=== PATIENT | female | born 1960 | race Caucasian/White ===

== ENCOUNTER 2023-02-10 14:51 | Emergency (ER) | payer OTHER ==
--- OUTSIDE RECORDS SUMMARY | 2023-02-10 14:59 | XMS REPORT | Continuity of Care Document ---
:1960 Author Organization [facility] t Address [address] [place] [address] [place] [id number] Care Team Providers Name Role Phone Luca Lowe MD Primary Care Physician Eloina Garzon Attending Clinician Unavailable Debbie Aggarwal Attending Clinician Unavailable Elena Zaldivar Attending Clinician Unavailable CEM SHELTON Attending Clinician Unavailable BRADY LAMA Attending Clinician Unavailable SALVADOR KO Attending Clinician Unavailable Kadeem Murdock Attending Clinician Unavailable Provider, [facility] Attending Clinician Unavailable Susana Enamorado Attending Clinician SUSANA LANZA Attending Clinician Unavailable Petey Miller MD Attending Clinician Lab, [facility] Pob I Attending Clinician Unavailable Ariane Shaffer Attending Clinician Sarkis Duncan Attending Clinician Unavailable BRITTANY KAPADIA Attending Clinician Unavailable Brittany Kapadia MD Attending Clinician Pob, [facility] Main Attending Clinician Unavailable Amanda Parr MD Attending Clinician AMANDA PARR Attending Clinician Unavailable Doctor Unassigned, [place] Attending Clinician Unavailable JOSE WEI Attending Clinician Unavailable Vinay Garcia MD Attending Clinician Jose Wei MD Attending Clinician DAKSHA ARAUJO Attending Clinician Unavailable SANDRA FREY Attending Clinician Unavailable Physician, No Primary or Family Admitting Clinician Unavailken Zaldivar Musaddiq Admitting Clinician Unavailable SALVADOR KO Admitting Clinician Unavailable Debbie Aggarwal Admitting Clinician Unavailable Luca Lowe Admitting Clinician Unavailable BRITTANY KAPADIA Admitting Clinician Unavailable JOSE WEI Admitting Clinician Unavailable Jose Wei MD Admitting Clinician DAKSHA ARAUJO Admitting Clinician Unavailable Payers Payer Name Policy Type Policy Number Effective Date Expiration Date S ource Problems Condition Condition Condition Status Onset Resolution Last Treating Co mments Source Name Details Category Date Date Treatment Clinician Date Hypokalemi Hypokalemi Disease Active 2020-0 U nivers a a 2-21 ity of 00:00: [address] Edema Edema Disease Active 2020-0 Univers 2-21 ity of 00:: [address] Acute on Acute on Disease Active 2020-0 Unive rs chronic chronic 2-21 [place] diastolic [place] congest[place] dical heart heart Branch failure failure Diarrhea Diarrhea Disease Active 2020-0 Unive rs 2-21 ity of 00:00: [address] Morbid Morbid Disease Active 2020-0 Univers obesity obesity 2-21 ity of 00:00: [address] Cough Cough Disease Active 2020-0 Univers 2-21 ity of 00:00: [place] [facility] PAF PAF Disease Active Univers (paroxysma (paroxysma 2-21 it y of l atrial l atrial 00:00: [place] fibrillati fibrillati 00 Me dical on) on) Branch Anemia Anemia Disease Active Univers 2-21 ity of 00:00: [place] [facility] Dyspnea Dyspnea Disease Active Univers 2-20 ity of 00:00: [place] [facility] Morbid Morbid Disease Active Univers obesity obesity 2-20 ity of with body with body 00:[place] mass index mass index 00 Me dical of of Branch 40.0-49.9 40.0-49.9 Internal Internal Disease Active 2018-06 Meth[facility] di derangemen derangemen 07-15 st t of right t of right 00:00: [facility] knee knee 00 l Open wound Open wound Disease Active 2018-06 M ethodi of right of right 07-15 st knee knee 00:00: Hospita 00 l Right foot Right foot Disease Active 2018-06 M ethodi injury injury 07-15 st 00:00: Hospita 00 l Internal Internal Disease Active 2018-06 Metho di derangemen derangemen 07-15 st t of right t of right 00:00: [facility] knee knee 00 l Ambulatory Ambulatory Disease Active 2019- M ethodi dysfunctio dysfunctio 07-14 st n n 00:00: Hospita 00 l Atrial Atrial Disease Active Methodi fibrillati fibrillati 09-20 st on on 00:00: Hospita 00 l Acquired Acquired Disease Active Metho di hypothyroi hypothyroi 09-20 st dism dism 00:00: Hospita 00 l Osteoporos Osteoporos Disease Active 2019 M ethodi is is 09-20 st 00:00: Hospita 00 l Dysuria Dysuria Disease Active 2015-06 Univers 2-12 ity of 00:00: [place] [facility] Vitamin D Vitamin D Disease Active 2015-06 Uni vers deficiency deficiency 2-12 it y of 00:00: [place] [facility] 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 adhesive DA Active MO 2020-0 [facility] 01-11 Clear 00:00: [place] [facility] adhesive DA Active MO rash 2020- [facility] 01-11 [place] 00:00: d [facility] hydrocod DA Active SV 2020- [facility] one 7 Clear 00:00: [place] [facility] acetamin DA Active SV [facility] ophen 01-07 Clear 00:00: [place] [address] [facility] hydrocod DA Active SV ITCHING [facility] one 01-07 [place] 00:00: d [facility] acetamin DA Active SV ITCHING [facility] ophen 01-07 [place] 00:00: d [facility] Sulfa Propensi Active Itching 2020- Univers (Sulfona ty to 2-20 ity of mide adverse 00:00: [place] Antibiot reaction 00 Medic l ics) s Branch SULFA Drug Active High ITCHING 2020- Univers (SULFONA Class 2-20 ity of MIDE 00:00: [place] ANTIBIOT 00 Medical ICS) Branch Sulfa DA Active U ITCHING 2019- [facility] (Sulfona 8-07 Clear mide 00:00: [place] Antibiot 00 [facility] CEPHALEX DRUG Active Unknown-Cmnt 2020-0 Un carlos IN INGREDI 2-20 ity of 00:00: [place] [facility] Cephalex Propensi Active Unknown - 2020-0 Uni vers in ty to See comments 2-20 ity of adverse 00:00: [place] reaction 00 Medical s to Branch drug Cephalex Propensi Active Itching 2018-06 Metho di in ty to 07-14 st adverse 00:00: Hospita reaction 00 l s to drug Sulfa DA Active [facility] narcotic Allergy Active [facility] Family History Family Member Diagnosis Comments Start Date Stop Date Source Natural brother Hypertension [facility] Natural brother Arthritis [facility] Natural father Cancer [facility] Natural mother Arthritis [facility] Natural mother Gout [facility] Natural mother Heart disease [facility] Natural mother Hypertension [facility] Natural sister Hypertension [facility] Social History Social Habit Start Date Stop Date Quantity Comments Source Gender identity 2022-05-27 Identifies as Method ist 13:27:12 female gender Hospital (finding) Exposure to Not sure University of SARS-CoV-2 (event) [facility] Branch Sexual orientation [facility] Hospital History SDOH [facility] Alcohol Comment Hospital History SDOH [facility] Alcohol Std Drinks Hospit al History SDOH [facility] Alcohol Binge Hospital History of Social 2022-09-21 2022-09-[address] function 00:00:00 00:00:00 Hospital Tobacco use and 2020-08-08 2020-08-08 Never used Universit y of exposure 00:00:00 00:00:00 [place] [facility] Social History 2019-12-28 2019-12-28 [facility] ermann 04:59:59 04:59:59 History SDLA 2019-08-09 2019-08-09 5 University o f Financial 00:00:00 00:00:00 [place] [facility] History SDLA Food 2019-08-09 2019-08-09 1 Univers ity of Worry 00:00:00 00:00:00 [place] [facility] History SDLA Food 2019-08-09 2019-08-09 1 Univers ity of Scarcity 00:00:00 00:00:00 [place] [facility] History SDOH 2019-08-09 2019-08-09 2 University o f Transport Med 00:00:00 00:00:00 [place] [facility] History SDLA 2019-08-09 2019-08-09 2 University o f Transport Non-Med 00:00:00 00:00:00 [place] M edical [facility] History SDLA 2019-08-08 2019-08-08 21 University o f Education 00:00:00 00:00:00 [place] [facility] History SDOH 2019-05-15 2019-05-15 1 [employer] Alcohol Frequency 00:00:00 00:00:00 Hospita l Alcohol intake 2019-05-14 2019-05-14 Current [employer] 00:00:00 00:00:00 non-drinker of Hospital alcohol (finding) Sex Assigned At [birth year] F [employer] 00:00:00 00:00:00 Hospital Smoking Status Start Date Stop Date Source Never smoker [facility] Medications Ordered Filled Start Stop Current Ordering Indication Dosage Frequency Signature Comments Components Source Medication Medication Date Date Medication? Clinician (SIG) Name Name apixaban Yes 5mg Take 5 mg Univ ers (ELIQUIS) 2-20 by mouth 2 ity of 2.5 mg 23:29: (two) [place] tablet 13 times Medical daily. Branch omeprazole Yes 20mg Take 20 mg U nivers 20 mg 2-20 by mouth ity of capsule 23:29: daily. [address] apixaban Yes 5mg Take 5 mg Univ ers (ELIQUIS) 2-20 by mouth 2 ity of 2.5 mg 23:29: (two) [place] tablet 13 times Medical daily. Branch omeprazole Yes 20mg Take 20 mg U nivers 20 mg 2-20 by mouth ity of capsule 23:29: daily. [address] apixaban Yes 5mg Take 5 mg Univ ers (ELIQUIS) 2-20 by mouth 2 ity of 2.5 mg 23:29: (two) [place] tablet 13 times Medical daily. Branch omeprazole Yes 20mg Take 20 mg U nivers 20 mg 2-20 by mouth ity of capsule 23:29: daily. [address] metoprolol Yes TAKE 1 Unive rs tartrate 1-22 TABLET BY ity of 100 mg 00:00: MOUTH [place] tablet 00 EVERY DAY Medical TWICE A Branch DAY WITH FOOD digoxin 125 Yes 125ug Take 125 U nivers mcg (0.125 1-22 mcg by ity of mg) tablet 00:00: mouth [place] 00 daily. [facility] metoprolol Yes TAKE 1 Unive rs tartrate 1-22 TABLET BY ity of 100 mg 00:00: MOUTH [place] tablet 00 EVERY DAY Medical TWICE A Branch DAY WITH FOOD digoxin 125 Yes 125ug Take 125 U nivers mcg (0.125 1-22 mcg by ity of mg) tablet 00:00: mouth [place] 00 daily. [facility] Branch metoprolol Yes TAKE 1 Unive rs tartrate 1-22 TABLET BY ity of 100 mg 00:00: MOUTH [place] tablet 00 EVERY DAY Medical TWICE A Branch DAY WITH FOOD digoxin 125 Yes 125ug Take 125 U nivers mcg (0.125 1-22 mcg by ity of mg) tablet 00:00: mouth [place] 00 daily. Medical Branch barium 2019- No 680g 680 g, Univers sulfate 11-11 Oral, ity of (LIQUID E-Z 17:30: 16:35 ONCE, 1 [place] SALGADO) 60 % 00 :00 dose, Tue Med ical (w/v) oral 11/12/19 at [facility] suspension 1230, 680 g Routine sod 2019- No 1{packe 1 Packet, Univ ers bicarb-citr 11-11 t} Oral, ity of ic 16:15: 16:20 ONCE, 1 [place] ac-simeth 00 :00 dose, Tue Medic al (E-Z-GAS 11/12/[address] [facility] h II) 1115, 2.21-1.53 Routine gram/4 gram packet 1 Packet apixaban 2020-0 Yes 5mg Take 5 mg Univ ers (ELIQUIS) 2-22 by mouth 2 ity of 2.5 mg 19:10: (two) [place] tablet 37 times Medical daily. Branch omeprazole 2020-0 Yes 20mg Take 20 mg U nivers 20 mg 2-22 by mouth ity of capsule 19:10: daily. [address] apixaban 2020-0 Yes 5mg Take 5 mg Univ ers (ELIQUIS) 2-22 by mouth 2 ity of 2.5 mg 19:10: (two) [place] tablet 37 times Medical daily. Branch omeprazole 2020-0 Yes 20mg Take 20 mg U nivers 20 mg 2-22 by mouth ity of capsule 19:10: daily. [address] apixaban 2020-0 Yes 5mg Take 5 mg Univ ers (ELIQUIS) 2-22 by mouth 2 ity of 2.5 mg 19:10: (two) [place] tablet 37 times Medical daily. Branch omeprazole 2020-0 Yes 20mg Take 20 mg U nivers 20 mg 2-22 by mouth ity of capsule 19:10: daily. [address] apixaban 2020-0 Yes 5mg Take 5 mg Univ ers (ELIQUIS) 2-22 by mouth 2 ity of 2.5 mg 19:10: (two) [place] tablet 37 times Medical daily. Branch omeprazole 2020-0 Yes 20mg Take 20 mg U nivers 20 mg 2-22 by mouth ity of capsule 19:10: daily. [address] apixaban 2020-0 Yes 5mg Take 5 mg Univ ers (ELIQUIS) 2-22 by mouth 2 ity of 2.5 mg 19:10: (two) [place] tablet 37 times Medical daily. Branch omeprazole 2020-0 Yes 20mg Take 20 mg U nivers 20 mg 2-22 by mouth ity of capsule 19:10: daily. [address] apixaban 2020-0 Yes 5mg Take 5 mg Univ ers (ELIQUIS) 2-22 by mouth 2 ity of 2.5 mg 19:10: (two) [place] tablet 37 times Medical daily. Branch omeprazole 2020-0 Yes 20mg Take 20 mg U nivers 20 mg 2-22 by mouth ity of capsule 19:10: daily. [address] losartan 50 2020-0 2020- No 50mg Take 50 mg Univers mg tablet 08-10 by mouth ity o f 17:29: 00:00 daily. [place] 25 :00 [facility] Branch FUROSEMIDE 2020-0 2020- No 40mg Take 40 mg Univers ORAL -10 08- by mouth ity of 17:29: 00:00 every 24 [place] 25 :00 (twenty-fo Medical ur) hours Branch as needed (Bilateral leg swelling). levothyroxi 2020-0 Yes 25ug 25 mcg, Uni vers ne -22 Oral, ity of (SYNTHROID) 12:00: QAM-0600, [place] tablet 25 00 First dose Medi xavier mcg on Sat Branch 08/10/19 at 0600, Until Discontinu ed, Routine levothyroxi 2020-0 Yes [id number] 25ug Take 1 Univers ne 25 mcg 2-22 tablet by ity o f tablet 00:00: mouth [place] 00 every Medical morning. Branch atenoloL 25 2020-0 Yes [id number] 12.5mg Take 0.5 Univers mg tablet 2-22 tablets by ity of 00:00: mouth [place] 00 daily. Medical Branch KCL 20 mEq 2020-0 Yes [id number] 20meq Take 1 Univers tablet 2-22 tablet by ity of 00:00: mouth [place] 00 daily. Medical Branch ipratropium 2020-0 Yes [id number] 2{puff} Inhale 2 Univers 17 2-22 Puffs 4 ity of mcg/actuati 00:00: (four) [place] inhaler 00 times Medical daily. Branch furosemide 2020-0 Yes [id number] 40mg Take 1 Univers 40 mg 2-22 tablet by ity of tablet 00:00: mouth [place] 00 daily. Medical Branch levothyroxi 2020-0 Yes [id number] 25ug Take 1 Univers ne 25 mcg 2-22 tablet by ity o f tablet 00:00: mouth [place] 00 every Medical morning. Branch atenoloL 25 2019-0 Yes [id number] 12.5mg Take 0.5 Univers mg tablet 2-22 tablets by ity of 00:00: mouth [place] 00 daily. Medical Branch KCL 20 mEq 2020-0 Yes [id number] 20meq Take 1 Univers tablet 2-22 tablet by ity of 00:00: mouth [place] 00 daily. Medical Branch ipratropium 2019-0 Yes [id number] 2{puff} Inhale 2 Univers 17 2-22 Puffs 4 ity of mcg/actuati 00:00: (four) [place] inhaler 00 times Medical daily. Branch furosemide 2020-0 Yes [id number] 40mg Take 1 Univers 40 mg 2-22 tablet by ity of tablet 00:00: mouth [place] 00 daily. Medical Branch levothyroxi 2020-0 Yes [id number] 25ug Take 1 Univers ne 25 mcg 2-22 tablet by ity o f tablet 00:00: mouth [place] 00 every Medical morning. Branch atenoloL 25 2019-0 Yes [id number] 12.5mg Take 0.5 Univers mg tablet 2-22 tablets by ity of 00:00: mouth [place] 00 daily. Medical Branch KCL 20 mEq 2020-0 Yes [id number] 20meq Take 1 Univers tablet 2-22 tablet by ity of 00:00: mouth [place] 00 daily. Medical Branch ipratropium 2020-0 Yes [id number] 2{puff} Inhale 2 Univers 17 2-22 Puffs 4 ity of mcg/actuati 00:00: (four) [place] on inhaler 00 times Medical daily. Branch furosemide 2020-0 Yes [id number] 40mg Take 1 Univers 40 mg 2-22 tablet by ity of tablet 00:00: mouth [place] 00 daily. Medical Branch levothyroxi 2020-0 Yes [id number] 25ug Take 1 Univers ne 25 mcg 2-22 tablet by ity o f tablet 00:00: mouth [place] 00 every Medical morning. Branch atenoloL 25 2019-0 Yes [id number] 12.5mg Take 0.5 Univers mg tablet 2-22 tablets by ity of 00:00: mouth [place] 00 daily. Medical Branch KCL 20 mEq 2020-0 Yes [id number] 20meq Take 1 Univers tablet 2-22 tablet by ity of 00:00: mouth [place] 00 daily. Medical Branch ipratropium 2020-0 Yes [id number] 2{puff} Inhale 2 Univers 17 2-22 Puffs 4 ity of mcg/actuati 00:00: (four) [place] on inhaler 00 times Medical daily. Branch furosemide 2019-0 Yes [id number] 40mg Take 1 Univers 40 mg 2-22 tablet by ity of tablet 00:00: mouth [place] 00 daily. Medical Branch levothyroxi 2019-0 Yes [id number] 25ug Take 1 Univers ne 25 mcg 2-22 tablet by ity o f tablet 00:00: mouth [place] 00 every Medical morning. Branch atenoloL 25 2019-0 Yes [id number] 12.5mg Take 0.5 Univers mg tablet 2-22 tablets by ity of 00:00: mouth [place] 00 daily. Medical Branch KCL 20 mEq 2020-0 Yes [id number] 20meq Take 1 Univers tablet 2-22 tablet by ity of 00:00: mouth [place] 00 daily. Medical Branch ipratropium 2020-0 Yes [id number] 2{puff} Inhale 2 Univers 17 2-22 Puffs 4 ity of mcg/actuati 00:00: (four) [place] on inhaler 00 times Medical daily. Branch furosemide 2020-0 Yes [id number] 40mg Take 1 Univers 40 mg 2-22 tablet by ity of tablet 00:00: mouth [place] 00 daily. Medical Branch levothyroxi 2020-0 Yes [id number] 25ug Take 1 Univers ne 25 mcg 2-22 tablet by ity o f tablet 00:00: mouth [place] 00 every Medical morning. Branch atenoloL 25 2020-0 Yes [id number] 12.5mg Take 0.5 Univers mg tablet 2-22 tablets by ity of 00:00: mouth [place] 00 daily. Medical Branch KCL 20 mEq 2020-0 Yes [id number] 20meq Take 1 Univers tablet 2-22 tablet by ity of 00:00: mouth [place] 00 daily. Medical Branch ipratropium 2020-0 Yes [id number] 2{puff} Inhale 2 Univers 17 2-22 Puffs 4 ity of mcg/actuati 00:00: (four) [place] on inhaler 00 times Medical daily. Branch furosemide 2020-0 Yes [id number] 40mg Take 1 Univers 40 mg 2-22 tablet by ity of tablet 00:00: mouth [place] 00 daily. Medical Branch levothyroxi 2019-0 Yes [id number] 25ug Take 1 Univers ne 25 mcg 2-22 tablet by ity o f tablet 00:00: mouth [place] 00 every Medical morning. Branch atenoloL 25 2019-0 Yes [id number] 12.5mg Take 0.5 Univers mg tablet 2-22 tablets by ity of 00:00: mouth [place] 00 daily. Medical Branch KCL 20 mEq 2020-0 Yes [id number] 20meq Take 1 Univers tablet 2-22 tablet by ity of 00:00: mouth [place] 00 daily. Medical Branch ipratropium 2019-0 Yes [id number] 2{puff} Inhale 2 Univers 17 2-22 Puffs 4 ity of mcg/actuati 00:00: (four) [place] on inhaler 00 times Medical daily. Branch furosemide 2020-0 Yes [id number] 40mg Take 1 Univers 40 mg 2-22 tablet by ity of tablet 00:00: mouth [place] 00 daily. Medical Branch levothyroxi 2020-0 Yes [id number] 25ug Take 1 Univers ne 25 mcg 2-22 tablet by ity o f tablet 00:00: mouth [place] 00 every Medical morning. Branch atenoloL 25 2019-0 Yes [id number] 12.5mg Take 0.5 Univers mg tablet 2-22 tablets by ity of 00:00: mouth [place] 00 daily. Medical Branch KCL 20 mEq 2020-0 Yes [id number] 20meq Take 1 Univers tablet 2-22 tablet by ity of 00:00: mouth [place] 00 daily. Medical Branch ipratropium 2020-0 Yes [id number] 2{puff} Inhale 2 Univers 17 2-22 Puffs 4 ity of mcg/actuati 00:00: (four) [place] inhaler 00 times Medical daily. Branch furosemide 2020-0 Yes [id number] 40mg Take 1 Univers 40 mg 2-22 tablet by ity of tablet 00:00: mouth [place] 00 daily. Medical Branch levothyroxi 2020-0 Yes [id number] 25ug Take 1 Univers ne 25 mcg 2-22 tablet by ity o f tablet 00:00: mouth [place] 00 every Medical morning. Branch atenoloL 25 2020-0 Yes [id number] 12.5mg Take 0.5 Univers mg tablet 2-22 tablets by ity of 00:00: mouth [place] 00 daily. Medical Branch KCL 20 mEq 2020-0 Yes [id number] 20meq Take 1 Univers tablet 2-22 tablet by ity of 00:00: mouth [place] 00 daily. Medical Branch ipratropium 2020-0 Yes [id number] 2{puff} Inhale 2 Univers 17 2-22 Puffs 4 ity of mcg/actuati 00:00: (four) [place] on inhaler 00 times Medical daily. Branch furosemide 2020-0 Yes [id number] 40mg Take 1 Univers 40 mg 2-22 tablet by ity of tablet 00:00: mouth [place] 00 daily. Medical Branch atenoloL 2020-0 Yes 25mg 25 mg, Univers (TENORMIN) 2-21 Oral, ity of tablet 25 23:00: DAILY, [place] mg 00 First dose Medical on Mon Branch 08/09/19 at 1700, Until Discontinu ed, Routine omeprazole 2020-0 Yes 20mg 20 mg, Unive rs (PRILOSEC) 2-21 Oral, ity of capsule 20 21:00: DAILY, [place] mg 00 First dose Medical on Mon Branch 08/09/19 at 1500, Until Discontinu ed, Routine furosemide 2020-0 Yes 40mg 40 mg, Unive rs (LASIX) 2-21 Slow IV ity of injection 17:30: Push, [place] 40 mg 00 Q12H, Medical First dose Branch on Mon08/09/19 at 1130, Until Discontinu ed, Routine montelukast 2020-0 Yes 10mg 10 mg, Univ ers (SINGULAIR) 08-09 Oral, ity of tablet 10 15:00: DAILY, [place] mg 00 First dose Medical on Fri Branch 08/09/19 at 0900, Until Discontinu ed, Routine ipratropium 2020-0 Yes 2{puff} 2 Puff, Univers (ATROVENT - Inhalation ity of HFA) 14:00: , QID, [place] inhaler 2 00 First dose Medi xavier Puff on Fri Branch 08/09/19 at 0800, Until Discontinu ed, Routine levothyroxi 2019-0 2020- No 50ug 50 mcg, Un carlos ne 08-09 Oral, ity of (SYNTHROID) 12:00: 17:12 QAM-0600, [place] tablet 50 00 :33 First dose Medi xavier mcg on Mon Branch 08/09/19 at 0600, Until Discontinu ed, Routine KCL 2019-0 2020- No 60meq 60 mEq, Univers (KLOR-CON 08-09 Oral, ity of M20) tablet 08:45: 07:58 [place]CE, 1 [place] 60 mEq 00 :00 dose, [facility] Medical 08/09/19 at Branch 0245, Routine dextrometho 2020-0 Yes 5mL 5 mL, Unive rs rphan-guaif 08-09 Oral, ity of enesin 05:03: Q6HPRN, [place] (ROBITUSSIN 23 Starting Medi xavier DM) 10-100 [place] Branch mg/5 mL 08/08/19 at solution 5 2303, mL Until Discontinu ed, Routine, Cough ipratropium 2020-0 Yes .5mg 0.5 mg, Uni vers (ATROVENT) 08-09 Inhalation ity of 0.02 % 03:15: , QIDPRN, [place] nebulizer 00 Starting Medica l solution [place] 0.5 mg 08/08/19 at 2115, Until Discontinu ed, Routine, Wheezing, Shortness of Breath albuterol 2020-0 2020- No 2.5mg 2.5 mg, Uni vers (PROVENTIL) 08-09 Inhalation i ty of 2.5 mg /3 03:00: 02:23 , ONCE [place] mL (0.083 00 :00 NOW, 1 Medical %) dose, [place] Branch nebulizer 08/08/19 at solution 2100, 2.5 mg Routine apixaban 2020-0 Yes 5mg 5 mg, Univers (ELIQUIS) - Oral, BID, ity of tablet 5 mg 02:00: First dose [place] 00 on [facility] 08/08/19 at [place] 2000, Until Discontinu ed, Routine KCL 2020-0 Yes 60meq 60 mEq, Univers (KLOR-CON 08-09 Oral, BID, ity of M20) tablet 02:00: First dose [place] 60 mEq 00 on [facility] 08/08/19 at [place] 2000, Until Discontinu ed, Routine ipratropium 2020-0 2020- No .5mg 0.5 mg, Un carlos (ATROVENT) 08-09 Inhalation it y of 0.02 % 02:00: 03:02 , QID, [place] nebulizer 00 :52 First dose Medi xavier solution on [facility] 0.5 mg 08/08/19 at 2000, Until Discontinu ed, Routine potassium 2020-0 2020- No 10meq 10 mEq, IV Univers chloride in 08-09 Piggyback, i ty of water 10 01:00: 01:00 ONCE, 1 [place] mEq/100 mL 00 :00 dose, [facility] Medi xavier 10 mEq 08/08/19 at [place] piggyback 1900 acetaminoph 2020-0 Yes 650mg 650 mg, Un carlos en 08-09 Oral, ity of (TYLENOL) 00:55: Q6HPRN, [place] tablet 650 29 Starting Medic al mg [facility] 08/08/19 at 1855, Until Discontinu ed, Routine, Pain (scale 1-3) iohexol 2020-0 2020- No 120mL 120 mL, Unive rs (OMNIPAQUE 08-09 Intravenou it y of 350 00:14: 00:14 s, ONCE, 1 [place] BULK-150 00 :00 dose, Dorothy Medica l mL) 08/08/19 at [place] injection 1830, 120 mL Routine cholecalcif 2018-06 Yes 4000U QD Take 4,000 Methodi luis angel, 2-[address] vitamin D3, 19:16: mouth Hospi ta (VITAMIN 30 daily. l D3) 1,000 unit tablet triamterene 2018-06 Yes 1{tbl} QD Take 1 Me thodi -hydrochlor 2-[address] othiazid 19:16: mouth Hospita (MAXZIDE-25 30 daily. l ) 37.5-25 mg per tablet SUMAtriptan 2018-06 Yes 25mg Q24H Take 25 mg Methodi (IMITREX) 2-[address] 25 MG 19:16: daily as Hospita tablet 30 needed for l migraine. May repeat in 2 hours if unresolved . Do not exceed 200 mg in 24 hours. losartan 2018-06 Yes 50mg QD Take 50 mg Met hodi (COZAAR) 50 2-[address] MG tablet 19:16: daily. Hospit a 30 Half a tab l daily apixaban 2018-06 Yes 2.5mg Q.5D Take 2.5 Meth jazmyne (ELIQUIS) 2-[address] 2.5 mg 19:16: mouth 2 Hospita tablet 30 (two) l times a day. diphenhydrA 2018-06 Yes 25mg Q6H Take 25 mg Methodi MINE 2-[address] (BENADRYL) 19:16: every 6 Hosp eric 25 mg 30 (six) l tablet hours as needed for sleep (WITH PAIN MEDS (NORCO AND TYLENOL WITH CODEINE)). levothyroxi 2018-06 Yes 50ug QD Take 50 Met hodi ne 2-[address] (SYNTHROID, 19:16: mouth Hospi ta LEVOXYL) 50 30 every l mcg tablet morning. DULoxetine 2018-06 Yes 20mg QD Take 20 mg M ethodi (CYMBALTA) 2-[address] 20 MG 19:16: daily. [facility] capsule 30 l montelukast 2018-06 Yes 10mg QD Take 10 mg [facility] (SINGULAIR) 2-[address] 10 mg 19:16: daily. [facility]ospita tablet 30 l potassium 2018-06 Yes 10meq QD Take 10 Meth ajzmyne chloride 2-[address] (K-DUR,KLOR 19:16: mouth Hospi ta -CON) 10 30 daily. l MEQ CR tablet cholecalcif 2018-06 Yes 4000U QD Take 4,000 [facility] luis angel, 2-[address] vitamin D3, 19:16: mouth Hospi ta (VITAMIN 30 daily. l D3) 1,000 unit tablet triamterene 2018-06 Yes 1{tbl} QD Take 1 Me thodi -hydrochlor 2-[address] othiazid 19:16: mouth Hospita (MAXZIDE-25 30 daily. l ) 37.5-25 mg per tablet SUMAtriptan 2018-06 Yes 25mg Q24H Take 25 mg [facility] (IMITREX) 2-[address] 25 MG 19:16: daily as Hospita tablet 30 needed for l migraine. May repeat in 2 hours if unresolved . Do not exceed 200 mg in 24 hours. losartan 2018-06 Yes 50mg QD Take 50 mg [facility] (COZAAR) 50 2-[address] MG tablet 19:16: daily. Hospit a 30 Half a tab l daily apixaban 2018-06 Yes 2.5mg Q.5D Take 2.5 Meth jazmyne (ELIQUIS) 2-[address] 2.5 mg 19:16: mouth 2 Hospita tablet 30 (two) l times a day. diphenhydrA 2018-06 Yes 25mg Q6H Take 25 mg [facility] MINE 2-[address] (BENADRYL) 19:16: every 6 Hosp eric 25 mg 30 (six) l tablet hours as needed for sleep (WITH PAIN MEDS (NORCO AND TYLENOL WITH CODEINE)). levothyroxi 2018-06 Yes 50ug QD Take 50 Met hodi ne 2-[address] (SYNTHROID, 19:16: mouth Hospi ta LEVOXYL) 50 30 every l mcg tablet morning. DULoxetine 2018-06 Yes 20mg QD Take 20 mg M [facility] (CYMBALTA) 2-[address] 20 MG 19:16: daily. [facility]ospita capsule 30 l montelukast 2018-06 Yes 10mg QD Take 10 mg [facility] (SINGULAIR) 2-[address] 10 mg 19:16: daily. [facility]ospita tablet 30 l potassium 2018-06 Yes 10meq QD Take 10 Meth jazmyne chloride 2-[address] (K-DUR,KLOR 19:16: mouth Hospi ta -CON) 10 30 daily. l MEQ CR tablet cholecalcif 2018-06 Yes 4000U QD Take 4,000 [facility] luis angel, 2-[address] vitamin D3, 19:16: mouth Hospi ta (VITAMIN 30 daily. l D3) 1,000 unit tablet triamterene 2018-06 Yes 1{tbl} QD Take 1 Me thodi -hydrochlor 2-[address] othiazid 19:16: mouth [facility]ospita (MAXZIDE-25 30 daily. l ) 37.5-25 mg per tablet SUMAtriptan 2018-06 Yes 25mg Q24H Take 25 mg [facility] (IMITREX) 2-[address] 25 MG 19:16: daily as [facility]ospita tablet 30 needed for l migraine. May repeat in 2 hours if unresolved . Do not exceed 200 mg in 24 hours. losartan 2018-06 Yes 50mg QD Take 50 mg [facility] (COZAAR) 50 2-[address] MG tablet 19:16: daily. Hospit a 30 Half a tab l daily apixaban 2018-06 Yes 2.5mg Q.5D Take 2.5 Meth jazmyne (ELIQUIS) 2-[address] 2.5 mg 19:16: mouth 2 [facility]ospita tablet 30 (two) l times a day. diphenhydrA 2018-06 Yes 25mg Q6H Take 25 mg [facility] MINE 2-[address] (BENADRYL) 19:16: every 6 Hosp eric 25 mg 30 (six) l tablet hours as needed for sleep (WITH PAIN MEDS (NORCO AND TYLENOL WITH CODEINE)). levothyroxi 2018-06 Yes 50ug QD Take 50 Met hodi ne 2-[address] (SYNTHROID, 19:16: mouth Hospi ta LEVOXYL) 50 30 every l mcg tablet morning. DULoxetine 2018-06 Yes 20mg QD Take 20 mg [facility] (CYMBALTA) 2-[address] 20 MG 19:16: daily. [facility]osp[facility] capsule 30 l montelukast 2018-06 Yes 10mg QD Take 10 mg [facility] (SINGULAIR) 2-[address] 10 mg 19:16: daily. [facility]ospita tablet 30 l potassium 2018-06 Yes 10meq QD Take 10 Meth jazmyne chloride 2-[address] (K-DUR,KLOR 19:16: mouth Hospi ta -CON) 10 30 daily. l MEQ CR tablet cholecalcif 2018-06 Yes 4000U QD Take 4,000 [facility] luis angel, 2-[address] vitamin D3, 19:16: mouth Hospi ta (VITAMIN 30 daily. l D3) 1,000 unit tablet triamterene 2018-06 Yes 1{tbl} QD Take 1 Me thodi -hydrochlor 2-[address] othiazid 19:16: mouth [facility]ospita (MAXZIDE-25 30 daily. l ) 37.5-25 mg per tablet SUMAtriptan 2018-06 Yes 25mg Q24H Take 25 mg [facility] (IMITREX) 2-[address] 25 MG 19:16: daily as [facility]ospita tablet 30 needed for l migraine. May repeat in 2 hours if unresolved . Do not exceed 200 mg in 24 hours. losartan 2018-06 Yes 50mg QD Take 50 mg [facility] (COZAAR) 50 2-[address] MG tablet 19:16: daily. Hospit a 30 Half a tab l daily apixaban 2018-06 Yes 2.5mg Q.5D Take 2.5 Meth jazmyne (ELIQUIS) 2-[address] 2.5 mg 19:16: mouth 2 [facility]ospita tablet 30 (two) l times a day. diphenhydrA 2018-06 Yes 25mg Q6H Take 25 mg [facility] MINE 2-[address] (BENADRYL) 19:16: every 6 Hosp eric 25 mg 30 (six) l tablet hours as needed for sleep (WITH PAIN MEDS (NORCO AND TYLENOL WITH CODEINE)). levothyroxi 2018-06 Yes 50ug QD Take 50 Met hodi ne 2-[address] (SYNTHROID, 19:16: mouth Hospi ta LEVOXYL) 50 30 every l mcg tablet morning. DULoxetine 2018-06 Yes 20mg QD Take 20 mg M [facility] (CYMBALTA) 2-[address] 20 MG 19:16: daily. [facility]osp[facility] capsule 30 l montelukast 2018-06 Yes 10mg QD Take 10 mg [facility] (SINGULAIR) 2-[address] 10 mg 19:16: daily. [facility]osp[facility] tablet 30 l potassium 2018-06 Yes 10meq QD Take 10 Meth jazmyne chloride 2-[address] (K-DUR,KLOR 19:16: mouth Hospi ta -CON) 10 30 daily. l MEQ CR tablet levothyroxi 2018-06 Yes 50ug QD Take 50 Met hodi ne 2-[address] (SYNTHROID, 13:16: mouth Hospi ta LEVOXYL) 50 30 every l mcg tablet morning. DULoxetine 2018-06 Yes 20mg QD Take 20 mg [facility] (CYMBALTA) 2-[address] 20 MG 13:16: daily. [facility]osp[facility] capsule 30 l montelukast 2018-06 Yes 10mg QD Take 10 mg [facility] (SINGULAIR) 2-[address] 10 mg 13:16: daily. [facility]osp[facility] tablet 30 l potassium 2018-06 Yes 10meq QD Take 10 Meth jazmyne chloride 2-[address] (K-DUR,KLOR 13:16: mouth Hospi ta -CON) 10 30 daily. l MEQ CR tablet cholecalcif 2018-06 Yes 4000U QD Take 4,000 [facility] luis angel, 2-[address] vitamin D3, 13:16: mouth Hospi ta (VITAMIN 30 daily. l D3) 1,000 unit tablet triamterene 2018-06 Yes 1{tbl} QD Take 1 Me [facility]odi -hydrochlor 2-[address] othiazid 13:16: mouth [facility]ospita (MAXZIDE-25 30 daily. l ) 37.5-25 mg per tablet SUMAtriptan 2018-06 Yes 25mg Q24H Take 25 mg [facility] (IMITREX) 2-[address] 25 MG 13:16: daily as [facility]ospita tablet 30 needed for l migraine. May repeat in 2 hours if unresolved . Do not exceed 200 mg in 24 hours. losartan 2018-06 Yes 50mg QD Take 50 mg [facility] (COZAAR) 50 2-[address] MG tablet 13:16: daily. Hospit a 30 Half a tab l daily apixaban 2018-06 Yes 2.5mg Q.5D Take 2.5 Meth jazmyne (ELIQUIS) 2-[address] 2.5 mg 13:16: mouth 2 [facility]ospita tablet 30 (two) l times a day. diphenhydrA 2018-06 Yes 25mg Q6H Take 25 mg [facility] MINE 2-[address] (BENADRYL) 13:16: every 6 Hosp eric 25 mg 30 (six) l tablet hours as needed for sleep (WITH PAIN MEDS (NORCO AND TYLENOL WITH CODEINE)). levothyroxi 2018-06 Yes 50ug QD Take 50 Met hodi ne 2-[address] (SYNTHROID, 13:16: mouth Hospi ta LEVOXYL) 50 30 every l mcg tablet morning. DULoxetine 2018-06 Yes 20mg QD Take 20 mg [facility] (CYMBALTA) 2-[address] 20 MG 13:16: daily. [facility] capsule 30 l montelukast 2018-06 Yes 10mg QD Take 10 mg [facility] (SINGULAIR) 2-[address] 10 mg 13:16: daily. [facility]osp[facility] tablet 30 l potassium 2018-06 Yes 10meq QD Take 10 Meth jazmyne chloride 2-[address] (K-DUR,KLOR 13:16: mouth Hospi ta -CON) 10 30 daily. l MEQ CR tablet cholecalcif 2018-06 Yes 4000U QD Take 4,000 [facility] luis angel, 2-[address] vitamin D3, 13:16: mouth [facility]pi ta (VITAMIN 30 daily. l D3) 1,000 unit tablet triamterene 2018-06 Yes 1{tbl} QD Take 1 Me [facility]odi -hydrochlor 2-[address] othiazid 13:16: mouth [facility]ospita (MAXZIDE-25 30 daily. l ) 37.5-25 mg per tablet SUMAtriptan 2018-06 Yes 25mg Q24H Take 25 mg [facility] (IMITREX) 2-[address] 25 MG 13:16: daily as [facility]osp[facility] tablet 30 needed for l migraine. May repeat in 2 hours if unresolved . Do not exceed 200 mg in 24 hours. losartan 2018-06 Yes 50mg QD Take 50 mg [facility] (COZAAR) 50 2-[address] MG tablet 13:16: daily. Hospit a 30 Half a tab l daily apixaban 2018-06 Yes 2.5mg Q.5D Take 2.5 Meth jazmyne (ELIQUIS) 2-[address] 2.5 mg 13:16: mouth 2 [facility]ospita tablet 30 (two) l times a day. diphenhydrA 2018-06 Yes 25mg Q6H Take 25 mg [facility] MINE 2-[address] (BENADRYL) 13:16: every 6 Hosp eric 25 mg 30 (six) l tablet hours as needed for sleep (WITH PAIN MEDS (NORCO AND TYLENOL WITH CODEINE)). levothyroxi 2018-06 Yes 50ug QD Take 50 Met hodi ne 2-[address] (SYNTHROID, 13:16: mouth Hospi ta LEVOXYL) 50 30 every l mcg tablet morning. DULoxetine 2018-06 Yes 20mg QD Take 20 mg [facility] (CYMBALTA) 2-[address] 20 MG 13:16: daily. [facility]osp[facility] capsule 30 l montelukast 2018-06 Yes 10mg QD Take 10 mg [facility] (SINGULAIR) 2-[address] 10 mg 13:16: daily. [facility]ospita tablet 30 l potassium 2018-06 Yes 10meq QD Take 10 Meth jazmyne chloride 2-[address] (K-DUR,KLOR 13:16: mouth Hospi ta -CON) 10 30 daily. l MEQ CR tablet cholecalcif 2018-06 Yes 4000U QD Take 4,000 [facility] luis angel, 2-[address] vitamin D3, 13:16: mouth Hospi ta (VITAMIN 30 daily. l D3) 1,000 unit tablet triamterene 2018-06 Yes 1{tbl} QD Take 1 Me [facility]odi -hydrochlor 2-[address] othiazid 13:16: mouth [facility]ospita (MAXZIDE-25 30 daily. l ) 37.5-25 mg per tablet SUMAtriptan 2018-06 Yes 25mg Q24H Take 25 mg [facility] (IMITREX) 2-[address] 25 MG 13:16: daily as [facility]ospita tablet 30 needed for l migraine. May repeat in 2 hours if unresolved . Do not exceed 200 mg in 24 hours. losartan 2018-06 Yes 50mg QD Take 50 mg [facility] (COZAAR) 50 2-[address] MG tablet 13:16: daily. Hospit a 30 Half a tab l daily apixaban 2018-06 Yes 2.5mg Q.5D Take 2.5 Meth jazmyne (ELIQUIS) 2-[address] 2.5 mg 13:16: mouth 2 [facility]ospita tablet 30 (two) l times a day. diphenhydrA 2018-06 Yes 25mg Q6H Take 25 mg [facility] MINE 2-[address] (BENADRYL) 13:16: every 6 Hosp eric 25 mg 30 (six) l tablet hours as needed for sleep (WITH PAIN MEDS (NORCO AND TYLENOL WITH CODEINE)). levothyroxi 2018-06 Yes 50ug QD Take 50 Met hodi ne 2-[address] (SYNTHROID, 13:16: mouth Hospi ta LEVOXYL) 50 30 every l mcg tablet morning. DULoxetine 2018-06 Yes 20mg QD Take 20 mg [facility] (CYMBALTA) 2-[address] 20 MG 13:16: daily. [facility]osp[facility] capsule 30 l montelukast 2018-06 Yes 10mg QD Take 10 mg [facility] (SINGULAIR) 2-[address] 10 mg 13:16: daily. [facility]ospita tablet 30 l potassium 2018-06 Yes 10meq QD Take 10 Meth jazmyne chloride 2-[address] (K-DUR,KLOR 13:16: mouth Hospi ta -CON) 10 30 daily. l MEQ CR tablet cholecalcif 2018-06 Yes 4000U QD Take 4,000 [facility] luis angel, 2-[address] vitamin D3, 13:16: mouth Hospi ta (VITAMIN 30 daily. l D3) 1,000 unit tablet triamterene 2018-06 Yes 1{tbl} QD Take 1 Me [facility]odi -hydrochlor 2-[address] othiazid 13:16: mouth [facility]ospita (MAXZIDE-25 30 daily. l ) 37.5-25 mg per tablet SUMAtriptan 2018-06 Yes 25mg Q24H Take 25 mg [facility] (IMITREX) 2-[address] 25 MG 13:16: daily as [facility]osp[facility] tablet 30 needed for l migraine. May repeat in 2 hours if unresolved . Do not exceed 200 mg in 24 hours. losartan 2018-06 Yes 50mg QD Take 50 mg [facility] (COZAAR) 50 2-[address] MG tablet 13:16: daily. Hospit a 30 Half a tab l daily apixaban 2018-06 Yes 2.5mg Q.5D Take 2.5 Meth jazmyne (ELIQUIS) 2-[address] 2.5 mg 13:16: mouth 2 [facility]ospita tablet 30 (two) l times a day. diphenhydrA 2018-06 Yes 25mg Q6H Take 25 mg [facility] MINE 2-[address] (BENADRYL) 13:16: every 6 Hosp eric 25 mg 30 (six) l tablet hours as needed for sleep (WITH PAIN MEDS (NORCO AND TYLENOL WITH CODEINE)). levothyroxi 2018-06 Yes 50ug QD Take 50 Met hodi ne 2-[address] (SYNTHROID, 13:16: mouth Hospi ta LEVOXYL) 50 30 every l mcg tablet morning. DULoxetine 2018-06 Yes 20mg QD Take 20 mg [facility] (CYMBALTA) 2-[address] 20 MG 13:16: daily. [facility]ospita capsule 30 l montelukast 2018-06 Yes 10mg QD Take 10 mg [facility] (SINGULAIR) 2-[address] 10 mg 13:16: daily. [facility]ospita tablet 30 l potassium 2018-06 Yes 10meq QD Take 10 Meth jazmyne chloride 2-[address] (K-DUR,KLOR 13:16: mouth Hospi ta -CON) 10 30 daily. l MEQ CR tablet cholecalcif 2018-06 Yes 4000U QD Take 4,000 [facility] luis angel, 2-[address] vitamin D3, 13:16: mouth Hospi ta (VITAMIN 30 daily. l D3) 1,000 unit tablet triamterene 2018-06 Yes 1{tbl} QD Take 1 Me thodi -hydrochlor 2-[address] othiazid 13:16: mouth [facility]ospita (MAXZIDE-25 30 daily. l ) 37.5-25 mg per tablet SUMAtriptan 2018-06 Yes 25mg Q24H Take 25 mg [facility] (IMITREX) 2-[address] 25 MG 13:16: daily as Hospita tablet 30 needed for l migraine. May repeat in 2 hours if unresolved . Do not exceed 200 mg in 24 hours. losartan 2018-06 Yes 50mg QD Take 50 mg [facility] (COZAAR) 50 2-[address] MG tablet 13:16: daily. Hospit a 30 Half a tab l daily apixaban 2018-06 Yes 2.5mg Q.5D Take 2.5 Meth jazmyne (ELIQUIS) 2-[address] 2.5 mg 13:16: mouth 2 Hospita tablet 30 (two) l times a day. diphenhydrA 2018-06 Yes 25mg Q6H Take 25 mg [facility] MINE 2-[address] (BENADRYL) 13:16: every 6 Hosp eric 25 mg 30 (six) l tablet hours as needed for sleep (WITH PAIN MEDS (NORCO AND TYLENOL WITH CODEINE)). LEVOTHYROXI Yes [id number] 50ug TAKE 1 [facility] [place] 50 mcg 9-10 TABLET BY ity o f tablet 00:00: MOUTH [place] 00 EVERY Medical MORNING. Branch LEVOTHYROXI 2020- No [id number] 50ug TAKE 1 [facility] NE 50 mcg 9-10 - TABLET BY ity of tablet 00:00: 00:00 MOUTH [place] 00 :00 EVERY Medical MORNING. Branch diclofenac Yes 75mg Take 1 [facility] rs 75 mg EC 1-17 tablet by ity of tablet 00:00: mouth 2 [place] 00 (two) Medical times Branch daily with meals. diclofenac Yes 75mg Take 1 Unive rs 75 mg EC 1-17 tablet by ity of tablet 00:00: mouth 2 [place] 00 (two) Medical times Branch daily with meals. diclofenac 2020- No 75mg Take 1 Univ ers 75 mg EC 07-05 tablet by ity o f tablet 00:00: 00:00 mouth 2 [place] 00 :00 (two) Medical times Branch daily with meals. diclofenac 2019- No 75mg Take 1 Univ ers 75 mg EC -17 08-10 tablet by ity o f tablet 00:00: 00:00 mouth 2 [place] 00 :00 (two) Medical times Branch daily with meals. DULoxetine 2016-06 Yes 20 [facility] 20 mg 1-15 ity of capsule 00:00: [place] 00 Medical Branch DULoxetine 2016-06 2020- No 20 Univer s 20 mg 1-15 - ity of capsule 00:00: 00:00 [place] 00 :00 Medical Branch KCL 10 mEq 2016-06 Yes Univers tablet 06-25 ity of 00:00: [place] 00 Medical Branch KCL 10 mEq 2016-06 2020- No Univer s tablet 06-25- ity of 00:00: 00:00 [place] 00 :00 Medical Branch SUMAtriptan 2015-06 Yes Univer s 25 mg 2-30 ity of tablet 00:00: [place] 00 Medical Branch SUMAtriptan 2015-06 2020- No Unive rs 25 mg 2-30 - ity of tablet 00:00: 00:00 [place] 00 :00 Medical Branch DUEXIS 2015-06 Yes Univers 800-26.6 mg 2-22 ity of per tablet 00:00: [place] 00 Medical Branch DUEXIS 2015-06 2020- No Univers 800-26.6 mg 2-22 - ity of per tablet 00:00: 00:00 [place] 00 :00 Medical Branch zopiclone 2015-06 Yes Univer s 1 mg tablet 14 ity of 00:00: [place] 00 Medical Branch zopiclone 2015-06 2020- No Unive rs 1 mg tablet 07-02 ity of 00:00: 00:00 [place] 00 :00 Medical Branch triamterene 2014-06 Yes Univer s -hydrochlor 07-01 ity of othiazide 00:00: [place] (DYAZIDE) 00 Medical 37.5-25 mg Branch per capsule triterene 2014-06 2020- No Unive rs -hydrochlor 07-01 ity of othiazide 00:00: 00:00 [place] (DYAZIDE) 00 :00 Medical 37.5-25 mg [facility] (SINGULAIR) 0-14 ity of 10 mg 00:00: [place] tablet 00 [facility] 2014-06 Yes Univer s (SINGULAIR) 0-14 ity of 10 mg 00:00: [place] tablet 00 [facility] 2014-06 Yes Univer s (SINGULAIR) 0-14 ity of 10 mg 00:00: [place] tablet 00 [facility] 2014-06 Yes Univer s (SINGULAIR) 0-14 ity of 10 mg 00:00: [place] tablet 00 [facility] 2014-06 Yes Univer s (SINGULAIR) 0-14 ity of 10 mg 00:00: [place] tablet 00 [facility] 2014-06 Yes Univer s (SINGULAIR) 0-14 ity of 10 mg 00:00: [place] tablet 00 [facility] 2014-06 Yes Univer s (SINGULAIR) 0-14 ity of 10 mg 00:00: [place] tablet 00 [facility] 2014-06 Yes Univer s (SINGULAIR) 0-14 ity of 10 mg 00:00: [place] tablet 00 [facility] 2014-06 Yes Univer s (SINGULAIR) 0-14 ity of 10 mg 00:00: [place] tablet 00 Medical Branch montecammie 2015-1 Yes Univer s (SINGULAIR) 0-14 ity of 10 mg 00:00: [place] tablet 00 [facility] Branch Immunizations Ordered Immunization Filled Immunization Date Status Commen ts Source Name Name CARY ANDRADEMichelle 2020-11-28 Completed Methodis t MRNA VACCINATION 00:00:00 [facility] RAYMONDMichelle 2020-11-28 Completed Methodis t MRNA VACCINATION 00:00:00 [facility] RAYMONDMichelle 2020-11-28 Completed Methodis t MRNA VACCINATION 00:00:00 [facility] RAYMONDMichelle 2020-11-28 Completed Methodis t MRNA VACCINATION 00:00:00 [facility] RAYMONDMichelle 2020-10-31 Completed [facility] 2020-10[facility]31 Completed Method[facility] t MRNA VACCINATION 00:00:00 Hospital Vital Signs Vital Name Observation Time Observation Value Comments Source Systolic blood 2020-08-08 138 mm[Hg] University of pressure 23:30:00 [facility] [place] Diastolic blood 2020-08-08 84 mm[Hg] University o f pressure 23:30:00 [facility] [place] Heart rate 2020-08-08 95 /min University of 23:30:00 [facility] [place] Body temperature 2020-08-08 36.89 Leidy University of 23:30:00 [facility] [place] Respiratory rate 2020-08-08 15 /min University of 23:30:00 [facility] [place] Body height 2020-08-08 167.6 cm University of 23:30:00 [facility] [place] Body weight 2020-08-08 94.802 kg University of 23:30:00 [facility] [place] BMI 2020-08-08 33.73 kg/m2 University of 23:30:00 [facility] [place] Oxygen saturation 2020-08-08 98 /min [facility] in Arterial blood 23:30:00 [facility] Pulse oximetry Branch Systolic blood 2020-08-08 138 mm[Hg] University of pressure 23:30:00 [facility] [place] Diastolic blood 2020-08-08 84 mm[Hg] University o f pressure 23:30:00 [facility] [place] Heart rate 2020-08-08 95 /min University of 23:30:00 [facility] [place] Body temperature 2020-08-08 36.89 Leidy University of 23:30:00 [facility] [place] Respiratory rate 2020-08-08 15 /min University of 23:30:00 [facility] [place] Body height 2020-08-08 167.6 cm University of 23:30:00 [facility] [place] Body weight 2020-08-08 94.802 kg University of 23:30:00 [facility] [place] BMI 2020-08-08 33.73 kg/m2 University of 23:30:00 [facility] [place] Oxygen saturation 2020-08-08 98 /min [facility] in Arterial blood 23:30:00 [facility] by Pulse oximetry [place] Respiratory rate 2019-08-10 20 /min University of 17:30:00 [facility] [place] Oxygen saturation 2019-08-10 98 /min [facility] in Arterial blood 17:30:00 [facility] by Pulse oximetry [place] Systolic blood 2019-08-10 108 mm[Hg] University of pressure 17:07:00 [facility] [place] Diastolic blood 2019-08-10 65 mm[Hg] University o f pressure 17:07:00 [facility] [place] Heart rate 2019-08-10 79 /min University of 17:07:00 [facility] [place] Body temperature 2019-08-10 36.44 Leidy University of 17:07:00 [facility] [place] Body height 2019-08-08 162.6 cm University of 22:49:00 [facility] [place] Body weight 2019-08-08 111.585 kg Simultaneous University of 22:49:00 filing. User may [place] Medic al not have seen Branch previous data. BMI 2019-08-08 42.23 kg/m2 University of 22:49:00 [facility] [place] Procedures Procedure Date / Time Performing Clinician Source Performed [id number] 2022-08-19 00:00:00 LORNA.[email or web address] [facility] BONE DENSITY 2022-06-08 15:25:23 Cem Shelton Ho spital BONE DENSITY PERIPHERAL 2022-06-08 15:25:12 Cem Shelton [facility] CT LUMBAR SPINE WO 2022-06-08 15:25:00 Cem Shelton [facility] CONTRAST XR SPINE SCOLIOSIS 2-3 2022-05-30 21:32:22 Cem Shelton [facility] VIEWS XR LUMBAR SPINE 2022-05-30 21:31:57 Cem Shelton spital COMPLETE W BENDING MRI SPINE EXTERNAL 2022-03-09 20:44[id number] 2021-03-09 00:00:00 [facility] [id number] 2021-03-09 00:00:00 [facility] [id number] 2021-03-09 00:00[facility]00 [facility] [id number] 2021-03-09 00:00:00 [facility] [id number] 2021-03-08 00:00:00 [facility] [id number] 2021-03-08 00:00:00 [facility] [id number] 2021-03-08 00:00:00 [facility]ME [facility] [id number] 2021-03-08 00:00:00 [facility] [id number] 2021-03-08 00:00:00 [facility] [id number] 2021-03-08 00:00:00 [facility] [id number] 2021-03-08 00:00:00 [facility] [id number] 2021-03-08 00:00:00 [facility] COVID-19 (MOLECULAR 2020-08-08 23:59:[address] [facility] Branch NUCLEIC ACID AMPLIFICATION) URINALYSIS MICROSCOPIC 2020-08-08 23:49:00 Susana Lanza [facility] POCT URINALYSIS 2020-08-08 23:47:00 Susana Lanza [facility] MRI KNEE WO CONTRAST 2020-05-12 01:34:00 [facility] 2020-02-17 16:00:00 Petey Miller [facility] GRAM STAIN 2020-02-17 16:00:00 Petey Miller [facility] JOINT FLUID CULTURE 2020-02-17 16:00[facility] 2019-11-12 16:45:00 Brittany Kapadia [facility] ESOPHAGUS [facility] ASSIGNMENT OF BENEFITS 2019-09-09 16:06:33 Doctor Unassigned, No [facility] Name [facility] BASIC METABOLIC PANEL 2019-08-10 11:10:00 Jose Wei [facility] (NA, K, CL, CO2, Medical Branch GLUCOSE, BUN, CREATININE, CA) CBC WITH DIFFERENTIAL 2019-08-10 11:10:00 Jose Wei [facility] ECHO ROUTINE W/DOPPLER 2019-08-09 23:42:44 Shannon Daigle [facility] VITAMIN B12, LEVEL 2019-08-09 18:24:00 Jose Wei [facility] FOLATE 2019-08-09 18:24:00 Eriberto [facility] TROPONIN I 2019-08-09 18:24:[address] [facility] IRON PANEL 2019-08-09 18:24:00 Eriberto [facility] BILATERAL VENOUS DUPLEX 2019-08-09 14:39:29 Monalisa Guevara [facility] LOWER EXTREMITY BY Medical [facility] VASCULAR LAB FERRITIN SERUM 2019-08-09 11:13:00 Jose Wei [facility] TROPONIN I 2019-08-09 11:13:[address] [facility] BASIC METABOLIC PANEL 2019-08-09 11:13:00 Shannon Daigle [facility] (NA, K, CL, CO2, [facility] GLUCOSE, BUN, CREATININE, CA) CBC WITH DIFFERENTIAL 2019-08-09 11:13:00 Shannon Daigle [facility] FREE T3 2019-08-09 11:13:00 Jose Wei [facility] URINALYSIS 2019-08-09 08:05:[address] [facility] URINE CULTURE 2019-08-09 08:05:00 Shannon Daigle [facility] TROPONIN I 2019-08-09 05:31:[address] [facility] BASIC METABOLIC PANEL 2019-08-09 05:31:00 Shannon Daigle [facility] (NA, K, CL, CO2, Medical Branch GLUCOSE, BUN, CREATININE, CA) RESPIRATORY PANEL BY 2019-08-09 05:18:00 Shannon Daigleita [facility] PCR [facility] CT CHEST PULMONARY 2019-08-09 00:18:16 Vinay Garcia [facility] ANGIOGRAM [facility] XR CHEST 1 VW 2019-08-08 23:15:47 Vinay Garcia [facility] THYROID STIMULATING 2019-08-08 23:02:00 Pilo Shannon [facility] HORMONE [facility] HEPATIC FUNCTION PANEL 2019-08-08 23:02:00 Vinay Garcia [facility] ([id number]) (ALB,T.PRO,BILI [facility] T,BU/BC,ALT,AST,ALK PHOS) BASIC METABOLIC PANEL 2019-08-08 23:02:00 Vinay Garcia [facility] (NA, K, CL, CO2, Medical Branch GLUCOSE, BUN, CREATININE, CA) LIPID PANEL 2019-08-08 23:02:00 PiloShannonita [facility] ([id number])(TOTAL Medical Branch CHOLESTEROL, TRIGLYCERIDES, HDL) CBC WITH DIFFERENTIAL 2019-08-08 23:02:00 Vinay Garcia [facility] PROTHROMBIN TIME / INR 2019-08-08 23:02:00 Vinay Garcia [facility] ACTIVATED PARTIAL 2019-08-08 23:02:00 Jose [facility] THRMPLAS RAVI [facility] N-TERMINAL PRO-BNP 2019-08-08 23:02:00 Vinay Garcia [facility] PHOSPHORUS 2019-08-08 23:02:00 Jose Wei [facility] MAGNESIUM 2019-08-08 23:02:00 [facility] TROPONIN I 2019-08-08 23:02:00 Vinay Garcia [facility] EKG-12 LEAD 2019-08-08 23:00:14 [facility] EKG-12 LEAD 2019-08-08 22:49:57 [facility] CONSENT/REFUSAL FOR 2019-08-08 22:36:02 Doctor Unassigned, No Un [facility] DIAGNOSIS AND TREATMENT Name Medical [place] Plan of Care Planned Activity Planned Date Details Comments Source Future Scheduled 2023-01-18 Screening for [facility] Test 17:08:55 malignant neoplasm of colon (procedure) [code = 375906793] Future Scheduled 2023-01-18 Screening for [facility] Test 17:08:55 malignant neoplasm of colon (procedure) [code = 033216979] Future Scheduled 2023-01-18 Screening for [facility] Test 17:08:55 malignant neoplasm of colon (procedure) [code = 443543109] Future Scheduled 2023-01-18 Hepatitis C screening [facility] Test 17:08:55 (procedure) [code = 066081707] Future Scheduled 2023-01-18 Screening for [facility] Test 17:08:55 malignant neoplasm of cervix (procedure) [code = 741803479] Future Scheduled 2023-01-18 BREAST CANCER [facility] Test 17:08:55 SCREENING [code = BREAST CANCER SCREENING] Future Scheduled 2023-01-18 Screening for [facility] Test 17:08:55 malignant neoplasm of colon (procedure) [code = 053298283] Future Scheduled 2023-01-18 Screening for [facility] Test 17:08:55 malignant neoplasm of colon (procedure) [code = 489997579] Future Scheduled 2023-01-18 SHINGLES VACCINES (1 [facility] Test 17:08:55 of 2) [code = SHINGLES VACCINES (1 of 2)] Future Scheduled 2023-01-18 COVID-19 VACCINE (3 - Me [facility] Test 17:08:55 Moderna series) [code = COVID-19 VACCINE (3 - Moderna series)] Future Scheduled 2023-01-18 ZZZ INFLUENZA VACCINE [facility] Test 17:08:55 [code = ZZZ INFLUENZA VACCINE] Future Scheduled 2022-09-21 [facility] Test 21:44:36 (procedure) [code = 150060594] Future Scheduled 2022-09-21 [facility] Test 21:44:36 malignant neoplasm of cervix (procedure) [code = 740762793] Future Scheduled 2022-09-21 BREAST CANCER [facility] Test 21:44:36 SCREENING [code = BREAST CANCER SCREENING] Future Scheduled 2022-09-[address] [facility] Test 21:44:36 [code = COLONOSCOPY SCREENING] Future Scheduled 2022-09-21 SHINGLES VACCINES (1 [facility] Test 21:44:36 of 2) [code = SHINGLES VACCINES (1 of 2)] Future Scheduled 2022-09-21 COVID-19 VACCINE (3 - Me [facility] Test 21:44:36 Booster for Moderna series) [code = COVID-19 VACCINE (3 - Booster for Moderna series)] Future Scheduled 2022-09-21 INFLUENZA VACCINE [facility] Test 21:44:36 [code = INFLUENZA VACCINE] Future Scheduled 2022-08-18 Hepatitis C screening [facility] Test 00:22:49 (procedure) [code = 474867044] Future Scheduled 2022-08-18 [facility] Test 00:22:49 malignant neoplasm of cervix (procedure) [code = 399413873] Future Scheduled 2022-08-18 BREAST CANCER [facility] Test 00:22:49 SCREENING [code = BREAST CANCER SCREENING] Future Scheduled 2022-08-18 COLONOSCOPY SCREENING [facility] Test 00:22:49 [code = COLONOSCOPY SCREENING] Future Scheduled 2022-08-18 SHINGLES VACCINES (1 [facility] Test 00:22:49 of 2) [code = SHINGLES VACCINES (1 of 2)] Future Scheduled 2022-08-18 COVID-19 VACCINE (3 - Me [facility] Test 00:22:49 Booster for Moderna series) [code = COVID-19 VACCINE (3 - Booster for Moderna series)] Future Scheduled 2022-08-18 INFLUENZA VACCINE [facility] Test 00:22:49 [code = INFLUENZA VACCINE] Future Scheduled 2022-07-06 Hepatitis C screening [facility] Test 12:12:36 (procedure) [code = 177383770] Future Scheduled 2022-07-06 [facility] Test 12:12:36 malignant neoplasm of cervix (procedure) [code = 314896864] Future Scheduled 2022-07-06 BREAST CANCER [facility] Test 12:12:36 SCREENING [code = BREAST CANCER SCREENING] Future Scheduled 2022-07-06 COLONOSCOPY SCREENING [facility] Test 12:12:36 [code = COLONOSCOPY SCREENING] Future Scheduled 2022-07-06 SHINGLES VACCINES (1 [facility] Test 12:12:36 of 2) [code = SHINGLES VACCINES (1 of 2)] Future Scheduled 2022-07-06 COVID-19 VACCINE (3 - Me [facility] Test 12:12:36 Booster for Moderna series) [code = COVID-19 VACCINE (3 - Booster for Moderna series)] Future Scheduled 2022-07-06 INFLUENZA VACCINE [facility] Test 12:12:36 [code = INFLUENZA VACCINE] Future Scheduled 2021-07-28 COVID-19 VACCINE (1) [facility] Test 15:33:47 [code = COVID-19 VACCINE (1)] Future Scheduled 2021-07-28 Hepatitis C screening [facility] Test 15:33:47 (procedure) [code = 861649285] Future Scheduled 2021-07-28 [facility] Test 15:33:47 malignant neoplasm of cervix (procedure) [code = 555490225] Future Scheduled 2021-07-28 BREAST CANCER [facility] Test 15:33:47 SCREENING [code = BREAST CANCER SCREENING] Future Scheduled 2021-07-28 COLONOSCOPY SCREENING [facility] Test 15:33:47 [code = COLONOSCOPY SCREENING] Future Scheduled 2021-07-28 SHINGLES VACCINES [facility] Test 15:33:47 (#1) [code = SHINGLES VACCINES (#1)] Future Scheduled 2021-07-28 INFLUENZA VACCINE [facility] Test 15:33:47 [code = INFLUENZA VACCINE] Future Scheduled COVID-19 VACCINE (1) [facility] Test [code = COVID-19 VACCINE (1)] Future Scheduled Hepatitis C screening [facility] Test (procedure) [code = 938703207] Future Scheduled [facility] Test malignant neoplasm of cervix (procedure) [code = 213680731] Future Scheduled BREAST CANCER [facility] Test SCREENING [code = BREAST CANCER SCREENING] Future Scheduled [facility] [code = COLONOSCOPY SCREENING] Future Scheduled SHINGLES VACCINES [facility] Test (#1) [code = SHINGLES VACCINES (#1)] Future Scheduled INFLUENZA VACCINE [facility] Test [code = INFLUENZA VACCINE] Future Scheduled COVID-19 [facility]ACCINE (1) [facility] [code = COVID-19 VACCINE (1)] Future Scheduled [facility] Test (procedure) [code = 619121201] Future Scheduled [facility] Test malignant neoplasm of cervix (procedure) [code = 739747006] Future Scheduled BREAST CANCER [facility] Test SCREENING [code = BREAST CANCER SCREENING] Future Scheduled [facility]COPY [facility]CREENING [facility] [code = COLONOSCOPY SCREENING] Future Scheduled SHINGLES VACCINES [facility] Test (#1) [code = SHINGLES VACCINES (#1)] Future Scheduled INFLUENZA VACCINE [facility] Test [code = INFLUENZA VACCINE] Future Scheduled COVID-19 VACCINE (1) [facility] [code = COVID-19 VACCINE (1)] Future Scheduled [facility] Test (procedure) [code = 740961275] Future Scheduled [facility] Test malignant neoplasm of cervix (procedure) [code = 343023587] Future Scheduled BREAST CANCER [facility] Test SCREENING [code = BREAST CANCER SCREENING] Future Scheduled [facility]OSCOPY [facility]CRE[facility]ING [facility] [code = COLONOSCOPY SCREENING] Future Scheduled SHINGLES VACCINES [facility] Test (#1) [code = SHINGLES VACCINES (#1)] Future Scheduled INFLUENZA VACCINE [facility] Test [code = INFLUENZA VACCINE] Future Scheduled COVID-19 VACCINE (1) [facility] [code = COVID-19 VACCINE (1)] Future Scheduled [facility] Test (procedure) [code = 987949594] Future Scheduled [facility] Test malignant neoplasm of cervix (procedure) [code = 850661878] Future Scheduled BREAST CANCER [facility] Test SCREENING [code = BREAST CANCER SCREENING] Future Scheduled [facility]OSCOPY [facility]CREENING [facility] [code = COLONOSCOPY SCREENING] Future Scheduled SHINGLES VACCINES [facility] Test (#1) [code = SHINGLES VACCINES (#1)] Future Scheduled INFLUENZA VACCINE [facility] Test [code = INFLUENZA VACCINE] Encounters Start End Encounter Admission Attending Care Care Encounter Source Date/Time Date/Time Type Type Clinicians Facility Department ID 2021-07-22 Outpatient DELIA LIN [id number] 17:30:56 Colton farrell 2021-07-22 Outpatient MDA DELIA [id number] 17:24:52 Colton farrell 2022-11-28 2022-11-28 Outpatient Duran, HCACL HCACL [id number] [facility] 09:53:00 09:53:00 Duvall 94 [facility] 2022-10-17 2022-10-17 Outpatient MARIO Aggarwal, HCACL [facility] [id number] [facility] 09:59:00 09:59:00 Debbie 25 [facility] 2022-08-17 2022-08-24 Inpatient EM Kayley, HCAPM INTE.02 [id number] [facility] 14:14:00 15:35:00 Musaddiq 49 [facility] 2022-08-18 2022-08-18 Outpatient Kayley, HCACL LABO [id number] [facility] 00:22:00 00:22:00 Musaddiq 33 [facility] 2022-08-17 2022-08-17 Outpatient MARIO Garzon, HCAPM RADI [id number] [facility] 06:49:00 06:49:00 Duvall 80 [facility] 2022-08-16 2022-08-16 Outpatient MARIO Garzon, HCAPM RADI [id number] [facility] 07:36:00 07:36:00 Duvall 33 [facility] 2022-06-08 2022-06-08 Outpatient NIKITA [facility] [id number] [place] 00:00:00 00:00:00 CEM 884 Method i 2022-06-08 2022-06-08 Outpatient NIKITA [facility] [id number] [address] [place] [address] 00:00:00 00:00:00 CEM 803 Method i 2022-06-08 2022-06-08 Outpatient NIKITA [facility] [id number] 692 [place] 00:00:00 00:00:00 CEM 987 Method i 2022-05-30 2022-05-30 [facility], 1.2.840.1 [id number] Methodi 14:48:01 23:59:00 Encounter Cem 69538.1.[address] 3.430.2.7 Hospit a .3.669218 l .8 2022-05-30 2022-05-30 [facility], 1.2.840.1 [id number] Methodi 14:48:01 23:59:00 Encounter Cem 15900.1.[address] 3.430.2.7 Hospit a .3.340801 l .8 2022-05-30 2022-05-30 [facility], 1.2.840.1 [id number] 34180 Methodi 14:45:00 14:47:00 Encounter Cem 85022.1.[address] 3.430.2.7 Hospit a .3.456227 l .8 2022-05-30 2022-05-30 [facility], 1.2.840.1 [id number] Methodi 14:45:00 14:47:00 Encounter Cem 63773.1.[address] 3.430.2.7 Hospit a .3.222889 l .8 2022-05-30 2022-05-30 [facility], 1.2.840.1 [id number] 08489 Methodi 13:16:50 14:44:00 Encounter Cem 68844.1.[address] 3.430.2.7 Hospit a .3.329340 l .8 2022-05-30 2022-05-30 [facility], 1.2.840.1 [id number] Methodi 13:16:50 14:44:00 Encounter Cem 99769.1.[address] 3.430.2.7 Hospit a .3.017403 l .8 2022-05-30 2022-05-30 [facility], 1.2.840.1 [id number] 6353 Methodi 13:30:00 14:04:12 Visit Cem 17791.1.[address] 3.430.2.7 Hospit a .3.359153 l .8 2022-05-30 2022-05-30 Office Nikita, 1.2.840.1 [id number] 6257 Methodi 13:30:00 14:04:12 Visit Cem 55962.1.[address] 3.430.2.7 Hospit a .3.597538 l .8 2022-05-30 2022-05-30 Travel 1.2.840.1 1.2.513.006 7357 [id number] Methodi 00:00:00 00:00:[address] 3.430.2.7 0.2.7.3.698 Ho spita .3.116317 084.8 l .8 2022-05-30 2022-05-30 Travel 1.2.840.1 1.2.844.488 8742 049781 Methodi 00:00:00 00:00:[address] 3.430.2.7 0.2.7.3.698 Ho spita .3.103351 084.8 l .8 2022-05-23 2022-05-23 Travel 1.2.840.1 1.2.370.288 6936 837370 Methodi 00:00:00 00:00:[address] 3.430.2.7 0.2.7.3.698 Ho spita .3.736633 084.8 l .8 2022-05-23 2022-05-23 Travel 1.2.840.1 1.2.536.497 7509 803459 Methodi 00:00:00 00:00:[address] 3.430.2.7 0.2.7.3.698 Ho spita .3.338829 084.8 l .8 2022-03-24 2022-03-24 Outpatient [facility] [id number] 12:12:00 12:12:00 -[id number] [facility] 2022-03-11 2022-03-11 Outpatient LIKOVER, [facility] [id number] Memoria 09:42:00 23:59:00 [facility] 2022-01-11 2022-01-11 Outpatient [facility] [id number] 08:56:00 08:56:00 -[id number] [facility] 2021-06-02 2021-06-[address] [id number] Memoria 05:38:00 13:50:00 [facility] 2021-03-24 2021-03-24 Outpatient EL Korb, HCACL RADI [id number] [facility] 10:14:00 10:14:00 Debbie 58 [facility] 2021-03-09 2021-03-11 Inpatient EL Korb, HCACL MED [id number] [facility] 11:00:00 15:07:00 Debbie 14 [facility] 2021-03-04 2021-03-04 Outpatient LIKOVER, [facility] 1259 Memoria 15:02:00 23:59:00 [facility]ADOR [facility] 2021-02-12 2021-02-12 Outpatient EL Dahdel, HCACL OUTD [id number] [facility] 11:35:00 11:35:00 Duvall 96 [facility] 2021-02-03 2021-02-03 Outpatient EL Dahdel, HCACL OUTD [id number] [facility] 08:49:00 08:49:00 Duvall 28 [facility] 2021-01-11 2021-01-11 Outpatient EL Dahdel, HCACL ENDO [id number] [facility] 05:32:00 05:32:00 Duvall 76 [facility] 2020-12-14 2020-12-14 Outpatient EL Dahdel, HCACL [facility] [id number] [facility] 14:15:00 14:15:00 Duvall 05 [facility] 2020-11-30 2020-11-20 Inpatient EL Dumas HCACL OUTD [id number] [facility] 07:30:00 14:49:02 Kadeem Carpio 80 [facility] 2020-10-21 2020-10-21 Telephone Provider, [facility] 1.2.840.114 [id number] 00:00:00 00:00:00 [facility] 350.1.13.10 Care Surgical 4.2.7.2.686 Specialti [phone] es 370 [place] 2020-10-21 2020-10-21 Telephone Provider, [facility] 1.2.840.114 [id number] Univers 00:00:00 00:00:00 [facility] 350.1.13.10 ity of Care Surgical 4.2.7.2.686 Imcky as Specialti [phone] Me dical 370 [facility] 2020-08-13 2020-08-13 Outpatient [facility] [id number] 12:30:00 12:30:00 -[id number] [facility] 2020-08-08 2020-08-08 Urgent Provider, [facility] 1.2.028.859 [id number] 17:16:17 18:03:55 Care [facility] 350.1.13.10 Care [place] 4.2.7.2.686 Professio [phone] nal [facility] Office Building One 2020-08-08 2020-08-08 Urgent Provider, [facility] 1.2.840.114 [id number] Univers 17:16:17 18:03:55 Care [facility] 350.1.13.10 ity [facility] 4.2.7.2.686 Micky as Professio [phone] Md dic[address] Office Building One 2020-08-08 2020-08-08 Outpatient Petr LANZA [facility] [id number] Univers 17:20:00 17:20:00 SUSANA ity [facility] 2020-08-08 2020-08-08 Inpatient Dumas HCACL HCACL [id number] [facility] 15:32:37 15:32:37 Kadeem Carpio 48 Cl [facility] 2020-05-11 2020-05-11 [facility], 1.2.840.1 [id number] Methodi 18:15:16 23:59:00 Encounter Petey 62545.1.[address] 3.430.2.7 Hospit a .3.214752 l .8 2020-05-11 2020-05-11 Travel 1.2.840.1 1.2.872.090 0173 [id number] Methodi 00:00:00 00:00:[address] 3.430.2.7 0.2.7.3.698 Ho spita .3.234680 084.8 l .8 2020-05-07 2020-05-07 Travel 1.2.840.1 1.2.453.624 4797 [id number] Methodi 00:00:00 00:00:[address] 3.430.2.7 0.2.7.3.698 Ho spita .3.355989 084.8 l .8 2020-05-06 2020-05-06 Transcribe Ana, 1.2.840.1 [id number] Methodi 00:00:00 00:00:00 Edwin Angelo 09277.1.[address] 3.430.2.7 Hospit a .3.879293 l .8 2020-02-27 2020-02-27 Laboratory Lab, Adc Fam Pob I [facility] 1.2. 840.114 [id number] Univers 10:37:00 10:57:00 Only Ariane Saenz [facility] 350.1.13.10 ity [facility] 4.2.7.2.686 Micky as Professio [phone] [place] [address] [address] Office [address] One 2020-02-27 2020-02-27 Outpatient R [facility] [id number] Univers 10:40:00 10:40:00 ity [facility] 2020-02-19 2020-02-19 Outpatient PADMINI Garzon [facility] [id number] [facility] 09:30:00 09:30:00 Eloina 69 [facility] 2020-02-17 2020-02-17 Lab Ana, 1.2.840.1 [id number] Methodi 11:18:06 11:23:[address] 3.430.2.7 Hospit a .3.431544 l .8 2020-02-17 2020-02-17 Travel 1.2.840.1 1.2.596.463 6820 735755 Methodi 00:00:00 00:00:[address] 3.430.2.7 0.2.7.3.698 Ho spita .3.118862 084.8 l .8 2020-01-24 2020-01-24 Outpatient MIGUEL Duncan RADI [id number] [facility] 15:00:00 15:00:00 Sarkis Otis [facility] 2019-12-26 2019-12-28 Outside [facility] MNA [id number] Memoria 21:22:46 04:59:59 Medical r Neurology 00 l Records Antonio Yadav 2019-11-20 2019-11-20 Outpatient ANA [facility] [id number] [place] 00:00:00 00:00:00 PETEY 615 Method i 2019-11-12 2019-11-12 Outpatient R [facility] [id number] Univers 10:39:37 23:59:00 BRITTANY Frey [facility] 2019-11-12 2019-11-12 [facility] 1.2.840.114 [id number] Univers 10:39:00 23:59:00 Encounter Brittany frey 350.1.13.10 ity of [place] 4.2.7.2.686 [facility] [phone] [facility] [address] 2019-09-11 2019-09-11 Build Technician Leandro, Chencho Lab Main [facility] 1.2.8 40.114 [id number] Univers 12:39:14 12:54:14 Visit Amanda Parr 350.1.13.10 ity of [place] 4.2.7.2.686 [facility] s [facility] [phone] Md dical nal [address] Building 2019-09-11 2019-09-11 Outpatient R TENZIN [facility] [id number] Univers 12:45:00 12:45:00 SHARONAMMED ity o f [facility] 2019-09-09 2019-09-09 Build Technician Chencho Reeves Lab Main [facility] 1.2.8 40.114 [id number] Univers 11:09:17 11:24:17 Visit AttarAmanda 350.1.13.10 ity of [place] 4.2.7.2.686 [place] [facility] [phone] Md dical [address] 2019-09-09 2019-09-09 Outpatient R ATTAR, [facility] [id number] Univers 11:15:00 11:15:00 [facility] ity o f [facility] 2019-09-09 2019-09-09 Orders Doctor [facility] 1.2.840.114 [id number] Univers 00:00:00 00:00:00 Only Unassigned, YEISON 350.1.13.10 ity of [facility] 4.2.7.2.686 Micky as [phone] [address] 2019-08-08 2019-08-10 [facility] [id number] Univers 16:38:17 12:41:00 JOSE itmaribel [facility] 2019-08-08 2019-08-10 Emergency Vinay Garcia [facility] 1.2.840. 114 [id number] Univers 16:38:17 12:41:00 Eriberto Jose Collins 350.1.13.10 ity of [place] 4.2.7.2.686 [place] [phone] [facility] [address] 2019-08-07 2019-08-08 Outpatient nullFlavo MNA [id number] Memoria 14:15:00 05:59:59 r Neurology 00 l Houmajaden Yadav 2019-08-08 2019-08-08 Orders Doctor [facility] 1.2.840.114 [id number] Univers 00:00:00 00:00:00 Only Unassigned, YEISON 350.1.13.10 ity of [facility] 4.2.7.2.686 Micky as [phone] [facility] [address] 2019-05-14 2019-05-20 [facility] 932 [id number] [place] 00:00:00 00:00:00 FARTUNFRANDYJESUS [address] Results Test Description Test Time Test Comments Results Result 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 R91.1, TAI EXAMS: CPT CODE: [id number] CT CHEST W/O CONTRAST [id number] EXAM: Chest CT without contrast Dictation location: H10 INDICATION: Carcinoid tumor of the lung, lung nodule COMPARISON: CT chest on 01/13/2021 TECHNIQUE: Helical CT of the chest was performed without IV contrast. 5 mm axial and coronal and sagittal reformatted images were obtained. Unless otherwise specified, incidental findings do not require dedicated imaging follow-up. DISCUSSION: Lungs and airways: There has been interval right thoracotomy and partial right upper lobectomy. There is nonspecific thin linear soft tissue attenuation along the staple line. There are scattered peripheral tree in bud nodular opacities such as in the right upper lobe on axial image 93 and right middle lobe on axial image 163. There is linear opacity at the anterior aspect of the right upper lobe on axial image 156, slightly more prominent compared to 12/06/2020. Air trapping is seen at the anterior aspect of the lingula, with adjacent linear atelectasis or scarring, unchanged from November 2020. No pleural effusion or pneumothorax is seen. Heart and mediastinum: The ascending aorta is mildly enlarged but not aneurysmal, measuring 3.8 cm in diameter. Coronary artery calcifications are seen. Heart size is at the upper limits of normal. There is lipomatous hypertrophy of the interatrial septum. No pericardial effusion or mediastinal mass is seen. There is a small fat-containing hiatal hernia. Lymph nodes: No lymphadenopathy. Bones/soft tissues: No fracture or evidence of bony neoplastic process. There is been prior kyphoplasty or vertebroplasty at L1. Upper abdomen: The gallbladder is surgically absent. There is a questionable micronodular liver contour. IMPRESSION: 1. Interval thoracotomy and partial right upper lobectomy. There is thin linear soft tissue attenuation along the staple line, likely scarring. 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 R91.1, TAI EXAMS: CPT CODE: [id number] CT CHEST W/O CONTRAST 17339 (Continued) right upper lobe and right middle lobe. 2. Linear opacity at the anterior aspect of the right upper lobe is more prominent compared to the previous exam on November 2020. This may reflect a combination of bronchiolitis and scarring. Follow-up CT chest in 3-6 months is suggested. 3. Unchanged air trapping at the anterior aspect of the lingula, with adjacent linear atelectasis or scarring. 4. Coronary artery calcifications. Upper limits normal heart size. 5. Questionable micronodular liver contour. This could be seen with cirrhosis in the appropriate clinical scenario. One or more of the following dose reduction techniques were used: Automated exposure control, adjustment of the mA and/or kV according to patient size, and/or utilization of iterative reconstruction technique. DLP: 428 mGy-cm CTDI: 10.5 mGy at 1422 Reported and signed by: Luac Golden M.D. CC: Debbie Aggarwal MD Technologist:Sumi Hogue, RT(R)(CT) CTDI: DLP: Trnscb Date/Time: 10/17/2022 (1421) [email or web address] Orig Print D/T: S: 10/17/2022 (1114) PAGE 2 Signed Report - XR CHEST 2 V 2022-08-24 12:52:00 [facility] : 1960 Sex: F Name: ERNESTO MAURICIO [facility] : 1960 Age/S: 62 / F [address] Unit #: [id number] Loc: [place] [address] Phys: Elena Zaldivar MD Acct: [id number] Dis Date: Status: ADM IN PHONE #: [phone] Exam Date: 08/24/2022 1032 FAX #: Reason: pnemothorax EXAMS: CPT: [id number] XR CHEST 2 V 57767 Fluoro Time: DAP (Gy m2): Air Kerma (mGy): Location Code: S17 EXAMINATION: - XR CHEST 2 V CLINICAL INDICATION: Female, 62 years year old with pneumothorax COMPARISON: Chest x-ray August 23, 2022 at 1604 hours FINDINGS: 2 view(s) of the chest submitted. Support Devices: None. Heart: Cardiac silhouette is stable in size. Mediastinum: Mediastinal contours are unchanged. Lungs: Pulmonary vessels are normal in size. Bandlike left midlung and lower lung atelectasis. Pleura: No pleural effusion is identified. Near complete resolution of tiny left apical pneumothorax. Bones: Visualized skeleton is stable in appearance. Slight interval reduction in left-sided subcutaneous emphysema. IMPRESSION: Near complete resolution of tiny left apical pneumothorax. Interval improvement of left sided subcutaneous emphysema. at 5492 Reported and signed by: Aidan Ceron M.D. CC: Elena Zaldivar MD PAGE 1 Signed Report Name: ERNESTO MAURICIO [facility] : 1960 Age/S: 62 / F [address] Unit #: [id number] Loc: [place] [address] Phys: Elena Zaldivar MD Acct: [id number] Dis Date: Status: ADM IN PHONE #: [phone] Exam Date: 08/24/2022 1032 FAX #: Reason: pnemothorax EXAMS: CPT: [id number] XR CHEST 2 V 28967 Fluoro Time: DAP (Gy m2): Air Kerma (mGy): (Continued) Technologist: Gabrielle Lama Trnscb Date/Time: 08/24/2022 (108) [email or web address] Orig Print D/T: S: 08/24/2022 (5630) PAGE 2 Signed Report - XR CHEST 1 V 2022-08-23 16:20:00 [facility] : 1960 Sex: F Name: ERNESTO MAURICIO [place] : 1960 Age/S: 62 / F [address] Unit #: [id number] Loc: [place] [address] Phys: Aidan Ceron MD Acct: [id number] Dis Date: Status: ADM IN PHONE #: [phone] Exam Date: 08/23/2022 1604 FAX #: Reason: POST CHEST TUBE REMOVAL EXAMS: CPT: [id number] XR CHEST 1 V 22734 Fluoro Time: DAP (Gy m2): Air Kerma (mGy): Location of dictation: H14 Portable chest one view. HISTORY: POST CHEST TUBE REMOVAL COMMENT: Compared to earlier study the same day. The left pigtail catheter has been removed. There is residual tiny small left pneumothorax. Residual lingular and left lower lobe atelectasis and extensive subcutaneous emphysema along the left lateral chest wall and left neck appear similar. IMPRESSION: 1. Left pigtail catheter removed. 2. Otherwise stable chest with no worsening of tiny left pneumothorax. at 1620 Reported and signed by: Leatha Echevarria M.D. CC: Aidan Ceron MD; Elena Zaldivar MD PAGE 1 Signed Report Name: ERNESTO MAURICIO [place] : 1960 Age/S: 62 / F [address] [facility] Unit #: [id number] Loc: [place] [address] Phys: Aidan Ceron MD Acct: [id number] Dis Date: Status: ADM IN PHONE #: [phone] Exam Date: 08/23/2022 1604 FAX #: Reason: POST CHEST TUBE REMOVAL EXAMS: CPT: [id number] XR CHEST 1 V 41913 Fluoro Time: DAP (Gy m2): Air Kerma (mGy): (Continued) Technologist: Fran Graham, RT(R) Trnscb Date/Time: 08/23/2022 (1620) JoseC Orig Print D/T: S: 08/23/2022 (8017) PAGE 2 Signed Report - XR CHEST 1 V 2022-08-23 15:26:00 [facility] : 1960 Sex: F Name: ERNESTO MAURICIO [facility] : 1960 Age/S: 62 / F [address] Unit #: [id number] Loc: [place] [address] Phys: Aidan Ceron MD Acct: [id number] Dis Date: Status: ADM IN PHONE #: [phone] Exam Date: 08/23/2022 1512 FAX #: Reason: CHEST TUBE IN PLACE, LUNG RE-EXPANDED VERIFICAT EXAMS: CPT: [id number] XR CHEST 1 V 92927 Fluoro Time: DAP (Gy m2): Air Kerma (mGy): Location Code: S17 EXAMINATION: - XR CHEST 1 V CLINICAL INDICATION: Female, 62 years year old with CHEST TUBE IN PLACE, LUNG RE-EXPANDED VERIFICATION COMPARISON: Chest x-ray performed August 23 at 1157 hours. FINDINGS: Single view(s) of the chest submitted. Support Devices: Stable position of left-sided chest tube. Heart: Cardiac silhouette is stable in size. Mediastinum: Mediastinal contours are unchanged. Lungs: Pulmonary vessels are normal in size. No significant residual pneumothorax. Previously noted left AP window lucency has resolved. Stable left lung atelectatic changes. Bones: Visualized skeleton is stable in appearance. Left-sided subcutaneous emphysema is unchanged. IMPRESSION: Stable position of left-sided chest tube. No significant residual pneumothorax. at 1526 Reported and signed by: Aidan Ceron M.D. CC: Aidan Ceron MD; Elena Zaldivar MD PAGE 1 Signed Report Name: ERNESTO MAURICIO [facility] : 1960 Age/S: 62 / F [address] Unit #: [id number] Loc: [place] [address] Phys: Aidan Ceron MD Acct: [id number] Dis Date: Status: ADM IN PHONE #: [phone] Exam Date: 08/23/2022 1512 FAX #: Reason: CHEST TUBE IN PLACE, LUNG RE-EXPANDED VERIFICAT EXAMS: CPT: [id number] XR CHEST 1 V 83250 Fluoro Time: DAP (Gy m2): Air Kerma (mGy): (Continued) Technologist: Fran Graham, RT(R) Trnscb Date/Time: 08/23/2022 (1526) [email or web address] Orig Print D/T: S: 08/23/2022 (1530) PAGE 2 Signed Report - XR CHEST 1 V 2022-08-23 12:14:00 [facility] : 1960 Sex: F Name: ERNESTO MAURICIO [facility] : 1960 Age/S: 62 / F [address] Unit #: [id number] Loc: [place] [address] Phys: Donald Genao MD Acct: [id number] Dis Date: Status: ADM IN PHONE #: [phone] Exam Date: 08/23/20223 FAX #: Reason: SOB EXAMS: CPT: [id number] XR CHEST 1 V 95841 Fluoro Time: DAP (Gy m2): Air Kerma (mGy): Location of dictation: H14 Portable chest one view. HISTORY: SOB COMMENT: Compared to earlier study the same day. Left chest tube remains in place. Persistent lingular and left lower lobe atelectasis and tiny medial left pneumothorax versus pneumomediastinum. No new consolidation or effusion. Extensive air in the soft tissues of the left lateral chest and left neck again noted. IMPRESSION: Stable chest. at 1214 Reported and signed by: Leatha Echevarria M.D. CC: Donald Genao MD; Elena Zaldivar MD PAGE 1 Signed Report Name: LINA MAURICIOLAYO BRADSHAW [facility]ly [facility] : 1960 Age/S: 62 / F [address] Unit #: [id number] Loc: [place] [address] Phys: Donald Genao MD Acct: [id number] Dis Date: Status: ADM IN PHONE #: [phone] Exam Date: 08/23/20221202 FAX #: Reason: SOB EXAMS: CPT: [id number] XR CHEST 1 V 49867 Fluoro Time: DAP (Gy m2): Air Kerma (mGy): (Continued) Technologist: Derrick Vyasb Date/Time: 08/23/2022 (1214) [email or web address] Orig Print D/T: S: 08/23/2022 (4541) PAGE 2 Signed Report - XR CHEST 1 V 2022-08-23 09:02:00 [facility] MAURICIOLAYO BRADSHAW : 1960 Sex: F Name: ERNESTO MAURICIO [place] : 1960 Age/S: 62 / F [address] Unit #: [id number] Loc: [place] [address] Phys: Donald Genao MD Acct: [id number] Dis Date: Status: ADM IN PHONE #: [phone] Exam Date: 08/23/2022 0538 FAX #: Reason: reassess left ptx EXAMS: CPT: [id number] XR CHEST 1 V 24952 Fluoro Time: DAP (Gy m2): Air Kerma (mGy): Location Code: S17 EXAMINATION: - XR CHEST 1 V CLINICAL INDICATION: Female, 62 years year old with reassess left ptx COMPARISON: Chest x-ray August 22, 2022. FINDINGS: Single view(s) of the chest submitted. Support Devices: Stable position of left-sided chest tube. Heart: Cardiac silhouette is stable in size. Mediastinum: Calcifications are present in the thoracic aorta. Lungs: Pulmonary vessels are normal in size. Near complete resolution of a tiny left apical pneumothorax. Subtle lucency in the region of the left aortopulmonary window along the left side of the cardiomediastinal silhouette could represent a component of tiny pneumothorax versus pneumomediastinum. Stable left midlung atelectasis. No significant pleural effusion. Bones: Visualized skeleton is stable in appearance. Redemonstration of left neck and chest wall subcutaneous emphysema. IMPRESSION: Stable position of the left-sided chest tube. A tiny linear lucency in the region of the AP window could represent a tiny amount of pneumothorax versus pneumomediastinum. at 0902 Reported and signed by: Aidan Ceron M.D. CC: Donald Genao MD; Elena Zaldivar MD PAGE 1 Signed Report Name: [facility]STO [facility]IO [facility] [place] : 1960 Age/S: 62 / F [address] Unit #: [id number] Loc: [place] [address] Phys: Donald Genao MD Acct: [id number] Dis Date: Status: ADM IN PHONE #: [phone] Exam Date: 08/23/202238 FAX #: Reason: reassess left ptx EXAMS: CPT: [id number] XR CHEST 1 V 63851 Fluoro Time: DAP (Gy m2): Air Kerma (mGy): (Continued) Technologist: Kenyetta Nicole, RT(R) Trnscb Date/Time: 08/23/2022 (901) [email or web address] Orig Print D/T: S: 08/23/2022 (904) PAGE 2 Signed Report - XR CHEST 1 V 2022-08-22 05:01:00 [facility] : 1960 Sex: F Name: ERNESTO MAURICIO [facility] : 1960 Age/S: 62 / F [address] [address] Unit #: [id number] Loc: [place] [address] Phys: Bernardo Henao MD Acct: [id number] Dis Date: Status: ADM IN PHONE #: [phone] Exam Date: 08/22/20225 FAX #: Reason: SOB EXAMS: CPT: [id number] XR CHEST 1 V 23679 Fluoro Time: DAP (Gy m2): Air Kerma (mGy): AP Portable Chest Location Code M12 HISTORY: SOB FINDINGS: Cardiac silhouette is in the upper limits of normal. Left chest catheter remains in place. There is no visible pneumothorax. Extensive soft tissue emphysema is noted in the left chest wall and neck. There is questionable developing pneumomediastinum. Right lung is clear. Discoid atelectasis is noted in the lingula. IMPRESSION: Left chest catheter remains in place without a visible pneumothorax. Questionable developing pneumomediastinum. at 0501 Reported and signed by: Ruth Sosa M.D. CC: Bernardo Henao MD; Elena Zaldivar MD PAGE 1 Signed Report Name: ERNESTO MAURICIO [place] : 1960 Age/S: 62 / F [address] [address] Unit #: [id number] Loc: [place] [address] Phys: Bernardo Henao MD Acct: [id number] Dis Date: Status: ADM IN PHONE #: [phone] Exam Date: 08/22/2022 0415 FAX #: Reason: SOB EXAMS: CPT: [id number] XR CHEST 1 V 59289 Fluoro Time: DAP (Gy m2): Air Kerma (mGy): (Continued) Technologist: Ana Cristina Ha, RT(R)(CT) Trnscb Date/Time: 08/22/2022 (0501) [email or web address] Orig Print D/T: S: 08/22/2022 (0504) PAGE 2 Signed Report CBC W/AUTO DIFF 2022-08-21 06:06:00 Test Item Value Reference Range Interpretation Comme nts WHITE BLOOD CELL (test code = WBC) 5.9 K/mm3 3.5-11.0 N RED BLOOD CELL (test code = RBC) 5.12 M/mm3 4.70-6.10 N HEMOGLOBIN (test code = HGB) 16.4 G/DL 10.4-14.9 H HEMATOCRIT (test code = HCT) 47.5 % 31.5-44.1 H MEAN CELL VOLUME (test code = MCV) 92.8 Fl 84.5-98.6 N MEAN CELL HGB (test code = MCH) 32.0 pg 27.0-34.2 N MEAN CELL HGB CONCETRATION (test code = MCHC) 34.5 G/DL 31.5-34. 0 H RED CELL DISTRIBUTION WIDTH (test code = RDW) 13.2 SD 11.5-14. 5 N PLATELET COUNT (test code = PLT) 124 K/mm3 150-450 L MEAN PLATELET VOLUME (test code = MPV) 9.70 fL 7.0-10.5 N NEUTROPHIL % (test code = NT%) 73.8 % 40-76 N IMMATURE GRANULOCYTE % (test code = IG%) 0.3 % 0.0-5.0 N LYMPHOCYTE % (test code = LY%) 17.0 % 20.5-51.1 L MONOCYTE % (test code = MO%) 7.1 % 1.7-9.3 N EOSINOPHIL % (test code = EO%) 1.5 % 0.0-6.0 N BASOPHIL % (test code = BA%) 0.3 % 0.0-2.0 N NUCLEATED RBC % (test code = NRBC%) 0.0 /100WBC% 0.0-1.0 N NEUTROPHIL # (test code = NT#) 4.4 K/mm3 1.8-7.6 N IMMATURE GRANULOCYTE # (test code = IG#) 0.02 x10 3/uL 0.00-0.03 N LYMPHOCYTE # (test code = LY#) 1.0 K/mm3 0.6-3.2 N MONOCYTE # (test code = MO#) 0.4 K/mm3 0.3-1.1 N EOSINOPHIL # (test code = EO#) 0.1 K/mm3 0.0-0.4 N BASOPHIL # (test code = BA#) 0.0 K/mm3 0.0-0.1 N NUCLEATED RBC # (test code = NRBC#) 0.0 K/mm3 0.0-0.1 N MANUAL DIFF REQUIRED (test code = MDIFF) NO DIFF/SCN CRITERIA RBC [id number] 06:06:00 Test Item Value Reference Range Interpretation Comments POLYCHROMASIA (test code = TRACE ON SCAN NONE POLC) OVALOCYTES (test code = TRACE ON SCAN NONE OVAL) PLATELET ESTIMATE (test DECREASED THOUSAND ADEQUATE code = PLTEST) PLATELET MORPHOLOGY (test NORMAL code = PLTMORPH) BASIC METABOLIC [id number] 05:09:00 Test Item Value Reference Range Interpretation Comments SODIUM (test code 139 mmol/L 134-147 N = NA) POTASSIUM (test 3.3 mmol/L 3.4-5.0 L code = K) CHLORIDE (test 97 mmol/L 100-108 L code = CL) CARBON DIOXIDE 36 mmol/L 21-32 H (test code = CO2) ANION GAP (test 6.0 GAP calc 4.0-15.0 N code = GAP) GLUCOSE (test code 100 MG/DL 70-110 N = GLU) BLOOD UREA 13 MG/DL 7-18 N NITROGEN (test code = BUN) GLOMERULAR >=60 max >60 The Glomerular FILTRATION RATE estimate estGFR Filtratio n Rate is a (test code = GFR) calculated parameterbased on serum Creatinin e, patient age and sex. GFR valuesless than 60 mL/min/1.73 square meters are roberto cative ofChronic Kidne y Disease. Values less than 15 mL/min/1.73squa re meters indicate Kidney failure. The calculation for GFR is based on the CK D-EPI (2020) calculat ion. This formulais race indifferent and is the recommended formula for GFR by the National Kidney Foundation for Adults.The GFR will not calculate i f the sex is unknown or if thepatient's ag e is <18 years. CREATININE (test 0.8 MG/DL 0.6-1.0 N code = CREAT) CALCIUM (test code 9.1 MG/DL 8.5-10.1 N = CA) - XR CHEST 1 [id number] 01:46:00 [facility] : 1960 Sex: F Name: ERNESTO MAURICIO [place] : 1960 Age/S: 62 / F [address] [address] Unit #: [id number] Loc: [place] [address] Phys: Elena Zaldivar MD Acct: [id number] Dis Date: Status: ADM IN PHONE #: [phone] Exam Date: 08/21/2022 0050 FAX #: Reason: CHEST TUBE/PNEUMOTHORAX EXAMS: CPT: [id number] XR CHEST 1 V 82962 Fluoro Time: DAP (Gy m2): Air Kerma (mGy): AP Portable Chest Location Code M12 HISTORY: CHEST TUBE/PNEUMOTHORAX FINDINGS: There is a left chest tube in place. Previously identified left pneumothorax is no longer visible. Chest wall soft tissue emphysema is again noted.Cardiac silhouette is mildly enlarged. There are atelectatic changes in the lingula. IMPRESSION: Prev ious pneumothorax is no longer visible. Lingular discoid atelectasis. at 0146 Reported and signed by: Ruth Sosa M.D. CC: Elena Zaldivar MD PAGE 1 Signed Report Name: ERNESTO MAURICIO [place] : 1960 Age/S: 62 / F [address] [address] Unit #: [id number] Loc: [place] [address] Phys: Elena Zaldivar MD Acct: [id number] Dis Date: Status: ADM IN PHONE #: [phone] Exam Date: 08/21/2022 0050 FAX #:Reason: CHEST TUBE/PNEUMOTHORAX EXAMS: CPT: [id number] XR CHEST 1 V 83821 Fluoro Time: DAP (Gy m2): Air Kerma (mGy): (Continued) Technologist: Ana Cristina Ha, RT(R)(CT) Trnscb Date/Time: 08/21/2022 (014) [email or web address] Orig Print D/T: S: 08/21/2022 (014) PAGE 2 Signed Report- XR CHEST 1 [id number] 14:24:00 [facility] : 1960 Sex: F Name: ERNESTO MAURICIO [facility] : 1960 Age/S: 62 / F [address] [address] Unit #: [id number] Loc: [place] [address] Phys: Bernardo Henao MD Acct: [id number] Dis Date: Status: ADM IN PHONE #: [phone] Exam Date: 08/20/2022 1415 FAX #: Reason: VERIFY PLACEMENT ON CHEST TUBE EXAMS: CPT: [id number] XR CHEST 1 V 24281 Fluoro Time: DAP (Gy m2): Air Kerma (mGy): CLINICAL HISTORY: VERIFY PLACEMENT ON CHEST TUBE. LOCATION: A1 FINDINGS: Comparison is made with a previous study dated August 20, 2022. A portable AP view of the chest is dated 08/20/2022 at 1417 hours. There is mild cardiomegaly which appears increased from the previous study. There is left chest tube in place. 20% left apical pneumothorax is increased in size from the prior study. Diffuse mild infiltrative changes remainwithin the right lung. No pleural effusions are noted. Moderate subcutaneous emphysema is again noted at the lateral left chest extending to the left neck as well as the right neck.. IMPRESSION: 1. 20%left apical pneumothorax is increased in size from the prior study with left chest tube remaining inplace. Other findings are stable. t 1424 Reported and signed by: Jorge Luis Garner M.D. CC: Bernardo Henao MD; Elena Zaldivar MD PAGE 1 Signed Report Name: ERNESTO MAURICIO [facility] : 1960 Age/S: 62 / F [address] [address] Unit #: [id number] Loc: [place] [address] Phys: Bernardo Henao MD Acct: [id number] Dis Date: Status: ADM IN PHONE #: [phone] Exam Date: 08/20/2022 1415 FAX #: Reason: VERIFY PLACEMENT ON CHEST TUBE EXAMS: CPT: [id number] XR CHEST 1 V 02991 Fluoro Time: DAP (Gy m2): Air Kerma (mGy): (Co ntinued) Technologist: RT Isaiah(Petr) Trninb Date/Time: 08/20/2022 (1423) [email or web address] Orig Print D/T: S: 08/20/2022 (1682) PAGE 2 Signed Report- XR CHEST 1 [id number] 12:27:00 [facility] : 1960 Sex: F Name: ERNESTO MAURICIO [facility] : 1960 Age/S: 62 / F [address] [address] Unit #: [id number] Loc: [place] [address] Phys: Elena Zaldivar MD Acct: [id number] Dis Date: Status: ADM IN PHONE #: [phone] Exam Date: 08/20/2022 1201 FAX #: Reason: chest pain EXAMS: CPT: [id number] XR CHEST 1 V 28219 Fluoro Time: DAP (Gy m2): Air Kerma (mGy): CLINICAL HISTORY: chest pain. LOCATION: A1 FINDINGS: Comparison is made with a previous study dated August 19, 2021. A portable AP view of the chest is dated 08/20/2022 at 1159 hours. The cardiomediastinal fluid is within normal limits. There is left chest tube in place which has been repositioned. Mild linear subsegmental atelectasis is again noted at the left midlung. There appears to be persistent left apical pneumothorax. Moderate subcutaneous emphysema is seen at the lateral left chest extending into the left neck and right neck. IMPRESSION: 1. There appears to be persistent left apical pneumothorax with left chest tube in place. at 1227 Reported and signed by: Jorge Luis Garner M.D. CC: Elena Zaldivar MD PAGE 1 Signed Report Name: ERNESTO MAURICIO [facility] : 1960 Age/S: 62 / F [address] [address] Unit #: [id number] Loc: [place] [address] Phys: Elena Zaldivar MD Acct: [id number] Dis Date: Status: ADM IN PHONE #: [phone] Exam Date: 08/20/2022 1201 FAX #: Reason: chest pain EXAMS: CPT: [id number] XR CHEST 1 V 20714 Fluoro Time: DAP (Gy m2): Air Kerma (mGy): (Continued) Technologist: RT Isaiah(R) Trnlaura Date/Time: 08/20/2022 (1227) [email or web address] Orig Print D/T: S: 08/20/2022 (2390) PAGE 2 Signed Report- CT DRN VISCERA [id number] 17:14:00 [facility] : 1960 Sex: F Name: ERNESTO MAURICIO [facility] : 1960 Age/S: 62 / F [address] [address] Unit #: [id number] Loc: [place] [address] Phys: Elena Zaldivar MD Acct: [id number] Dis Date: Status: ADM IN PHONE #: [phone] Exam Date: 08/19/2022 1700 FAX #: Reason: CHEST TUBE EXAMS: CPT: [id number] CT DRN VISCERA PERC [address] Location code: S 17 CT-guided chest tube placement: Clinical Indication: Existing chest tube was pulled back. Request for chest tube exchanger new chest tube placement. Patient has a small left apical pneumothorax. Technique and Findings: One or more of the following radiation dose reduction techniques was used: automated exposure control, adjustment of mA and/or KV according to patient size, and/or utilization of iterative reconstruction technique. The nature of the procedure, risks, benefits, and expected outcomes were discussed with the patient who then provided informed written and verbal consent. Conscious sedation was administered. Please refer to nursing notes for further details. The patient was placed in a supine position on the CT scanner. Initial scans through the chest demonstrated a small left anterior pneumothorax . The patient was prepped and draped inthe usual sterile manner and the superficial tissues were anesthetized with 1% lidocaine solution. The existing chest tube was cut and an Amplatz wire was advanced but the wire ended up in the bottom of the thoracic cavity. An 035 MPA was used to try to direct the wire superiorly but it would not course successfully. Therefore, it was decided to remove the old chest tube and cover the site with a sterile dressing and place a new chest tube. A micropuncture needle was advanced into the pneumothorax under CT guidance and a more anterior location. Air was aspirated. An 0.035 Amplatz wire was advanced into the pneumothorax and a 8 [place] pigtail catheter was advanced into the collection. The pigtail catheter was sutured in place with 2-0 Prolene suture and connected to a Pleuravac system. Subcutaneous emphysema along the left chest wall was also present. The patient tolerated the procedure well. Thepatient's vital signs remained stable and she was transferred to the recovery area in stable condition. PAGE 1 Signed Report (CONTINUED) Name: ERNESTO MAURICIOland : 1960 Age/S: 62 / F [address] [address] Unit #: [id number] Loc: [place] [address] Phys: Elena Zaldivar MD Acct:[id number] Dis Date: Status: ADM IN PHONE #: [phone] Exam Date: 08/19/2022 1700 FAX #: Reason: CHEST TUBE EXAMS: CPT: [id number] CT DRN VISCERA PERC [address] (Continued) Impression: Technically succe ssful chest tube placement as described. at 2574 Reported and signed by: Aidan Ceron M.D. CC: Elena Zaldivar MD Technologist:Dmitry Larsen, RT(R) CTDI: DLP: Trnscb Date/Time: 08/19/2022 (1714) [email or web address] Orig Print D/T: S: 08/19/2022 (0959) PAGE 2 Signed [id number] 15:24:00 Test Item Value Reference Range Interpretation Comments SURGICAL (test code = SR) R UN DATE: 08/19/22 MIGUEL [facility] PAGE 1 RUN TIME: 1524 Specimen Inquiry RUN USER: INTERFACE P ATIENT: ERNESTO MAURICIO LOC: [facility] U #: [id number] AGE/SX: 62/F ROOM: RE08/17/22REG DR: Eloina Garzon MD : 59 BED: DIS: STATUS: DEP CLI TLOC: SPEC #: [id number] RECD: 08/17/22 STATUS: EMELY RE #: [id number] STEPAN: 08/17/22-[address]: Eloina Garzon MD ENTERED: 08/17/22 SP TYPE: SURGICAL OTHR DR: ORDERED: [id number], ANATOMIC SPEC, SPECIMEN TRACK PROCEDURES: 77436 (08/19/22-145) SPECIMEN TRACK (08/17/22-1232) TISSUES: LUNG, NOS - LEFT LUNG NODULE BX; 20G CORE CLINICAL COMMUNICATIONS Dr. Shannon Tovar discussed the case with Dr. Bernardo Henao (Pulmonology)on 08/19/22 at 1409. FINAL DIAGNOSIS Left lung nodule, biopsy:- Minute tissue consisting of few red blood cells and fibrous tissue; non-diagnostic Comment: Dr. Chris Hay reviewed this case and agrees with the diagnosis. GROSS DESCRIPTION Left lung biopsy. It consists of minute tissue flecks filtered in a tea bag as A1. May notsurvive processing. Technical tissue processing and slide preparation performed at [facility],[place] [address] , [place] [address] Unless gross only, the diagnosis is based upon microscopic examination.Immunohistochemistr y: This test was developed and its performance characteristicsdetermined by this laboratory. It has not been approved nor does it need approval by the USFDA. Appropriate positive and negative controls are reviewed and judged to be acceptable.This laboratory is certified under the Clinical Laboratory Improvement Amendments (CLIA-88)as qualified to perform high complexity clinical laboratory testing. ------- Signed _ Shannon Tovar 08/19/22 1524 END OF REPORT - XR CHEST 1 [id number] 11:37:00 [facility] MAURIC[facility]OLAYO BRADSHAW : 1960 Sex: F Name: LINA MAURICIOLAYO BRADSHAW [facility]ly [facility] : 1960 Age/S: 62 / F [address] [facility] [place] Unit #: [id number] Loc: [place] [address] Phys: Bernardo Henao MD Acct: [id number] Dis Date: Status: ADM IN PHONE #: [phone] Exam Date: 08/19/2022 1100 FAX #: Reason: pneumothorax EXAMS: CPT: [id number] CHEST 1 V 52952 Fluoro Time: DAP (Gy m2): Air Kerma (mGy): Location Code: S17 EXAMINATION: - XR CHEST 1 V CLINICAL INDICATION: Female, 62 years year old with pneumothorax COMPARISON: Chest x-ray August 18, 2022. FINDINGS: Single view(s) of the chest submitted. Support Devices: A left-sided chest tube appears retracted to the level of the left chest wall. Heart: Cardiac silhouette is stable in size. Mediastinum: Mediastinal contours are unchanged. Lungs: Pulmonary vessels are normal in size. Patchy perihilar opacities. Pleura: No pleural effusion is identified. Interval increase in size of a 12 mm left apical pneumothorax. Bones: Visualized skeleton is stable in appearance. Left axillary subcutaneous emphysema. IMPRESSION: Interval increase in size of a 12 mm left apical pneumothorax. A left-sided chest tube appears retracted to the level of the left chest wall. Findings discussed with Dr. Henao by Dr Ceron via telephone at 11:31 AM on August 19, 2022. at 1137 Reported and signed by: Aidan Ceron M.D. CC: Bernardo Henao MD; Elena Zaldivar MD PAGE 1 Signed Report Name: ERNESTO MAURICIO [facility] : 1960 Age/S: 62 / [id number] Unit #: [id number] Loc: [place] [address] Phys: Bernardo Henao MD Acct: [id number] Dis Date: Status: ADM IN PHONE #: [phone] Exam Date: 08/19/2022 1100 FAX #: Reason: pneumothorax EXAMS: CPT: [id number] XR CHEST 1 V 52552 Fluoro Time: DAP (Gy m2): Air Kerma (mGy): (Continued) Technologist: Colleen Da Silva RT(R) Trnscb Date/Time: 08/19/2022 (1138) [email or web address] Orig Print D/T: S: 08/19/2022 (8649) PAGE 2 Signed Report- XR CHEST 1 [id number] 12:28:00 [facility] : 1960 Sex: F Name: ERNESTO MAURICIO [facility] : 1960 Age/S: 62 / F [address] [address] Unit #: [id number] Loc: [place] [address] Phys: Bernardo Henao MD Acct: [id number] Dis Date: Status: ADM IN PHONE #: [phone] Exam Date: 08/18/2022 1215 FAX #: Reason: CHEST TUBE ADJUSTMENT EXAMS: CPT:[id number] XR CHEST 1 V 46408 Fluoro Time: DAP (Gy m2): Air Kerma (mGy): Location Code: S17 EXAMINATION: - XR CHEST 1 V CLINICAL INDICATION: Female, 62 years year old with CHEST TUBE ADJUSTMENT COMPARISON: Chest x-ray August 18, 2022 at 0600 hours. FINDINGS: Single view(s) of the chest submitted. Support Devices: Left-sided chest tube is present with tip projected over the left lateral hemithorax. Hear t: Cardiac silhouette is stable in size. Mediastinum: Mediastinal contours are unchanged. Lungs: Pulmonary vessels are normal in size. Probable left midlung atelectasis. Pleura: No pleural effusion is identified. No pneumothorax is present. Bones: Visualized skeleton is stable in appearance. IMPRESSION: Interval resolution of left-sided pneumothorax. Left-sided chest tube is present. at 1228 Reported and signed by: Aidan Ceron M.D. CC: Bernardo Henao MD; Elena Zaldivar MD PAGE 1 Signed Report Name: ERNESTO MAURICIO [place] :1960 Age/S: 62 / F [address] [address] Unit #: [id number] Loc: [place] [address] Phys: Bernardo Henao MD Acct: [id number] Dis Date: Status: ADM IN PHONE #: [phone] Exam Date: 08/18/2022 1215FAX #: Reason: CHEST TUBE ADJUSTMENT EXAMS: CPT: [id number] XR CHEST 1 V 69630 Fluoro Time: DAP (Gy m2): Air Kerma (mGy): (Continued) Technologist: Fran Graham, RT(R) Trnscb Date/Time: 08/18/2022 (1227) [email or web address] Orig Print D/T: S: 08/18/2022 (7482) PAGE 2 Signed Report- XR CHEST 1 [id number] 07:01:00 [facility] : 1960 Sex: F Name: ERNESTO MAURICIO [facility] : 1960 Age/S: 62 / F [address] [address] [place] Unit #: [id number] Loc: [place] [address] Phys: Bernardo Henao MD Acct: [id number] Dis Date: Status: ADM IN PHONE #: [phone] Exam Date: 08/18/2022 0600 FAX #: Reason: CHEST TUBE EXAMS: CPT: [id number] XRCHEST 1 V 69477 Fluoro Time: DAP (Gy m2): Air Kerma (mGy): EXAM: - XR CHEST 1 V COMPARISON: Prior day. LOCATION: C3 HISTORY: CHEST TUBE FINDINGS: Single view of the chest. Unchanged indwelling lines/tubes. Increase in size of small left pneumothorax. No consolidation. The mediastinal contours are unchanged. Unchanged subcutaneous air in the left thoracic wall. IMPRESSION: Increase in size of small left pneumothorax with chest tube in place. at 0701 Reported and signed by: VAHID CASTRO M.D. CC: Bernardo Henao MD; Elena Zaldivar MD PAGE 1 Signed Report Name: [facility] : 1960 Age/S: 62 / F [address] [address] Unit #: [id number] Loc: [place] [address] Phys: Bernardo Henao MD Acct: [id number] Dis Date: Status: ADM IN PHONE #: [phone] Exam Date: 08/18/2022 0600 FAX #: Reason: CHEST TUBE EXAMS: CPT: [id number] XR CHEST 1 V 86642 Fluoro Time: DAP (Gy m2): Air Kerma (mGy): (Continued) Technologist: Pablo Valerio RT(R)(CT) Trnscb Date/Time: 08/18/2022 (700) [email or web address] Orig Print D/T: S: 08/18/2022 (04) PAGE 2 Signed ReportCBC W/AUTO [id number] 06:05:00 Test Item Value Reference Range Interpretation Comments WHITE BLOOD CELL 6.4 K/mm3 3.5-11.0 N (test code = WBC) RED BLOOD CELL (test 4.48 M/mm3 4.70-6.10 L code = RBC) HEMOGLOBIN (test code 14.5 G/DL 10.4-14.9 N = HGB) HEMATOCRIT (test code 42.4 % 31.5-44.1 N = HCT) MEAN CELL VOLUME 94.6 Fl 84.5-98.6 N (test code = MCV) MEAN CELL HGB (test 32.4 pg 27.0-34.2 N code = MCH) MEAN CELL HGB 34.2 G/DL 31.5-34.0 H CONCETRATION (test code = MCHC) RED CELL DISTRIBUTION 13.8 SD 11.5-14.5 N WIDTH (test code = RDW) PLATELET COUNT (test 128 K/mm3 150-450 L code = PLT) MEAN PLATELET VOLUME 9.70 fL 7.0-10.5 N (test code = MPV) NEUTROPHIL % (test 75.6 % 40-76 N code = NT%) IMMATURE GRANULOCYTE 0.3 % 0.0-5.0 N % (test code = IG%) LYMPHOCYTE % (test 15.0 % 20.5-51.1 L code = LY%) MONOCYTE % (test code 7.1 % 1.7-9.3 N = MO%) EOSINOPHIL % (test 1.4 % 0.0-6.0 N code = EO%) BASOPHIL % (test code 0.6 % 0.0-2.0 N = BA%) NUCLEATED RBC % (test 0.0 /100WBC% 0.0-1.0 N code = NRBC%) NEUTROPHIL # (test 4.8 K/mm3 1.8-7.6 N code = NT#) IMMATURE GRANULOCYTE 0.02 x10 3/uL 0.00-0.03 N # (test code = IG#) LYMPHOCYTE # (test 1.0 K/mm3 0.6-3.2 N code = LY#) MONOCYTE # (test code 0.5 K/mm3 0.3-1.1 N = MO#) EOSINOPHIL # (test 0.1 K/mm3 0.0-0.4 N code = EO#) BASOPHIL # (test code 0.0 K/mm3 0.0-0.1 N = BA#) NUCLEATED RBC # (test 0.0 K/mm3 0.0-0.1 N code = NRBC#) MANUAL DIFF REQUIRED NO DIFF/SCN CRITERIA SLIDE R EVIEW (test code = MDIFF) CONSISTA NT WITH AUTO DIFFERENTI AL. TROP-I HIGH [id number] 05:32:00 Test Item Value Reference Range Interpretation Comments TROP-I HIGH 8.9 ng/L 0-34 N CAUTION: Units of the SENSITIVITY (test current te st methodology code = TROPIHS) (ng/L) diffe rfrom the prior test meth odology (ng/mL) by a fa ctor of 1000. 99t h Percentile Uppe r Reference Limit (URL):Fem ales: 34 ng/LMales: 54 n g/L In order to distin guish acute elevations of h igh sensitivitytrop onin from other clinical conditions, the FourthUnive rsal Definition of M yocardial Infarction stressesclinica l assessment and the demonstration o f a rise and/orfall in s erial troponin result s above the URL. Results fr om different metho dologies should not be c omparedto one another as quantitative re sults and URLs may varyby method. Completed by Nursing: NOBASIC METABOLIC [id number] 05:29:00 Test Item Value Reference Range Interpretation Comments SODIUM (test code 139 mmol/L 134-147 N = NA) POTASSIUM (test 3.4 mmol/L 3.4-5.0 N code = K) CHLORIDE (test 105 mmol/L 100-108 N code = CL) CARBON DIOXIDE 31 mmol/L 21-32 N (test code = CO2) ANION GAP (test 3.0 GAP calc 4.0-15.0 L code = GAP) GLUCOSE (test code 102 MG/DL 70-110 N = GLU) BLOOD UREA 13 MG/DL 7-18 N NITROGEN (test code = BUN) GLOMERULAR >=60 max >60 The Glomerular FILTRATION RATE estimate estGFR Filtratio n Rate is a (test code = GFR) calculated parameterbased on serum Creatinin e, patient age and sex. GFR valuesless than 60 mL/min/1.73 square meters are roberto cative ofChronic Kidne y Disease. Values less than 15 mL/min/1.73squa re meters indicate Kidney failure. The calculation for GFR is based on the CK D-EPI (2020) calculat ion. This formulais race indifferent and is the recommended formula for GFR by the National Kidney Foundation for Adults.The GFR will not calculate i f the sex is unknown or if thepatient's ag e is <18 years. CREATININE (test 1.0 MG/DL 0.6-1.0 N code = CREAT) CALCIUM (test code 8.5 MG/DL 8.5-10.1 N = CA) [id number] 15:25:00 Test Item Value Reference Range Interpretation Comments DIGOXIN (test code = DIG) 1.04 NG/ML 0.80-2.00 N TROP-I HIGH [id number] 15:10:00 Test Item Value Reference Range Interpretation Comments TROP-I HIGH 8.2 ng/L 0-34 N CAUTION: Units of the SENSITIVITY (test current te st methodology code = TROPIHS) (ng/L) diffe rfrom the prior test meth odology (ng/mL) by a fa ctor of 1000. 99t h Percentile Uppe r Reference Limit (URL):Fem ales: 34 ng/LMales: 54 n g/L In order to distin guish acute elevations of h igh sensitivitytrop onin from other clinical conditions, the FourthUnive rsal Definition of M yocardial Infarction stressesclinica l assessment and the demonstration o f a rise and/orfall in s erial troponin result s above the URL. Results fr om different metho dologies should not be c omparedto one another as quantitative re sults and URLs may varyby method. Completed by Nursing: [id number] 14:17:00 Test Item Value Reference Range Interpretation Comments MAGNESIUM (test code = MAG) 2.1 MG/DL 1.8-2.4 N - CT CORE NDL BX [id number] 13:47:00 [facility] : 1960 Sex: F Name: ERNESTO MAURICIO [facility] : 1960 Age/S: 62 / F [address] [address] [place] Unit #: [id number] Loc: [place] [address] Phys: Eloina Garzon MD Acct: [id number] Dis Date: Status: REG CLI PHONE #: [phone] Exam Date: 08/17/2022 1115 FAX #: Reason: LUNG BIOPSY EXAMS: CPT: [id number] CORE NDL BX LUNG 27959 Location code: S17 CT GUIDED BIOPSY OF A LEFT LUNG NODULE CT GUIDED PLACEMENT OF A CHEST TUBE DUE TO PNEUMOTHORAX CLINICAL HISTORY: History of pulmonary sarcoid. Patient referred for biopsy of a 1.6 cm left lung subpleural nodule. MEDICATIONS: Under my supervision, Versed andFentanyl were administered intravenously for moderate sedation. Pulse oximetry, heart rate, and BP were continuously monitored by an independent trained observer present. I spent 90 minutes of face to face sedation time with the patient. TECHNIQUE/FINDINGS: One or more of the following radiation dose reduction techniques was used: automated exposure control, adjustment of mA and/or KV according to patient size, and/or utilization of iterative reconstruction technique. A brief history and physical was obtained and appropriate imaging was reviewed. The patient was provided an explanation of the procedure including risks and benefits. Informed written consent was then obtained. The patient was placedin supine position on the CT table. Limited scans through the left chest were done to identify the left lung nodule. On the outside provided imaging, the nodule measured 1.6 cm. On today's images, the nodule appeared smaller and more linear measuring 1.0 x 0.6 cm. The patient's skin was marked with ink at the appropriate entry site. The entry site was then prepped and draped in the usual sterile fashion. Lidocaine was then injected in the subcutaneous tissues at this site. Position of the lesion was confirmed by CT measurements. A 19 gauge introducer needle was then advanced into the nodule and placement was confirmed by CT. 2 separate core biopsies were then obtained using an 20-gauge needle andsubmitted in formalin for surgical pathology. The specimens were tiny in caliber. Post biopsy CT showed that the mass had disintegrated. A small amount of gelfoam slurry was injected for hemostasis prior to removal of the introducer needle. Limited post procedure CT scan demonstrates a small pneumothorax and left-sided subcutaneous emphysema. The patient began to complain of chest pain. However, the patient's vital signs remained stable. Therefore, it was decided to PAGE 1 Signed Report (CONTINUED) N gwen: ERNESTO MAURICIO [facility] : 1960 Age/S: 62 / F [address] [facility] [place] Unit #: [id number] Loc: [place] [address] Phys: Eloina Garzon MD Acct: [id number] Dis Date: Status: REG CLIPHONE #: [phone] Exam Date: 08/17/2022 1115 FAX #: Reason: LUNG BIOPSY EXAMS: CPT: [id number] CT CORE NDL BX LUNG 61721 (Continued) place a chest tube. A micropuncture needle was advanced into the pneumothorax under CT guidance. Air was aspirated. An 0.035 Amplatz wire was advanced into the pneumothorax and a 8 [place] pigtail catheter was advanced into the collection. The pigtail catheter was sutured in place and connected to a Pleuravac system. Subcutaneous emphysema along the left chest wallwas also present. The patient tolerated the procedure well. The patient's vital signs remained stable and she was transferred to the recovery area in stable condition. IMPRESSION: 1. Successful CT-guided biopsy of a left lung nodule. On the outside provided imaging, the nodule measured 1.6 cm. On today's images, the nodule appeared smaller and more linear measuring 1.0 x 0.6 cm. The specimens obtained during the biopsy were fragmented. Post biopsy CT demonstrated that the nodule appeared to disintegrate and was no longer a clear nodule. This could still represent a necrotic mass, tumor, consolidation, with atelectasis/scarring not excluded. These findings were discussed with Dr. Garzon and Dr. Henao. 2. The patient complained of chest pain due to a small left- sided pneumothorax that developed. Therefore, a chest tube was placed. The pneumothorax was evacuated in its entirety. However, the patient still complained of pain. Her vital signs remained stable. Due to her persistent complaints of chest pain, she was transferred to the emergency department for further evaluation to exclude other etiologies of her chest pain. This was discussed with Dr. Ordonez. at 1347 Reported and signed by: Aidan Ceron M.D. CC: Eloina Garzon MD Technologist:Lulú Montenegro, RT,(R),(CT) CTDI: DLP: Trnscb Date/Time: 08/17/2022 (7894) [email or web address] Orig Print D/T: S: 08/17/2022 (5499) PAGE 2 Signed Report- XR CHEST 1 [id number] 12:53:00 [facility] : 1960 Sex: F Name: ERNESTO MAURICIO [facility] : 1960 Age/S: 62 / F [address] [address] Unit #: [id number] Loc: [place] [address] Phys: Aidan Ceron MD Acct: [id number] Dis Date: Status: REGCLI PHONE #: [phone] Exam Date: 08/17/2022 1251 FAX #: Reason: S/P CHEST TUBE PLACEMENT EXAMS:CPT: [id number] XR CHEST 1 V 04843 Fluoro Time: DAP (Gy m2): Air Kerma (mGy): Location Code: S17 EXAMINATION: - XR CHEST 1 V CLINICAL INDICATION: Female, 62 years year old with S/P CHEST TUBE PLACEMENT COMPARISON: Chest x-ray August 17, 2022 at 1127 hours. FINDINGS: Single view(s) of the chest submitted. Support Devices: Stable position of left-sided chest tube. There is a possible kink in the chest tube along the lateral chest wall external to the patient. Heart: Cardiac silhouette is stable in size. Mediastinum: Mediastinal contours are unchanged. Lungs: Pulmonary vessels are normal in size. Mildleft lung base opacities. Pleura: No pleural effusion is identified. No significant pneumothorax is present. Bones: Visualized skeleton is stable in appearance. Subcutaneous emphysema is present in theleft lateral chest wall. IMPRESSION: Stable position of left-sided chest tube. There is a possible kink in the chest tube along the lateral chest wall external to the patient. No evidence of significant pneumothorax. at 1253 Reported and signed by: Aidan Ceron M.D. CC: Eloina Garzon MD; Aidan Ceron MD PAGE 1 Signed Report Name: [facility]STO [facility] : 1960 Age/S: 62 / F [address] [address] Unit #: [id number] Loc: [place] [address] Phys: Aidan Ceron MD Acct: [id number] Dis Date: Status: REG CLI PHONE #: [phone] Exam Date: 08/17/2022 1251 FAX #: Reason: S/P CHEST TUBE PLACEMENT EXAMS: CPT: [id number] XR CHEST 1 V 19573 Fluoro Time: DAP (Gy m2): Air Kerma (mGy): (Continued) Technologist: Gabrielle Lama Trnscb Date/Time: 08/17/2022 (1253) [email or web address] Orig Print D/T: S: 08/17/2022 (1110) PAGE 2 Signed ReportBASIC METABOLIC [id number] 12:49:00 Test Item Value Reference Range Interpretation Comments SODIUM (test code = 140 mmol/L 134-147 N NA) POTASSIUM (test 2.8 mmol/L 3.4-5.0 LL code = K) CHLORIDE (test code 103 mmol/L 100-108 N = CL) CARBON DIOXIDE 33 mmol/L 21-32 H (test code = CO2) ANION GAP (test 4.0 GAP calc 4.0-15.0 N code = GAP) GLUCOSE (test code 131 MG/DL 70-110 H = GLU) BLOOD UREA NITROGEN 13 MG/DL 7-18 N (test code = BUN) GLOMERULAR 56 estGFR >60 L The Glomerular FILTRATION RATE Filtration R ate is a (test code = GFR) calculated parameterbased on serum Creatinin e, patient age and sex. GFR valuesless than 60 mL/min/1.73 squ are meters are roberto cative ofChronic Kidne y Disease. Values less than 15 mL/min/1.73squa re meters indicate Kidney failure. The calculation for GFR is based on the CK D-EPI (2020) calculat ion. This formulais race indifferent and is the recommended for naren for GFRby the [facility] on for Adults.The GFR will not calculate i f the sex is unknown or if thepatient's ag e is <18 years. CREATININE (test 1.1 MG/DL 0.6-1.0 H code = CREAT) CALCIUM (test code 9.2 MG/DL 8.5-10.1 N = CA) Completed by Nursing: NOHEPATIC FUNCTION [id number] 12:49:00 Test Item Value Reference Range Interpretation Comments TOTAL PROTEIN (test code = PROT) 6.1 G/DL 6.4-8.2 L ALBUMIN (test code = ALB) 3.1 G/DL 3.4-5.0 L BILIRUBIN TOTAL (test code = BILT) 1.50 MG/DL 0.2-1.2 H BILIRUBIN DIRECT (test code = 0.40 MG/DL 0.00-0.30 H BILD) BILIRUBIN INDIRECT (test code = 1.10 MG/DL 0.2-1.2 N BILIND) SGOT/AST (test code = AST) 23 Unit/L 15-37 N SGPT/ALT (test code = ALT) 18 Unit/L 12-78 N ALKALINE PHOSPHATASE TOTAL (test 90 Unit/L 45-117 N code = ALKP) Completed by Nursing: NOCREATINE KINASE (CK)2022-08-17 12:49:00 Test Item Value Reference Range Interpretation Comments CREATINE KINASE (CK) (test code = 23 Unit/L 26-192 L CK) Completed by Nursing: NONT PRO-BRAIN NATRIURETIC [id number] 12:49:00 Test Item Value Reference Range Interpretation Comments NT PRO-BRAIN NATRIURETIC PEPTI 813 PG/ML 0-100 H (test code = PROBNP) Completed by Nursing: NOTROP-I HIGH [id number] 12:49:00 Test Item Value Reference Range Interpretation Comments TROP-I HIGH 8.3 ng/L 0-34 N CAUTION: Units of the SENSITIVITY (test current te st methodology code = TROPIHS) (ng/L) diffe rfrom the prior test meth odology (ng/mL) by a fa ctor of 1000. 99t h Percentile Uppe r Reference Limit (URL):Fem ales: 34 ng/LMales: 54 n g/L In order to distin guish acute elevations of h igh sensitivitytrop onin from other clinical conditions, the FourthUnive rsal Definition of M yocardial Infarction stressesclinica l assessment and the demonstration o f a rise and/orfall in s erial troponin result s above the URL. Results fr om different metho dologies should not be c omparedto one another as quantitative re sults and URLs may varyby method. Completed by Nursing: NOCBC W/O [id number] 12:30:00 Test Item Value Reference Range Interpretation Comments WHITE BLOOD CELL (test code = WBC) 7.1 K/mm3 3.5-11.0 N RED BLOOD CELL (test code = RBC) 5.22 M/mm3 4.70-6.10 N HEMOGLOBIN (test code = HGB) 16.6 G/DL 10.4-14.9 H HEMATOCRIT (test code = HCT) 49.1 % 31.5-44.1 H MEAN CELL VOLUME (test code = MCV) 94.1 Fl 84.5-98.6 N MEAN CELL HGB (test code = MCH) 31.8 pg 27.0-34.2 N MEAN CELL HGB CONCETRATION (test 33.8 G/DL 31.5-34.0 N code = MCHC) RED CELL DISTRIBUTION WIDTH (test 13.7 SD 11.5-14.5 N code = RDW) PLATELET COUNT (test code = PLT) 161 K/mm3 150-450 N MEAN PLATELET VOLUME (test code = 9.80 fL 7.0-10.5 N MPV) - XR CHEST 1 [id number] 12:03:00 [facility] : 1960 Sex: F Name: ERNESTO MAURICIO [facility] : 1960 Age/S: 62 / F [address] [facility] [place] Unit #: [id number] Loc: [place] [address] Phys: Aidan Ceron MD Acct: [id number] Dis Date: Status: REG CLI PHONE #: [phone] Exam Date: 08/17/2022 1127 FAX #: Reason: S/P CHEST TUBE PLACEMENT EXAMS:CPT: [id number] XR CHEST 1 V 65339 Fluoro Time: DAP (Gy m2): Air Kerma (mGy): Location Code: S17 EXAMINATION: - XR CHEST 1 V CLINICAL INDICATION: Female, 62 years year old with S/P CHEST TUBE PLACEMENT COMPARISON: CT chest performed on same date. Chest x- ray March 24, 2021. FINDINGS: Single view(s) ofthe chest submitted. Support Devices: Left-sided chest tube is present in the left hemithorax. Heart: Cardiac silhouette is enlarged. Mediastinum: The thoracic aorta is tortuous and calcified. Lungs: Pulmonary vessels are normal in size. Few streaky bibasilar opacities. Pleura: No pleural effusion is identified. No significant pneumothorax. Small amount of left subcutaneous emphysema. Bones: Visualized skeleton is stable in appearance. Cervical spine postoperative changes. IMPRESSION: No evidence of significant pneumothorax. Left-sided chest tube is present. at 1203 Reported and signed by: Aidan Ceron M.D. CC: Eloina Garzon MD; Aidan Ceron MD PAGE 1 Signed Report Name: [facility] : 1960 Age/S: 62 / F [address] [address] Unit #: [id number] Loc: [place] [address] Phys: Aidan Ceron MD Acct: [id number] Dis Date: Status: REG CLI PHONE #: [phone] Exam Date: 08/17/2022 1127 FAX #: Reason: S/P CHEST TUBE PLACEMENT EXAMS: CPT: [id number] XR CHEST 1 V 99016 Fluoro Time: DAP (Gy m2): Air Kerma (mGy): (Continued) Technologist: Gabrielle Lama Trnscb Date/Time: 08/17/2022 (1203) [email or web address] Orig Print D/T: S: 08/17/2022 (1206) PAGE 2 Signed Report PROTHROMBIN [id number] 08:01:00 Test Item Value Reference Range Interpretation Comments PT PATIENT (test 14.1 SECONDS 9.3-12.9 H code = PTP) INTERNATIONAL NORMAL 1.26 INR Unit 0.8-1.2 H TARGE T INR BY RATIO (test code = INDICATIO N Indication INR) INR1. Prophylax is of venous thrombos is 2.0 - 3.0 (orthoped ic surgery), Proph ylaxis of venous throm bosis (other than hig h-risk surgery), Treat ment of Deep Vein Thrombosis/Pulm onary Embolism, Preve ntion of systemic emb olism - Tissue heart va lves, Acute Myocardia l Infarction (to prevent systemic emboli sm), Valvular heart disease, Acute Myocardial Infa rction (to prevent sys temic embolism), Valv ular heart disease, Atrial Fibrillation, Bileaflet mecha nical valve in aortic position.2. Mec hanical prosthetic valv es (high risk), 2. 5 - 3.5 Presence of Lup us Anticoagulant o r Antiphospholipi d Antibodies, Pre vention of systemic emb olism - Acute Myocardia l Infarction (to prevent recurrent infar ct). CBC W/AUTO [id number] 07:51:00 Test Item Value Reference Range Interpretation Comments WHITE BLOOD CELL (test code = 7.6 K/mm3 3.5-11.0 N WBC) RED BLOOD CELL (test code = 5.10 M/mm3 4.70-6.10 N RBC) HEMOGLOBIN (test code = HGB) 16.5 G/DL 10.4-14.9 H HEMATOCRIT (test code = HCT) 47.9 % 31.5-44.1 H MEAN CELL VOLUME (test code = 93.9 Fl 84.5-98.6 N MCV) MEAN CELL HGB (test code = MCH) 32.4 pg 27.0-34.2 N MEAN CELL HGB CONCETRATION 34.4 G/DL 31.5-34.0 H (test code = MCHC) RED CELL DISTRIBUTION WIDTH 13.6 SD 11.5-14.5 N (test code = RDW) PLATELET COUNT (test code = 159 K/mm3 150-450 N PLT) MEAN PLATELET VOLUME (test code 9.60 fL 7.0-10.5 N = MPV) NEUTROPHIL % (test code = NT%) 70.8 % 40-76 N IMMATURE GRANULOCYTE % (test 0.4 % 0.0-5.0 N code = IG%) LYMPHOCYTE % (test code = LY%) 19.5 % 20.5-51.1 L MONOCYTE % (test code = MO%) 7.3 % 1.7-9.3 N EOSINOPHIL % (test code = EO%) 1.2 % 0.0-6.0 N BASOPHIL % (test code = BA%) 0.8 % 0.0-2.0 N NUCLEATED RBC % (test code = 0.0 /100WBC% 0.0-1.0 N NRBC%) NEUTROPHIL # (test code = NT#) 5.4 K/mm3 1.8-7.6 N IMMATURE GRANULOCYTE # (test 0.03 x10 3/uL 0.00-0.03 N code = IG#) LYMPHOCYTE # (test code = LY#) 1.5 K/mm3 0.6-3.2 N MONOCYTE # (test code = MO#) 0.6 K/mm3 0.3-1.1 N EOSINOPHIL # (test code = EO#) 0.1 K/mm3 0.0-0.4 N BASOPHIL # (test code = BA#) 0.1 K/mm3 0.0-0.1 N NUCLEATED RBC # (test code = 0.0 K/mm3 0.0-0.1 N NRBC#) MANUAL DIFF REQUIRED (test code NO DIFF/SCN CRITERIA = MDIFF) - US ABDOMEN [id number] 09:55:00 [facility] : 1960 Sex: F Name: ERNESTO MAURICIO [facility] : 1960 Age/S: 62 / F [address] Unit #: [id number] Loc: [place] [address] Phys: Eloina Garzon MD Acct: [id number] Dis Date: Status: REG CLI PHONE #: [phone] Exam Date: 08/16/2022905 FAX #: Reason: HEPATOMEGALY EXAMS: CPT: [id number] US ABDOMEN LTD 20448 Location Code: S17 EXAMINATION: - US ABDOMEN LTD CLINICAL INDICATION: Female,62 years old with HEPATOMEGALY TECHNIQUE: Grayscale and color Doppler evaluation of the right upper quadrant of the abdomen was performed. COMPARISON: CT chest December 14, 2020. FINDINGS: Examination is limited due to overlying bowel gas. Liver: The liver exhibits normal echogenicity and size. The livercontour is slightly nodular. No focal hepatic lesion. No intrahepatic biliary ductal dilation. Gallbladder: Gallbladder is surgically absent. The common bile duct measures 3mm. Pancreas: Not visualizeddue to overlying bowel gas. Right Kidney: The right kidney measures 9.8 x 5.1 x 4.2 cm in size. No hydronephrosis. Multiple thin-walled anechoic structures measuring up to 3.3 cm in the right kidney are most compatible with cysts. No renal calculi noted. Vascular: The visualized portions of the inferior vena cava and aorta are within normal limits. IMPRESSION: Limited examination due to shadowing from overlying bowel gas. Slightly nodular liver contour can be seen with cirrhosis. The liver is normalin length. Gallbladder is surgically absent. No dilated ducts. Right renal cysts. No evidence of hydronephrosis. PAGE 1 Signed Report (CONTINUED) Name: ERNESTO MAURICIO Lambert : 1960 Age/S: 62 / F [address] Unit #: [id number] Loc: [place] [address] Phys: Eloina Garzon MD Acct: [id number] Dis Date: Status: REG CLI PHONE #: [phone] Exam Date: 08/16/2022 09 FAX#: Reason: HEPATOMEGALY EXAMS: CPT: [id number] US ABDOMEN LTD 11155 (Continued) at 0955 Reported and signed by: Aidan Ceron M.D. CC: Eloina Garzon MD Technologist: Virginia Smith RDMS Trnscb Date/Time: 08/16/2022 (0955) [email or web address] PAGE 2 Signed Report Name: ERNESTO MAURICIO Lambert : 1960 Age/S: 62 / F [address] Unit #: [id number] Loc: [place] [address] Phys: Eloina Garzon MD Acct: [id number] Dis Date: Status: REG CLI PHONE #: [phone] Exam Date: 08/16/2022905 FAX #: Reason: HEPATOMEGALY EXAMS: CPT: [id number] US ABDOMEN LTD 22043 (Continued) Orig Print D/T: S: 08/16/2022 (0958) Probe: PAGE 3 Signed ReportCTKen [id number] 13:51:00 [facility] : 1960 Sex: F [place] [address] Patient Name: ERNESTO MAURICIO MR #: [id number] : 1960 Age/Sex: 61/F Req#: [id number] [facility] Physician: Ordered by: BRADY LAMA MD Report #: [id number] Location: CT Room/Bed: Procedure: [id number] CT/CTA CHEST Exam Date: 03/24/22 Exam Time: 1300 REPORT STATUS: Signed EXAMINATION: CTA CHEST INDICATION: History of atrial fibrillation. Evaluate pulmonary veins. TECHNIQUE: Multi-detector CT technology was employed (64 MDCT [place]). Minimal slice thickness was performed following the intravenous administration of contrast material with FRAN placed in the leftatrium for evaluation ofthe pulmonary veins. In addition, delayed images (30 secs) were obtained for evaluation of left atrial appendage thrombus. IV CONTRAST: 100 mL of Isovue 370 ORAL CONTRAST: None COMPLICATIONS: None RADIATION DOSE: Total DLP: 976 mGy*cm Estimated effective dose: 976 x 0.014 mSv CTDIvol has been reviewed. It is below the limits set by the Radiation Protocol Committee (RPC). This exam was performed according to departmental dose optimization program, which includes a limited exposure control, adjustmentof the mA and/or KV according to patient size and/or use of iterative reconstruction technique. For optimization of anatomic evaluation, multiplanar reconstruction, maximum intensity projections,and advanced 3-D off-line postprocessing were performed on a dedicated stand-alone workstation underthe direct supervision of the interpreting physician. FINDINGS: VASCULAR WITH ADVANCED 3-D OFF-LINE POSTPROCESSING: The left atrium is moderately enlarged in size (6.3 cm (apicobasal) x 6.2 cm (bwiet-[id number]-[id number]) on 4-chamber view. There are five pulmonary veins entering the left atrium (three on the right and two onthe left).There is no evidence for pulmonary vein stenosis. No thrombus in the left atrial appendage or left atrial body. There is lipomatous hypertrophy of the interatrial septum. Quantitative pulmonary vein osteal mapping is as follows: Pulmonary veinMajor axisMinor axisCross-sectional area Right upper 16.1 mm 14.5 mm 1.82 cm2 Right middle 12.0 mm 7.03 mm 0.648 cm2 Right lower 20.2 mm 12.8 mm 1.78 cm2 Left upper 22.6 mm 17.9 mm 3.20 cm2 Left lower 23.1 mm 18.1 mm 3.12 cm2 Measurements for the WATCHMAN procedure are as follows Windsock morphology of the MADYSON. The maximum cross-sectional diameter of the landing zone is approximately 17.5 x 16.7 mm and the cross-sectional area of 2.53 sq cm. The perimeter is estimated juan m approximately 65.2 mm. The depth is measured to be approximately 27.3 mm. The cardiac chambers demonstrate normal atrioventricular and ventriculoarterial concordance, and systemic pulmonary venous return. There is moderate LV enlargement. Remaining cardiac chambers size: Unremarkable. The coronary arteries have normal origins and courses. Coronary artery disease. Moderate three-vessel coronary artery calcifications. No pericardial thickening or effusion. AORTA: The thoracic aorta is normal in caliber. Descending thoracic aorta has a tortuous course. There is no aneurysmal dilatation or dissection. There is no acute aortic pathology, such as dissection, intramural hematoma, or contained rupture.PULMONARY ARTERY: Mildly enlarged main pulmonary artery. Mid MPA diameter is 3.2 cm. Proximal pulmonary arteries are unobstructed. NON VASCULAR FINDINGS: LUNGS AND AIRWAYS: Postsurgical changes in the posterior segment of the right upper lobe. There is a 6 x 5.7 cm bulla in the left upper lobe. Focal atelectasis identified in the superior lingula. Mild atelectatic changes noted in the posterior basalsegment of the right lower lobe. Airways are patent. PLEURA: The pleural spaces are clear. HEART ANDMEDIASTINUM: No mediastinal, hilar or axillary lymphadenopathy. ESOPHAGUS: The esophagus traverses posterior of the left atrium in close proximity to the ostia of the left pulmonary veins. There is a small hiatal hernia. LIMITED ABDOMEN: Liver has a cirrhotic morphology. There is moderate to severe steatosis. There is mild splenomegaly(craniocaudal length: 12.5 cm). There are multiple portosystemic co llaterals adjacent to the gastricfundus and spleen. BONES: Multilevel degenerative changes identified in the lower thoracic vertebrae. There is mild dextroscoliosis centered at T9. Compression fractures of T7 and T8 vertebral bodies, 20% height reduction. Status post remote L1 vertebral augmentation. I MPRESSION: 1. There are five pulmonary veins entering the left atrium (three on the right and two onthe left). All veins are patent without significant stenosis proximally. The bi-orthogonal luminal dimensions are listed above. 2. Moderately dilated left atrium. No thrombus in the left atrial appendage or left atrial body. Lipomatous hypertrophy of the interatrial septum. 3. Windsock morphology of the MADYSON. Measurements as above. 4. The esophagus traverses posterior of the left atrium in close proximity to the ostia of the leftpulmonary veins. 5. Coronary artery disease. Moderate three-vessel coronary artery calcifications. 6. Mildly enlarged main pulmonary artery, may represent pulmonary hypertension. 7. Liver cirrhosis with portal hypertension. 8. Mild splenomegaly. 9. Compression fractures of T7 and T8 vertebral bodies, 20% height reduction. Signed by: Mike Moseley on 03/25/2022 1:51 PM Dictated By: MIKE MOSELEY MD 1353 Transcribed By: RAYMUNDO on 03/25/22 1351 COPY TO: BRADY LAMA MDShante [id number] 13:41:00 [facility] 1960 Sex: F [address] ient Name : ERNESTO MAURICIO Daniela MR #: [id number] : 1960 Age/Sex: 61/F Physician : BRADY LAMA MD Admit Date : 01/11/22 Location : [facility] Room/Bed : ___ REPORT: Cardiology Report Transesophageal Echocardiography Report (LUIS) Demographics Patient Name PHU OROZCO CDate of Study 01/11/2022 Gender Female Visit Number [id number] Race Unknown Room Number Number Date of 1960 Referring Physician Kelby Belcher 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 Height: 55 inches Weight: 72.57 kg (160 lbs) BSA: 1.59 m 2 BMI: 37.19 kg/m 2 Summary Normal size left atrium. No evidence of left atrial or left atrial appendage thrombus. No mass is visualized within left atrium. Normal left ventricular chamber size. Normal wall thickness. Normal overall left ventricular systolic function. No apparent segmental wall motion abnormalities. Estimated LVEF is 55-60%. CARDIOVERSION PROCEDURE: - Biphasic, synchronized single shock was administered with conversion to sinus rhythm. No complications. Signature Findings Left Normal left ventricular chamber size. Normal wall thickness. Ventricle Normal overall left ventricular systolic function. No apparent segmental wall motion abnormalities. Estimated LVEF is 55-60%. Left Atrium Normal size left atrium. No evidence of left atrial orleft atrial appendage thrombus. No mass is visualized within left atrium. Right Normal right ventricle structure and function. Ventricle Right Atrium Normal right atrium. Atrial Septum Normal interatrial septum by available views. Aortic Valve Normal aortic valve structure and function. Mitral Valve Normal mitral valve structure and function. Tricuspid Normal tricuspid valve structure and function. Valve Pulmonic Normal pulmonic valve structure and function. Valve Pericardium No evidence of pericardial effusion. Signature Date Dictated By: BRADY LAMA MD Transcribed By: [facility] on 01/11/22 1413 COPY TO:- XR CHEST 2 [id number] 00:00:00 [facility] 1960 Sex: F FAX: Debbie Johnson MD [phone] [place]: St: REG Name: ERNESTO MAURICIO [facility] : 1960 Age/S: 60/F [address] [place] [address] Unit #: [id number] Loc: [place] [address] Phys: Debbie Aggarwal MD Acct: [id number] Dis Date: Status: REG CLI PHONE #: [phone] Exam Date: 03/24/2021 1038FAX #: [phone] Reason: R91.1, LUNG NODULE , SOLITARY. EXAMS: CPT CODE: [id number] XR CHEST 2 V 94074 PROCEDURE INFORMATION: Exam: XR Chest Exam date and time: 03/24/2021 10:29 AM Age: 60 years old Clinical indication: Condition or disease; Lung condition and disease; Other: Pulm nodule; Additionalinfo: R91.1, lung nodule , solitary. TECHNIQUE: Imaging protocol: XR of the chest. Views: 2 views. PA and Lateral COMPARISON: CR XR CHEST 1V 03/11/2021 7:26 AM FINDINGS: Lungs: Prior right upper chest postoperative changes. Mild scarring is seen in the left lower lung. No consolidation. Pleural spaces:No pleural effusion. Heart/Mediastinum: Heart is borderline in size. Vasculature: Tortuous thoracic a debra. There is atherosclerotic calcification of the aorta. Bones/joints: ACDF is again seen. IMPRESSION: Mild scarring is seen in the left lower lung. No consolidation. at 1323 Reported and signed by: Debbie Mtaute D.O. CC: Debbie Aggarwal MD Technologist: RT Han(R) Trnscrd Date/Time/By: 03/24/2021 (5783) : By: [email or web address] Orig Print D/T: S: 03/24/2021 (9503) PAGE 1 Signed ReportSURGICAL PATH [id number] 17:16:00 Test Item Value Reference Range Interpretation Comments SURGICAL PATH SPECIMENS (test code = S) RUN DATE: 03/12/21 [facility] PAGE 1 RUN TIME: 8127 Specimen Inquiry RUN USER: INTERFACE PATIENT: ERNESTO MAURICIO AUGUSTINE LOC: Maggy5WS U #: [id number] AGE/SX: 60/F ROOM: [facility] RE03/09/21REG DR: Debbie Aggarwal MD : 58 BED: 1 DIS: 03/11/21 STATUS: DIS IN TLOC: SPEC #: [id number] RECD: 03/10/21 STATUS: EMELY REJose Eduardo #: [id number] STEPAN: 03/09/21- SUBM DR: Debbie Aggarwal MD ENTERED: 03/10/21 SP TYPE: SURG SPEC OTHR DR: No Primary or Family Physician Eloina Garzon MDORDERED: FROZ 1st , GM LEVEL 5/5, IHC INIT 74850, IHC ADD 80943/4, SREE [place] MAN 26270BSYJURRA: 1.LEVEL 7 #1 RIGHT LYMPH NODE 2.LEVEL 7 #[address] 3.LEVEL 11R #1 RIGHT LUNG 4.RIGHT UPPER LOBE 5.RIGHT LUNG LYMPH NODE LEVEL 4R COPIES TO: No Primary or Family Physician Eloina Garzon MD [address] [place] [address] [address] [place] [address] Debbie Aggarwal MD [address] [place] [address] PROCEDURES: FROZ 1st 10652 (03/10/21-1053) GM LEVEL 5 (03/10/21-1053) IHC INIT 28786 (03/11/21-1153) IHC ADD 05532 (03/11/21-1153) SREE [place]IN MAN 16636 (03/11/21-1153) FINAL DIAGNOSIS Lung, right upper lobe, posterior segmentectomy: 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 Lymph node, level 7 #1, biopsy: 1 lymph node negative for metastatic tumor (0/1). Lymph node, level 7 #2, biopsy: 1 lymph node negative for metastatic tumor (0/1). Lymph node, level 11 R, biopsy: 2 lymph node negative for metastatic tumor (0/2). Lymph node, level 4R, biopsy: 1 lymph node negative for metastatic tumor (0/1). CONTINUED ON NEXT PAGE RUN DATE: 03/12/21 [facility] - LAB PAGE 2 RUN TIME: 1717 Specimen Inquiry RUN USER: INTERFACE SPEC #: [id number] PATIENT: ERNESTO MAURICIO #[id number] (Continued) GROSS AND MICROSCOPIC FROZEN DIAGNOSIS (HW): Well-circumscribed nodule with bland cytology, favor carcinoid tumor, defer to permanent. GROSS DESCRIPTION: Received fresh for forzen section labeled "right upper lobe segment" includes a segmentectomy of lung, 27 g, 8.5 x 4.5 x 2.5 cm, with a 9.2 cm staple line. Serial sections reveal a white well-circumscribed nodule (up to 1.1 cm in maximum dimension) within the lung parenchyma, approximately 1 cm to staple line resection margin. A apparel trimmings sales representative section of the nodule is submitted for frozen section FSA. Additional apparel trimmings sales representative sections submitted: (B) remaining nodule; (C) staple line margin; (D) uninvolved lung parenchyma. Received in formalin labeled level seven #1 right lymph node is a 0.6 cm riddle-oliva tissue fragment submitted in (E). Received in formalin labeled level seven #2 is a 1.2 cm riddle-oliva lymph node submitted (F). Received in formalin labeled level 11 R are two riddle-oliva tissue fragments measuring 0.8 and 0.6 cm (G). Received in formalin labeled right lung lymph nodes 4R is a 2.2 cm aggregate of lymph node containing adipose (H). MICROSCOPIC EXAMINATION: A microscopic examination was performed to arrive at the diagnostic conclusion reported. Immunohistochemical stains have been performed with appropriate controls on block B, which show that the tumor cells positive for AE1/3, synaptophysin, chromogranin, TTF-1, and are negative for CDX2, with a Ki-67 proliferation index approximately 3.5%. The tumor cells show less than 2 mitotic figures per 2 mm . The morphology and the immunoprofile are most compatible with a well differentiated neuroendocrine tumor of lung primary, grade 1-2. Immunohistochemical stains are laboratory developed tests, not cleared with FDA. REVIEWED BY: Signed WeiHumblesmooth 03/12/21 1716 END OF REPORT BASIC METABOLIC [id number] 10:23:00 Test Item Value Reference Range Interpretation Comments SODIUM (test code = NA) 134 mEq/L 134-147 N POTASSIUM (test code = 4.3 mEq/L 3.4-5.0 N K) CHLORIDE (test code = 103 mEq/L 100-108 N CL) CARBON DIOXIDE (test 24 mEq/l 21-33 N code = CO2) ANION GAP (test code = 12 0-20 N GAP) GLUCOSE (test code = 129 mg/dL 70-110 H GLU) BLOOD UREA NITROGEN 23 mg/dL 7-18 H (test code = BUN) GLOMERULAR FILTRATION 50.5 80-90 L Units of measure = RATE (test code = GFR) ml/mi n/1.73 m2 CREATININE (test code = 1.1 mg/dL 0.6-1.3 N CREAT) CALCIUM (test code = 8.3 mg/dL 8.0-10.5 N CA) [id number] 10:23:00 Test Item Value Reference Range Interpretation Comments PHOSPHOROUS (test code = PHOS) 2.1 MG/DL 2.5-4.9 L [id number] 10:23:00 Test Item Value Reference Range Interpretation Comments MAGNESIUM (test code = MAG) 1.75 mg/dL 1.80-2.40 L CBC W/AUTO [id number] 09:56:00 Test Item Value Reference Range Interpretation Comments WHITE BLOOD CELL (test code = 16.2 x10 3/uL 4.5-11.0 H WBC) RED BLOOD CELL (test code = 4.36 x10 6/uL 3.54-5.02 N RBC) HEMOGLOBIN (test code = HGB) 14.0 g/dL 11.0-15.0 N HEMATOCRIT (test code = HCT) 42.7 % 33.0-45.0 N MEAN CELL VOLUME (test code = 97.9 fL 81.0-99.0 N MCV) MEAN CELL HGB (test code = 32.1 pg 27.0-33.0 N MCH) MEAN CELL HGB CONCETRATION 32.8 g/dL 33.0-37.0 L (test code = MCHC) RED CELL DISTRIBUTION WIDTH CV 13.8 % 11.5-14.5 N (test code = RDW) PLATELET COUNT (test code = 120 x10 3/uL 150-400 L PLT) NEUTROPHIL % (test code = NT%) 85.6 % 56.0-77.0 H LYMPHOCYTE % (test code = LY%) 6.9 % 14.0-32.0 L NEUTROPHIL # (test code = NT#) 13.84 x10 3/uL 2.0-7.6 H LYMPHOCYTE # (test code = LY#) 1.12 x10 3/uL 1.0-3.8 N MANUAL DIFF REQUIRED (test NO code = MDIFF) RED CELL DISTRIBUTION WIDTH SD 50.4 fL 37.0-54.0 N (test code = RDW-SD) MEAN PLATELET VOLUME (test 10.9 fL 7.0-9.0 H code = MPV) IMMATURE GRANULOCYTE % (test 0.7 % 0.0-2.0 N code = IG%) MONOCYTE % (test code = MO%) 6.5 % 4.8-9.0 N EOSINOPHIL % (test code = EO%) 0.0 % 0.3-3.7 L BASOPHIL % (test code = BA%) 0.3 % 0.0-2.0 N NUCLEATED RBC % (test code = 0.0 % 0-0 N NRBC%) IMMATURE GRANULOCYTE # (test 0.11 x10 3/uL 0.00-0.03 H code = IG#) MONOCYTE # (test code = MO#) 1.05 x10 3/uL 0.1-0.8 H EOSINOPHIL # (test code = EO#) 0.00 x10 3/uL 0.0-0.2 N BASOPHIL # (test code = BA#) 0.05 x10 3/uL 0.0-0.2 N NUCLEATED RBC # (test code = 0.00 x10 3/uL 0.0-0.1 N NRBC#) - XR CHEST 1 [id number] 00:00:00 [facility] 1960 Sex: F FAX: Debbie Johnson MD [phone] [place]: St: ADM Name: ERNESTO MAURICIO [facility] : 1960 Age/S: 60/F [address] [place] [address] Unit #: [id number] Loc: G.[address] [place] [address] Phys: Debbie Aggarwal MD Acct: [id number] Dis Date: Status: ADM IN PHONE #: [phone] Exam Date: 03/11/2021752 FAX #: [phone] Reason: S/P right upper lobe segmentectomy EXAMS: CPT CODE: [id number] XR CHEST 1 V 92899 PROCEDURE INFORMATION: Exam: XR Chest Exam date and time: 03/11/2021 7:26 AM Age: 60 years old Clinical indication: Condition or disease; Other: S/P right upper lobe segmentectomy TECHNIQUE: Imaging protocol: XR of the chest. Views: 1 view. COMPARISON: CR XR CHEST 1V 03/10/2021 4:45 PM FINDINGS: Tubes, catheters and devices: Stable right IJ line. Lungs: No consolidation. Minimal central venouscongestion. Pleural spaces: No pleural effusion. Heart/Mediastinum: Heart is stable in size. Vasculature: There is atherosclerotic calcification of the aorta. Bones/joints: ACDF is partially seen. IMPRESSION: Minimal central venous congestion. at 1020 Reported and signed by: Debbie Matute D.O. CC: Debbie Aggarwal MD Technologist: RT Rosemarie(R) Trnscrd Date/Time/By: 03/11/2021 (1020) : By: [email or web address] Orig Print D/T: S: 03/11/2021 (8381) PAGE 1 Signed ReportCBC W/AUTO [id number] 08:15:00 Test Item Value Reference Range Interpretation Comments WHITE BLOOD CELL (test code = 16.1 x10 3/uL 4.5-11.0 H WBC) RED BLOOD CELL (test code = 4.60 x10 6/uL 3.54-5.02 N RBC) HEMOGLOBIN (test code = HGB) 14.9 g/dL 11.0-15.0 N HEMATOCRIT (test code = HCT) 46.1 % 33.0-45.0 H MEAN CELL VOLUME (test code = 100.2 fL 81.0-99.0 H MCV) MEAN CELL HGB (test code = 32.4 pg 27.0-33.0 N MCH) MEAN CELL HGB CONCETRATION 32.3 g/dL 33.0-37.0 L (test code = MCHC) RED CELL DISTRIBUTION WIDTH CV 13.4 % 11.5-14.5 N (test code = RDW) RED CELL DISTRIBUTION WIDTH SD 49.3 fL 37.0-54.0 N (test code = RDW-SD) PLATELET COUNT (test code = 175 x10 3/uL 150-400 N PLT) MEAN PLATELET VOLUME (test 10.7 fL 7.0-9.0 H code = MPV) NEUTROPHIL % (test code = NT%) 85.2 % 56.0-77.0 H IMMATURE GRANULOCYTE % (test 0.6 % 0.0-2.0 N code = IG%) LYMPHOCYTE % (test code = LY%) 6.8 % 14.0-32.0 L MONOCYTE % (test code = MO%) 7.2 % 4.8-9.0 N EOSINOPHIL % (test code = EO%) 0.0 % 0.3-3.7 L BASOPHIL % (test code = BA%) 0.2 % 0.0-2.0 N NUCLEATED RBC % (test code = 0.0 % 0-0 N NRBC%) NEUTROPHIL # (test code = NT#) 13.70 x10 3/uL 2.0-7.6 H IMMATURE GRANULOCYTE # (test 0.09 x10 3/uL 0.00-0.03 H code = IG#) LYMPHOCYTE # (test code = LY#) 1.10 x10 3/uL 1.0-3.8 N MONOCYTE # (test code = MO#) 1.15 x10 3/uL 0.1-0.8 H EOSINOPHIL # (test code = EO#) 0.00 x10 3/uL 0.0-0.2 N BASOPHIL # (test code = BA#) 0.04 x10 3/uL 0.0-0.2 N NUCLEATED RBC # (test code = 0.00 x10 3/uL 0.0-0.1 N NRBC#) MANUAL DIFF REQUIRED (test NO code = MDIFF) BASIC METABOLIC [id number] 07:46:00 Test Item Value Reference Range Interpretation Comments SODIUM (test code = NA) 137 mEq/L 134-147 N POTASSIUM (test code = 4.2 mEq/L 3.4-5.0 N K) CHLORIDE (test code = 105 mEq/L 100-108 N CL) CARBON DIOXIDE (test 25 mEq/l 21-33 N code = CO2) ANION GAP (test code = 12 0-20 N GAP) GLUCOSE (test code = 131 mg/dL 70-110 H GLU) BLOOD UREA NITROGEN 15 mg/dL 7-18 N (test code = BUN) GLOMERULAR FILTRATION 63.7 80-90 L Units of measure = RATE (test code = GFR) ml/mi n/1.73 m2 CREATININE (test code = 0.9 mg/dL 0.6-1.3 N CREAT) CALCIUM (test code = 8.3 mg/dL 8.0-10.5 N CA) - XR CHEST 1 [id number] 00:00:00 [facility] 1960 Sex: F FAX: Debbie Johnson MD [phone] [place]: St: ADM Name: ERNESTO MAURICIO [facility] : 1960 Age/S: 60/F [address] [place] [address] Unit #: [id number] Loc: [address] [address] Phys: Debbie Aggarwal MD Acct: [id number] Dis Date: Status: ADM IN PHONE #: [phone] Exam Date: 03/10/2021 170 FAX #: [phone] Reason: s/p chest tube removal EXAMS: CPT CODE: [id number] XR CHEST 1 V 48638 PROCEDURE INFORMATION: Exam: XR Chest Exam date and time: 03/10/2021 4:45 PM Age: 60 years old Clinicalindication: Device placement; Chest tube; Additional info: S/P chest tube removal TECHNIQUE: Imagingprotocol: XR of the chest. Views: 1 view. COMPARISON: CR XR CHEST 1V 03/10/2021 12:50 PM FINDINGS: Tubes, catheters and devices: Stable position of right internal jugular central venous catheter. Interval removal of right-sided chest tube. Lungs: No consolidation. Bands of subsegmental atelectasis/scarring noted in the bilateral mid lungs. Pleural spaces: No pleural effusion. No pneumothorax. Heart/Med iastinum: Cardiomediastinal silhouette is stable. Aortic calcifications. Bones/joints: Osseous structures are unchanged. Cervical spinal hardware noted. IMPRESSION: 1. Interval removal of right-sided chest tube. No definite pneumothorax identified. Electronically Signed by Ann-Marie Whitaker on 021 at 1714 Reported and signed by: Kimmy Whitaker M.D. CC: Debbie Aggarwal MD Technologist: RT Cheryl(R) Trnscrd Date/Time/By: 03/10/2021 (1713) : By: [email or web address] Orig Print D/T: S: 03/10/2021 (1713)PAGE 1 Signed Report- XR CHEST 1 [id number] 00:00:00 [facility] 1960 Sex: F FAX: Debbie Johnson MD [phone] [place]: St: ADM Name: ERNESTO MAURICIO [facility] : 1960 Age/S: 60/F [address] [place] [address] Unit #: [id number] Loc: [address] [address] Phys: Debbie Aggarwal MD Acct: [id number] Dis Date: Status: ADM IN PHONE #: [phone] Exam Date: 03/10/2021 1306 FAX #: [phone] Reason: chest tube placed to water seal EXAMS: CPT CODE: [id number] XR CHEST 1 V 22452 PROCEDURE INFORMATION: Exam: XR Chest Exam date and time: 03/10/2021 12:50 PM Age: 60 years old Clinical indication: Other: Chest tube placed to water seal; Recent right upper lobe posterior segmentectomy. TECHNIQUE: Imaging protocol: XR of the chest. Views: 1 view. COMPARISON: CR XR CHEST 1V 03/10/2021 8:49 AM FINDINGS: Tubes, catheters and devices: No visible pneumothorax line is seen in the presence of a right large bore chest tube. The right IJ central venous catheter tip projects at the level of the right atrium. Lungs: Scattered bilateral platelike atelectasis is noted without megan edema or dense lobar consolidation. Pleural spaces: No pleural effusion. Heart/Mediastinum: Enlarged cardiac silhouette accounting for magnification. Bones/joints: Again noted is prior lower anterior cervicalspine fusion. No destructive bone lesions. IMPRESSION: 1. No visible pneumothorax line in the presence of a right-sided chest tube on water seal. 2. Scattered bilateral subsegmental atelectasis withoutedema or dense lobar consolidation. at 1330 Reported and signed by: Wild Castillo M.D. CC: Debbie Aggarwal MD Technologist: Violetta Iniguez RT(R) Trnscrd Date/Time/By: 03/10/2021 (4575) : By: [email or web address] Orig Print D/T: S: 03/10/2021 (0030) PAGE 1 Signed Report- XR CHEST 1 [id number] 00:00:00 [facility] : 1960 Sex: F FAX: Debbie Johnson MD [phone] [place]: St: ADM Name: ERNESTO MAURICIO [facility] : 1960 Age/S: 60/F [address] [place] [address] Unit #: [id number] Loc: [address] [address] Phys: Debbie Aggarwal MD Acct: [id number] Dis Date: Status: ADM IN PHONE #: [phone] Exam Date: 03/10/2021941 FAX #: [phone] Reason: S/P right upper lobe segmentectomy EXAMS: CPT CODE: [id number] XR CHEST1 V 70830 PROCEDURE INFORMATION: Exam: XR Chest Exam date and time: 03/10/2021 8:49 AM Age: 60 yearsold Clinical indication: Shortness of breath; Additional info: S/P right upper lobe segmentectomy TECHNIQUE: Imaging protocol: XR of the chest. Views: 1 view. COMPARISON: CR XR CHEST 1V 03/09/2021 3:19 PM FINDINGS: Tubes, catheters and devices: The right IJ central venous catheter tip projects at the level of the right atrium. Lungs: Scattered bilateral platelike atelectasis is noted with slightly improved pulmonary aeration. Pleural spaces: No visible pneumothorax line is seen in the presence of a large bore right-sided chest tube. No pleural fluid. Heart/Mediastinum: Enlarged cardiac silhouette accounting for magnification. Bones/joints: Prior anterior lower cervical spine fusion. No destructive bone lesions. IMPRESSION: 1. No visible pneumothorax line in the presence of a right-sided chest tube. 2. Persistent scattered subsegmental atelectasis with slightly improved pulmonary aeration. 3. Enlarged cardiac silhouette. at 1341 Reported and signed by: Wild Castillo M.D. CC: Debbie Aggarwal MD Technologist: DOMINIQUE Garg) Trnscrd Date/Time/By: 03/10/2021 (1340) : By: [email or web address] Orig Print D/T: S: 03/10/2021 (612) PAGE 1 Signed Report- XR CHEST 1 [id number] 00:00:00 [facility] : 1960 Sex: F FAX: Debbie Johnson MD [phone] [place]: St: ADM Name: ERNESTO MAURICIO [facility] : 1960 Age/S: 60/F [address] [place] [address] Unit #: [id number] Loc: [place] [address] Phys: Debbie Aggarwal MD Acct: [id number] Dis Date: Status: ADM IN PHONE #: [phone] Exam Date: 03/09/2021 1606 FAX #: [phone] Reason: s/p right upper lobe posterior segementectomy EXAMS: CPT CODE: [id number] XR CHEST 1 V 55400 PROCEDURE INFORMATION: Exam: XR Chest Exam date and time: 03/09/2021 3:19 PM Age: 60 years old Clinical indication: Other: S/P right upper lobe posterior segementectomy TECHNIQUE: Imaging protocol: XR of the chest. Views: 1 view. COMPARISON: CR XR CHEST 2 V 03/05/2021 12:44 PM FINDINGS: Tubes, catheters and devices: Interval placement of a right IJ venous catheter, tip at atrial cavaljunction. A right chest tube is noted, tip in the posterior aspect of the right apical chest. Multiple clips are projected to the right lower chest. By minimal soft tissue air in the right lateral chest wall. Lungs: The thorax shows normal lung volumes. Postsurgical changes in the right upper chest. Right patter mediastinal opacity, probably related to recent surgery. Mild bilateral perihilar and lower lobe opacities, worse on the left may represent atelectasis or developing infiltrates. Pleural spaces: No effusions or pneumothorax. Heart/Mediastinum: Heart appear enlarged, probably due to projection. Calcified plaque in aortic arch seen. The pulmonary vasculature is normal. The trachea is midline. Bones/joints: Plate and clips seen overlying the lower cervical spine, stable.. IMPRESSION: 1. A right IJ venous catheter placement, tip at atrial caval junction. 2. A right chest tube in place, tip in the right apical chest. No radiographically apparent pneumothorax. 3. Bilateral perihilar and lower lobe opacities, worse on the left, may represent atelectasis, pneumonia in differential in appropriate clinical setting. at 1638 Reported and signed by: Sanju Clark M.D. PAGE 1 Signed Report (CONTINUED) FAX: Debbie Johnson MD [phone] [place]: St: ADM -- Name: ERNESTO MAURICIO [facility] : 1960 Age/S: 60/F [address] [place] [address] Blvd Unit#: [id number] Loc: [place] [address] Phys: Debbie Aggarwal MD Acct: [id number] Dis Date: Status: ADM IN PHONE #: [phone] Exam Date: 03/09/2021 1606 FAX #: [phone] Reason: s/p right u pper lobe posterior segementectomy EXAMS: CPT CODE: [id number] XR CHEST 1 V 73414 <Continued> CC: Debbie Aggarwal MD Technologist: Violetta Iniguez RT(R) Trnscrd Date/Time/By: 03/09/2021 (1637) : By: [email or web address] Orig Print D/T: S: 03/09/2021 (3193) PAGE 2 Signed ReportNovel Coronavirus 2018 [id number] 16:20:00 Test Item Value Reference Range Interpretation Comments Novel Coronavirus Negative Negative Positive r esults are 2019 Inhouse (test indicativ e of the presence code = COVNONPUI) ofSARS-CoV -2 RNA, clinical correlation wit h patient historyand othe r diagnostic info rmation is necessary to determinepatien t infection status. Positiv e results do not rule out bacterial infection or co -infection with other viru ses. Negative result s do not preclude SARS-C oV-2 infection andsh ould not be used as the radha e basis for patient managementdecis ions. Negative result s must be combined with otherclinical observations, p atient history, and epidemiological information . Detection of SARS-CoV-2 RNA may be affe cted bysample collec tion methods, storag e conditions, and /or stageof infection. Norma l RNA mutations, vacc inations, antiviraltherap eutics, antibiotics, chemotherapeuti c orimmunosuppres tor drugs have not been e valuated for effectson d etection. Results are for the identification of SARS-CoV-2 RNA usingthe [employer] Sy stem under the FDA Emergen cy UseAuthorizatio n. The testing is perf ormed by personneltraine d in the procedures for the [employer] molecular diagnostic SARS-CoV-2 assa y in vitro. PROTHROMBIN [id number] 11:56:00 Test Item Value Reference Range Interpretation Comments PROTHROMBIN TIME 14.4 SECONDS 9.3-12.9 H PATIENT (test code = PTP) INTERNATIONAL NORMAL 1.3 0.8-1.2 H TARGET INR BY RATIO (test code = INDICATIO N Indication INR) INR1. Prophylax is of venous thrombos is 2.0 - 3.0 (orthoped ic surgery), Proph ylaxis of venous throm bosis (other than hig h-risk surgery), Treat ment of Deep Vein Thrombosis/Pulm onary Embolism, Preve ntion of systemic emb olism - Tissue heart va lves, Acute Myocardia l Infarction (to prevent systemic emboli sm), Valvular heart disease, Atrial Fibrillation, Bileaflet mecha nical valve in aortic position.2. Mec hanical prosthetic valv es (high risk), 2. 5 - 3.5 Presence of Lup us Anticoagulant o r Antiphospholipi d Antibodies, Pre vention of systemic emb olism - Acute Myocardia l Infarction (to prevent recurrent infar ct). THROMBOPLASTIN TIME [id number] 11:56:00 Test Item Value Reference Range Interpretation Comments THROMBOPLASTIN TIME 31.4 Seconds 25.0-39.5 N Therape utic Range: PARTIAL (test code = 50.4 - 88.3 Seconds PTT) Effective 10/02/2018 BASIC METABOLIC [id number] 11:56:00 Test Item Value Reference Range Interpretation Comments SODIUM (test code = NA) 141 mEq/L 134-147 N POTASSIUM (test code = 4.1 mEq/L 3.4-5.0 N K) CHLORIDE (test code = 108 mEq/L 100-108 N CL) CARBON DIOXIDE (test 29 mEq/l 21-33 N code = CO2) ANION GAP (test code = 8 0-20 N GAP) GLUCOSE (test code = 77 mg/dL 70-110 N GLU) BLOOD UREA NITROGEN 12 mg/dL 7-18 N (test code = BUN) GLOMERULAR FILTRATION 56.4 80-90 L Units of measure = RATE (test code = GFR) ml/mi n/1.73 m2 CREATININE (test code = 1.0 mg/dL 0.6-1.3 N CREAT) CALCIUM (test code = 9.4 mg/dL 8.0-10.5 N CA) CBC W/AUTO [id number] 11:43:00 Test Item Value Reference Range Interpretation Comments WHITE BLOOD CELL (test code = 6.6 x10 3/uL 4.5-11.0 N WBC) RED BLOOD CELL (test code = 4.98 x10 6/uL 3.54-5.02 N RBC) HEMOGLOBIN (test code = HGB) 16.2 g/dL 11.0-15.0 H HEMATOCRIT (test code = HCT) 47.8 % 33.0-45.0 H MEAN CELL VOLUME (test code = 96.0 fL 81.0-99.0 N MCV) MEAN CELL HGB (test code = MCH) 32.5 pg 27.0-33.0 N MEAN CELL HGB CONCETRATION 33.9 g/dL 33.0-37.0 N (test code = MCHC) RED CELL DISTRIBUTION WIDTH CV 12.9 % 11.5-14.5 N (test code = RDW) RED CELL DISTRIBUTION WIDTH SD 45.8 fL 37.0-54.0 N (test code = RDW-SD) PLATELET COUNT (test code = 172 x10 3/uL 150-400 N PLT) MEAN PLATELET VOLUME (test code 10.4 fL 7.0-9.0 H = MPV) NEUTROPHIL % (test code = NT%) 66.6 % 56.0-77.0 N IMMATURE GRANULOCYTE % (test 0.5 % 0.0-2.0 N code = IG%) LYMPHOCYTE % (test code = LY%) 20.9 % 14.0-32.0 N MONOCYTE % (test code = MO%) 9.3 % 4.8-9.0 H EOSINOPHIL % (test code = EO%) 1.8 % 0.3-3.7 N BASOPHIL % (test code = BA%) 0.9 % 0.0-2.0 N NUCLEATED RBC % (test code = 0.0 % 0-0 N NRBC%) NEUTROPHIL # (test code = NT#) 4.38 x10 3/uL 2.0-7.6 N IMMATURE GRANULOCYTE # (test 0.03 x10 3/uL 0.00-0.03 N code = IG#) LYMPHOCYTE # (test code = LY#) 1.37 x10 3/uL 1.0-3.8 N MONOCYTE # (test code = MO#) 0.61 x10 3/uL 0.1-0.8 N EOSINOPHIL # (test code = EO#) 0.12 x10 3/uL 0.0-0.2 N BASOPHIL # (test code = BA#) 0.06 x10 3/uL 0.0-0.2 N NUCLEATED RBC # (test code = 0.00 x10 3/uL 0.0-0.1 N NRBC#) MANUAL DIFF REQUIRED (test code NO = MDIFF) - XR CHEST 2 [id number] 00:00:00 [facility] : 1960 Sex: F FAX: Debbie Johnson MD [phone] [place]: St: PRE FAX: Mikaela Bass Name: NASHShanteERNESTOLAYO BRADSHAW [facility] : 1960 Age/S: 60/F [address] [place] [address] Unit #: [id number] Loc: [address] [place] [address] Phys: Mikaela Bass DOCK CLERK Acct: [id number] Dis Date: Status: PRE IN PHONE #: [phone] Exam Date: 03/05/2021 1255 FAX #: [phone] Reason: PREOP EXAMS: CPT CODE: [id number] XR CHEST2 V 03248 PROCEDURE INFORMATION: Exam: XR Chest Exam date and time: 03/05/2021 12:44 PM Age: 60 yearsold Clinical indication: Other: Preop TECHNIQUE: Imaging protocol: XR of the chest. Views: 2 views. PA and Lateral COMPARISON: CT CHEST W/O CONTRAST 12/14/2020 2:39 PM FINDINGS: Lungs: No consolidation.Right upper lobe nodule again seen. Some scarring is seen in the left lower lung. Right chest wall clips. Pleural spaces: No pleural effusion. Heart/Mediastinum: The heart and vascular markings are sta ble. There is atherosclerotic calcification of the aorta. Bones/joints: No gross acute findings. ACDF is again seen. IMPRESSION: No acute cardiopulmonary findings at 1428 Reported and signed by: Debbie Matute D.O. CC: Debbie Cline MD; Mikaela Bass NP Technologist: RT Shannon(R) Trnscrd Date/Time/By: 03/05/2021 (1427) : By: [email or web address] Orig Print D/T: S: 03/05/2021 (1427) PAGE 1 Signed Report- NM LUNG PERF [id number] 00:00:00 [facility] : 1960 Sex: F FAX: Eloina Ellison MD [phone] [place]: St: DEP Name: ERNESTO MAURICIO [facility] [place] : 1960 Age/S: 60/F [address] [place] [address] Unit #: [id number] Loc: [place] [address] Phys: Eloina Garzon MD Acct: [id number] Dis Date: Status: DEP CLI PHONE #: [phone] Exam Date: 02/12/2021 1333 FAX #: [phone] Reason: R06.02, SHORTNESS OF BREATH. Report Has Been Amended EXAMS: CPT CODE: [id number] NM LUNG PERF PARTICULATE 06900 Addendum - 02/19/2021 SIGNED 02/19/2021 ADDENDUM: [id number] NM/NMPULMPEPA Addendum was placed for lung perfusion quantification as follow. Right lung: Upper zone: 15 %. Middle zone: 28 %. Lower zone: 13 %. Total lun %. Left lung: Upper zone: 13 %. Middle zone: 21 %.Lower zone: 10 %. Total lun %. at 0912 Reported and signed by: Wojciech Young M.D. Report PROCEDURE INFORMATION: Exam: NMLung Perfusion Exam date and time: 02/12/2021 1:32 PM Age: 60 years old Clinical indication: Condition or disease; Other: SOB; Additional info: R06.02, shortness of breath. TECHNIQUE: Imaging protocol: Nuclear pulmonary perfusion imaging was performed. Views: Perfusion acquired with multiple projections. Projections include anterior, posterior, PERKINS, LPO, bilateral lateral, RPO projections. Radiopharmaceutical: 5 mCi of Tc-99m MAA, IV. COMPARISON: PET/CT TUMOR SK MIDTH 02/03/2021 11:52 AM FINDINGS:Perfusion: There is no segmental perfusion defects to suggest pulmonary embolism. Notes: Notes: If there is further concern can consider CTA chest PE protocol if able PAGE 1 Signed Report (CONTINUED) FAX: Eloina Ellison MD [phone] [place]: St: DEP Name: ERNESTO MAURICIO [facility] [place] : 1960 Age/S: 60/F [address] [place] [address] Unit #: [id number] Loc: [place] [address] Phys: Eloina Garzon MD Acct: [id number] Dis Date: Status: DEP CLI PHONE #: [phone] Exam Date: 02/12/2021 1333 FAX #: [phone] Reason: R06.02, SHORTNESS OF BREATH. Report Has Been Amended EXAMS: CPT CODE: [id number] NM LUNG PERF PARTICULATE 78333 <Continued> IMPRESSION: Normal lung perfusion exam. COMMENTS: Normal: < 5% probability of pulmonary embolism.Low likelihood ratio: < 20 % probability of pulmonary embolism.Intermediate likelihood ratio: 20-80% probability of pulmonary embolism.High likelihood ratio: > 80% probability of pulmonary embolism. at 1091 Reported and signed by: Wojciech Young M.D. CC: Eloina Garzon MD Technologist: NICOLAS Fuchs (N)(CT) Trnscrd Date/Time/By: 02/12/2021 (1454) : By: [email or web address] OrigPrint D/T: S: 02/12/2021 (2432) PAGE 2 Signed Report- NM LUNG PERF [id number] 00:00:00 [facility]OO[facility] PURDYName: ERNESTO MAURICIO : 1960 Sex: F FAX: Eloina Ellison MD [phone] [place]: St: REG Name: ERNESTO MAURICIO [facility] : 1960 Age/S: 60/F [address] [place] [address] Unit #: [id number] Loc: [place] [address] Phys: Eloina Garzon MD Acct: [id number] Dis Date: Status: REG CLI PHONE #: [phone] Exam Date: 02/12/2021 1333 FAX #: [phone] Reason: R06.02, SHORTNESS OF BREATH. EXAMS: CPT CODE: [id number] NM LUNG PERF PARTICULATE 33297 PROCEDURE INFORMATION: Exam: NM Lung Perfusion Exam date and time: 02/12/2021 1:32 PM Age: 60 years old Clinical indication: Condition or disease; Other: SOB; Additional info: R06.02, shortness of breath. TECHNIQUE: Imaging protocol: Nuclear pulmonary perfusion imaging was performed. Views: Perfusion acquired with multiple projections. Projections include anterior, posterior, PERKINS, LPO, bilateral lateral, RPO projections. Radiopharmaceutical: 5 mCi of Tc-99m MAA, IV. COMPARISON: PET/CT TUMOR SK BS MIDTH 02/03/2021 11:52 AM FINDINGS: Perfusion: There is no segmental perfusion defects to suggest pulmona ry embolism. Notes: Notes: If there is further concern can consider CTA chest PE protocol if able IMPRESSION: Normal lung perfusion exam. COMMENTS: Normal: < 5% probability of pulmonary embolism.Low likelihood ratio: < 20 % probability of pulmonary embolism.Intermediate likelihood ratio: 20-80% probability of pulmonary embolism.High likelihood ratio: > 80% probability of pulmonary embolism. at 1454 Reported and signedby: Wojciech Young M.D. CC: Eloina Garzon MD Technologist: NICOLAS Fuchs (N)(CT) Trnscrd Date/Time/By: 02/12/2021 (1454) : By: [email or web address] Orig Print D/T: S: 02/12/2021 (1458) PAGE 1 Signed Report- PET/CT TUMOR SK [id number] 00:00:00 [facility] : 1960 Sex: F FAX: Eloina Ellison MD [phone] [place]: St: [facility] FAX: Luca Almaguer MD [phone] Name: ERNESTO MAURICIO : 1960 Age/S: 60/F [address] [place] [address] Bl Unit #: [id number] Loc: [place] [address] Phys: Eloina Garzon MD Acct: [id number] Dis Date: Status: DEP CLI PHONE #: [phone] ExamDate: 02/03/2021 1152 FAX #: [phone] Reason: R91.1 SOLITARY PULMONARY NODLE EXAMS: CPT CODE: [id number] PET/CT TUMOR SK MIDTH 09994 PROCEDURE INFORMATION: Exam: PET/CT Skull Base to Mid-thigh Exam date and time: 02/03/2021 11:52 AM Age: 60 years old Clinical indication: Solitary pulmonary nodule; Additional info: R91.1 solitary pulmonary nodle; History of right quadriceps repair May 2020 with persistent symptoms not otherwise specified. LABS AND CLINICAL REPORTS: Glucose: 93 mg/dl Treatment strategy for malignancy (PET staging): Initial Staging (PI) TECHNIQUE: Imaging protocol: Following at least four-hour fasting and following the injection of F-18-FDG, low dose CT images were obtained from the orbital meatal line through the pelvis. Then, PET images were obtained through the same region. Attenuation corrected images were constructed using the CT scan. Fused images of PET and CT were reviewed. The standardized uptake values (SUV) reported below are maximum values within a region of interest, expressed in gm/ml. Radiopharmaceutical: 11.88 mCi F-18 FDG (Fluorodeoxyglucose), IV. Time of imaging post radiopharmaceutical administration: 1 hour Injection site: Left antecubital COMPARISON: 1. PT PET/CT TUMOR SK BS MIDTH 02/19/2020 10:[address] chest 12/14/2020 FINDINGS: Head: Visualized portion of the brain demonstrates no abnormality in the radiotracer distribution of the cortex, deep subcortical structures, and the cerebellum. Neck: Diffuse activity in bilateral thyroid gland without focal hypermetabolic lesion or interval change. Activity in the neck is otherwise physiologic. Chest: Right upper lobe nodule, series 3, image 70, 14 x 9 mm, stable from 12/14/2020, slightly enlarged from 02/19/2020. This nodule is faintly FDG avid on review of axial PET images, SUV 1.6. Activity in the chest is otherwise physiologic. No pathologic clayton uptake. Abdomen and Pelvis: Examination ofthe abdomen and pelvis shows normal uptake within the adrenal glands, liver, spleen, pancreas, renalcortices and collecting system. There are no hypermetabolic lymph nodes. Bones/joints: No metabolically active areas are noted within the osseous structures PAGE 1 Signed Report (CONTINUED) FAX: Eloina Ellison MD [phone] [place]: St: [facility] FAX: Luca Almaguer MD [phone] Name: ERNESTO MAURICIO [facility] : 1960 Age/S: 60/F [address] [place] [address] Unit #: [id number] Loc: [place] [address] Phys: Eloina Garzon MD Acct: [id number] Dis Date: Status: DEP CLI PHONE #: [phone] Exam Date: 1152 FAX #: [phone] Reason: R91.1 SOLITARY PULMONARY NODLE EXAMS: CPT CODE: [id number] PET/CT TUMOR SK MIDTH 27539 <Continued> Soft tissues: There is ill-defined elevated FDG uptake in the extensor compartment of the right thigh. This is associated with postoperative change with low- attenuation collection in the operative bed measuring approximately 2.9 x 1.9 cm axial series 3, image 309, SUV 7.2. Other findings: CT findings: Circumscribed fluid collection in the anterior abdominal wall is not FDG avid, stable and compatible with chronic postoperative seroma. Clustered peribronchial opacities in the anterior segment right upper lobe different location from that on prior examination. Focal air trapping in the lingula similar in appearance. The aorta demonstrates mild atherosclerotic calcification. The heart demonstrates mild diffuse enlargement. There is moderate atherosclerotic calcification of the coronary arteries. Nodular hepatic contours. Portosystemic collateral formation perisplenic region. IMPRESSION: 1. Right upper lobe nodule with slight interval enlargement is mildly FDG avid. Carcinoid, other low-grade neoplasms and inflammatory nodules in the differential. 2.No FDG avid adenopathy or evidence for distal metastatic disease. 3. Elevated uptake associated withpostoperative changes in the anterior compartment of the thigh which may reflect healing response orinflammation. Fluid collection compatible with postoperative seroma. Infection not excluded on the basis of this exam. 4. Atherosclerosis. Coronary arterial calcifications. Cardiomegaly. 5. Morphologicchanges of cirrhosis with evidence for portal venous hypertension. 6. Clustered nodular opacities with tree-in-bud configuration right upper lobe compatible with bronchiolitis. Electronically Signedby Ann-Marie Corrigan on 02/04/2021 at 1503 Reported and signed by: Chandra Corrigan M.D. CC: Eloina Garzon MD; Luca Lowe M.D. Technologist: Selin Braden RT(N)(CT)(PET) Trnthe medical center Date/Time/By: 02/04/2021 (0258) : By: Valeria Orig Print D/T: S: 02/04/2021 (8735) PAGE 2 Signed ReportSURGICAL PATH [id number] 09:56:00 Test Item Value Reference Range Interpretation Comments SURGICAL PATH SPECIMENS (test code = S) RUN DATE: 01/14/21 [place] - LAB PAGE 1 RUN TIME: 955 Specimen Inquiry RUN USER: INTERFACE PATIENT: ERNESTO MAURICIO LOC: [facility] U #: [id number] AGE/SX: 60/F ROOM: RE01/11/21REG DR: Eloina Garzon MD : 59 BED: DIS: STATUS: [facility] TLOC: SPEC #: [id number] RECD: 01/12/21 STATUS: EMELY RE #: [id number] STEPAN: 01/11/21- SUBM DR: Eloina Garzon MD ENTERED: 01/12/21 SP TYPE: SURG SPEC OTHR DR: Luca Lowe MD ORDERED: L4 49855/2, FNA ADEQUACY, FNA INTERP RPT, CYTO SMR INTERP, CYTO CONC INTERCOMMENTS: 1.RIGHT UPPER LOBE LUNG NODULE 2.RIGHT UPPER LOBE LUNG NODULE BRUSHINGS 3.RIGHT UPPER LOBE BAL COPIES TO: Eloina Garzon MD [address] [place] [address] [id number] Luca Lowe MD [address] [place], [place] [address] PROCEDURES: GM L4 96496 (01/12/21) FNA ADEQUACY (01/12/21) FNA INTERP RPT (01/12/21) CYTO SMR INTERP (01/13/21) CYTO CONC INTER (01/12/21) FINAL DIAGNOSIS Lung, right upper lobe nodule, FNA: No malignant cells identified; blood with rare benign bronchial epithelium. Lung, right upper lobe, brushings: No malignant cells identified; blood with rare benign bronchial epithelium. Lung, right upper lobe, BAL (cytospin and cell block): No malignant cells identified; blood with rare benign bronchial epithelium. GROSS AND MICROSCOPIC INTRAOPERATIVE CONSULTATION (): Blood with rare fragments of benign bronchial epithelium. GROSS EXAMINATION: received are 4 FNA smear slides labeled "right upper lobe lung nodule" for intraoperative consultation, and a tube of needle rinse, processed for cytospin and cell block for cytology evaluation. Specimen #2 received to smear slides designated as right upper lobe and CONTINUED ON NEXT PAGE RUN DATE: 01/14/21 [facility] PAGE 2 RUN TIME: 955 Specimen Inquiry RUN USER: INTERFACE SPEC #: [id number] PATIENT: ERNESTO MAURICIO #[id number] (Continued) --- GROSS AND MICROSCOPIC (Continued) lung nodule/mass brushings, processed for Pap staining. Specimen #3 received a tube of body fluid designated as right upper lobe BAL, processed for cytospin and cell block for cytology evaluation. MICROSCOPIC EXAMINATION: A microscopic examination was performed to arrive at the diagnostic conclusion reported. - Signed SIGNATURE ON FILE Esdras Wei 01/14/21 0956 END OF REPORT - XR FLUOROSCOPY 0-60 [id number] 00:00:00 [facility] : 1960 Sex: F FAX: Eloina Ellison MD [phone] [place]: St: DEP FAX: Luca Almaguer MD [phone] Name: ERNESTO MAURICIO : 1960 Age/S: 60/F [address] [place] [address] Unit #: [id number] Loc: [place] [address] Phys: Eloina Garzon MD Acct: [id number] Dis Date: Status: [facility] PHONE #: [phone] Exam Date: 01/11/2021 1300 FAX #: [phone] Reason: PULMONARY NODULE EXAMS: CPT CODE: [id number] XR FLUOROSCOPY 0-60 MIN 56718 PROCEDURE INFORMATION: Exam: FL Fluoroscopy, Up to 1 Hour Physician Time; Radiologist Not Present For Fluoroscopy Exam date and time: 01/11/2021 12:30 PM Age: 60 years old Clinical indication: Symptoms: Pulmonary nodule TECHNIQUE: Imaging protocol: Fluoroscopy , up to 1 hour physician or other qualified health point of care technician time. This radiologist did not supervise this procedure. Exam supervised by facility personnel. Report for radiation dosage reporting and documentation only. COMPARISON: No relevant prior studies available. RADIATION DOSE METRICS: Fluoroscopy time (seconds): 130.6 Number of fluoro spot images: 1 Reference air kerma (BOOGIE): 9.15 mGy FINDINGS: Procedural imaging: Fluoroscopy was provided for the procedure. See procedure report for details. Notes: Fluoroscopy supervised by facility personnel. See also separate procedure report. IMPRESSION: Fluoroscopy dosage documentation. See also separate procedure notes. at 1257 Reported and signed by: Umair Almaraz M.D. CC: Eloina Garzon MD; Luca Lowe M.D. Technologist: RT Han(R) Trnscrd Date/Time/By: 01/12/2021 (1257) : By: [email or web address] Orig Print D/T: S: 01/12/2021 (1257) PAGE 1 Signed ReportNovel Coronavirus 2019 [id number] 07:20:00 Test Item Value Reference Range Interpretation Comments Novel Coronavirus Negative Negative Positive r esults are 2019 Inhouse (test indicativ e of the presence code = COVNONPUI) ofSARS-CoV -2 RNA, clinical correlation wit h patient historyand othe r diagnostic info rmation is necessary to determinepatien t infection status. Positiv e results do not rule out bacterial infection or co -infection with other viru ses. Negative result s do not preclude SARS-C oV-2 infection andsh ould not be used as the radha e basis for patient managementdecis ions. Negative result s must be combined with otherclinical observations, p atient history, and epidemiological information . Detection of SARS-CoV-2 RNA may be affe cted bysample collec tion methods, storag e conditions, and /or stageof infection. Norma l RNA mutations, vacc inations, antiviraltherap eutics, antibiotics, chemotherapeuti c orimmunosuppres tor drugs have not been e valuated for effectson d etection. Results are for the identification of SARS-CoV-2 RNA usingthe Etable M2000 Sy stem under the FDA Emergen cy UseAuthorizatio n. The testing is perf ormed by personneltraine d in the procedures for the Etable M2000 molecular diagnostic SARS-CoV-2 assa y in vitro. BASIC METABOLIC [id number] 13:44:00 Test Item Value Reference Range Interpretation Comments SODIUM (test code = NA) 141 mEq/L 134-147 N POTASSIUM (test code = 3.5 mEq/L 3.4-5.0 N K) CHLORIDE (test code = 106 mEq/L 100-108 N CL) CARBON DIOXIDE (test 32 mEq/l 21-33 N code = CO2) ANION GAP (test code = 7 0-20 N GAP) GLUCOSE (test code = 65 mg/dL 70-110 L GLU) BLOOD UREA NITROGEN 12 mg/dL 7-18 N (test code = BUN) GLOMERULAR FILTRATION 63.7 80-90 L Units of measure = RATE (test code = GFR) ml/mi n/1.73 m2 CREATININE (test code = 0.9 mg/dL 0.6-1.3 N CREAT) CALCIUM (test code = 9.2 mg/dL 8.0-10.5 N CA) CBC W/AUTO [id number] 13:25:00 Test Item Value Reference Range Interpretation Comments WHITE BLOOD CELL (test code = 5.6 x10 3/uL 4.5-11.0 N WBC) RED BLOOD CELL (test code = 4.86 x10 6/uL 3.54-5.02 N RBC) HEMOGLOBIN (test code = HGB) 15.4 g/dL 11.0-15.0 H HEMATOCRIT (test code = HCT) 47.4 % 33.0-45.0 H MEAN CELL VOLUME (test code = 97.5 fL 81.0-99.0 N MCV) MEAN CELL HGB (test code = MCH) 31.7 pg 27.0-33.0 N MEAN CELL HGB CONCETRATION 32.5 g/dL 33.0-37.0 L (test code = MCHC) RED CELL DISTRIBUTION WIDTH CV 13.2 % 11.5-14.5 N (test code = RDW) RED CELL DISTRIBUTION WIDTH SD 47.6 fL 37.0-54.0 N (test code = RDW-SD) PLATELET COUNT (test code = 171 x10 3/uL 150-400 N PLT) MEAN PLATELET VOLUME (test code 10.5 fL 7.0-9.0 H = MPV) NEUTROPHIL % (test code = NT%) 62.2 % 56.0-77.0 N IMMATURE GRANULOCYTE % (test 0.4 % 0.0-2.0 N code = IG%) LYMPHOCYTE % (test code = LY%) 23.8 % 14.0-32.0 N MONOCYTE % (test code = MO%) 9.1 % 4.8-9.0 H EOSINOPHIL % (test code = EO%) 3.8 % 0.3-3.7 H BASOPHIL % (test code = BA%) 0.7 % 0.0-2.0 N NUCLEATED RBC % (test code = 0.0 % 0-0 N NRBC%) NEUTROPHIL # (test code = NT#) 3.48 x10 3/uL 2.0-7.6 N IMMATURE GRANULOCYTE # (test 0.02 x10 3/uL 0.00-0.03 N code = IG#) LYMPHOCYTE # (test code = LY#) 1.33 x10 3/uL 1.0-3.8 N MONOCYTE # (test code = MO#) 0.51 x10 3/uL 0.1-0.8 N EOSINOPHIL # (test code = EO#) 0.21 x10 3/uL 0.0-0.2 H BASOPHIL # (test code = BA#) 0.04 x10 3/uL 0.0-0.2 N NUCLEATED RBC # (test code = 0.00 x10 3/uL 0.0-0.1 N NRBC#) MANUAL DIFF REQUIRED (test code NO = MDIFF) - CT CHEST W/O [id number] 16:53:00 [facility] : 1960 Sex: F Name: ERNESTO MAURICIO [facility] : 1960 Age/S: 60 / F [address] [place] [address] Unit #: [id number] Loc: [place] [address] Phys: Eloina Garzon MD Acct: [id number] Dis Date: Status: REG CLI PHONE #: [phone] Exam Date: 12/14/2020 [facility] FAX #: [phone] Reason: R91.1, PULMONARY NODULE.EXAMS: CPT CODE: [id number] CT CHEST W/O CONTRAST 47551 EXAM: CT CHEST WITHOUT CONTRAST DATE: 12/14/2020 2:21 PM : 1960; Age: 60 years y/o Female INDICATION: R91.1, PULMONARY NODULE. COMPARISON: January 24, 2020 TECHNIQUE: Volumetric CT of the chest is acquired without contrast. Axial, coronal and sagittal images are provided. IV contrast: None. DLP: 194 mGy-cm CT imaging performed at this [facility] utilizes radiation dose optimization techniques which include one or more of the following: -Automated exposure control -Adjustment of the mA and/or kV according to patient size -Use of iterative reconstruction technique FINDINGS: Lymph Nodes: There is no mediastinal or hilar lymphadenopathy. No axillary lymphadenopathy. Heart, and aorta: Heart is borderline in size. Mild coronary arteries calcification. No pericardial effusion. Slightly prominent main pulmonary artery. Atherosclerotic changes are seen involving the aorta. Lungs: No pleural effusion. Interval enlargement of the prior noted right upper lobe noncalcified nodule is seen, now measuring 1.4 cm in comparison to 1 cm in January 2020. Few scattered peribronchovascular tiny nodularity is seen in the right upper lobe. Air trapping changes are seen in the lingula. Upper abdomen: Slightly irregular contour of the liver is seen. Perisplenic collateral veins are partially seen. Small hiatal hernia. Soft tissues: Right chest postoperative changes. Bones: No acute abnormality. Age-related degenerative findings. ACDF is partially seen. IMPRESSION: PAGE 1 Signed Report (CONTINUED) Name: ERNESTO MAURICIO [place] : 1960 Age/S: 60 / F [address] [place] [address] Unit #: [id number] Loc: [place] [address] Phys: Eloina Garzon MD Acc t: [id number] Dis Date: Status: REG CLI PHONE #: [phone] Exam Date: 12/14/2020 1437 FAX #: [phone] Reason: R91.1, PULMONARY NODULE. EXAMS: CPT CODE: [id number] CT CHEST W/O CONTRAST 21931 <Continued> 1. Interval enlargement of the prior noted right upper lobe noncalcified nodule is seen, now measuring 1.4 cm in comparison to 1 cm in January 2020. Malignancy is in differential. 2. Few scattered peribronchovascular tiny nodularity is seen in the right upper lobe. This may represent infectious or inflammatory process. 3. Slightly irregular contour of the liver, which may represent hepatic cirrhosis. 4. Coronary artery disease. SL: [id number] at 1653 Reported and signed by: Debbie Matute D.O. CC: Eloina Renteria; Luca Lowe M.D. Technologist:RT Soraya(R)(CT) CTDI: DLP: Trnscb Date/Time: 12/14/2020 (257) SoledadR.[email or web address] Orig Print D/T: S: 12/14/2020 (1623) PAGE 2 Signed ReportCOVID-19 (MOLECULAR TESTING NUCLEIC ACID AMPLIFICATION)2020-08-09 10:53:00 Test Item Value Reference Range Interpretation Comments SARS-CoV-2 NAAT (test Positive Not Detected A code = 95462-2) EDISON (test code = EDISON) [employer] Aptima SARS-CoV-2 Assay is a nucleic acid amplification test intended for the qualitative detection of RNA from SARS-CoV-2 from nasopharyngeal (DOCK CLERK) specimens. ?It is used under Emergency Use Authorization (EUA) by FDA. A positive result is indicative of the presence of SARS-CoV-2 RNA. ?Clinical correlation with patient history and other diagnostic information is necessary to determine patient infection status. A negative (Not Detected) result does not preclude SARS-CoV-2 infection. ?Clinical correlation with patient history and other diagnostic information should be used in patient management decisions. Invalid: Unable to generate a valid test result on this specimen. ?Please submit a new specimen for repeat testing if clinically indicated. Lab Interpretation Abnormal (test code = 89126-5) [facility] [id number] 01:06:00 Test Item Value Reference Range Interpretation Comments RBC/HPF (test code = <1 See_Comment [Autom ated message] [id number]) The system [employer] generated this result transmitted ref erence range: 0 - 3 HP F. The reference range was not used to int erpret this result as normal/abnormal . WBC/HPF (test code = See_Comment [Autom ated message] [id number]) The system [employer] generated this result transmitted ref erence range: 0 - 5 HP F. The reference range was not used to int erpret this result as normal/abnormal . BACTERIA (test code = Few Negative A 8051107134) SQ EPITH (test code = HPF 1637951132) MUCOUS (test code = Slight Negative LPF A 1660126664) Lab Interpretation (test Abnormal code = 78812-1) [facility] [id number] 01:06:00 Test Item Value Reference Range Interpretation Comments RBC/HPF (test code = <1 See_Comment [Autom ated message] [id number]) The system [employer] generated this result transmitted ref erence range: 0 - 3 HP F. The reference range was not used to int erpret this result as normal/abnormal . WBC/HPF (test code = See_Comment [Autom ated message] [id number]) The system [employer] generated this result transmitted ref erence range: 0 - 5 HP F. The reference range was not used to int erpret this result as normal/abnormal . BACTERIA (test code = Few Negative A 5027114490) SQ EPITH (test code = HPF 3796488592) MUCOUS (test code = Slight Negative LPF A 8688753219) Lab Interpretation (test Abnormal code = 68934-2) [facility] URINALYSIS W SPECIFIC [id number] 23:48:00 Test Item Value Reference Range Interpretation Comments POCT U SP GRAV (test code = 1.010 mg/dl 1.005-1.025 3255) POCT PH U (test code = 3254) 7 mg/dl 5-8 POCT U LEUK EST (test code = trace Negative - Negative 3263) POCT U NIT (test code = 3262) neg Negative - Negative POCT U PROT (test code = trace Negative - Negative 3259) POCT U GLU (test code = 3256) neg Negative - Negative POCT U KETONE (test code = neg Negative - Negative 3258) POCT U UROBILI (test code = 8 mg/dl 0.2-1 A 3260) POCT U BILI (test code = ++ Negative - Negative 3261) POCT U BLD (test code = 3257) neg Negative - Negative POCT U COLOR (test code = yellow 3266) POCT U APPEAR (test code = clear 3267) Lab Interpretation (test code Abnormal = 64262-8) [facility] URINALYSIS W SPECIFIC [id number] 23:48:00 Test Item Value Reference Range Interpretation Comments POCT U SP GRAV (test code = 1.010 mg/dl 1.005-1.025 3255) POCT PH U (test code = 3254) 7 mg/dl 5-8 POCT U LEUK EST (test code = trace Negative - Negative 3263) POCT U NIT (test code = 3262) neg Negative - Negative POCT U PROT (test code = trace Negative - Negative 3259) POCT U GLU (test code = 3256) neg Negative - Negative POCT U KETONE (test code = neg Negative - Negative 3258) POCT U UROBILI (test code = 8 mg/dl 0.2-1 A 3260) POCT U BILI (test code = ++ Negative - Negative 3261) POCT U BLD (test code = 3257) neg Negative - Negative POCT U COLOR (test code = yellow 3266) POCT U APPEAR (test code = clear 3267) Lab Interpretation (test code Abnormal = 25738-8) [facility] Knee Right Wo [id number] 02:06:25 EXAMINATION: MRI KNEE WO CONTRAST RIGHT CLINICAL HISTORY: S76.111A Strain of right quadriceps musclefascia and tendon initial encounter, PALPABLE QUAD TECHNIQUE: Multiplanar multisequence MR imaging of the knee was performed without contrast. COMPARISON: Right knee MRI 05/15/2019. Right knee radiographs 05/14/2019 FINDINGS:Evaluation is severely limited due to susceptibility artifact from a total knee arthroplasty. No discrete periprosthetic fracture or osteolysis. Near complete rupture of the quadriceps tendon with a few thin intact components emanating of the vastus medialis and inserting upon the superior patellar pole. The remaining of the quadriceps tendon is completely ruptured with up to 5cm proximal retraction (5:12) and resultant patella baja. The patellar tendon is thickened, likely due to retraction. Large knee effusion with extensive synovitis. Fluid minimally tracks anterior to the patella which may be related to prior surgical track dehiscence. Mild atrophy throughout the visualized knee musculature. The tibial and peroneal nerves are normal along their visualized course. Subcutaneous edema about the knee may be reactive or due to anasarca. No subcutaneous organized fluid collection. IMPRESSION: 1.Near complete rupture of the quadriceps tendon with a few intact fibers from the vastus medialis but a majority of the tendon retracted at least 5 cm with resultant patella baja.2.Right total knee arthroplasty without periprosthetic fracture or osteolysis.3.Large knee effusion with extensive synovitis.4.Other findings as described above. [facility]-[id number] Interface, Radiology Results Incoming - 05/11/2020 8:09 PM CST EXAMINATION: MRI KNEE WO CONTRAST RIGHTCLINICAL HISTORY: S76.111A Strain of right quadriceps muscle fascia and tendon initial encounter, PALPABLE QUADTECHNIQUE: Multiplanar multisequence MR imaging of the knee was performed without contrast.COMPARISON: Right knee MRI 05/15/2019. Right knee radiographs 05/14/2019FINDINGS:Evaluation is severely limited due to susceptibility artifact from a total knee arthroplasty. No discrete periprosthetic fracture or osteolysis.Near complete rupture of the quadriceps tendon with a few thin intact components emanating of the vastus medialis and inserting upon the superior patellar pole. The remaining of the quadriceps tendon is completely ruptured with up to 5 cm proximal retraction (5:12) and resultant patella baja. The patellar tendon is thickened, likely due to retraction.Large knee effusion with extensive synovitis. Fluid minimally tracks anterior to the patella which may be related to prior surgical track dehiscence.Mild atrophy throughout the visualized knee musculature. The tibial and peroneal nerves are normal along their visualized course.Subcutaneous edema about the knee may be reactive or due to anasarca. No subcutaneous organized fluid collection.IMPRESSION:1.Near complete rupture of the quadriceps tendon with a few intact fibers from the vastus medialis but a majority of the tendon retracted at least 5 cm with resultant patella baja.2.Right total knee arthroplasty without periprosthetic fracture or osteolysis.3.Large knee effusion with extensive synovitis.4.Other findings as described above.[facility]-[id number] HospitalMRI Knee Right Wo [id number] 02:06:25EXAMINATION: MRI KNEE WO CONTRAST RIGHT CLINICAL HISTORY: S76.111A Strain of right quadriceps musclefascia and tendon initial encounter, PALPABLE QUAD TECHNIQUE: Multiplanar multisequence MR imaging of the knee was performed without contrast. COMPARISON: Right knee MRI 05/15/2019. Right knee radiographs 05/14/2019 FINDINGS:Evaluation is severely limited due to susceptibility artifact from a total knee arthroplasty. No discrete periprosthetic fracture or osteolysis. Near complete rupture of the quadriceps tendon with a few thin intact components emanating of the vastus medialis and inserting upon the superior patellar pole. The remaining of the quadriceps tendon is completely ruptured with up to 5cm proximal retraction (5:12) and resultant patella baja. The patellar tendon is thickened, likely due to retraction. Large knee effusion with extensive synovitis. Fluid minimally tracks anterior to the patella which may be related to prior surgical track dehiscence. Mild atrophy throughout the visualized knee musculature. The tibial and peroneal nerves are normal along their visualized course. Subcutaneous edema about the knee may be reactive or due to anasarca. No subcutaneous organized fluid colle ction. IMPRESSION: 1.Near complete rupture of the quadriceps tendon with a few intact fibers from the vastus medialis but a majority of the tendon retracted at least 5 cm with resultant patella baja.2.Right total knee arthroplasty without periprosthetic fracture or osteolysis.3.Large knee effusion with extensive synovitis.4.Other findings as described above. [facility]-[id number] Interface, Radiology Results Incoming - 05/11/2020 8:09 PM CST EXAMINATION: MRI KNEE WO CONTRAST RIGHTCLINICAL HISTORY: S76.111A Strain of right quadriceps muscle fascia and tendon initial encounter, PALPABLE QUADTECHNIQUE: Multiplanar multisequence MR imaging of the k nee was performed without contrast.COMPARISON: Right knee MRI 05/15/2019. Right knee radiographs 05/14/2019FINDINGS:Evaluation is severely limited due to susceptibility artifact from a total knee arthroplasty. No discrete periprosthetic fracture or osteolysis.Near complete rupture of the quadriceps tendon with a few thin intact components emanating of the vastus medialis and inserting upon the superior patellar pole. The remaining of the quadriceps tendon is completely ruptured with up to 5 cm proximal retraction (5:12) and resultant patella baja. The patellar tendon is thickened, likely due to retr action.Large knee effusion with extensive synovitis. Fluid minimally tracks anterior to the patella which may be related to prior surgical track dehiscence.Mild atrophy throughout the visualized knee musculature. The tibial and peroneal nerves are normal along their visualized course.Subcutaneous edema about the knee may be reactive or due to anasarca. No subcutaneous organized fluid collection.IMPRESSION:1.Near complete rupture of the quadriceps tendon with a few intact fibers from the vastus medialis but a majority of the tendon retracted at least 5 cm with resultant patella baja.2.Right total knee arthroplasty without periprosthetic fracture or osteolysis.3.Large knee effusion with extensive synovitis.4.Other findings as described above.[facility]-[id number] [facility] Knee Right Wo [id number] 02:06:25EXAMINATION: MRI KNEE WO CONTRAST RIGHT CLINICAL HISTORY: S76.111A Strain of right quadriceps musclefascia and tendon initial encounter, PALPABLE QUAD TECHNIQUE: Multiplanar multisequence MR imaging of the knee was performed without contrast. COMPARISON: Right knee MRI 05/15/2019. Right knee radiographs 05/14/2019 FINDINGS:Evaluation is severely limited due to susceptibility artifact from a total knee arthroplasty. No discrete periprosthetic fracture or osteolysis. Near complete rupture of the quadriceps tendon with a few thin intact components emanating of the vastus medialis and inserting upon the superior patellar pole. The remaining of the quadriceps tendon is completely ruptured with up to 5cm proximal retraction (5:12) and resultant patella baja. The patellar tendon is thickened, likely due to retraction. Large knee effusion with extensive synovitis. Fluid minimally tracks anterior to the patella which may be related to prior surgical track dehiscence. Mild atrophy throughout the visualized knee musculature. The tibial and peroneal nerves are normal along their visualized course. Subcut aneous edema about the knee may be reactive or due to anasarca. No subcutaneous organized fluid collection. IMPRESSION: 1.Near complete rupture of the quadriceps tendon with a few intact fibers from the vastus medialis but a majority of the tendon retracted at least 5 cm with resultant patella baja.2.R ight total knee arthroplasty without periprosthetic fracture or osteolysis.3.Large knee effusion with extensive synovitis.4.Other findings as described above. [facility]-[id number] Interface, Radiology Results Incoming - 05/11/2020 8:09 PM CST EXAMINATION: MRI KNEE WO CONTRAST RIGHTCLINICAL HISTORY: S76.111A Strain of right quadriceps muscle fascia and tendon initial encounter, PALPABLE QUADTECHNIQUE: Multiplanar multisequence MR imaging of the knee was performed without contrast.COMPARISON: Right knee MRI 05/15/2019. Right knee radiographs 05/14/2019FINDINGS:Evaluation is severely limited due to susceptibility artifact from a total knee arthroplasty. No discrete periprosthetic fracture or osteolysis.Near complete rupture of the quadriceps tendon with a few thin intact components emanating of the vastus medialis and inserting upon the superior patellar pole. The remaining of the quadriceps tendon is completely ruptured with up to 5 cm proximal retraction (5:12) and resultant patella baja. The patellar tendon is thickened, likely due to retraction.Large knee effusion with extensive synovitis. Fluid minimally tracks anterior to the patella which may be related to prior surgical track dehiscence.Mild atrophy throughout the visualized knee musculature. The tibial and peroneal nerves are normal along their visualized course.Subcutaneous edema about the knee may be reactive or due to anasarca. No subcutaneous organized fluid collection.IMPRESSION:1.Near complete rupture of the quadriceps tendon with a few intact fibers from the vastus medialis but a majority of the tendon retracted at least 5 cm with resultant patella baja.2.Right total knee arthroplasty without periprosthetic fracture or osteolysis.3.Large knee effusion with extensive synovitis.4.Other findings as described above.[facility]-[id number] HospitalMRI Knee Right Wo [id number] 02:06:25EXAMINATION: MRI KNEE WO CONTRAST RIGHT CLINICAL HISTORY: S76.111A Strain of right quadriceps musclefascia and tendon initial encounter, PALPABLE QUAD TECHNIQUE: Multiplanar multisequence MR imaging of the knee was performed without contrast. COMPARISON: Right knee MRI 05/15/2019. Right knee radiographs 05/14/2019 FINDINGS:Evaluation is severely limited due to susceptibility artifact from a total knee arthroplasty. No discrete periprosthetic fracture or osteolysis. Near complete rupture of the quadriceps tendon with a few thin intact components emanating of the vastus medialis and inserting upon the superior patellar pole. The remaining of the quadriceps tendon is completely ruptured with up to 5cm proximal retraction (5:12) and resultant patella baja. The patellar tendon is thickened, likely due to retraction. Large knee effusion with extensive synovitis. Fluid minimally tracks anterior to the patella which may be related to prior surgical track dehiscence. Mild atrophy throughout the visualized knee musculature. The tibial and peroneal nerves are normal along their visualized course. Subcutaneous edema about the knee may be reactive or due to anasarca. No subcutaneous organized fluid colle ction. IMPRESSION: 1.Near complete rupture of the quadriceps tendon with a few intact fibers from the vastus medialis but a majority of the tendon retracted at least 5 cm with resultant patella baja.2.Right total knee arthroplasty without periprosthetic fracture or osteolysis.3.Large knee effusion with extensive synovitis.4.Other findings as described above. [facility]-[id number] Interface, Radiology Results Incoming - 05/11/2020 8:09 PM CST EXAMINATION: MRI KNEE WO CONTRAST RIGHTCLINICAL HISTORY: S76.111A Strain of right quadriceps muscle fascia and tendon initial encounter, PALPABLE QUADTECHNIQUE: Multiplanar multisequence MR imaging of the k nee was performed without contrast.COMPARISON: Right knee MRI 05/15/2019. Right knee radiographs 05/14/2019FINDINGS:Evaluation is severely limited due to susceptibility artifact from a total knee arthroplasty. No discrete periprosthetic fracture or osteolysis.Near complete rupture of the quadriceps tendon with a few thin intact components emanating of the vastus medialis and inserting upon the superior patellar pole. The remaining of the quadriceps tendon is completely ruptured with up to 5 cm proximal retraction (5:12) and resultant patella baja. The patellar tendon is thickened, likely due to retr action.Large knee effusion with extensive synovitis. Fluid minimally tracks anterior to the patella which may be related to prior surgical track dehiscence.Mild atrophy throughout the visualized knee musculature. The tibial and peroneal nerves are normal along their visualized course.Subcutaneous edema about the knee may be reactive or due to anasarca. No subcutaneous organized fluid collection.IMPRESSION:1.Near complete rupture of the quadriceps tendon with a few intact fibers from the vastus medialis but a majority of the tendon retracted at least 5 cm with resultant patella baja.2.Right total knee arthroplasty without periprosthetic fracture or osteolysis.3.Large knee effusion with extensive synovitis.4.Other findings as described above.[facility]-[id number] [facility] [id number] 12:23:32 Test Item Value Reference Range Interpretation Comments Anaerobic culture No anaerobic organisms isolate (test code = isolated. 552) [facility] [id number] 12:23:32 Test Item Value Reference Range Interpretation Comments Anaerobic culture No anaerobic organisms isolate (test code = isolated. 552) [facility] [id number] 08:21:41 Test Item Value Reference Range Interpretation Comments Gram stain isolate No WBC's or organisms (test code = 1469) seen. [facility] fluid [id number] 08:21:41 Test Item Value Reference Range Interpretation Comments Joint fluid culture No growth after 4 isolate (test code = days. 1634) [facility] [id number] 08:21:41 Test Item Value Reference Range Interpretation Comments Gram stain isolate No WBC's or organisms (test code = 1469) seen. [facility] fluid [id number] 08:21:41 Test Item Value Reference Range Interpretation Comments Joint fluid culture No growth after 4 isolate (test code = days. 1634) [facility] PET[facility]OR SK [id number] 16:32:00 FAX: Eloina Ellison MD [phone] [place]: St: REG FAX: Luca Almaguer MD [phone] ------- Name: ERNESTO MAURICIO HCAlear [facility]dy : 1960 Age/S: 59/F [address] [place] [address] Unit #: [id number] Loc: [place] [address] Phys: Eloina Garzon MD Acct: [id number] Dis Date: Status: REG CLI PHONE #: [phone] Exam Date: 02/19/2020 1204 FAX #: [phone] Reason: SOLITARY PULMONARY NODULE R91.1 EXAMS: CPT CODE: [id number] PET/CT TUMOR SK [facility] [address] PROCEDURE: PET CT 02/19/2020 AT 1031 HOURS. INDICATION: Solitary pulmonary nodule. COMPARISON: CT chest 01/24/2020. CT DLP: 746.8 mGy-cm TECHNIQUE: Following the IV administration of 12.43 mCi FDG, tomographic imaging was performed of the neck, chest, abdomen and pelvis. Blood glucose: 105 mg/dl. Images were reviewed at the workstation. CT imaging was performed at 3 mm increments for comparison and attenuation correction purposes. These images do not constitute a diagnostic quality CT examination and were not used to diagnose disease independently of the PET christophe ges. FINDINGS: HEAD: Visualized activity is physiologic. No abnormal scalp activity. NECK: Predominantly physiologic radiotracer distribution with diffuse symmetric hypermetabolic activity throughout the thyroid gland to be correlated with the patient's thyroid function. No hypermetabolic cervical lymph nodes. CHEST: The noncalcified 11 mm right upper lobe pulmonary nodule seen by outside CT shows noincreased metabolic activity (SUV max: 1.4) and is stable since the recent study. Cardiomegaly with coronary and aortic atherosclerosis. ABDOMEN/PELVIS: Abdominal and pelvic activity is physiologic. Noincreased gastric embolic activity is noted to correspond to the described gastric thickening by outside CT. A non-metabolic midline abdominal wall seroma is noted incidentally. MUSCULOSKELETAL: No hypermetabolic skeletal activity identified. Chronic L1 kyphoplasty without hypermetabolic activity. Chronic L2 compression fracture also shows no increased marrow activity. IMPRESSION: 1. Non-hypermetabolic right upper lobe pulmonary nodule, stable. 2. No hypermetabolic disease in the head/chest/abdomenor pelvis. No gastric activity to correspond to the described gastric wall PAGE 1 Signed Report (CONTINUED) FAX: Eloina Ellison MD [phone] [place]: St: REG FAX: Luca Almaguer MD [phone] - Name: ERNESTO MAURICIO [facility] : 1960 Age/S: 59/F [address] [place] [address] Unit #: [id number] Loc: [place] [address] Phys: Eloina Garzon MD Acct: [id number] Dis Date: Status: REG CLI PHONE #: [phone] Exam Date: 02/19/2020 1204 FAX #: [phone] Reason: SOLITARY PULMONARY NODULE R91.1 EXAMS: CPT CODE: [id number] PET/CT TUMOR SK BS MIDTH 26519 <Continued> thickening by recent CT. 3. Diffuse hypermetabolic thyroid activity to be correlated with the patient's thyroid function. 4. Otherwise physiologic radiotracer distribution as described. SL: [id number] at 1632 Reported and signed by: Wild Castillo M.D. CC: Eloina Garzon MD; Luca Lowe M.D. Technologist: RT Alyx(R)([facility]) Trnscrd Date/Time/By: 02/19/2020 (1631) : By: [email or web address] Orig Print D/T: S: 02/19/2020 (163) PAGE 2 Signed Repo rt- CT CHEST W/[id number] 16:41:00 Name: ERNESTO MAURICIO [facility] : 1960 Age/S: 59 / F [id number] Unit #: [id number] Loc: [place] [address] Phys: Sarkis Duncan III, MD Acct: [id number] Dis Date: Status: REG CLI PHONE #: [phone] Exam Date: 01/24/2020 1612 FAX #: Reason: TRACHEAL STENOSIS EXAMS: CPT: [id number] CT CHEST W/CONTRAST 09193 EXAM: CHEST CT WITH INTRAVENOUS CONTRAST CLINICAL INFORMATION: Tracheal stenosis. TECHNIQUE: A volumetric CT acquisition of the chest was obtained from the thoracic inlet to the upper abdomen, following the administration of intravenous contrast. One or more of thefollowing dose reduction techniques were used: Automated exposure control, adjustment of the mA and/or kV according to patient size, and/or utilization of iterative reconstruction technique. Comparison: None Location: R 16 FINDINGS: Lines and Tubes: None Mediastinum and Vasculature: There are no intrathoracic lymph nodes meeting CT criteria for enlargement. There is mild left atrial enlargement measuring 4.9 cm in anteroposterior dimension. There is no pericardial effusion there are scattered arterial atherosclerotic calcifications within the coronary arteries, most prominent within the left anterior descending coronary artery. Airways/Pleura/Lungs: The trachea is patent without significant narrowing. There is a right peritracheal air cyst. There is no pleural effusion or pneumothorax. There kelin 10 mm noncalcified nodule within the right upper lobe. There is no focal consolidation. Scarring wi thin the lingula is appreciated. There is mild air trapping within the right middle lobe and lingula. Bones/soft tissues: There is no acute osseous abnormality. There is dextroscoliosis of the thoracicspine. The patient is status post kyphoplasty at L1 for a chronic compression deformity. Partially vi sualized cervical fusion hardware is noted. There are coarse calcifications within the visualized thyroid. There are surgical clips within the right breast. Abdomen: The gallbladder surgically absent. The stomach appears thick-walled, although underdistended. There appears to be a nodular contour of the liver. There are mild splenic and gastroesophageal PAGE 1 Signed Report (CONTINUED) Name: ERNESTO MAURICIO Lambert : 1960 Age/S: 59 / F [address] Unit #: [id number] Loc: [place] [address] Phys: Sarkis Duncan III, MD Acct: [id number] Dis Date: Status: REG CLI PHONE #: [phone] Exam Date: 01/24/2020 1612 FAX #: Reason: TRACHEAL STENOSIS EXAMS: CPT: [id number] CT CHEST W/CONTRAST 49293 (Continued) varices. IMPRESSION: 10 mm noncalcified right upper lobe nodule. Thismay be further assessed with a CT-guided biopsy, PET/CT or 3 month follow-up CT chest examination. No evidence for significant tracheal stenosis. Apparent gastric wall thickening suggestive of gastritis, consider endoscopic evaluation for further assessment. Mild left atrial enlargement. Triple-vessel coronary artery disease. Question of a nodular contour liver, this would suggest cirrhosis that maybe related to mild splenic and gastroesophageal varices. L1 compression deformity status post kyphoplasty. at 1641 Reported and signed by: Petr Rogers M.D. CC: Luca Lowe MD; Sarkis Duncan III, MD Technologist:Bernabe Crisostomo, RT(R)(CT)(MRI) CTDI: DLP: Trnscb Date/Time: 01/24/2020 (116) [email or web address] Orig Print D/T: S: 01/24/2020 (0521) PAGE 2 Signed ReportBLOOD UREA [id number] 15:25:00 Test Item Value Reference Range Interpretation Comments BLOOD UREA NITROGEN (test code = BUN) 8 MG/DL 7-18 N [id number] 15:25:00 Test Item Value Reference Range Interpretation Comments CREATININE (test code = CREAT) 0.9 MG/DL 0.6-1.0 N FL BARIUM SWALLOW [id number] 17:24:26HISTORY: Chronic cough. Possible Zenker's diverticulum, GERD. TECHNIQUE: Barium swallow/esophagram were obtained using overheadradiography technique as well as digital fluoroscopic technique done by mewith the patient in multiple positions. FINDINGS: Swallowing function appear normal. Esophagus appears of normalsize and shape with no focal mucosal lesions. No stricture or diverticulaseen. Findings are suspicious for a short sliding hiatal hernia withoutsignificant reflux. However,. Sluggish peristalsis as well as some reversedperistaltic activity noted in the middle/lower esophagus allowing reflux ofbarium from middle esophagus into the cervical esophagus and prolongedretention of the barium in the esophageal lumen . CONCLUSIONS:1. Mild extrinsic impression noted on the left lateral wall of theesophagus at ACDF cervical spine surgery site.2. Esophageal dysmotility with sluggish peristalsis as well as reversedperistaltic activity noted with the reflux of barium from middle third ofthe esophagus into the lower cervical esophagus. No aspiration.3. Possible short sliding hiatal hernia without significantgastroesophageal reflux. [facility], Radiant Results Inft User - 11/12/2019 12:25 PM CDTHISTORY: Chronic cough. Possible Zenker's diverticulum, GERD.TECHNIQUE: Barium swallow/esophagram were obtained using overheadradiography technique as well as digital fluoroscopic technique done by mewith the patient in multiple positions.FINDINGS: Swallowing function appear normal. Esophagus appears of normalsizeand shape with no focal mucosal lesions. No stricture or diverticulaseen. Findings are suspicious for a short sliding hiatal hernia withoutsignificant reflux. However,. Sluggish peristalsis as well as some reversedperistaltic activity noted in the middle/lower esophagus allowing reflux ofbarium from middle esophagus into the cervical esophagus and prolongedretention of the barium in the esophageal lumen .CONCLUSIONS:1. Mild extrinsic impression noted on the left lateral wall of theesophagus at ACDF cervical spine surgery site.2. Esophageal dysmotility with sluggish peristalsis as well as reversedperistaltic activity noted with the reflux of barium from middle third ofthe esophagus into the lower cervical esophagus. No aspiration.3. Possible short sliding hiatal hernia without significantgastroesophageal reflux.[facility]OLIC PANEL (NA, K, CL, CO2, GLUCOSE, BUN, CREATININE, CA)2019-08-10 13:11:00 Test Item Value Reference Range Interpretation Comments NA (test code = 138 mmol/L 135-145 7735898546) K (test code = 3.8 mmol/L 3.5-5 0577686777) CL (test code = 106 mmol/L 98-108 8059315780) CO2 TOTAL (test code = 27 mmol/L 23-31 0713576404) AGAP (test code = 2-16 0582995499) BUN (test code = 7 mg/dL 7-23 0279763501) GLUCOSE (test code = 102 mg/dL 70-110 7265093939) CREATININE (test code 0.78 mg/dL 0.5-1.04 = 4229688239) CALCIUM (test code = 8.9 mg/dL 8.6-10.6 3131653814) eGFR Calculation mL/min/1.73m2 (Non-) (test code = 5864842177) eGFR Calculation mL/min/1.73m2 () (test code = 8312868111) EDISON (test code = EDISON) Association of Glomerular Filtration Rate (GFR) and Staging of Kidney Disease* + -+ + ---+| GFR (mL/min/1.73 m2) ?| With Kidney Damage ?| ?Without Kidney Damage+ -------+ ------+ ---------+| ?>90 ?| ?Stage one ?| ? Normal ?+ --+ -+ ----+| ?60-89 ?| ?Stage two ?| ? Decreased GFR ? + -+ + ---+| ?30-59 ?| ?Stage three ?| ? Stage three ? + -+ + ---+| ?15-29 ?| ?Stage four ? | ? Stage four ?+ --+ -+ ----+| ?<15 (or dialysis) ? ?| ?Stage five ? | ? Stage five ?+ --+ -+ ----+ *Each stage assumes the associated GFR level has been in effect for at least three months. ?Stages 1 to 5, with or without kidney disease, indicate chronic kidney disease. Notes: Determination of stages one and two (with eGFR >59mL/min/1.73 m2) requires estimation of kidney damage for at least three months as defined by structural or functional abnormalities of the kidney, manifested by either:Pathological abnormalities or Markers of kidney damage (including abnormalities in the composition of the blood or urine or abnormalities in imaging tests). [facility] WITH [id number] 13:04:00 Test Item Value Reference Range Interpretation Comments WBC (test code = See_Comment [Automated 6690-2) message] The sy stem which generated this result transmitted reference range : 4.30 - 11.10 10*3/?L. The reference range was not used to interpret this result as normal/abnormal . RBC (test code = See_Comment L [Automated 789-8) message] The sy stem which generated this result transmitted reference range : 3.93 - 5.25 10*6/?L. The reference range was not used to interpret this result as normal/abnormal . HGB (test code = 8.2 g/dL 11.6-15 L 718-7) HCT (test code = 28.0 % 35.7-45.2 L 4544-3) MCV (test code = 80.9 fL 80.6-95.5 787-2) MCH (test code = 23.7 pg 25.9-32.8 L 785-6) MCHC (test code = 29.3 g/dL 31.6-35.1 L 786-4) RDW-SD (test code = 51.8 fL 39-49.9 H 17190-5) RDW-CV (test code = 18.2 % 12-15.5 H 788-0) PLT (test code = See_Comment [Automated 777-3) message] The sy stem which generated this result transmitted reference range : 166 - 358 10*3/ ?L. The reference r rea was not used to interpret this result as normal/abnormal . MPV (test code = 11.6 fL 9.5-12.9 19461-3) NRBC/100 WBC (test See_Comment [Automat ed code = 4116346517) message] The system which generated this result transmitted reference range : 0.0 - 10.0 /100 WBCs. The refer ence range was not u sed to interpret th is result as normal/abnormal . NRBC x10^3 (test code <0.01 See_Comment [Auto mated = 6117769167) message] The s ystem which generated this result transmitted reference range : 10*3/?L. The reference range was not used to interpret this result as normal/abnormal . GRAN MAT (NEUT) % 59.8 % (test code = 770-8) IMM GRAN % (test code 0.50 % = 3622369891) LYMPH % (test code = 22.5 % 736-9) MONO % (test code = 11.6 % 5905-5) EOS % (test code = 4.7 % 713-8) BASO % (test code = 0.9 % 706-2) GRAN MAT x10^3(ANC) 3.30 10*3/uL 1.88-7.09 (test code = 3945898970) IMM GRAN x10^3 (test 0.03 10*3/uL 0-0.06 code = 7350492073) LYMPH x10^3 (test code 1.24 10*3/uL 1.32-3.29 L = 731-0) MONO x10^3 (test code 0.64 10*3/uL 0.33-0.92 = 742-7) EOS x10^3 (test code = 0.26 10*3/uL 0.03-0.39 711-2) BASO x10^3 (test code 0.05 10*3/uL 0.01-0.07 = 704-7) Lab Interpretation Abnormal (test code = 20513-1) [facility] [id number] 12:59:00 Test Item Value Reference Range Interpretation Comments URINE CULTURE (test No aerobic growth (< code = 630-4) 1000 CFU/mL) [facility] CenterFOL[facility]2020-02-22 03:17:00 Test Item Value Reference Range Interpretation Comments FOLATE SER (test code = 0004200066) 5.9 ng/mL 3-20 Lab Interpretation (test code = Normal 34495-1) [facility] CenterVITAMIN B12, [id number] 02:54:00 Test Item Value Reference Range Interpretation Comments VIT B12 (test code = 474 pg/mL 240-930 3345165271) EDISON (test code = EDISON) Biotin has been reported to cause a positive bias, interpret results relative to patient's use of biotin. Lab Interpretation (test Normal code = 61786-1) [facility] CenterRESPIRATORY PANEL BY [id number] 20:23:00 Test Item Value Reference Range Interpretation Comments Adenovirus (test code = Negative Negative 62327-5) Coronavirus HKU1 (test Negative Negative code = 36322-1) Coronavirus NL63 (test Negative Negative code = 84952-1) Coronavirus 229E (test Negative Negative code = 64346-4) Coronavirus OC43 (test Negative Negative code = 67925-7) Human Metapneumovirus Negative Negative (test code = 23060-9) Human Negative Negative Rhinovirus/Enterovirus (test code = 45579-5) Influenza A (test code = Negative Negative 61918-8) Influenza B (test code = Negative Negative 46522-0) Parainfluenza Virus 1 Negative Negative (test code = 45881-5) Parainfluenza Virus 2 Negative Negative (test code = 31477-0) Parainfluenza Virus 3 Negative Negative (test code = 20817-4) Parainfluenza Virus 4 Negative Negative (test code = 76759-0) Respiratory Syncytial Negative Negative Virus (test code = 76097-2) Bordetella parapertussis Negative Negative (test code = 95580-9) Bordetella pertussis Negative Negative (test code = 16234-9) Chlamydia pneumoniae Negative Negative (test code = 47099-0) Mycoplasma pneumoniae Negative Negative (test code = 58824-4) EDISON (test code = EDISON) Negative:A negative result does not rule-out infection. ?This assay does not test for all potential infectious agents. ? Positive:A positive test result does not necessarily indicate the presence of viable organism. ? Lab Interpretation (test Normal code = 36471-4) [facility] CenterTroponin [id number] 19:31:00 Test Item Value Reference Range Interpretation Comments TROPONIN I (test 0.007 ng/mL See_Comment [Automated code = 8656363638) message] The system which generated this result transmitted reference range : <=0.034. The reference range was not used to interpret this result as normal/abnormal . EDISON (test code = Equal or Less than EDISON) 0.034 ng/ml---Normal ?Note: Cardiac troponin begins to rise 3-4 hours after the onset of ischemia. Repeat in 4-6 hours if the sample was drawn within 3-4 hours of the onset of the symptom and found normal. Between 0.035 and 0.120 ng/mL--- Borderline. Questionable myocardial injury or necrosis ? ?Note: Serial measurement may be necessary to confirm or exclude the diagnosis of myocardial injury or necrosis; Clinical correlation (symptoms, EKGs, imaging studies, and others) required; Repeat in 4-6 hours if clinically indicated. ? Equal or Higher than 0.121 ng/mL---Abnormal. Myocardial Injury or Necrosis Likely ? Biotin has been reported to cause a negative bias, interpret results relative to patient's use of biotin. ? Lab Interpretation Normal (test code = 89133-9) [facility] CenterIRON [id number] 19:28:00 Test Item Value Reference Range Interpretation Comments IRON (test code = 2209316151) 76 ug/dL 50-160 TIBC (test code = 6039968984) 360 ug/dL 250-410 % FE SAT (test code = 7644872337) 21 % 20-50 Lab Interpretation (test code = Normal 99623-6) [facility] CenterFERRITIN [id number] 19:24:00 Test Item Value Reference Range Interpretation Comments FERRITIN (test code = 94.9 ng/mL 11-264 2177716197) EDISON (test code = EDISON) Biotin has been reported to cause a negative bias, interpret results relative to patient's use of biotin. Lab Interpretation (test Normal code = 24124-7) [facility] CenterFR [id number] 19:13:00 Test Item Value Reference Range Interpretation Comments FREE T3 (test code = 5468355549) 5.62 pg/mL 2.77-5.27 H Lab Interpretation (test code = Abnormal 58831-7) [facility] CenterURINALYSIS2020-02-21 12:22:00 Test Item Value Reference Range Interpretation Comments APPEARANCE (test code = Clear Clear 8659890367) COLOR (test code = Yellow Yellow 2635698465) PH (test code = 4.8-8.0 2513551366) SP GRAVITY (test code = >1.060 1.003-1.030 H 2700896220) GLU U QUAL (test code = Normal Normal 6543026459) BLOOD (test code = Negative Negative 6844561051) KETONES (test code = Negative Negative 0213406183) PROTEIN (test code = Negative Negative 2887-8) UROBILIN (test code = 2.0 mg/dL Normal A 1626138989) BILIRUBIN (test code = Negative Negative 5271185388) NITRITE (test code = Negative Negative 7863196500) LEUK PENNY (test code = Negative Negative 2553511325) RBC/HPF (test code = See_Comment [Autom ated message] 9366466076) The system [employer] generated this result transmit june reference range : 0 - 3 HPF. The refe rence range was not u sed to interpret th is result as normal/abnormal . WBC/HPF (test code = See_Comment [Autom ated message] 5611037217) The system [employer] generated this result transmit june reference range : 0 - 5 HPF. The refe rence range was not u sed to interpret th is result as normal/abnormal . BACTERIA (test code = Negative Negative 3567268345) MUCOUS (test code = Slight Negative LPF A 0839723879) SQ EPITH (test code = HPF 9035098807) YEAST BUD (test code = <1 See_Comment [Aut omated message] 9028240936) The system [employer] generated this result transmit june reference range : <=1 HPF. The refere nce range was not u sed to interpret th is result as normal/abnormal . Lab Interpretation (test Abnormal code = 27555-3) [facility] CenterTroponin [id number] 12:16:00 Test Item Value Reference Range Interpretation Comments TROPONIN I (test 0.010 ng/mL See_Comment [Automated code = 5128721992) message] The system which generated this result transmitted reference range : <=0.034. The reference range was not used to interpret this result as normal/abnormal . EDISON (test code = Equal or Less than EDISON) 0.034 ng/ml---Normal ?Note: Cardiac troponin begins to rise 3-4 hours after the onset of ischemia. Repeat in 4-6 hours if the sample was drawn within 3-4 hours of the onset of the symptom and found normal. Between 0.035 and 0.120 ng/mL--- Borderline. Questionable myocardial injury or necrosis ? ?Note: Serial measurement may be necessary to confirm or exclude the diagnosis of myocardial injury or necrosis; Clinical correlation (symptoms, EKGs, imaging studies, and others) required; Repeat in 4-6 hours if clinically indicated. ? Equal or Higher than 0.121 ng/mL---Abnormal. Myocardial Injury or Necrosis Likely ? Biotin has been reported to cause a negative bias, interpret results relative to patient's use of biotin. ? Lab Interpretation Normal (test code = 17378-2) [facility] (NA, K, CL, CO2, GLUCOSE, BUN, CREATININE, CA)2019-08-09 12:09:00 Test Item Value Reference Range Interpretation Comments NA (test code = 136 mmol/L 135-145 4984468045) K (test code = 3.3 mmol/L 3.5-5 L 4189304210) CL (test code = 103 mmol/L 98-108 0316384874) CO2 TOTAL (test code = 28 mmol/L 23-31 9409447996) AGAP (test code = 2-16 3101450872) BUN (test code = 6 mg/dL 7-23 L 4690320015) GLUCOSE (test code = 103 mg/dL 70-110 1786715085) CREATININE (test code = 0.72 mg/dL 0.5-1.04 5890257183) CALCIUM (test code = 8.8 mg/dL 8.6-10.6 0539893219) eGFR Calculation mL/min/1.73m2 (Non-) (test code = 0601687153) eGFR Calculation mL/min/1.73m2 () (test code = 0561804658) EDISON (test code = EDISON) Association of Glomerular Filtration Rate (GFR) and Staging of Kidney Disease* + --+ --+ ------+| GFR (mL/min/1.73 m2) ?| With Kidney Damage ?| ?Without Kidney Damage+ --------+ --------+ +| ?>90 ?| ?Stage one ?| ? Normal ?+ ---+ ---+ -------+| ?60-89 ?| ?Stage two ?| ? Decreased GFR ? + --+ --+ ------+| ?30-59 ?| ?Stage three ?| ? Stage three ? + --+ --+ ------+| ?15-29 ?| ?Stage four ? | ? Stage four ?+ ---+ ---+ -------+| ?<15 (or dialysis) ? ?| ?Stage five ? | ? Stage five ?+ ---+ ---+ -------+ *Each stage assumes the associated GFR level has been in effect for at least three months. ?Stages 1 to 5, with or without kidney disease, indicate chronic kidney disease. Notes: Determination of stages one and two (with eGFR >59mL/min/1.73 m2) requires estimation of kidney damage for at least three months as defined by structural or functional abnormalities of the kidney, manifested by either:Pathological abnormalities or Markers of kidney damage (including abnormalities in the composition of the blood or urine or abnormalities in imaging tests). Lab Interpretation Abnormal (test code = 90047-8) [facility] WITH [id number] 11:38:00 Test Item Value Reference Range Interpretation Comments WBC (test code = See_Comment [Automated 9890-2) message] The sy stem which generated this result transmitted reference range : 4.30 - 11.10 10*3/?L. The reference range was not used to interpret this result as normal/abnormal . RBC (test code = See_Comment L [Automated 789-8) message] The sy stem which generated this result transmitted reference range : 3.93 - 5.25 10*6/?L. The reference range was not used to interpret this result as normal/abnormal . HGB (test code = 7.9 g/dL 11.6-15 L 718-7) HCT (test code = 25.6 % 35.7-45.2 L 4544-3) MCV (test code = 77.3 fL 80.6-95.5 L 787-2) MCH (test code = 23.9 pg 25.9-32.8 L 785-6) MCHC (test code = 30.9 g/dL 31.6-35.1 L 786-4) RDW-SD (test code = 49.6 fL 39-49.9 36185-4) RDW-CV (test code = 17.7 % 12-15.5 H 788-0) PLT (test code = See_Comment [Automated 777-3) message] The sy stem which generated this result transmitted reference range : 166 - 358 10*3/ ?L. The reference r rea was not used to interpret this result as normal/abnormal . MPV (test code = 11.0 fL 9.5-12.9 33985-1) NRBC/100 WBC (test See_Comment [Automat ed code = 8128047468) message] The system which generated this result transmitted reference range : 0.0 - 10.0 /100 WBCs. The refer ence range was not u sed to interpret th is result as normal/abnormal . NRBC x10^3 (test code <0.01 See_Comment [Auto mated = 8513390993) message] The s ystem which generated this result transmitted reference range : 10*3/?L. The reference range was not used to interpret this result as normal/abnormal . GRAN MAT (NEUT) % 64.5 % (test code = 770-8) IMM GRAN % (test code 0.50 % = 1665083245) LYMPH % (test code = 22.1 % 736-9) MONO % (test code = 10.1 % 5905-5) EOS % (test code = 2.1 % 713-8) BASO % (test code = 0.7 % 706-2) GRAN MAT x10^3(ANC) 3.62 10*3/uL 1.88-7.09 (test code = 1876994970) IMM GRAN x10^3 (test 0.03 10*3/uL 0-0.06 code = 8447375797) LYMPH x10^3 (test code 1.24 10*3/uL 1.32-3.29 L = 731-0) MONO x10^3 (test code 0.57 10*3/uL 0.33-0.92 = 742-7) EOS x10^3 (test code = 0.12 10*3/uL 0.03-0.39 711-2) BASO x10^3 (test code 0.04 10*3/uL 0.01-0.07 = 704-7) Lab Interpretation Abnormal (test code = 32298-2) [facility] METABOLIC PANEL (NA, K, CL, CO2, GLUCOSE, BUN, CREATININE, CA)2019-08-09 07:35:00 Test Item Value Reference Range Interpretation Comments NA (test code = 136 mmol/L 135-145 0860877271) K (test code = 2.7 mmol/L 3.5-5 LL 4237438576) CL (test code = 101 mmol/L 98-108 0661488242) CO2 TOTAL (test code = 27 mmol/L 23-31 3899795403) AGAP (test code = 2-16 0506211255) BUN (test code = 7 mg/dL 7-23 3570652748) GLUCOSE (test code = 118 mg/dL 70-110 H 0729890060) CREATININE (test code = 0.77 mg/dL 0.5-1.04 1492763252) CALCIUM (test code = 8.8 mg/dL 8.6-10.6 8290679394) eGFR Calculation mL/min/1.73m2 (Non-) (test code = 3022448342) eGFR Calculation mL/min/1.73m2 () (test code = 2359672262) EDISON (test code = EDISON) Association of Glomerular Filtration Rate (GFR) and Staging of Kidney Disease* + --+ --+ ------+| GFR (mL/min/1.73 m2) ?| With Kidney Damage ?| ?Without Kidney Damage+ --------+ --------+ +| ?>90 ?| ?Stage one ?| ? Normal ?+ ---+ ---+ -------+| ?60-89 ?| ?Stage two ?| ? Decreased GFR ? + --+ --+ ------+| ?30-59 ?| ?Stage three ?| ? Stage three ? + --+ --+ ------+| ?15-29 ?| ?Stage four ? | ? Stage four ?+ ---+ ---+ -------+| ?<15 (or dialysis) ? ?| ?Stage five ? | ? Stage five ?+ ---+ ---+ -------+ *Each stage assumes the associated GFR level has been in effect for at least three months. ?Stages 1 to 5, with or without kidney disease, indicate chronic kidney disease. Notes: Determination of stages one and two (with eGFR >59mL/min/1.73 m2) requires estimation of kidney damage for at least three months as defined by structural or functional abnormalities of the kidney, manifested by either:Pathological abnormalities or Markers of kidney damage (including abnormalities in the composition of the blood or urine or abnormalities in imaging tests). Lab Interpretation Abnormal (test code = 50391-1) [facility] CenterIonalily [id number] 07:30:00 Test Item Value Reference Range Interpretation Comments TROPONIN I (test <0.012 See_Comment [Automated code = 0688467623) message] The system which generated this result transmitted reference range : <=0.034 ng/mL. The reference range was not used to interpr et this result as normal/abnormal . EDISON (test code = Equal or Less than EDISON) 0.034 ng/ml---Normal ?Note: Cardiac troponin begins to rise 3-4 hours after the onset of ischemia. Repeat in 4-6 hours if the sample was drawn within 3-4 hours of the onset of the symptom and found normal. Between 0.035 and 0.120 ng/mL--- Borderline. Questionable myocardial injury or necrosis ? ?Note: Serial measurement may be necessary to confirm or exclude the diagnosis of myocardial injury or necrosis; Clinical correlation (symptoms, EKGs, imaging studies, and others) required; Repeat in 4-6 hours if clinically indicated. ? Equal or Higher than 0.121 ng/mL---Abnormal. Myocardial Injury or Necrosis Likely ? Biotin has been reported to cause a negative bias, interpret results relative to patient's use of biotin. ? Lab Interpretation Normal (test code = 93035-4) [facility]2020-[facility] 02:13:00 Test Item Value Reference Range Interpretation Comments MAGNESIUM (test code = 1473512511) 1.9 mg/dL 1.7-2.4 Lab Interpretation (test code = Normal 27448-1) [facility] Center[facility]OS[facility]2020-02-21 02:13:00 Test Item Value Reference Range Interpretation Comments PHOSPHORUS (test code = 2273916747) 3.3 mg/dL 2.5-5 Lab Interpretation (test code = Normal 38817-6) [facility] CenterThyroid Stimulating Hormone (TSH)2019-08-09 02:06:00 Test Item Value Reference Range Interpretation Comments TSH (test code = <0.02 See_Comment L Biotin has been 3603056015) reported to cau se a negative bias, interpret resul ts relative to pat ient's use of biotin. [Automated mess age] The system [employer] generated this result transmitted ref erence range: 0.45 - 4 .70 mIU/L. The refe rence range was not u sed to interpret this result as normal/abnor mal. Lab Interpretation (test Abnormal code = 39835-8) [facility] Center[facility] (Total Cholesterol, Triglycerides, HDL)2019-08-09 01:13:00 Test Item Value Reference Range Interpretation Comments CHOL (test code = 142 mg/dL 120-200 3821140551) HDL (test code = 37 mg/dL >50 L 0523036217) HDLC RATIO (test code = See_Comment [Au tomated message] 0093404528) The system [employer] generated this result transmit june reference range : <=4.5. The refe rence range was not u sed to interpret th is result as normal/abnormal . TRIG (test code = 117 mg/dL 30-170 5280061512) LDL CHOL (test code = 82 mg/dL See_Comment [Auto mated message] 36357-7) The system [employer] generated this result transmit june reference range : <=160. The refe rence range was not u sed to interpret th is result as normal/abnormal . VLDL (test code = 23 mg/dL 5-60 1691308796) Lab Interpretation (test Abnormal code = 54234-7) [facility] CenterCT [facility] PULMONARY [id number] 01:09:40Addendum by June Gillette MD on 08/08/2019 7:18 PMAddendum: A second injection was performed. There isgood enhancement of the pulmonary arteries and thoracic aorta.There are no pulmonary emboli. There is no thoracic aortic aneurysm ordissection. Impression: No acute PTE to the segmental level. Contrast bolus timing limitsevaluation. Solid 1.3 cm nodule within the right upper lobe. Few additionalsubcentimeter solid nodules scattered throughout theright upper lobe.Recommend short term follow-up in 3 months to document stability.Alternatively, biopsy can be performed to exclude possibility ofmetastases. Correlate clinically for any history of malignancy (breastcancer?). Micronodular surface contour of the liver and left upper quadrantportosystemic collaterals concerning for underlying cirrhosis. Large lipomatous lesion within the hepatic flexure may represent anintramural lipoma. CTA chest with contrast- PE protocol Technique: Angiographic CT of the chest was performed with contrastadministration, and with creation of sagittal and coronal MIPreconstructions INTRAVENOUS CONTRAST ADMINISTRATION (mL Omnipaque 350): 119 DOSE REPORT (Total DLP mGy*cm): 139 FINDINGS: Pulmonary arteries: Contrast bolus timing is suboptimal for evaluation ofpulmonary arterial vasculature. No filling defect within the main pulmonarytrunk, right/left pulmonary artery or their lobar segmental branches. Noevidence of acute PTE. Lungs: ?Subsegmental lingular atelectasis. Solid 1.3 cm nodule within theright upper lobe (5:47). Additional solid 4 and 2-3 mm nodule in theperipheral right upper lobe (5:36 and 55).Airways: Patent central airways. 6 mm right paratracheal/paraesophageal airdensity may represent a small tracheal diverticulum (on 5:20 - although,connection to the trachea is not clearly documented).Pleura: ?No pleural effusion or pneumothorax.Mediastinum: Within normal limitsCardiovascular: Mild atherosclerotic calcifications in left main, LAD andcircumflexcoronary artery distribution.Lower neck and chest wall: Subcentimeter calcified foci within the rightand left thyroid lobes. Multiple surgical clips are seen within the leftbreast and axillary regionUpper abdomen: Cirrhotic liver morphology with micronodular surface contourand suggestion of left upperquadrant/perisplenic portosystemiccollaterals. Hepatic flexure 4.9 x 2.6 cm intramural lipoma (5:129). Statuspost cholecystectomy.Bones: L1 vertebroplasty. Multilevel degenerative changes scatteredthroughout the visualized axial skeleton. Lower cervical spine ACDFchanges. [facility], Radiant Results Inft User - 08/08/2019 7:25 PM CSTCTA chest with contrast- PE protocolTechnique: Angiographic CT of the chest was performed with contrastadministration, and with creation of sagittal and coronal MIPreconstructionsINTRAVENOUS CONTRAST ADMINISTRATION (mL Omnipaque 350): 119DOSE REPORT (Total DLP mGy*cm): 139FINDINGS:Pulmonary arteries: Contrast bolus timing is suboptimal for evaluation ofpulmonary arterial vasculature. No filling defect within the main pulmonarytrunk, right/left pulmonary artery or their lobar segmental branches. Noevidence of acute PTE.Lungs: Subsegmental lingular atelectasis. Solid 1.3 cm nodule within theright upper lobe (5:47). Additional solid 4 and 2-3 mm nodule in theperipheral rightupper lobe (5:36 and 55).Airways: Patent central airways. 6 mm right paratracheal/paraesophageal aird ensity may represent a small tracheal diverticulum (on 5:20 - although,connection to the trachea is not clearly documented).Pleura: No pleural effusion or pneumothorax.Mediastinum: Within normal limitsCardiovascular: Mild atherosclerotic calcifications in left main, LAD andcircumflex coronary artery distribution.Lower neck and chest wall: Subcentimeter calcified foci within the rightand left thyroid lobes. Multiple surgical clips are seen within the leftbreast and axillary regionUpper abdomen: Cirrhotic liver morphology with micronodular surface contourand suggestion of left upper quadrant/perisplenic portosystemiccollaterals. Hepatic flexure 4.9 x 2.6 cm intramural lipoma (5:129). Statuspost cholecystectomy.Bones: L1 vertebroplasty. Multilevel degenerative changes scatteredthroughout the visualized axial skeleton. Lower cervical spine ACDFchanges.IMPRESSIONImpression: No acute PTE to the segmental level. Contrast bolus timing limitsevaluation.Solid 1.3 cm nodule within the right upper lobe. Few additionalsubcentimeter solid nodules scattered throughout the right upper lobe.Recommend short term follow-up in 3 months to document stability.Alternatively, biopsy can be performed to exclude possibility ofmetastases. Correlate clinically for any history of malignancy (breastcancer?). Micronodularsurface contour of the liver and left upper quadrantportosystemic collaterals concerning for underlying cirrhosis.Large lipomatous lesion within the hepatic flexure may represent anintramural lipoma. [facility] [id number] 23:34:00 Test Item Value Reference Range Interpretation Comments TROPONIN I (test 0.006 ng/mL See_Comment [Automated code = 0539598855) message] The system which generated this result transmitted reference range : <=0.034. The reference range was not used to interpret this result as normal/abnormal . EDISON (test code = Equal or Less than EDISON) 0.034 ng/ml---Normal ?Note: Cardiac troponin begins to rise 3-4 hours after the onset of ischemia. Repeat in 4-6 hours if the sample was drawn within 3-4 hours of the onset of the symptom and found normal. Between 0.035 and 0.120 ng/mL--- Borderline. Questionable myocardial injury or necrosis ? ?Note: Serial measurement may be necessary to confirm or exclude the diagnosis of myocardial injury or necrosis; Clinical correlation (symptoms, EKGs, imaging studies, and others) required; Repeat in 4-6 hours if clinically indicated. ? Equal or Higher than 0.121 ng/mL---Abnormal. Myocardial Injury or Necrosis Likely ? Biotin has been reported to cause a negative bias, interpret results relative to patient's use of biotin. ? Lab Interpretation Normal (test code = 86320-9) [facility] CenterN-TERMINAL [id number] 23:31:00 Test Item Value Reference Range Interpretation Comments NT-proBNP (test code 274 pg/mL See_Comment H [Autom ated = 3298481980) message] The system which generated this result transmitted reference range : <=125. The reference range was not used to interpret this result as normal/abnormal . EDISON (test code = EDISON) Biotin has been reported to cause a negative bias, interpret results relative to patient's use of biotin. Lab Interpretation Abnormal (test code = 38712-1) [facility] 1 [id number] 23:30:22 mild pulmonary vascular congestion Preliminary Report Dictated by Resident: Jeison Medeiros MD., have reviewed this study and agree with the abovereport.XR CHEST 1 VW HISTORY: 59 years-old; Female; dyspnea COMPARISON: Chest radiograph 10/28/2018 FINDINGS: Prominent bilateral vascular markings is seen, suggestive of mildpulmonary congestion. Blunting of the left costophrenic angle which mightbe due to small pleural effusion or thickening. There is no pneumothorax. The cardiomediastinal silhouette is normal. No acute osseous abnormality is identified. Dextroscoliosis of the thoracicspine is noted. Partially visualized changes of ACDF is seen. Multiplesurgical clips project over the right lower chest. [facility], Radiant Results Inft User - 08/08/2019 5:31 PM CSTXR CHEST 1 VWHISTORY: 59 years-old; Female; dyspnea COMPARISON: Chest radiograph 10/28/2018FINDINGS: Prominent bilateral vascularmarkings is seen, suggestive of mildpulmonary congestion. Blunting of the left costophrenic angle which mightbe due to small pleural effusion or thickening. There is no pneumothorax.The cardiomediastinal silhouette is normal.No acute osseous abnormality is identified. Dextroscoliosis of the thoracicspine is noted. Partially visualized changes of ACDF is seen. Multiplesurgical clips project over the right lower chest. IMPRESSIONmild pulmonary vascular congestionPreliminary Report Dictated by Resident: Fercho Ponce, Lisbet Jenkins MD., have reviewed this study and agree with the abovereport.[facility] CenteraPTT2020-[facility] 23:29:00 Test Item Value Reference Range Interpretation Comments APTT Patient (test See_Comment [Automat ed code = 3173-2) message] The system which generated this result transmitted reference range : 23 - 38 Seconds . The reference range was not used to interpr et this result as normal/abnormal . EDISON (test code = EDISON) The [facility] [place] patient population mean normal value for aPTT is 30 seconds. Lab Interpretation Normal (test code = 92695-7) [facility] Center[facility] (NA, K, CL, CO2, GLUCOSE, BUN, CREATININE, CA)2019-08-08 23:28:00 Test Item Value Reference Range Interpretation Comments NA (test code = 136 mmol/L 135-145 3641799991) K (test code = 2.4 mmol/L 3.5-5 LL 1210388965) CL (test code = 99 mmol/L 98-108 2871453288) CO2 TOTAL (test code = 29 mmol/L 23-31 4566783200) AGAP (test code = 2-16 5386718652) BUN (test code = 6 mg/dL 7-23 L 4293766817) GLUCOSE (test code = 112 mg/dL 70-110 H 2756729937) CREATININE (test code = 0.77 mg/dL 0.5-1.04 5767625514) CALCIUM (test code = 9.1 mg/dL 8.6-10.6 0353180995) eGFR Calculation mL/min/1.73m2 (Non-) (test code = 1960430028) eGFR Calculation mL/min/1.73m2 () (test code = 0770091224) EDISON (test code = EDISON) Association of Glomerular Filtration Rate (GFR) and Staging of Kidney Disease* + --+ --+ ------+| GFR (mL/min/1.73 m2) ?| With Kidney Damage ?| ?Without Kidney Damage+ --------+ --------+ +| ?>90 ?| ?Stage one ?| ? Normal ?+ ---+ ---+ -------+| ?60-89 ?| ?Stage two ?| ? Decreased GFR ? + --+ --+ ------+| ?30-59 ?| ?Stage three ?| ? Stage three ? + --+ --+ ------+| ?15-29 ?| ?Stage four ? | ? Stage four ?+ ---+ ---+ -------+| ?<15 (or dialysis) ? ?| ?Stage five ? | ? Stage five ?+ ---+ ---+ -------+ *Each stage assumes the associated GFR level has been in effect for at least three months. ?Stages 1 to 5, with or without kidney disease, indicate chronic kidney disease. Notes: Determination of stages one and two (with eGFR >59mL/min/1.73 m2) requires estimation of kidney damage for at least three months as defined by structural or functional abnormalities of the kidney, manifested by either:Pathological abnormalities or Markers of kidney damage (including abnormalities in the composition of the blood or urine or abnormalities in imaging tests). Lab Interpretation Abnormal (test code = 95485-4) [facility] CenterProthrombin Time (PT) / [id number] 23:27:00 Test Item Value Reference Range Interpretation Comments PROTIME PATIENT (test See_Comment H [Auto mated message] code = 5964-2) The system [employer] generated this result transmitted ref erence range: 12.0 - 1 4.7 Seconds. The reference range was not used to int erpret this result as normal/abnormal . INR (test code = 6301-6) Nor mal INR <1.1; Warfarin Therap eutic range 2.0 to 3. 0 or 2.5 to 3.5, dep ending upon the indica tions. Lab Interpretation (test Abnormal code = 24668-6) [facility] CenterHepatic Function Panel (ALB, T.PRO, BILI T, BU/BC, ALT, AST, ALK PHOS)2019-08-08 23:26:00 Test Item Value Reference Range Interpretation Comments TOTAL BILI (test code = 3528804304) 0.9 mg/dL 0.1-1.1 BILI UNCON (test code = 9599335953) 0.8 mg/dL 0.1-1.1 BILI CONJ (test code = 0522599233) 0.0 mg/dL 0-0.3 T PROTEIN (test code = 4401153084) 6.1 g/dL 6.3-8.2 L ALBUMIN (test code = 9911766031) 3.5 g/dL 3.5-5 ALK PHOS (test code = 1650731039) 145 U/L 34-122 H ALTv (test code = 1742-6) 22 U/L 5-35 AST(SGOT) (test code = 9601501346) 53 U/L 13-40 H Lab Interpretation (test code = Abnormal 59076-0) [facility] WITH [id number] 23:15:00 Test Item Value Reference Range Interpretation Comments WBC (test code = See_Comment [Automated 6590-2) message] The sy stem which generated this result transmitted reference range : 4.30 - 11.10 10*3/?L. The reference range was not used to interpret this result as normal/abnormal . RBC (test code = See_Comment [Automated 789-8) message] The sy stem which generated this result transmitted reference range : 3.93 - 5.25 10*6/?L. The reference range was not used to interpret this result as normal/abnormal . HGB (test code = 9.3 g/dL 11.6-15 L 718-7) HCT (test code = 32.0 % 35.7-45.2 L 4544-3) MCV (test code = 78.8 fL 80.6-95.5 L 787-2) MCH (test code = 22.9 pg 25.9-32.8 L 785-6) MCHC (test code = 29.1 g/dL 31.6-35.1 L 786-4) RDW-SD (test code = 49.7 fL 39-49.9 29847-3) RDW-CV (test code = 17.6 % 12-15.5 H 788-0) PLT (test code = See_Comment [Automated 777-3) message] The sy stem which generated this result transmitted reference range : 166 - 358 10*3/ ?L. The reference r rea was not used to interpret this result as normal/abnormal . MPV (test code = 11.2 fL 9.5-12.9 63102-0) NRBC/100 WBC (test See_Comment [Automat ed code = 7863039709) message] The system which generated this result transmitted reference range : 0.0 - 10.0 /100 WBCs. The refer ence range was not u sed to interpret th is result as normal/abnormal . NRBC x10^3 (test code <0.01 See_Comment [Auto mated = 7083870849) message] The s ystem which generated this result transmitted reference range : 10*3/?L. The reference range was not used to interpret this result as normal/abnormal . GRAN MAT (NEUT) % 67.3 % (test code = 770-8) IMM GRAN % (test code 0.50 % = 4820256509) LYMPH % (test code = 20.5 % 736-9) MONO % (test code = 9.0 % 5905-5) EOS % (test code = 1.9 % 713-8) BASO % (test code = 0.8 % 706-2) GRAN MAT x10^3(ANC) 4.93 10*3/uL 1.88-7.09 (test code = 4832861398) IMM GRAN x10^3 (test 0.04 10*3/uL 0-0.06 code = 2689267979) LYMPH x10^3 (test code 1.50 10*3/uL 1.32-3.29 = 731-0) MONO x10^3 (test code 0.66 10*3/uL 0.33-0.92 = 742-7) EOS x10^3 (test code = 0.14 10*3/uL 0.03-0.39 711-2) BASO x10^3 (test code 0.06 10*3/uL 0.01-0.07 = 704-7) Lab Interpretation Abnormal (test code = 38834-2) [facility] 2 [id number] 17:24:00 [place] [address] PatientName: AUGUSTINE MAURICIO MR #: [id number] : 1960 Age/Sex: 58/F Req #: [id number] Adm Physician: Ordered by: SANDRA FREY DO Report #: [id number] Location: OR Room/Bed: Procedure: [id number] DX/CHEST 2 VIEWS Exam Date: 06/29/18 Exam Time: 1647 REPORT STATUS: Signed EXAMINATION: PA and lateral views of the chest. COMPARISON: None CLINICAL HISTORY: Preop DISCUSSION: Lines/tubes: None. Lungs: The lungs are well inflated and clear. There is no evidence of pneumonia or pulmonary edema. Pleura: There is no pleural effusion or pneumothorax. Heart and mediastinum: Cardiomediastinal silhouette is unremarkable. Pulmonary vasculature is normal. Tortuous thoracic aorta. Bones and soft tissues: No acute bony abnormalities. Cervical fusion hardware is partially visualized. Metallic clips project over the lower right hemithorax, located in the right breast. Vertebroplasty changes in the lower thoracic/upper lumbar vertebral body IMPRESSION: No acute cardiopulmonary abnormalities. Signed by: Dr. Gary Delgadillo M.D. on 06/29/2018 5:26 PM Dictated By: GARY DELGADILLO MD 25 Transcribed By: MAURICIO on 06/29/181725 COPY TO: SANDRA FREY DO Notes Date/Time Note Provider Source 2022-09-08 12:18:00-00:00 [id number] [address] PATIENT NAME: ERNESTO MAURICIO ADMIT DATE: 08/17/22 ACCOUNT NO: [id number] ROOM NO: [facility] AGE: 62 REPORT TYPE: 360 - QUERY RESPONSE DOCUMENT SEX: F ADMITTING PHYSICIAN: Elena Zaldivar MD ATTENDING PHYSICIAN: Elena Zaldivar MD Provider Query QUERY TEXT: Relationship Procedure Condition 360MD Query related questions should be directed to: Bharti zaman [facility] Coding Query Hotline Please clarify the etiology of the diagnosis lef t sided subcutaneous emphysema and its relationship, if any, to the procedure left chest tube placement. The classification system provides these guideli kenneth for intraoperative and/or post procedure conditions /diagnoses: -- Not all post procedure conditions are classif ied as complications. - There must be an unexpected or abnormal occurr ence. - There must be a documented cause and effect re lationship between the condition and the care. - There must be an indication that it is a compl ication -- The term ''complication'' as used in ICD-10-C M does not imply that improper or inadequate care is respo nsible for the problem -- There is no time limit for development of com plication -- The term postoperative requires clarity to de termine if it is a complication or condition resulting fro m medical/surgical care that is a residual condit ion of the procedure. -- When laceration/tear/enterotomy occurs during a procedure, the physician must provide clarity a s to whether the tear was an incidental occurrence i nherent to the procedure or clinically significant (compli cation). -- When hemorrhage occurs with procedure, clarif y if it is expected or unexpected as well as abnormal amou nt of blood loss and the organ or tissue structure involved (i.e., subcutaneous, fascia, specific organ, specific artery/vein, etc.). The patient's Clinical Indicators include: Moderate subcutaneous emphysema is seen at the l ateral left chest extending into the left neck and right nec k. xr chest 08/20/2022 Residual lingular and left lower lobe atelectasi s and extensive subcutaneous emphysema along the left lateral chest wall and left neck appear similar. - xr c hest 08/23/2022 Interval improvement of left sided subcutaneous emphysema. - pn pulm 08/24/2022 Options provided: -- Routine, inherent or integral -- Unexpected or abnormal -- Unrelated, Please specify the cause if known. -- Other - I will add my own diagnosis -- Dismiss - Not applicable / Not valid -- Dismiss - Clinically unable to determine / Un known -- Assign to another provider QUERY RESPONSE: This was a routine, inherent or integral diagnos is. Query created by: Ciara Nelson on 09/01/2022 2 :32 PM Electronically Signed by Bernardo Henao MD on at 1218 PATIENT NAME: ERNESTO MAURICIO 2022-08-24 14:18:00-00:00 [facility] ([facility]) Pulmonology Progress Note REPORT#:[id number] REPORT STATUS: Signed DATE:08/24/22 TIME:1418 PATIENT: ERNESTO MAURICIO UNIT #: [id number] ROOM/BED: [place] [id number] : 58 AGE: 62 SEX: F ATTEND: Raul Zaldivar MD ADM AUTHOR: Bernardo Henao MD * ALL edits or amendments must be made on the Eligible/computer document * Subjective Chief complaint: /No Events overnight s/p Removal chest tube yesterday Mild chest pain No SOB HPI: pneumothorax 62 years old female f A-fib, arthritis, osteoporosis, history of car cinoid tumor , and scoliosis, recently identified with a small left-sided lung nodule . lung biopsy today and after the procedure develo ped a small pneumothorax, underwent pigtail chest tube, patient is being a dmitted for further care. Review of Systems ROS Constitutional: Denies: fever. Allergy/Immun: Denies: anaphylaxis, itching. Eyes: Denies: visual loss/blurred, diplopia. Respiratory: Reports: non productive cough, pleurisy. Denies: parox nocturnal dyspnea. GI: Denies: hematemesis, hematochezia. Musculoskeletal: Denies: thoracic pain. Heme: Denies: bleeding. Neuro: Denies: numbness, seizure. Psych: Reports: anxiety. Denies: change in mental statu s. Objective General VS/I O: Last Documented: Result Date Time Pulse Ox 92 08/24 1304 Pulse 97 08/24 1304 Resp 23 08/24 1304 B/P 109/56 08/24 1202 B/P Mean 80 08/24 1202 Temp 36.1 08/24 1200 O2 Delivery Nasal cannula 08/24 08 O2 Flow Rate 2 08/24 08 FiO2 21 08/24 0739 PATIENT WEIGHT: Weight (lb): Weight (oz): Weight (kg): 104.091 Medications: Active Meds + DC'd Last 24 Hrs Potassium Chloride (K-DUR 20 mEq) 20 MEQ ONCE ON E PO (DC) Cefdinir (OMNICEF) 300 MG BID PO Polyethylene Glycol (MIRALAX) 17 GM DAILY PRN IA N PO Enoxaparin Sodium (lovENOX) 100 MG Q12HR SUBQ Hydromorphone HCl (DILAUDID) 1 MG Q4HR PRN PO Digoxin (DIGOXIN) 0.125 MG DAILY PO Furosemide (LASIX) 40 MG DAILY PO Ipratropium [place] (ATROVENT) 0.5 MG RTQID NEB Metoprolol Tartrate (LOPRESSOR) 100 MG BID PO Acetaminophen (TYLENOL EXTRA STRENGTH) 500 MG Q6 H PRN PRN PO Benzonatate (TESSALON PERLE) 100 MG Q8H PRN PRN PO Diphenhydramine HCl (BENADRYL) 12.5 MG Q6H PRN P RN IV Physical Exam Head/eyes: atraumatic, normocephalic ENT: ENT: normal nose, normal sinus Neck: full range of motion, non-tender Cardiovascular: normal heart sounds, normal S1/S 2 Respiratory/chest: aerating well, symmetric expa nsion Abdomen: soft, non-tender Extremities: moves all, normal capillary refill Neuro/TRANSCRIPTION SPECIALIST: alert, oriented X 3 Lymphatics: no lymphadenopathy Results Radiology data: Recent Impressions: RADIOLOGY - XR CHEST 1 V 08/23 1510 Report Impression - Status: SIGNED Entered: 08/23/2022 1530 IMPRESSION: Stable position of left-sided chest tube. No sig nificant residual pneumothorax. Impression By: [email or web address] Ramón Ceron M.D. RADIOLOGY - XR CHEST 1 V 08/23 1604 Report Impression - Status: SIGNED Entered: 08/23/2022 1623 IMPRESSION: 1. Left pigtail catheter removed. 2. Otherwise stable chest with no worsening of t iny left pneumothorax. Impression By: DavidDaniela Echevarria M.D. RADIOLOGY - XR CHEST 2 V 08/24 1032 Report Impression - Status: SIGNED Entered: 08/24/2022 1255 IMPRESSION: Near complete resolution of tiny left apical pne umothorax. Interval improvement of left sided subcutaneous emphysema. Impression By: [email or web address] Ramón Ceron M.D. Diagnosis, Assessment Plan Free Text A P: Impressions: 1. Pneumothorax 2. Carcinoid tumor Recommendation: Chest tube removed Repeat chest x-ray reviewed no significant evide nce of pneyumothorax noted Keep SPO2>95% Oxygen as needed omnicef BID for a week assess oxygen needs instructed to minimize exertion , lifting Apt with Dr. Garzon monday OK for D/C from pulmonary stand point restart eliquis BID upon Discharge 5 mg BID Consultants: pulmonary Electronically Signed by Bernardo Henao MD on 02/08 at 1421 RPT #: [id number] END OF REPORT 2022-08-23 14:00:00-00:00 [facility] ([facility]) Hospitalist Progress Note REPORT#:[id number] REPORT STATUS: Signed DATE:08/23/22 TIME:1400 PATIENT: ERNESTO MAURICIO UNIT #: [id number] ROOM/BED: [place] [id number] : 58 AGE: 62 SEX: F ATTEND: Melonie Zaldivar MD ADM AUTHOR: Elena Zaldivar MD * ALL edits or amendments must be made on the Eligible/computer document * Subjective Chief complaint: Stable with no new complaints Objective Physical Exam General appearance: awake Head/Eyes: atraumatic ENT: normal nose Neck: full range of motion Cardiovascular: normal heart sounds Respiratory: absent breath sounds (L sided cx tu be), aerating well Abdomen: soft Genitourinary: urine Rectal: deferred Extremities: moves all Musculoskeletal: normal inspection Neuro/TRANSCRIPTION SPECIALIST: alert Skin: dry, intact Lymphatics: no lymphadenopathy Results Radiology data: Recent Impressions: RADIOLOGY - XR CHEST 1 V 08/23 0534 Report Impression - Status: SIGNED Entered: 08/23/2022 0905 IMPRESSION: Stable position of the left-sided chest tube. A tiny linear lucency in the region of the AP window could represent a ti ny amount of pneumothorax versus pneumomediastinum. Impression By: [email or web address] - Aidan Ceron M.D. RADIOLOGY - XR CHEST 1 V 08/23 1203 Report Impression - Status: SIGNED Entered: 08/23/2022 1217 IMPRESSION: Stable chest. Impression By: DavidDaniela Echevarria M.D. Diagnosis, Assessment Plan Hospital course to date: Left-sided persistent apical pneumothora x status post left lung biopsy-L chest tube, pulmonary consult appreciated, sta ble, repeat chest x-ray shows resolved pneumothorax-defer to pulmonary medicine A-fib-takes 100 mg twice daily of metoprolol, 24 0 mg of Cardizem XL, 20 mg of Xarelto, digoxin 0.125 mg daily, and Lasix 40 mg daily-we will resume, held Xarelto Small left-sided lung mass-status post biopsy as above History of carcinoid-aware Chronic back pain-pain control Advance care plan-patient is a full code discuss ed with the patient DVT prophylaxis-SCS, held xarelto lovenox therapeutic dose per pulm medicine Chest tube clamped and likely will be removed to day, likely discharge in the morning. Consultants: pulmonary Electronically Signed by Elena Zaldivar MD on 0 08/23/22 at 1401 RPT #: [id number] END OF REPORT 2022-08-23 11:51:00-00:00 [facility] ([facility]) Pulmonology Progress Note REPORT#:[id number] REPORT STATUS: Signed DATE:08/23/22 TIME:1151 PATIENT: ERNESTO MAURICIO UNIT #: [id number] ROOM/BED: [place] [id number] : 58 AGE: 62 SEX: F ATTEND: Raul Zaldivar MD ADM AUTHOR: Donald Genao MD * ALL edits or amendments must be made on the el [employer]/computer document * See Addendum Subjective Chief complaint: Events overnight Patient's chest tube was reduced -20 suc tion yesterday today hest tube was off suction and patient was to waterseal only She asymptomatic at this point HPI: pneumothorax 62 years old female f A-fib, arthritis, osteoporosis, history of car cinoid tumor , and scoliosis, recently identified with a small left-sided lung nodule . lung biopsy today and after the procedure develo ped a small pneumothorax, underwent pigtail chest tube, patient is being a dmitted for further care. Review of Systems ROS Constitutional: Denies: fever. Allergy/Immun: Denies: anaphylaxis, itching. Eyes: Denies: visual loss/blurred, diplopia. Respiratory: Reports: non productive cough, pleurisy. Denies: parox nocturnal dyspnea. GI: Denies: hematemesis, hematochezia. Musculoskeletal: Denies: thoracic pain. Heme: Denies: bleeding. Neuro: Denies: numbness, seizure. Psych: Reports: anxiety. Denies: change in mental statu s. Objective General VS/I O: Last Documented: Result Date Time Pulse Ox 97 08/23 1134 B/P 106/62 08/23 1134 B/P Mean 73 08/23 1134 Pulse 74 08/23 1134 Resp 19 08/23 1134 Temp 36.7 08/23 0732 FiO2 30 08/23 0729 O2 Delivery Nasal cannula 08/23 728 O2 Flow Rate 3.0 08/23 0629 24 hour I O ending at 0700: 08/23 0700 08/22 1900 Intake Total 270 Output Total 750 305 Balance -480 -305 Intake, Oral 270 Output, Chest 0 5 Tube Drainage Output, Urine 750 300 PATIENT WEIGHT: Weight (lb): Weight (oz): Weight (kg): 104.091 Medications: Active Meds + DC'd Last 24 Hrs Cefdinir (OMNICEF) 300 MG BID PO Polyethylene Glycol (MIRALAX) 17 GM DAILY PRN IA N PO Enoxaparin Sodium (lovENOX) 100 MG Q12HR SUBQ Hydromorphone HCl (DILAUDID) 1 MG Q4HR PRN PO Digoxin (DIGOXIN) 0.125 MG DAILY PO Furosemide (LASIX) 40 MG DAILY PO Ipratropium [place] (ATROVENT) 0.5 MG RTQID NEB Metoprolol Tartrate (LOPRESSOR) 100 MG BID PO Acetaminophen (TYLENOL EXTRA STRENGTH) 500 MG Q6 H PRN PRN PO Benzonatate (TESSALON PERLE) 100 MG Q8H PRN PRN PO Diphenhydramine HCl (BENADRYL) 12.5 MG Q6H PRN P RN IV Physical Exam General appearance: obese, a lert, awake, oriented, no acute distress, pleasant, conversational, mental status normal, no respira tory distress Head/eyes: atraumatic, normocephalic ENT: ENT: normal nose, normal sinus Neck: full range of motion, non-tender Cardiovascular: normal heart sounds, normal S1/S 2 Respiratory/chest: aerating well, symmetric expa nsion Abdomen: soft, non-tender Extremities: moves all, normal capillary refill Neuro/TRANSCRIPTION SPECIALIST: alert, oriented X 3 Lymphatics: no lymphadenopathy Results Radiology data: Recent Impressions: RADIOLOGY - XR CHEST 1 V 08/23 533 Report Impression - Status: SIGNED Entered: 08/23/2022 09 IMPRESSION: Stable position of the left-sided chest tube. A tiny linear lucency in the region of the AP window could represent a ti ny amount of pneumothorax versus pneumomediastinum. Impression By: [email or web address] - Aidan Ceron M.D. Diagnosis, Assessment Plan Free Text A P: Impressions: 1. Pneumothorax 2. Carcinoid tumor Recommendation: Chest x-ray shows small pleural air on the left with pigtail in place to show subacute emphysema There is still no air leak present Chest tube is to waterseal Repeat chest x-ray now Keep SPO2>95% Oxygen as needed Check a.m. chest x-ray omnicef BID for a week Cont oxygen by ID lovenox BID nondiagnostic biopsy Full code Consultants: pulmonary Electronically Signed by Donald Genao MD o n 08/23/22 at 1156 Addendum 1: 08/23/22 1229 by Donald Genao MD Repeat CXR with resolution of PTX, clamp chest tube now, plan on removal later today, will d/w IR. Electronically Signed by Donald Genao MD o n 08/23/22 at 1230 RPT #: [id number] END OF REPORT 2022-08-22 12:12:00-00:00 [facility] ([facility]) Hospitalist Progress Note REPORT#:[id number] REPORT STATUS: Signed DATE:08/22/22 TIME:1212 PATIENT: ERNESTO MAURICIO UNIT #: [id number] ROOM/BED: [place] [id number] : 58 AGE: 62 SEX: F ATTEND: Raul Zaldivar MD ADM AUTHOR: Elena Zaldivar MD * ALL edits or amendments must be made on the [employer] document * Subjective Chief complaint: Stable with no new complaints Objective General VS/I O: Vital Signs: Date Time Temp Pulse Resp B/P B/P Pulse O2 O2 F low FiO2 Mean Ox Delivery Rate 08/22 1153 98.8 19 03/ 1101 91 22 89/70 76 95 03/06 1000 82 17 88/58 68 96 03/06 0900 90 17 119/61 71 93 03/06 0736 79 21 109/63 80 97 03/06 0732 95 Nasal 2 28 cannula 03/06 0600 81 15 97 03/06 0400 89 15 98 03/06 0356 98 03/06 0300 105/58 76 03/06 0200 81 17 98/73 81 90 03/06 0000 78 03/06 0000 21 107/65 81 96 03/05 2330 99.0 03/05 2200 85 16 123/57 82 96 03/05 2014 95 Nasal 2.0 28 cannula 03/05 2000 88 18 115/60 81 95 03/05 2000 Room air 03/05 1935 98.8 03/05 1900 83 19 93 03/05 1854 123/101 110 03/05 1700 115 24 86 03/05 1600 98.1 03/05 1510 79 25 119/73 91 92 03/05 1400 82 23 91 03/05 1300 105 27 93 03/05 1222 75 20 106/57 78 95 24 hour I O ending at 0700: 03/06 0700 03/05 1900 Intake Total 100 800 Output Total 500 Balance 100 300 Intake, Oral 100 800 Number 1 Bowel Movements Output, Chest 0 Tube Drainage Output, Urine 500 PATIENT WEIGHT: Weight (lb): Weight (oz): Weight (kg): 104.091 Physical Exam General appearance: awake Head/Eyes: atraumatic ENT: normal nose Neck: full range of motion Cardiovascular: normal heart sounds Respiratory: absent breath sounds (L sided cx tu be), aerating well Abdomen: soft Genitourinary: urine Rectal: deferred Extremities: moves all Musculoskeletal: normal inspection Neuro/TRANSCRIPTION SPECIALIST: alert Skin: dry, intact Lymphatics: no lymphadenopathy Results Radiology data: Recent Impressions: RADIOLOGY - XR CHEST 1 V 08/22 0410 Report Impression - Status: SIGNED Entered: 08/22/2022 0504 IMPRESSION: Left chest catheter remains in place without a v isible pneumothorax. Questionable developing pneumomediastinum. Impression By: Gabriel - Shari Roche Diagnosis, Assessment Plan Hospital course to date: Left-sided persistent apical pneumothora x status post left lung biopsy-L chest tube, pulmonary consult appreciated, sta ble, repeat chest x-ray shows resolved pneumothorax-defer to pulmonary medicine A-fib-takes 100 mg twice daily of metoprolol, 24 0 mg of Cardizem XL, 20 mg of Xarelto, digoxin 0.125 mg daily, and Lasix 40 mg daily-we will resume, held Xarelto Small left-sided lung mass-status post biopsy as above History of carcinoid-aware Chronic back pain-pain control Advance care plan-patient is a full code discuss ed with the patient DVT prophylaxis-SCS, held xarelto lovenox therapeutic dose per pulm medicine Consultants: pulmonary Electronically Signed by Elena Zaldivar MD on 0 08/22/22 at 1213 RPT #: [id number] END OF REPORT 2022-08-22 12:11:00-00:00 [facility] ([facility]) Hospitalist Progress Note REPORT#:[id number] REPORT STATUS: Signed DATE:08/22/22 TIME:1211 PATIENT: ERNESTO MAURICIO UNIT #: [id number] ROOM/BED: [facility] : 59 AGE: 62 SEX: F ATTEND: Raul Zaldivar MD ADM AUTHOR: Elena Zaldivar MD * ALL edits or amendments must be made on the el [employer] document * Subjective Chief complaint: Left-sided chest pain, cx tube in place, no naus ea, no vomiting, no fever Objective Physical Exam General appearance: awake Head/Eyes: atraumatic ENT: normal nose Neck: full range of motion Cardiovascular: normal heart sounds Respiratory: absent breath sounds (L sided cx tu be), aerating well Abdomen: soft Genitourinary: urine Rectal: deferred Extremities: moves all Musculoskeletal: normal inspection Neuro/TRANSCRIPTION SPECIALIST: alert Skin: dry, intact Lymphatics: no lymphadenopathy Diagnosis, Assessment Plan Hospital course to date: Left-sided persistent apical pneumothora x status post left lung biopsy-L chest tube, pulmonary consult appreciated, stable, rep eat chest x-ray -defer to pulmonary medicine A-fib-takes 100 mg twice daily of metoprolol, 24 0 mg of Cardizem XL, 20 mg of Xarelto, digoxin 0.125 mg daily, and Lasix 40 mg daily-we will resume, held Xarelto Small left-sided lung mass-status post biopsy as above History of carcinoid-aware Chronic back pain-pain control Advance care plan-patient is a full code discuss ed with the patient DVT prophylaxis-SCS, held xarelto lovenox therapeutic dose Consultants: pulmonary Electronically Signed by Elena Zaldivar MD on 0 08/22/22 at 1211 RPT #: [id number] END OF REPORT 2022-08-22 11:33:00-00:00 [facility] ([facility]) Pulmonology Progress Note REPORT#:[id number] REPORT STATUS: Signed DATE:08/22/22 TIME:1133 PATIENT: ERNESTO MAURICIO UNIT #: [id number] ROOM/BED: [place] [address] : 58 AGE: 62 SEX: F ATTEND: Raul Zaldivar MD ADM AUTHOR: Donald Genao MD * ALL edits or amendments must be made on the [employer] document * Subjective Chief complaint: still chest pain sob intermitent bubbling of chest tube HPI: pneumothorax 62 years old female f A-fib, arthritis, osteoporosis, history of car cinoid tumor , and scoliosis, recently identified with a small left-sided lung nodule . lung biopsy today and after the procedure develo ped a small pneumothorax, underwent pigtail chest tube, patient is being a dmitted for further care. Review of Systems ROS Constitutional: Denies: fever. Allergy/Immun: Denies: anaphylaxis, itching. Eyes: Denies: visual loss/blurred, diplopia. Respiratory: Reports: non productive cough, pleurisy. Denies: parox nocturnal dyspnea. GI: Denies: hematemesis, hematochezia. Musculoskeletal: Denies: thoracic pain. Heme: Denies: bleeding. Neuro: Denies: numbness, seizure. Psych: Reports: anxiety. Denies: change in mental statu s. Objective General VS/I O: Last Documented: Result Date Time Pulse Ox 95 08/22 1101 B/P 89/70 08/22 1101 B/P Mean 76 08/22 1101 Pulse 91 08/22 1101 Resp 22 08/22 1101 FiO2 28 08/22 0732 O2 Delivery Nasal cannula 08/22 0732 O2 Flow Rate 2 08/22 0732 Temp 37.2 08/21 2330 24 hour I O ending at 0700: /06 0700 03/ 1900 Intake Total 100 800 Output Total 500 Balance 100 300 Intake, Oral 100 800 Number 1 Bowel Movements Output, Chest 0 Tube Drainage Output, Urine 500 PATIENT WEIGHT: Weight (lb): Weight (oz): Weight (kg): 104.091 Medications: Active Meds + DC'd Last 24 Hrs Cefdinir (OMNICEF) 300 MG BID PO Polyethylene Glycol (MIRALAX) 17 GM DAILY PRN IA N PO Enoxaparin Sodium (lovENOX) 100 MG Q12HR SUBQ Ceftriaxone Sodium (ROCEPHIN) 1,000 MG Q24H IV ( DC) Sterile Water (WATER FOR INJECTION) 10 ML Hydromorphone HCl (DILAUDID) 1 MG Q4HR PRN PO Digoxin (DIGOXIN) 0.125 MG DAILY PO Furosemide (LASIX) 40 MG DAILY PO Ipratropium [place] (ATROVENT) 0.5 MG RTQID NEB Metoprolol Tartrate (LOPRESSOR) 100 MG BID PO Acetaminophen (TYLENOL EXTRA STRENGTH) 500 MG Q6 H PRN PRN PO Benzonatate (TESSALON PERLE) 100 MG Q8H PRN PRN PO Diphenhydramine HCl (BENADRYL) 12.5 MG Q6H PRN P RN IV Physical Exam General appearance: alert, awake, oriented, no a cute distress, pleasant, conversational, mental status normal, no respira tory distress Head/eyes: atraumatic, normocephalic ENT: ENT: normal nose, normal sinus Neck: full range of motion, non-tender Cardiovascular: normal heart sounds, normal S1/S 2 Respiratory/chest: aerating well, symmetric expa nsion Abdomen: soft, non-tender Extremities: moves all, normal capillary refill Neuro/TRANSCRIPTION SPECIALIST: alert, oriented X 3 Lymphatics: no lymphadenopathy Results Radiology data: Recent Impressions: RADIOLOGY - XR CHEST 1 V 08/22 409 Report Impression - Status: SIGNED Entered: 08/22/2022503 IMPRESSION: Left chest catheter remains in place without a v isible pneumothorax. Questionable developing pneumomediastinum. Impression By: DavidMAJoseluis - Shari Roche Diagnosis, Assessment Plan Free Text A P: Impressions: 1. Pneumothorax 2. Carcinoid tumor Recommendation: Chest x-ray shows no pneumothorax on the left wi th pigtail in place to show subacute emphysema There is still an air leak present Chest tube is to suction -30, reduced to -20 Keep SPO2>95% Oxygen as needed Check a.m. chest x-ray If no more air leak we will plan on clamping zana st tube tomorrow omnicef BID for a week Cont oxygen by [place] lovenox BID nondiagnostic biopsy Full code Consultants: pulmonary Electronically Signed by Donald Genao MD n 08/22/22 at 1134 RPT #: [id number] END OF REPORT 2022-08-21 17:12:00-00:00 [facility] ([facility]) Pulmonology Progress Note REPORT#:[id number] REPORT STATUS: Signed DATE:08/21/22 TIME:1711 PATIENT: ERNESTO MAURICIO UNIT #: [id number] ROOM/BED: [place] [address] : 58 AGE: 62 SEX: F ATTEND: Raul Zaldivar MD ADM AUTHOR: Bernardo Henao MD * ALL edits or amendments must be made on the [employer]/computer document * Subjective Chief complaint: still chest pain sob intermitent bubbling of chest tube HPI: pneumothorax 62 years old female f A-fib, arthritis, osteoporosis, history of car cinoid tumor , and scoliosis, recently identified with a small left-sided lung nodule . lung biopsy today and after the procedure develo ped a small pneumothorax, underwent pigtail chest tube, patient is being a dmitted for further care. Review of Systems ROS Allergy/Immun: Denies: anaphylaxis, itching. Respiratory: Reports: non productive cough, pleurisy. Denies: parox nocturnal dyspnea. GI: Denies: hematemesis, hematochezia. Neuro: Denies: numbness, seizure. Psych: Reports: anxiety. Denies: change in mental statu s. Objective General VS/I O: Last Documented: Result Date Time Temp 36.7 08/21 1600 Pulse Ox 91 08/21 1400 Pulse 82 08/21 1400 Resp 23 08/21 1400 B/P 106/57 08/21 1222 B/P Mean 78 08/21 1222 FiO2 28 08/21 0733 O2 Delivery Nasal cannula 08/21 0733 O2 Flow Rate 2 08/21 0733 24 hour I O ending at 0700: 08/21 0700 / 1900 Intake Total 420 970.00 Output Total 205 900 Balance 215 70.00 Intake, IV 20.00 Intake, Oral 420 950 Number 1 1 Bowel Movements Number 1 Incontinent Voids Output, Chest 5 0 Tube Drainage Output, Urine 200 900 PATIENT WEIGHT: Weight (lb): Weight (oz): Weight (kg): 104.091 Medications: Active Meds + DC'd Last 24 Hrs Cefdinir (OMNICEF) 300 MG BID PO Polyethylene Glycol (MIRALAX) 17 GM DAILY PRN IA N PO Enoxaparin Sodium (lovENOX) 100 MG Q12HR SUBQ Ceftriaxone Sodium (ROCEPHIN) 1,000 MG Q24H IV (DC) Sterile Water (WATER FOR INJECTION) 10 ML Hydromorphone HCl (DILAUDID) 1 MG Q4HR PRN PO Digoxin (DIGOXIN) 0.125 MG DAILY PO Furosemide (LASIX) 40 MG DAILY PO Ipratropium [place] (ATROVENT) 0.5 MG RTQID NEB Metoprolol Tartrate (LOPRESSOR) 100 MG BID PO Acetaminophen (TYLENOL EXTRA STRENGTH) 500 MG Q6 H PRN PRN PO Benzonatate (TESSALON PERLE) 100 MG Q8H PRN PRN PO Diphenhydramine HCl (BENADRYL) 12.5 MG Q6H PRN P RN IV Physical Exam Head/eyes: atraumatic, normocephalic ENT: ENT: normal nose, normal sinus Neck: full range of motion, non-tender Cardiovascular: normal heart sounds, normal S1/S 2 Respiratory/chest: aerating well, symmetric expa nsion Abdomen: soft, non-tender Extremities: moves all, normal capillary refill Neuro/TRANSCRIPTION SPECIALIST: alert, oriented X 3 Lymphatics: no lymphadenopathy Results Findings/Data: Laboratory Tests 08/21/22414: [Embedded Image Not Available] Laboratory Tests 08/21 414 Chemistry Sodium (134 - 147 mmol/L) 139 Potassium (3.4 - 5.0 mmol/L) 3.3 L Chloride (100 - 108 mmol/L) 97 L Carbon Dioxide (21 - 32 mmol/L) 36 H Anion Gap (4.0 - 15.0 GAP calc) 6.0 BUN (7 - 18 MG/DL) 13 Creatinine (0.6 - 1.0 MG/DL) 0.8 Glomerular Filtr Rate (>60 estGFR) >=60 max est imate Glucose (70 - 110 MG/DL) 100 Calcium (8.5 - 10.1 MG/DL) 9.1 Laboratory Tests 08/21 414 Hematology WBC (3.5 - 11.0 K/mm3) 5.9 RBC (4.70 - 6.10 M/mm3) 5.12 Hgb (10.4 - 14.9 G/DL) 16.4 H Hct (31.5 - 44.1 %) 47.5 H MCV (84.5 - 98.6 Fl) 92.8 MCH (27.0 - 34.2 pg) 32.0 MCHC (31.5 - 34.0 G/DL) 34.5 H RDW (11.5 - 14.5 SD) 13.2 Plt Count (150 - 450 K/mm3) 124 L MPV (7.0 - 10.5 fL) 9.70 Neut % (Auto) (40 - 76 %) 73.8 Lymph % (Auto) (20.5 - 51.1 %) 17.0 L [place] % (Auto) (1.7 - 9.3 %) 7.1 Eos % (Auto) (0.0 - 6.0 %) 1.5 Baso % (Auto) (0.0 - 2.0 %) 0.3 Neut # (Auto) (1.8 - 7.6 K/mm3) 4.4 Lymph # (Auto) (0.6 - 3.2 K/mm3) 1.0 [place] # (Auto) (0.3 - 1.1 K/mm3) 0.4 Eos # (Auto) (0.0 - 0.4 K/mm3) 0.1 Baso # (Auto) (0.0 - 0.1 K/mm3) 0.0 Abs Immat Gran (auto) (0.00 - 0.03 x10 3/uL) 0. 02 Add Manual Diff (CRITERIA DIFF/SCN) NO Immature Gran % (0.0 - 5.0 %) 0.3 Nucleated RBC % (0.0 - 1.0 /100WBC%) 0.0 Platelet Estimate (ADEQUATE THOUSAND) DECREASE D Plt Morphology Comment NORMAL Polychromasia (NONE ON SCAN) TRACE Ovalocytes (NONE ON SCAN) TRACE Radiology data: Recent Impressions: RADIOLOGY - XR CHEST 1 V 08/21 44 Report Impression - Status: SIGNED Entered: 08/21/2022148 IMPRESSION: Previous pneumothorax is no longer visible. Lingular discoid atelectasis. Impression By: Gabriel - Shari Roche Diagnosis, Assessment Plan Free Text A P: 1. Pneumothorax 2. Carcinoid tumor CXR today looks stable Air leak noted , for now will keep chest tube on suction until am Repeat CXR if stable will clamp tube for D/C jimmy nning of tube omnicef BID for a week Cont oxygen by NC lovenox BID nondiagnostic biopsy Consultants: pulmonary Electronically Signed by Bernardo Henao MD on 11/08 at 1714 RPT #: [id number] END OF REPORT 2022-08-21 09:41:00-00:00 [facility] ([facility]) Discharge Summary REPORT#:[id number] REPORT STATUS: Signed DATE:08/21/22 TIME:940 PATIENT: ERNESTO MAURICIO UNIT #: [id number] ROOM/BED: [place] [id number] : 58 AGE: 62 SEX: F ATTEND: Raul Zaldivar MD ADM AUTHOR: Elena Zaldivar MD * ALL edits or amendments must be made on the Eligible[employer] Identity document * See Addendum General Information Discharge date: 08/21/22 Discharge diagnosis: Left-sided persistent apical pneumothora x status post left lung biopsy-L chest tube, pulmonary consult appreciated, stable, rep eat chest x-ray shows normal pneumothorax. If chest tube DC'd today patient c ould be discharged home afterwards, discussed with bharti smith patient, also discussed with pulmonary medicine- A-fib-takes 100 mg twice daily of metoprolol, 24 0 mg of Cardizem XL, 20 mg of Xarelto, digoxin 0.125 mg daily, and Lasix 40 mg daily-wresume all home meds including xarelto at DC Small left-sided lung mass-status post biopsy as above History of carcinoid-aware Chronic back pain-pain control Advance care plan-patient is a full code discuss ed with the patient DVT prophylaxis-SCS, held xarelto Rcvd lovenox therapeutic dose whie in the hospit al. Okay to discharge home once chest tube is out to day Hospital course: Left-sided persistent apical pneumothora x status post left lung biopsy-L chest tube, pulmonary consult appreciated, stable, rep eat chest x-ray shows normal pneumothorax. If chest tube DC'd today patient c ould be discharged home afterwards, discussed with bharti smith patient, also discussed with pulmonary medicine- A-fib-takes 100 mg twice daily of metoprolol, 24 0 mg of Cardizem XL, 20 mg of Xarelto, digoxin 0.125 mg daily, and Lasix 40 mg daily-wresume all home meds including xarelto at DC Small left-sided lung mass-status post biopsy as above History of carcinoid-aware Chronic back pain-pain control Advance care plan-patient is a full code discuss ed with the patient DVT prophylaxis-SCS, held xarelto Rcvd lovenox therapeutic dose whie in the hospit al. Okay to discharge home once chest tube is out to day Consultants: pulmonary Pt. condition on discharge: improved, stable Med Rec Med Rec Discharge meds: Continue taking these medications: METOPROLOL TARTRATE (LOPRESSOR) 100 MG TAB 100 MILLIGRAM ORAL TWICE DAILY. DIGOXIN (LANOXIN) 125 MCG TAB 0.125 MILLIGRAM ORAL DAILY. [DILTIAZEM ER] 60 MILLIGRAM ORAL BEDTIME. Instructions: DILTIAZEM ER 60MG TAKES ONE TABLET BY MOUTH AGUS RY NIGHT MONTEL[place]AST (SINGULAIR) 10 MG TAB FUROSEMIDE (LASIX) 40 MG TAB 40 MILLIGRAM ORAL DAILY. [OMEPRAZOLE ] 20 MILLIGRAM ORAL BEDTIME. Instructions: OMEPRAZOLE 20MG CAPSULE TAKES BY MOUTH ONCE AT NIGHT. Comments: PT STATED SHE SOMETIMES WILL TAKE TWO A DAY, BU T STATED "RARELY" POTASSIUM CHLORIDE ER (MICRO-K) 10 MEQ CAP.SA 20 MILLIEQUIVALENT ORAL DAILY. oxyCODONE (oxyCODONE) 5 MG TAB 5 MILLIGRAM ORAL EVERY 4 HOURS NEEDED. as ne eded for PAIN Qty = 50 Instructions: Can take 1-2 tablets as often as every 4 hours as needed for pain TIOTROPIUM BROMIDE (SPIRIVA RESPIMAT 2.5 MCG/ACT ) 2.5 MCG/ACTUATION INHALER 2 PUFF INHALATION TWICE DAILY. BENZONATATE (TESSALON) 100 MG CAP 100 MILLIGRAM ORAL EVERY 8 HR NEEDED. as nee ded for COUGH RIVAROXABAN (XARELTO) 20 MG TAB Start taking the following new medications: cefUROXime axetiL (CEFTIN) 500 MG TAB 500 MILLIGRAM ORAL EVERY 12 HOURS. Qty = 10 No Refills Objective VS/I O Last Documented: Result Date Time Pulse Ox 97 08/21 0600 B/P 108/66 08/21 0600 B/P Mean 82 08/21 0600 Pulse 78 08/21 0600 Resp 22 08/21 0600 Temp 98.2 08/21 0000 FiO2 28 08/20 2016 O2 Delivery Nasal cannula 08/20 2016 O2 Flow Rate 2 08/20 2016 24 hour I O ending at 0700: 03/05 0700 03/04 1900 Intake Total 420 970.00 Output Total 205 900 Balance 215 70.00 Intake, IV 20.00 Intake, Oral 420 950 Number 1 1 Bowel Movements Number 1 Incontinent Voids Output, Chest 5 0 Tube Drainage Output, Urine 200 900 PATIENT WEIGHT: Weight (lb): Weight (oz): Weight (kg): 104.091 General appearance: awake ENT: normal nose Cardiovascular: regular rate rhythm Respiratory: clear to auscultation Extremities: moves all Neuro/TRANSCRIPTION SPECIALIST: alert Skin: dry Discharge Instructions PCP PCP: PCP: No Primary or Family Physician )( Discharge to: Home/Self Care Discharge Instructions Additional Discharge Routines: PCP Follow-Up, Co nsultant Follow-Up )( Diet: Regular )( Activity: As Tolerated Prescriptions: on chart Discharge management: greater than 30 mins Follow-up Appointments PCP follow up: PCP: No Primary or Family Physician PCP follow up timeframe: In 1-2 weeks Consulting provider 1: Provider 1: Eloina Garzon MD Specialty: Pulmonary Disease Electronically Signed by Elena Zaldivar MD on 0 08/21/22 at 0944 Addendum 1: 08/24/22 0837 by Elena Zaldivar MD The patient had to stay due to the pneumothorax and chest tube continue to stay in, the pneumothorax resolved, chest tube was ta osiris out yesterday. We will ambulate the patient today check for pearl e oxygen requirement pending discharge Electronically Signed by Elena Zaldivar MD on 0 08/24/22 at 0838 RPT #: [id number] END OF REPORT 2022-08-20 14:09:00-00:00 [facility] ([facility]) Pulmonology Progress Note REPORT#:[id number] REPORT STATUS: Signed DATE:08/20/22 TIME:1409 PATIENT: ERNESTO MAURICIO UNIT #: [id number] ROOM/BED: [place] [id number] : 58 AGE: 62 SEX: F ATTEND: Raul Zaldivar MD ADM AUTHOR: Bernardo Henao MD * ALL edits or amendments must be made on the el ectronic/computer document * Subjective Chief complaint: still chest pain sob cont bubbling of chest tube HPI: pneumothorax 62 years old female f A-fib, arthritis, osteoporosis, history of car cinoid tumor , and scoliosis, recently identified with a small left-sided lung nodule . lung biopsy today and after the procedure develo ped a small pneumothorax, underwent pigtail chest tube, patient is being a dmitted for further care. Objective General VS/I O: Last Documented: Result Date Time Pulse Ox 96 08/20 1215 FiO2 28 08/20 1215 O2 Delivery Nasal cannula 08/20 1215 O2 Flow Rate 2 08/20 1215 Temp 37.3 08/20 1200 B/P 113/70 08/20 1200 B/P Mean 81 08/20 1200 Pulse 77 08/20 1200 Resp 24 08/20 1200 24 hour I O ending at 0700: 08/20 0700 08/19 1900 Intake Total 200 Output Total 30 Balance -30 200 Intake, Oral 200 Output, Chest 30 Tube Drainage PATIENT WEIGHT: Weight (lb): Weight (oz): Weight (kg): 104.091 Medications: Active Meds + DC'd Last 24 Hrs Enoxaparin Sodium (lovENOX) 100 MG Q12HR SUBQ Ceftriaxone Sodium (ROCEPHIN) 1,000 MG Q24H IV Sterile Water (WATER FOR INJECTION) 10 ML Hydromorphone HCl (DILAUDID) 1 MG Q4HR PRN PO Digoxin (DIGOXIN) 0.125 MG DAILY PO Furosemide (LASIX) 40 MG DAILY PO Ipratropium [place] (ATROVENT) 0.5 MG RTQID NEB Metoprolol Tartrate (LOPRESSOR) 100 MG BID PO Acetaminophen (TYLENOL EXTRA STRENGTH) 500 MG Q6 H PRN PRN PO Benzonatate (TESSALON PERLE) 100 MG Q8H PRN PRN PO Diphenhydramine HCl (BENADRYL) 12.5 MG Q6H PRN PRN IV Physical Exam Head/eyes: atraumatic, normocephalic ENT: ENT: normal nose, normal sinus Neck: full range of motion, non-tender Cardiovascular: normal heart sounds, normal S1/S 2 Respiratory/chest: aerating well, symmetric expa nsion Abdomen: soft, non-tender Extremities: moves all, normal capillary refill Neuro/TRANSCRIPTION SPECIALIST: alert, oriented X 3 Lymphatics: no lymphadenopathy Results Radiology data: Recent Impressions: CAT SCAN - CT DRN VISCERA PERC 08/19 1620 Report Impression - Status: SIGNED Entered: 08/19/2022 1717 Impression: Technically successful chest tube placement as d escribed. Impression By: [email or web address] Ramón Ceron M.D. RADIOLOGY - XR CHEST 1 V 08/20 1158 Report Impression - Status: SIGNED Entered: 08/20/2022 1230 IMPRESSION: 1. There appears to be persistent left apical pn eumothorax with left chest tube in place. Impression By: [email or web address] Ramón Garner M.D. Diagnosis, Assessment Plan Free Text A P: 1. Pneumothorax 2. Carcinoid tumor chest tube appeared to be out Cannot clamp or DC tube assess CXR afterwards will assess for need for rensertion of additiona l chest tube Rociphen daily Cont oxygen by NC lovenox BID Electronically Signed by Bernardo Henao MD on 10/09 at 1413 RPT #: [id number] END OF REPORT 2022-08-20 13:40:00-00:00 [facility] ([facility]) Hospitalist Progress Note REPORT#:[id number] REPORT STATUS: Signed DATE:08/20/22 TIME:1340 PATIENT: ERNESTO MAURICIO UNIT #: [id number] ROOM/BED: [place] [id number] : 58 AGE: 62 SEX: F ATTEND: Raul Zaldivar MD ADM AUTHOR: Elena Zaldivar MD * ALL edits or amendments must be made on the el [employer]/computer document * Subjective Chief complaint: Left-sided chest pain, cx tube in place, no naus ea, no vomiting, no fever Objective General VS/I O: Vital Signs: Date Time Temp Pulse Resp B/P B/P Pulse O2 O2 F low FiO2 Mean Ox Delivery Rate 08/20 1215 96 Nasal 2 28 cannula 08/20 1200 99.1 08/20 1200 77 24 113/70 81 98 08/20 1100 65 23 130/76 95 98 03/04 1000 67 21 113/61 82 98 03/04 0901 76 30 94/62 74 97 03/04 0827 74 23 122/68 89 99 03/04 0734 98.2 03/04 0713 96 Nasal 2 28 cannula 03/04 0700 98.3 03/04 0700 Nasal 2 cannula 03/04 0700 74 22 131/96 109 98 03/04 0401 78 14 132/77 96 95 03/04 0400 97.5 03/04 0301 77 14 130/62 86 98 03/04 0201 72 24 118/77 82 96 03/04 0101 76 13 129/62 89 96 03/04 0001 78 13 140/74 101 98 03/03 2215 Nasal 3 cannula 03/03 2100 71 13 130/75 98 99 03/03 2001 85 30 119/62 86 97 03/03 1999 97.5 03/03 1932 96 Nasal 3 32 cannula /03 1901 77 18 121/56 80 93 03/03 1708 82 16 112/70 85 96 03/03 1708 98.7 77 21 112/70 84 96 Nasal 2 cannula 03/03 1700 87 37 03/03 1600 83 24 98 03/03 1500 77 16 96 03/03 1400 70 18 99 24 hour I O ending at 0700: 08/20 0700 / 1900 Intake Total 200 Output Total 30 Balance -30 200 Intake, Oral 200 Output, Chest 30 Tube Drainage PATIENT WEIGHT: Weight (lb): Weight (oz): Weight (kg): 104.091 Physical Exam General appearance: awake Head/Eyes: atraumatic ENT: normal nose Neck: full range of motion Cardiovascular: normal heart sounds Respiratory: absent breath sounds (L sided cx tu be), aerating well Abdomen: soft Genitourinary: urine Rectal: deferred Extremities: moves all Musculoskeletal: normal inspection Neuro/TRANSCRIPTION SPECIALIST: alert Skin: dry, intact Lymphatics: no lymphadenopathy Results Radiology data: Recent Impressions: CAT SCAN - CT DRN VISCERA PERC 08/19 1620 Report Impression - Status: SIGNED Entered: 08/19/2022 1717 Impression: Technically successful chest tube placement as d escribed. Impression By: [email or web address] - Aidan Ceron M.D. RADIOLOGY - XR CHEST 1 V 08/20 1158 Report Impression - Status: SIGNED Entered: 08/20/2022 1230 IMPRESSION: 1. There appears to be persistent left apical pn eumothorax with left chest tube in place. Impression By: [place] - Jorge Luis Garner M.D. Diagnosis, Assessment Plan Hospital course to date: Left-sided persistent apical pneumothora x status post left lung biopsy-L chest tube, pulmonary consult appreciated, stable, rep eat chest x-ray -defer to pulmonary medicine A-fib-takes 100 mg twice daily of metoprolol, 24 0 mg of Cardizem XL, 20 mg of Xarelto, digoxin 0.125 mg daily, and Lasix 40 mg daily-we will resume, held Xarelto Small left-sided lung mass-status post biopsy as above History of carcinoid-aware Chronic back pain-pain control Advance care plan-patient is a full code discuss ed with the patient DVT prophylaxis-SCS, held xarelto lovenox therapeutic dose Electronically Signed by Elena Zaldivar MD on 0 08/20/22 at 1343 RPT #: [id number] END OF REPORT 2022-08-19 13:31:00-00:00 [facility] ([facility]) Hospitalist Progress Note REPORT#:[id number] REPORT STATUS: Signed DATE:08/19/22 TIME:1331 PATIENT: ERNESTO MAURICIO UNIT #: [id number] ROOM/BED: [place] [phone] : 58 AGE: 62 SEX: F ATTEND: Raul Zaldivar MD ADM AUTHOR: Elena Zaldivar MD * ALL edits or amendments must be made on the Eligible/computer document * Subjective Chief complaint: Left-sided chest pain, 6 out of 10 intensity, wo rse with inspiration and deep breath, no nausea, no vomiting, no fever Objective General VS/I O: Vital Signs: Date Time Temp Pulse Resp B/P B/P Pulse O2 O2 F low FiO2 Mean Ox Delivery Rate 08/19 1049 98.8 08/19 0734 98.2 08/19 0730 97.0 81 19 116/57 76 96 Nasal 2 cannula 08/19 0710 96 Nasal 3 32 cannula 08/19 0700 81 11 119/96 104 96 03/03 0600 72 13 123/57 80 99 03/03 0500 73 16 113/59 83 96 03/03 0356 97.9 03/03 0300 71 22 105/56 77 97 03/03 0200 74 20 96/56 70 95 03/03 0000 77 16 110/53 77 96 03/02 2323 98.8 / 2210 83 6 121/66 89 96 03/02 2100 88 16 130/68 91 96 / 2000 Nasal 2 cannula / 2000 84 14 112/58 77 99 03/02 1935 97 Nasal 2 28 cannula / 1916 103 27 115/74 91 97 03/ 1900 87 27 03/02 1700 74 18 125/59 81 98 03/02 1600 73 27 111/64 82 99 03/02 1500 Nasal 4 cannula 03/ 1500 75 23 105/56 75 97 03/02 1400 67 20 99/68 78 98 24 hour I O ending at 0700: 08/19 0700 / 1900 Intake Total 400 1500 Output Total 1500 Balance -1100 1500 Intake, Oral 400 1500 Number Voids 3 8 Output, Chest 0 Tube Drainage Output, Urine 1500 PATIENT WEIGHT: Weight (lb): Weight (oz): Weight (kg): 104.091 Physical Exam General appearance: awake Head/Eyes: atraumatic ENT: normal nose Neck: full range of motion Cardiovascular: normal heart sounds Respiratory: absent breath sounds (L sided cx tu be), aerating well Abdomen: soft Genitourinary: urine Rectal: deferred Extremities: moves all Musculoskeletal: normal inspection Neuro/TRANSCRIPTION SPECIALIST: alert Skin: dry, intact Lymphatics: no lymphadenopathy Results Radiology data: Recent Impressions: RADIOLOGY - XR CHEST 1 V 08/19 1058 Report Impression - Status: SIGNED Entered: 08/19/2022 1140 IMPRESSION: Interval increase in size of a 12 mm left apical pneumothorax. A left-sided chest tube appears retracted to the l evel of the left chest wall. Findings discussed with Dr. Henao by Dr Carla durán via telephone at 11:31 AM on August 19, 2022. Impression By: [email or web address] - Aidan Ceron M.D. Diagnosis, Assessment Plan Hospital course to date: Left-sided pneumothorax status post left lung bi opsy-pigtail chest tube, pulmonary consult appreciated, stable, r epeat chest x-ray shows enlargement of pneumothorax-defer to pulmonary medicine A-fib-takes 100 mg twice daily of metoprolol, 24 0 mg of Cardizem XL, 20 mg of Xarelto, digoxin 0.125 mg daily, and Lasix 40 mg daily-we will resume, held Xarelto Small left-sided lung mass-status post biopsy as above History of carcinoid-aware Chronic back pain-pain control Advance care plan-patient is a full code discuss ed with the patient DVT prophylaxis-SCS, held xarelto Electronically Signed by Elena Zaldivar MD on 0 08/19/22 at 1333 RPT #: [id number] END OF REPORT 2022-08-19 10:46:00-00:00 [facility] ([facility]) Pulmonology Progress Note REPORT#:[id number] REPORT STATUS: Signed DATE:08/19/22 TIME:1046 PATIENT: ERNESTO MAURICIO UNIT #: [id number] ROOM/BED: [place] [phone] : 58 AGE: 62 SEX: F ATTEND: Raul Zaldivar MD ADM AUTHOR: Bernardo Henao MD * ALL edits or amendments must be made on the Elig[employer]/computer document * Subjective Chief complaint: still chest pain Intermittent cough productive HPI: pneumothorax 62 years old female f A-fib, arthritis, osteoporosis, history of car cinoid tumor , and scoliosis, recently identified with a small left-sided lung nodule . lung biopsy today and after the procedure develo ped a small pneumothorax, underwent pigtail chest tube, patient is being a dmitted for further care. Review of Systems ROS All systems rev neg: except as marked Objective General VS/I O: Last Documented: Result Date Time Temp 36.8 08/19 0734 Pulse Ox 96 08/19 0710 FiO2 32 08/19 0710 O2 Delivery Nasal cannula 08/19 0710 O2 Flow Rate 3 08/19 0710 B/P 119/96 08/19 0700 B/P Mean 104 08/19 0700 Pulse 81 08/19 0700 Resp 11 08/19 0700 24 hour I O ending at 0700: 08/19 0700 08/18 1900 Intake Total 400 1500 Output Total 1500 Balance -1100 1500 Intake, Oral 400 1500 Number Voids 3 8 Output, Chest 0 Tube Drainage Output, Urine 1500 PATIENT WEIGHT: Weight (lb): Weight (oz): Weight (kg): 104.091 Medications: Active Meds + DC'd Last 24 Hrs Hydromorphone HCl (DILAUDID) 1 MG Q4HR PRN PO Digoxin (DIGOXIN) 0.125 MG DAILY PO Furosemide (LASIX) 40 MG DAILY PO Rivaroxaban (XARELTO) 20 MG DAILY PO (DC) Ipratropium [place] (ATROVENT) 0.5 MG RTQID NEB Metoprolol Tartrate (LOPRESSOR) 100 MG BID PO Acetaminophen (TYLENOL EXTRA STRENGTH) 500 MG Q6 H PRN PRN PO Benzonatate (TESSALON PERLE) 100 MG Q8H PRN PRN PO Diphenhydramine HCl (BENADRYL) 12.5 MG Q6H PRN P RN IV Morphine Sulfate (morphine Sulfate) 2 MG Q4H PRN PRN IV (DC) Physical Exam Head/eyes: atraumatic, normocephalic ENT: ENT: normal nose, normal sinus Neck: full range of motion, non-tender Cardiovascular: normal heart sounds, normal S1/S 2 Respiratory/chest: aerating well, symmetric expa nsion Abdomen: soft, non-tender Extremities: moves all, normal capillary refill Neuro/TRANSCRIPTION SPECIALIST: alert, oriented X 3 Lymphatics: no lymphadenopathy Results Radiology data: Recent Impressions: RADIOLOGY - XR CHEST 1 V 08/18 1215 Report Impression - Status: SIGNED Entered: 08/18/2022 1232 IMPRESSION: Interval resolution of left-sided pneumothorax. Left-sided chest tube is present. Impression By: [email or web address] - Aidan Ceron M.D. Diagnosis, Assessment Plan Free Text A P: 1. Pneumothorax 2. Carcinoid tumor Patient to be kept with Chest tube , adjusted tu be Air leak noted still Cannot clamp or DC tube Cont negative 30 suction Follow up CXR today Start Rociphen daily Cont oxygen by NC lovenox BID Electronically Signed by Bernardo Henao MD on 09/08 at 1055 [facility] #: [id number] END OF REPORT 2022-08-18 16:38:00-00:00 [facility] Progress Note REPORT#:[id number] REPORT STATUS: Signed DATE:08/18/22 TIME:163 PATIENT: ERNESTO MAURICIO UNIT #: [id number] ROOM/BED: [place] [phone] : 58 AGE: 62 SEX: F ATTEND: Raul Zaldivar MD ADM AUTHOR: Elena Zaldivar MD * ALL edits or amendments must be made on the [employer] document * Subjective Chief complaint: stable no new complaints Objective General VS/I O: Vital Signs: Date Time Temp Pulse Resp B/P B/P Pulse O2 O2 F low FiO2 Mean Ox Delivery Rate 03/ 1500 Nasal 4 cannula 03/ 1500 75 23 105/56 75 97 03/02 1400 67 20 99/68 78 98 03/02 1300 66 16 110/60 79 95 03/02 1200 71 18 113/59 79 97 03/02 1100 97.6 03/02 1100 Nasal 4 cannula 03/02 1100 61 27 114/68 82 98 03/02 1000 60 12 110/69 85 98 03/02 0909 68 21 105/71 84 97 03/02 0805 70 19 98/57 72 95 03/02 0801 70 27 94/6 82 95 03/02 0702 97 Nasal 2 cannula 03/02 0700 97.9 03/02 0700 Nasal 2 cannula 03/02 0700 60 15 95/53 69 98 03/02 0600 56 9 98/58 70 96 03/02 0500 60 15 121/51 74 97 03/02 0400 64 10 118/61 82 97 03/02 0300 60 12 110/58 81 98 03/02 0200 67 22 107/62 80 96 03/02 0100 65 12 110/60 79 99 03/02 0000 97.4 Nasal 2 cannula 03/02 0000 75 28 134/60 86 95 03/01 2300 66 19 116/55 79 98 03/01 2200 63 18 104/68 82 96 03/01 2100 63 20 106/60 78 100 03/01 2031 64 22 117/67 88 96 03/01 2000 97.5 Nasal 2 cannula 03/01 1944 98 Nasal 2 28 cannula 08/17 1929 Nasal 2 cannula 08/17 1899 64 18 105/57 75 98 08/17 1700 69 26 109/62 82 93 24 hour I O ending at 0700: 08/18 0700 08/17 190 Intake Total 40 Output Total 120 Balance -80 Intake, Oral 40 Output, Urine 120 Patient 229 lb Weight Weight Stated/Reported Measurement Method PATIENT WEIGHT: Weight (lb): Weight (oz): Weight (kg): 104.091 Physical Exam General appearance: awake Head/Eyes: atraumatic ENT: normal nose Neck: full range of motion Cardiovascular: normal heart sounds Respiratory: absent breath sounds (L sided cx tu be), aerating well Abdomen: soft Genitourinary: urine Rectal: deferred Extremities: moves all Musculoskeletal: normal inspection Neuro/TRANSCRIPTION SPECIALIST: alert Skin: dry, intact Lymphatics: no lymphadenopathy Results Findings/Data: Laboratory Tests 08/18 0450 Chemistry Sodium (134 - 147 mmol/L) 139 Potassium (3.4 - 5.0 mmol/L) 3.4 Chloride (100 - 108 mmol/L) 105 Carbon Dioxide (21 - 32 mmol/L) 31 Anion Gap (4.0 - 15.0 GAP calc) 3.0 L BUN (7 - 18 MG/DL) 13 Creatinine (0.6 - 1.0 MG/DL) 1.0 Glomerular Filtr Rate (>60 estGFR) >=60 max est imate Glucose (70 - 110 MG/DL) 102 Calcium (8.5 - 10.1 MG/DL) 8.5 Troponin I High Sens (0 - 34 ng/L) 8.9 Laboratory Tests 08/18 449 Hematology WBC (3.5 - 11.0 K/mm3) 6.4 RBC (4.70 - 6.10 M/mm3) 4.48 L Hgb (10.4 - 14.9 G/DL) 14.5 Hct (31.5 - 44.1 %) 42.4 MCV (84.5 - 98.6 Fl) 94.6 MCH (27.0 - 34.2 pg) 32.4 MCHC (31.5 - 34.0 G/DL) 34.2 H RDW (11.5 - 14.5 SD) 13.8 Plt Count (150 - 450 K/mm3) 128 L MPV (7.0 - 10.5 fL) 9.70 Neut % (Auto) (40 - 76 %) 75.6 Lymph % (Auto) (20.5 - 51.1 %) 15.0 L [place] % (Auto) (1.7 - 9.3 %) 7.1 Eos % (Auto) (0.0 - 6.0 %) 1.4 Baso % (Auto) (0.0 - 2.0 %) 0.6 Neut # (Auto) (1.8 - 7.6 K/mm3) 4.8 Lymph # (Auto) (0.6 - 3.2 K/mm3) 1.0 [place] # (Auto) (0.3 - 1.1 K/mm3) 0.5 Eos # (Auto) (0.0 - 0.4 K/mm3) 0.1 Baso # (Auto) (0.0 - 0.1 K/mm3) 0.0 Abs Immat Gran (auto) (0.00 - 0.03 x10 3/uL) 0. 02 Add Manual Diff (CRITERIA DIFF/SCN) NO Immature Gran % (0.0 - 5.0 %) 0.3 Nucleated RBC % (0.0 - 1.0 /100WBC%) 0.0 Radiology data: Recent Impressions: RADIOLOGY - XR CHEST 1 V 08/18 0555 Report Impression - Status: SIGNED Entered: 08/18/2022 0704 IMPRESSION: Increase in size of small left pneumothorax with chest tube in place. Impression By: [email or web address] - VAHID CASTRO M.D. RADIOLOGY - XR CHEST 1 V 08/18 1215 Report Impression - Status: SIGNED Entered: 08/18/2022 1232 IMPRESSION: Interval resolution of left-sided pneumothorax. Left-sided chest tube is present. Impression By: [email or web address] - Aidan Ceron M.D. Diagnosis, Assessment Plan Hospital course to date: Left-sided pneumothorax status post left lung bi opsy-pigtail chest tube, pulmonary consult appreciated, stable A-fib-takes 100 mg twice daily of metoprolol, 24 0 mg of Cardizem XL, 20 mg of Xarelto, digoxin 0.125 mg daily, and Lasix 40 mg daily-we will resume, held Xarelto Small left-sided lung mass-status post biopsy as above History of carcinoid-aware Chronic back pain-pain control Advance care plan-patient is a full code discuss ed with the patient DVT prophylaxis-SCS, held jason Electronically Signed by Elena Zaldivar MD on 0 08/18/22 at 1640 RPT #: [id number] END OF REPORT 2022-08-18 12:05:00-00:00 [facility]) Pulmonology Progress Note REPORT#:[id number] REPORT STATUS: Signed DATE:08/18/22 TIME:1205 PATIENT: ERNESTO MAURICIO UNIT #: [id number] ROOM/BED: [place] [id number] : 58 AGE: 62 SEX: F ATTEND: Raul Zaldivar MD ADM AUTHOR: Bernardo Henao MD * ALL edits or amendments must be made on the Eligible/computer document * Subjective Chief complaint: still chest pain No distress Intermittent cough HPI: pneumothorax 62 years old female f A-fib, arthritis, osteoporosis, history of car cinoid tumor , and scoliosis, recently identified with a small left-sided lung nodule . lung biopsy today and after the procedure develo ped a small pneumothorax, underwent pigtail chest tube, patient is being a dmitted for further care. Review of Systems ROS All systems rev neg: except as marked Objective General VS/I O: Last Documented: Result Date Time Temp 36.4 08/18 1100 O2 Delivery Nasal cannula 08/18 1100 O2 Flow Rate 4 08/18 1100 Pulse Ox 98 / 1100 B/P 114/68 08/18 1100 B/P Mean 82 / 1100 Pulse 61 / 1100 Resp 27 08/18 1100 FiO2 28 08/17 1944 24 hour I O ending at 0700: 08/18 0700 08/17 1900 Intake Total 40 Output Total 120 Balance -80 Intake, Oral 40 Output, Urine 120 Patient 104.091 kg Weight Weight Stated/Reported Measurement Method PATIENT WEIGHT: Weight (lb): Weight (oz): Weight (kg): 104.091 Medications: Active Meds + DC'd Last 24 Hrs Digoxin (DIGOXIN) 0.125 MG DAILY PO Furosemide (LASIX) 40 MG DAILY PO Rivaroxaban (XARELTO) 20 MG DAILY PO Ipratropium [place] (ATROVENT) 0.5 MG RTQID NEB Metoprolol Tartrate (LOPRESSOR) 100 MG BID PO Ipratropium [place] (ATROVENT) 0.5 MG RTQID NEB (DC) Acetaminophen (TYLENOL EXTRA STRENGTH) 500 MG Q6 H PRN PRN PO Benzonatate (TESSALON PERLE) 100 MG Q8H PRN PRN PO Diphenhydramine HCl (BENADRYL) 12.5 MG Q6H PRN P RN IV Morphine Sulfate (morphine Sulfate) 2 MG Q4H PRN PRN IV Potassium Chloride (K-DUR 20 mEq) [address] A PO (DC) Diphenhydramine HCl (BENADRYL) 25 MG X1ED STA IV (DC) Morphine Sulfate (morphine SULFATE) [address] A IV (DC) Physical Exam Head/eyes: atraumatic, normocephalic ENT: ENT: normal nose, normal sinus Neck: full range of motion, non-tender Cardiovascular: normal heart sounds, normal S1/S 2 Respiratory/chest: aerating well, symmetric expa nsion Abdomen: soft, non-tender Extremities: moves all, normal capillary refill Neuro/TRANSCRIPTION SPECIALIST: alert, oriented X 3 Lymphatics: no lymphadenopathy Results Findings/Data: Laboratory Tests 08/18/22 0450: [Embedded Image Not Available] 08/17/22 1215: [Embedded Image Not Available] Laboratory Tests 08/18 08/18 08/17 08/17 0450 0450 1435 1215 Chemistry Sodium (134 - 147 mmol/L) 139 Potassium (3.4 - 5.0 mmol/L) 3.4 Chloride (100 - 108 mmol/L) 105 Carbon Dioxide (21 - 32 mmol/L) 31 Anion Gap (4.0 - 15.0 GAP calc) 3.0 L BUN (7 - 18 MG/DL) 13 Creatinine (0.6 - 1.0 MG/DL) 1.0 Glomerular Filtr Rate (>60 estGFR) >=60 max est imate Glucose (70 - 110 MG/DL) 102 Calcium (8.5 - 10.1 MG/DL) 8.5 Magnesium (1.8 - 2.4 MG/DL) 2.1 Troponin I High Sens (0 - 34 ng/L) 8.9 8.2 08/17 1215 Chemistry Sodium (134 - 147 mmol/L) 140 Potassium (3.4 - 5.0 mmol/L) 2.8 *L Chloride (100 - 108 mmol/L) 103 Carbon Dioxide (21 - 32 mmol/L) 33 H Anion Gap (4.0 - 15.0 GAP calc) 4.0 BUN (7 - 18 MG/DL) 13 Creatinine (0.6 - 1.0 MG/DL) 1.1 H Glomerular Filtr Rate (>60 estGFR) 56 L Glucose (70 - 110 MG/DL) 131 H Calcium (8.5 - 10.1 MG/DL) 9.2 Total Bilirubin (0.2 - 1.2 MG/DL) 1.50 H Direct Bilirubin (0.00 - 0.30 MG/DL) 0.40 H Indirect Bilirubin (0.2 - 1.2 MG/DL) 1.10 AST (15 - 37 Unit/L) 23 ALT (12 - 78 Unit/L) 18 Total Alk Phosphatase (45 - 117 Unit/L) 90 Total Creatine Kinase (26 - 192 Unit/L) 23 L Troponin I High Sens (0 - 34 ng/L) 8.3 NT-Pro-B Natriuret Pep (0 - 100 PG/ML) 813 H Total Protein (6.4 - 8.2 G/DL) 6.1 L Albumin (3.4 - 5.0 G/DL) 3.1 L Laboratory Tests 08/18 08/17 0450 1215 Hematology WBC (3.5 - 11.0 K/mm3) 6.4 7.1 RBC (4.70 - 6.10 M/mm3) 4.48 L 5.22 Hgb (10.4 - 14.9 G/DL) 14.5 16.6 H Hct (31.5 - 44.1 %) 42.4 49.1 H MCV (84.5 - 98.6 Fl) 94.6 94.1 MCH (27.0 - 34.2 pg) 32.4 31.8 MCHC (31.5 - 34.0 G/DL) 34.2 H 33.8 RDW (11.5 - 14.5 SD) 13.8 13.7 Plt Count (150 - 450 K/mm3) 128 L 161 MPV (7.0 - 10.5 fL) 9.70 9.80 Neut % (Auto) (40 - 76 %) 75.6 Lymph % (Auto) (20.5 - 51.1 %) 15.0 L [place] % (Auto) (1.7 - 9.3 %) 7.1 Eos % (Auto) (0.0 - 6.0 %) 1.4 Baso % (Auto) (0.0 - 2.0 %) 0.6 Neut # (Auto) (1.8 - 7.6 K/mm3) 4.8 Lymph # (Auto) (0.6 - 3.2 K/mm3) 1.0 [place] # (Auto) (0.3 - 1.1 K/mm3) 0.5 Eos # (Auto) (0.0 - 0.4 K/mm3) 0.1 Baso # (Auto) (0.0 - 0.1 K/mm3) 0.0 Abs Immat Gran (auto) (0.00 - 0.03 x10 3/uL) 0. 02 Add Manual Diff (CRITERIA DIFF/SCN) NO Immature Gran % (0.0 - 5.0 %) 0.3 Nucleated RBC % (0.0 - 1.0 /100WBC%) 0.0 Laboratory Tests 08/17 1435 Toxicology Digoxin (0.80 - 2.00 NG/ML) 1.04 Radiology data: Recent Impressions: RADIOLOGY - XR CHEST 1 V 08/18 0555 Report Impression - Status: SIGNED Entered: 08/18/2022 0704 IMPRESSION: Increase in size of small left pneumothorax with chest tube in place. Impression By: Jyame - VAHID CASTRO M.D. Diagnosis, Assessment Plan Free Text A P: 1. Pneumothorax 2. Carcinoid tumor Patient to be kept with Chest tube , adjusted tu be Air leak noted 'changed to negative 30 suction Follow up CXR if worse will put another chest tu be Cont oxygen by ID Vicky Gerard Planning for DC in 24-48 hours Electronically Signed by Bernardo Henao MD on 08/11 at 1208 RPT #: [id number] END OF REPORT 2022-08-17 16:14:00-00:00 [facility] ([facility]) Pulmonary Consultation Note REPORT#:[id number] REPORT STATUS: Signed DATE:08/17/22 TIME:1614 PATIENT: ERNESTO MAURICIO UNIT #: [id number] ROOM/BED: [facility] : 58 AGE: 62 SEX: F ATTEND: Raul Zaldivar MD ADM AUTHOR: Bernardo Henao MD * ALL edits or amendments must be made on the Eligible/computer document * History of Present Illness HPI HPI: pneumothorax 62 years old female f A-fib, arthritis, osteoporosis, history of car cinoid tumor , and scoliosis, recently identified with a small left-sided lung nodule . lung biopsy today and after the procedure develo ped a small pneumothorax, underwent pigtail chest tube, patient is being a dmitted for further care. History - Adult longitudinal Additional medical history: Rectal carcinoid, breast cancer, A. fib, Additional surgical history: Bronc Additional family history: Not contributory to the current problem Smoking status for patients 13 years old or olde r: Never Smoker Allergies: Coded Allergies: acetaminophen (From VICODIN) (Severe, ITCHING ) PATIENT STATES ALLERGIC TO "ALL PAIN MED" DUE T O SEVERE ITCHING, USUALLY HAS TO TAKE ATARAX WITH ANY PA IN MEDS TO HELP PREVENT ANY ITCHING. hydrocodone (From VICODIN) (Severe, ITCHING 12/18 08/09) PATIENT STATES ALLERGIC TO "ALL PAIN MED" DUE T O SEVERE ITCHING, USUALLY HAS TO TAKE ATARAX WITH ANY PA IN MEDS TO HELP PREVENT ANY ITCHING. adhesive (Intermediate, rash 01/11/21) Sulfa (Sulfonamide Antibiotics) (ITCHING 0) Review of Systems All systems rev neg: except as marked Objective Physical Exam Vitals: Last Documented: Result Date Time O2 Delivery Nasal cannula 08/17 1319 O2 Flow Rate 2 08/17 1319 Pulse Ox 98 08/17 1317 B/P 116/81 08/17 1224 B/P Mean 92 08/17 1224 Temp 36.9 08/17 1224 Pulse 57 08/17 1224 Resp 20 08/17 1224 Head/eyes: atraumatic, normocephalic ENT: ENT: normal nose, normal sinus Neck: full range of motion, non-tender Cardiovascular: normal heart sounds, normal S1/S 2 Respiratory/chest: aerating well, symmetric expa nsion Abdomen: soft, non-tender Extremities: moves all, normal capillary refill Neuro/TRANSCRIPTION SPECIALIST: alert, oriented X 3 Lymphatics: no lymphadenopathy Results Findings/Data: Laboratory Tests 08/17/22 1215: [Embedded Image Not Available] Laboratory Tests 08/17 08/17 08/17 1435 1215 1215 Chemistry Sodium (134 - 147 mmol/L) 140 Potassium (3.4 - 5.0 mmol/L) 2.8 *L Chloride (100 - 108 mmol/L) 103 Carbon Dioxide (21 - 32 mmol/L) 33 H Anion Gap (4.0 - 15.0 GAP calc) 4.0 BUN (7 - 18 MG/DL) 13 Creatinine (0.6 - 1.0 MG/DL) 1.1 H Glomerular Filtr Rate (>60 estGFR) 56 L Glucose (70 - 110 MG/DL) 131 H Calcium (8.5 - 10.1 MG/DL) 9.2 Magnesium (1.8 - 2.4 MG/DL) 2.1 Total Bilirubin (0.2 - 1.2 MG/DL) 1.50 H Direct Bilirubin (0.00 - 0.30 MG/DL) 0.40 H Indirect Bilirubin (0.2 - 1.2 MG/DL) 1.10 AST (15 - 37 Unit/L) 23 ALT (12 - 78 Unit/L) 18 Total Alk Phosphatase (45 - 117 Unit/L) 90 Total Creatine Kinase (26 - 192 Unit/L) 23 L Troponin I High Sens (0 - 34 ng/L) 8.2 8.3 NT-Pro-B Natriuret Pep (0 - 100 PG/ML) 813 H Total Protein (6.4 - 8.2 G/DL) 6.1 L Albumin (3.4 - 5.0 G/DL) 3.1 L Laboratory Tests 08/17 1215 Hematology WBC (3.5 - 11.0 K/mm3) 7.1 RBC (4.70 - 6.10 M/mm3) 5.22 Hgb (10.4 - 14.9 G/DL) 16.6 H Hct (31.5 - 44.1 %) 49.1 H MCV (84.5 - 98.6 Fl) 94.1 MCH (27.0 - 34.2 pg) 31.8 MCHC (31.5 - 34.0 G/DL) 33.8 RDW (11.5 - 14.5 SD) 13.7 Plt Count (150 - 450 K/mm3) 161 MPV (7.0 - 10.5 fL) 9.80 Laboratory Tests 08/17 1435 Toxicology Digoxin (0.80 - 2.00 NG/ML) 1.04 Diagnosis, Assessment Plan Free Text DxA P Notes Free Text DxA P Notes: 1. Pneumothorax 2. Carcinoid tumor Patient to be kept with Chest tube , negative 20 suction Follow up CXR Planning for DC in 24-48 hours Electronically Signed by Bernardo Henao MD on 07/11 at 1647 RPT #: [id number] END OF REPORT 2022-08-17 14:51:00-00:00 [facility] ([facility]) History Physical - Adult REPORT#:[id number] REPORT STATUS: Signed DATE:08/17/22 TIME:1451 PATIENT: ERNESTO MAURICIO UNIT #: [id number] ROOM/BED: [place] [id number] : 58 AGE: 62 SEX: F ATTEND: Raul Zaldivar MD ADM AUTHOR: Elena Zaldivar MD * ALL edits or amendments must be made on the [employer]/computer document * History of Present Illness HPI Chief complaint: Left-sided pneumothorax HPI: 62 years old femal e with a history of A-fib, arthritis, osteoporosis, history of carcinoid, history of chronic back pa in and scoliosis, recently identified with a small left-sided lung mass. Pa tient was supposed to get a lung biopsy today and after the procedure develo ped a small pneumothorax, s/p pigtail chest tube, patient is being admitted fo r further care. Patient has been on Xarelto for her A-fib. For the past 3 da ys she has not taken her Xarelto due to the procedure. History Additional medical history: Rectal carcinoid, breast cancer, A. fib, Additional surgical history: [facility] Additional family history: Not contributory to the current problem Smoking status for patients 13 years old or olde r: Never Smoker Medication/Allergy-Vaccine Hx Allergies: Coded Allergies: acetaminophen (From VICODIN) (Severe, ITCHING ) PATIENT STATES ALLERGIC TO "ALL PAIN MED" DUE T O SEVERE ITCHING, USUALLY HAS TO TAKE ATARAX WITH ANY PA IN MEDS TO HELP PREVENT ANY ITCHING. hydrocodone (From VICODIN) (Severe, ITCHING 12/18 08/09) PATIENT STATES ALLERGIC TO "ALL PAIN MED" DUE T O SEVERE ITCHING, USUALLY HAS TO TAKE ATARAX WITH ANY PA IN MEDS TO HELP PREVENT ANY ITCHING. adhesive (Intermediate, rash 01/11/21) Sulfa (Sulfonamide Antibiotics) (ITCHING 0) Review of Systems All systems rev neg: except as marked (chest elina n) Physical Exam VS/I O Vital Signs: Date Time Temp Pulse Resp B/P B/P Pulse O2 O2 Flow FiO2 Mean Ox Delivery Rate 08/17 1319 Nasal 2 cannula 08/17 1317 98 Nasal 2 cannula 08/17 1224 98.5 57 20 116/81 92 97 Nasal 2 cannula PATIENT WEIGHT: Weight (lb): Weight (oz): Weight (kg): 104.091 General appearance: awake ENT: normal nose Neck: no JVD Cardiovascular: normal heart sounds Respiratory: clear to auscultation Abdomen/GI: soft Genitourinary: deferred Extremities: moves all Musculoskeletal: full range of motion Neuro/TRANSCRIPTION SPECIALIST: alert Skin: dry, intact Lymphatic: no lymphadenopathy Results Findings/Data: Laboratory Tests: 08/17 08/17 1215 1215 Chemistry Sodium (134 - 147 mmol/L) 140 Potassium (3.4 - 5.0 mmol/L) 2.8 *L Chloride (100 - 108 mmol/L) 103 Carbon Dioxide (21 - 32 mmol/L) 33 H Anion Gap (4.0 - 15.0 GAP calc) 4.0 BUN (7 - 18 MG/DL) 13 Creatinine (0.6 - 1.0 MG/DL) 1.1 H Glomerular Filtr Rate (>60 estGFR) 56 L Glucose (70 - 110 MG/DL) 131 H Calcium (8.5 - 10.1 MG/DL) 9.2 Magnesium (1.8 - 2.4 MG/DL) 2.1 Total Bilirubin (0.2 - 1.2 MG/DL) 1.50 H Direct Bilirubin (0.00 - 0.30 MG/DL) 0.40 H Indirect Bilirubin (0.2 - 1.2 MG/DL) 1.10 AST (15 - 37 Unit/L) 23 ALT (12 - 78 Unit/L) 18 Total Alk Phosphatase (45 - 117 Unit/L) 90 Total Creatine Kinase (26 - 192 Unit/L) 23 L Troponin I High Sens (0 - 34 ng/L) 8.3 NT-Pro-B Natriuret Pep (0 - 100 PG/ML) 813 H Total Protein (6.4 - 8.2 G/DL) 6.1 L Albumin (3.4 - 5.0 G/DL) 3.1 L Hematology WBC (3.5 - 11.0 K/mm3) 7.1 RBC (4.70 - 6.10 M/mm3) 5.22 Hgb (10.4 - 14.9 G/DL) 16.6 H Hct (31.5 - 44.1 %) 49.1 H MCV (84.5 - 98.6 Fl) 94.1 MCH (27.0 - 34.2 pg) 31.8 MCHC (31.5 - 34.0 G/DL) 33.8 RDW (11.5 - 14.5 SD) 13.7 Plt Count (150 - 450 K/mm3) 161 MPV (7.0 - 10.5 fL) 9.80 Diagnosis, Assessment Plan Code Status/Resusc. Discussion Resuscitation discussion: Discussed with: patient Code status: full code Free Text DxA P Notes Free Text DxA P Notes: Left-sided pneumothorax status post left lung bi opsy-pigtail chest tube, pulmonary consult, stable A-fib-takes 100 mg twice daily of metoprolol, 24 0 mg of Cardizem XL, 20 mg of Xarelto, digoxin 0.125 mg daily, and Las ix 40 mg daily-we will resume, we will resume Xarelto from the morning Small left-sided lung mass-status post biopsy as above History of carcinoid-aware Chronic back pain-pain control Advance care plan-patient is a full code discuss ed with the patient DVT prophylaxis-through Xarelto Electronically Signed by Elena Zaldivar MD on 0 08/17/22 at 1456 RPT #: [id number] END OF REPORT 2022-08-17 12:30:00-00:00 [facility] ([facility]) EMERGENCY PROVIDER REPORT REPORT#:[id number] REPORT STATUS: Signed DATE:08/17/22 TIME:1230 PATIENT: ERNESTO MAURICIO UNIT #: [id number] ROOM/BED: : 59 AGE: 62 SEX: F PCP PHYS: No Primar y or Family Physician SERVICE AUTHOR: Tien Ordonez MD * ALL edits or amendments must be made on the Eligible/[employer] document * HPI-Chest Pain 40 and Over General Initial Greet Date/Time 08/17/22 1143 Presentation Chief Complaint Chest pain Hx Obtained From Patient, Spouse, Interventional ist physician Sudden in Onset? No Free Text HPI Notes Free Text HPI Notes 62-year-old female, past medical history of breast cancer in remission, rectal carcinoid, atrial fibrillation, digoxin, COPD, Xarelto use. Patient was at her baseline when she was getting a CT-guide d biopsy of a lung mass. She developed chest pain, and back pain, and was found to have a pneumothorax status post pigtail placement by radiology. No substance use , no known DVT/PE. Had some coags done earlier today which were unremarkable External records reviewed by me: prior inpatient pulmonology and hospitalist notes. Information about patient's comor bidities and daily medications learned (as at least in part detailed above), which fact ored into medical decision making for today's visit. Risk-Chest Pain 40 and Over Risk Stratification )( Coronary Artery Disease Risk factors reviewed )( Thoracic Aortic Dissection Risk factors revie wed )( Pulmonary Embolism Risk factors reviewed )( AMI-Aspirin Aspirin Last 24 Hrs 324 mg )( HEART for MACE )( HEART for MACE Response Value History Low index of suspicion 0 ECG Interpretation Nonspec repol disturb 1 Age Age 45 - 65 1 Risk Factors for CAD 1-2 CAD risk factors 1 Troponin < or = to NL troponin 0 Total 3 Past Medical History - Adult Stated Complaint FROM RADIOLOGY, CHEST TUBE PLAC ED, CP SOB Allergies Coded Allergies: acetaminophen (From VICODIN) (Severe, ITCHING ) PATIENT STATES ALLERGIC TO "ALL PAIN MED" DUE T O SEVERE ITCHING, USUALLY HAS TO TAKE ATARAX WITH ANY PA IN MEDS TO HELP PREVENT ANY ITCHING. hydrocodone (From VICODIN) (Severe, ITCHING 12/18 08/09) PATIENT STATES ALLERGIC TO "ALL PAIN MED" DUE T O SEVERE ITCHING, USUALLY HAS TO TAKE ATARAX WITH ANY PA IN MEDS TO HELP PREVENT ANY ITCHING. adhesive (Intermediate, rash 01/11/21) Sulfa (Sulfonamide Antibiotics) (ITCHING 0) Home Medications Active Scripts oxyCODONE 5 MG PO Q4H PRN PRN PAIN oxyCODONE 5 MG PO Q4H PRN PRN PAIN #50 TAB Prov: 03/11/21 Discontinued Scripts methocarbamoL (ROBAXIN) 750 MG PO Q8H PRN PRN MU SCLE SPASMS methocarbamoL (ROBAXIN) 750 MG PO Q8H PRN PRN M USCLE SPASMS #50 TAB Ref 1 Prov: 03/11/21 DC: 08/17/22 1248 Therapy completed ACETAMINOPHEN (TYLENOL) 650 MG PO Q6HR ACETAMINOPHEN (TYLENOL) 650 MG PO Q6HR #90 TAB Ref 3 Prov: 03/11/21 DC: 08/17/22 1248 Therapy completed GABAPENTIN (NEURONTIN) 100 MG PO TID GABAPENTIN (NEURONTIN) 100 MG PO TID #90 CAP Re f 3 Prov: 03/11/21 DC: 08/17/22 1248 Therapy completed DOCUSATE SODIUM (COLACE) 100 MG PO BID DOCUSATE SODIUM (COLACE) 100 MG PO BID #60 CAP Prov: 03/11/21 DC: 08/17/22 1248 Therapy completed Reported Medications METOPROLOL TARTRATE (LOPRESSOR) 100 MG PO BID DIGOXIN (LANOXIN) 0.125 MG PO DAILY [DILTIAZEM ER] MONTELUKAST (SINGULAIR) FUROSEMIDE (LASIX) 40 MG PO DAILY [OMEPRAZOLE ] POTASSIUM CHLORIDE ER (MICRO-K) 20 MEQ PO DAILY TIOTROPIUM BROMIDE (SPIRIVA RESPIMAT 2.5 MCG/ACT ) 2 PUFF INH BID BENZONATATE (TESSALON) 100 MG PO Q8H PRN PRN COU GH Discontinued Reported Medications LEVOTHYROXINE (SYNTHROID) 50 MCG PO DAILY BUDESONIDE/FORMOTEROL (SYMBICORT 160/4.5 MCG/ACT 10.2GM) 2 PUFF INH RTBID LEVALBUTEROL (XOPENEX HFA 45 MCG/ACT 15 GM) 2 PU FF INH RTQ4H PRN PRN SOB/ WHEEZING APIXABAN (ELIQUIS) 5 MG PO BID Review of Nursing Notes Rev avail, and agree Additional Medical History Rectal carcinoid, breast cancer, A. fib, Additional Surgical History Bronc Additional Family History Not contributory to the current problem Physical Exam Vital Signs Vital Signs First Documented: Result Date Time Pulse Ox 97 08/17 1224 B/P 116/81 08/17 1224 B/P Mean 92 / 1224 O2 Delivery Nasal cannula 08/17 1224 O2 Flow Rate 2 08/17 1224 Temp 36.9 08/17 1224 Pulse 57 03/ 1224 Resp 20 08/17 1224 Last Documented: Result Date Time O2 Delivery Nasal cannula 08/17 1319 O2 Flow Rate 2 08/17 1319 Pulse Ox 98 / 1317 B/P 116/81 08/17 1224 B/P Mean 92 / 1224 Temp 36.9 08/17 1224 Pulse 57 / 1224 Resp 20 08/17 1224 Review of Vital Signs Reviewed Free Text PE Notes Free Text PE Notes Chest pain reproducible with palpation: yes, min imally Cardiac: Normal S1, S2, unremarkable pigtail in the left chest wall 2+ pulses in all 4 extremities No evidence of acute DVT General: awake and alert, not toxic appearing, n o acute distress Pulmonary: no respiratory distress, CTAB, no str idor Abdomen: soft, NTND, no peritoneal findings Neuro: no gross acute focal abnormalities Extremities: no acute deformities, appropriate R OM Skin: no acute appearing rashes, well perfused Interpretation Diagnostics Lab Results Interpretation Considerations Reviewed prior records Results Laboratory Tests 08/17/22 121: [Embedded Image Not Available] Laboratory Tests: 08/17 1214 Chemistry Sodium (134 - 147 mmol/L) 140 Potassium (3.4 - 5.0 mmol/L) 2.8 *L Chloride (100 - 108 mmol/L) 103 Carbon Dioxide (21 - 32 mmol/L) 33 H Anion Gap (4.0 - 15.0 GAP calc) 4.0 BUN (7 - 18 MG/DL) 13 Creatinine (0.6 - 1.0 MG/DL) 1.1 H Glomerular Filtr Rate (>60 estGFR) 56 L Glucose (70 - 110 MG/DL) 131 H Calcium (8.5 - 10.1 MG/DL) 9.2 Total Bilirubin (0.2 - 1.2 MG/DL) 1.50 H Direct Bilirubin (0.00 - 0.30 MG/DL) 0.40 H Indirect Bilirubin (0.2 - 1.2 MG/DL) 1.10 AST (15 - 37 Unit/L) 23 ALT (12 - 78 Unit/L) 18 Total Alk Phosphatase (45 - 117 Unit/L) 90 Total Creatine Kinase (26 - 192 Unit/L) 23 L Troponin I High Sens (0 - 34 ng/L) 8.3 NT-Pro-B Natriuret Pep (0 - 100 PG/ML) 813 H Total Protein (6.4 - 8.2 G/DL) 6.1 L Albumin (3.4 - 5.0 G/DL) 3.1 L Hematology WBC (3.5 - 11.0 K/mm3) 7.1 RBC (4.70 - 6.10 M/mm3) 5.22 Hgb (10.4 - 14.9 G/DL) 16.6 H Hct (31.5 - 44.1 %) 49.1 H MCV (84.5 - 98.6 Fl) 94.1 MCH (27.0 - 34.2 pg) 31.8 MCHC (31.5 - 34.0 G/DL) 33.8 RDW (11.5 - 14.5 SD) 13.7 Plt Count (150 - 450 K/mm3) 161 MPV (7.0 - 10.5 fL) 9.80 ECG #1 Interpretation Text/Dict Note EKG independently reviewed and interpreted by me and performed on August 17, 2022, at 11:41 AM. Atrial fibrillation at a rate of 65, no STEMI, adequate tracing, nonspecific ST/T wave abnormality. Re-Evaluation MDM ED Course Medication(s) Ordered Medication(s) Ordered: Antihistamine Drugs Sig/Linden Start time Last Medication Dose Route Stop Time Status Admin Diphenhydramine HCl 25 MG X1ED STA 08/17 1252 D C 08/17 IV 08/17 1253 1300 Central Nervous System Agents Sig/Linden Start time Last Medication Dose Route Stop Time Status Admin Morphine Sulfate 4 MG X1ED STA 08/17 1252 DC 03 / IV 08/17 1253 1301 Aspirin 324 MG X1ED STA 08/17 1152 DC / PO 08/17 1153 1300 Electrolytic, Caloric, And Nichole Sig/Linden Start time Last Medication Dose Route Stop Time Status Admin Potassium Chloride 40 MEQ X1ED STA 08/17 1403 DC PO 08/17 1404 Free Text MDM Notes Free Text MDM Notes Differential diagnosis includes but is not limit ed to the following diagnoses - Acute coronary syndrome, coronary dissection - Aortic dissection, pulmonary embolus - Esophageal rupture, pneumothorax, cardiac tamp onade - Costochondritis, GERD, anxiety, PNA, pericardi tis - Shingles, soft tissue infection, chest wall tr auma Patient here with clinical picture most consiste nt with chest pain secondary pneumothorax IV morphine given Imaging results independentl y reviewed and interpreted by me: Chest x-ray which was ordered by radiology. Reinflated lung, pigta il appears shallow but in thorax I discussed the case with the hospitalist. They agree with plan and admission to the IMCU on telemetry. I also discussed the c ase with the interventional list who notified me her past medical history an d the events leading up to presentation to the ER Patient Discharge Departure Vital Signs/Condition Vital Signs First Documented: Result Date Time Pulse Ox 97 / 1224 B/P 116/81 03/ 1224 B/P Mean 92 03/ 1224 O2 Delivery Nasal cannula 08/17 1224 O2 Flow Rate 2 / 1224 Temp 36.9 03/ 1224 Pulse 57 03/ 1224 Resp 20 / 1224 Last Documented: Result Date Time O2 Delivery Nasal cannula 08/17 1319 O2 Flow Rate 2 08/17 1319 Pulse Ox 98 03/ 1317 B/P 116/81 03 1224 B/P Mean 92 03/ 1224 Temp 36.9 03/ 1224 Pulse 57 03/ 1224 Resp 20 / 1224 All vital signs available at the time of this en try have been reviewed. Clinical Impression Clinical Impression Primary Impression: Chest pain Secondary Impressions: Pneumothorax after biopsy Disposition Decision Admit Admit Physician Name Elena Zaldivar MD Admit Physician Hospitalist Request Time 1412 Request Date 08/17/22 )( Admission Accepts Yes )( Accepted Time 141 )( Accepted Date 08/17/22 Call Information will see patient, agrees with eval, agrees with plan Discharge/Care Plan Counseled Regarding Diagnosi s, Lab results, Imaging studies, Need for admission Electronically Signed by Tien Ordonez MD on 07/11 at 1413 RPT #: [id number] END OF REPORT 2021-03-11 12:12:00-00:00 [facility] ([facility]) Pulmonology Progress Note REPORT#:[id number] REPORT STATUS: Signed DATE:03/11/21 TIME: 1212 PATIENT: ERNESTO MAURICIO UNIT #: [id number] ROOM/BED: [place] [address] : 58 AGE: 60 SEX: F ATTEND: Julien Aggarwal MD ADM AUTHOR: Eloina Garzon MD * ALL edits or amendments must be made on the el [employer]/computer document * Review of Systems Free Text ROS Notes Free Text ROS Notes: Constitutional: Denies: fatigue, fever, lethargy . Respiratory: Denies: non productive cough, pleur itic pain, SOB. Cardiovascular: Denies: edema, orthopnea, parox nocturnal dyspnea. Musculoskeletal: Denies: extremity swelling, sekou nt swelling, neck pain. GI: No nausea no vomiting no diarrhea no constip ation Objective General VS/I O: Last Documented: Result Date Time Pulse Ox 94 03/11 1126 B/P 99/64 03/11 1126 B/P Mean 75.8 03/11 1126 Temp 37.3 03/11 1126 Pulse 100 03/11 1126 Resp 18 03/11 1126 O2 Delivery Room air 03/11 0314 O2 Flow Rate 3 03/10 0825 24 hour I O ending at 0700: 03/11 0700 03/10 1900 Intake Total Output Total 220 Balance -220 Number Voids 2 Output, Chest 70 Tube Drainage Output, Urine 150 Patient 95.254 kg Weight PATIENT WEIGHT: Weight (lb): 210 Weight (oz): 12.19 Weight (kg): 95.254 Free Text Obj Notes Free Text Obj Notes: General appearance: Head/Eyes: atraumatic, normocephalic, PERRLA Neck: full range of motion, non-tender, normal t hyroid Cardiovascular: normal heart sounds, normal S1/S 2, regular rate rhythm Respiratory/chest: aerating well, clear to auscu ltation, symmetric expansion Abdomen: soft, non-tender, normal bowel sounds Genitourinary: no bladder distention, no flank p ain Extremities: No edema, moves all, normal capilla ry refill, no calf tenderness Musculoskeletal: full range of motion, normal in spection, painless range of motion, straight leg raise neg Skin: dry, intact, normal color Diagnosis, Assessment Plan Free Text A P: 1. Right upper lobe nodule #2 rectal carcinoid #3 COPD stage II #4 A. fib #5 history of breast cancer Chest tube was removed Chest x-ray reviewed excellent expansion of the right lung Pulmonary toilet including incentive spirometry and flutter Plan discharge home today Electronically Signed by Eloina Garzon MD on 02/18 09/06 at 1213 RPT #:[id number] END OF REPORT 2021-03-11 10:31:00-00:00 [facility] Discharge Summary REPORT#:[id number] REPORT STATUS: Signed DATE:03/11/21 TIME: 1031 PATIENT: ERNESTO MAURICIO UNIT #: [id number] ROOM/BED: [place] [address] : 58 AGE: 60 SEX: F ATTEND: Julien Aggarwal MD ADM AUTHOR: Debbie Aggarwal MD * ALL edits or amendments must be made on the [employer]/computer document * PCP PCP PCP: PCP: No Primary or Family Physician General Information Problem List/A P: 1. Pulmonary nodule, right 2. Atrial fibrillation 3. HX: breast cancer 4. Hypertension 5. GERD (gastroesophageal reflux disease) 6. Arthritis 7. Hypothyroidism 8. Hx of malignant carcinoid tumor of rectum 9. Current use of long term care phlebotomist anticoagulation 10. S/P partial lobectomy of lung Date of admission: Observation Start Date: Date of admission: 03/09/21 Discharge date: 03/11/21 Admission diagnosis: Right upper lobe posterior segmentectomy for RUL pulmonary nodule Discharge diagnosis: Right upper lobe posterior segementectomy for RU L pulmomnary nodule Hospital course: 03/10 Pt did well overnight. 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 Chest tube serosang with 200cc output and no air leak . Placed to waterseal this AM. Tolerating CLD. Durbin removed this AM, awaiting sp ontaneous void. Pt requests to get out of bed today. 03/11 Chest tube placed to water seal yesterday mornin g and then removed yesterday afternoon. Pt reports pain much better controlle d now that chest tube is out. She is tolerating diet and voiding. She was able to ambulate in the [place] yesterday and sat in the bed side chair. She is stable on RA. She is pulling 1000 on IS and working with her flutter valve. She is ready for discharge today. Consultants: pulmonary Pt. condition on discharge: stable Allergies: Allergies: acetaminophen (From VICODIN) (Coded, Severe, ITC CLAUDIO, 01/07/21) hydrocodone (From VICODIN) (Coded, Severe, ITCHI NG, 01/07/21) adhesive (Coded, Intermediate, rash, 01/11/21) Sulfa (Sulfonamide Antibiotics) (Coded, ITCHING, 01/24/20) Med Rec PCP PCP: PCP: No Primary or Family Physician Med Rec Discharge meds: Continue taking these medications: LEVOTHYROXINE (SYNTHROID) 25 MCG TAB 50 MICROGRAM ORAL DAILY. METOPROLOL TARTRATE (LOPRESSOR) 100 MG TAB 100 MILLIGRAM ORAL TWICE DAILY. APIXABAN (ELIQUIS) 5 MG TAB 5 MILLIGRAM ORAL TWICE DAILY. DIGOXIN (LANOXIN) 125 MCG TAB 0.125 MILLIGRAM ORAL DAILY. [DILTIAZEM ER] Instructions: DILTIAZEM ER 60MG TAKES ONE TABLET BY MOUTH AGUS RY NIGHT MONTELUKAST (SINGULAIR) 10 MG TAB FUROSEMIDE (LASIX) 40 MG TAB 40 MILLIGRAM ORAL DAILY. [OMEPRAZOLE ] Instructions: OMEPRAZOLE 20MG CAPSULE TAKES BY MOUTH ONCE AT NIGHT. POTASSIUM CHLORIDE ER (MICRO-K) 10 MEQ CAP.SA 20 MILLIEQUIVALENT ORAL TWICE DAILY. BUDESONIDE/FORMOTEROL (SYMBICORT 160/4.5 MCG/ACT 10.2GM) 160 MCG-4.5 MCG/ ACTUATION INHALER 2 PUFF INHALATION RT - TWICE DAILY. LEVALBUTEROL (XOPENEX HFA 45 MCG/ACT 15 GM) 45 M CG/ACTUATION INHALER 2 PUFF INHALATION RT - EVERY 4 HOURS NEEDED. as needed for SOB/WHEEZING Start taking the following new medications: methocarbamoL (ROBAXIN) 500 MG TAB 750 MILLIGRAM ORAL EVERY 8 HR NEEDED. as nee ded for MUSCLE SPASMS Qty = 50 Refills = 1 ACETAMINOPHEN (TYLENOL) 325 MG TAB 650 MILLIGRAM ORAL EVERY 6 HOURS. Qty = 90 Refills = 3 Instructions: Can purchase over the counter if desired. John nue to take every 6 hours GABAPENTIN (NEURONTIN) 100 MG CAP 100 MILLIGRAM ORAL THREE TIMES A DAY. Qty = 90 Refills = 3 OXYCODONE HCL (OXYCODONE) 5 MG TAB 5 MILLIGRAM ORAL EVERY 4 HOURS NEEDED. as ne eded for PAIN Qty = 50 No Refills Instructions: Can take 1-2 tablets as often as every 4 hours as needed for pain DOCUSATE SODIUM (COLACE) 100 MG CAP 100 MILLIGRAM ORAL TWICE DAILY. Qty = 60 No Refills Instructions: Stool softener for constipation Objective VS/I O Last Documented: Result Date Time Pulse Ox 91 03/11 636 B/P 106/73 03/11 06 B/P Mean 83.7 03/11 06 Temp 99.1 03/11 06 Pulse 120 03/11 0636 Resp 18 03/11 06 O2 Delivery Room air 03/11 0314 O2 Flow Rate 3 03/10 0825 24 hour I O ending at 0700: 03/11 0700 03/10 1900 Intake Total Output Total 220 Balance -220 Number Voids 2 Output, Chest 70 Tube Drainage Output, Urine 150 Patient 95.254 kg Weight PATIENT WEIGHT: Weight (lb): 210 Weight (oz): 12.19 Weight (kg): 95.254 General appearance: alert, awake, oriented, no a cute distress Head/Eyes: atraumatic, normocephalic, normal con junctiva/sclera, PERRLA ENT: normal ear left, normal ear right, normal n ose, moist mucosal membranes Neck: no JVD, supple Cardiovascular: Hemodynamically stable, chronic atrial fibrillation Respiratory: no distress, no rmal effort, on RA, pulling 1000 on IS, no wheezes, strong cough GI: soft, non-tender, no distention Extremities: moves all Neuro/TRANSCRIPTION SPECIALIST: alert, oriented X 3 Skin: dry, warm Wound/incision: Location: Right chest Site Condition: incision intact, wound clean dr y, no drainage, no ecchymosis, no erythema Psychiatry: normal affect, normal judgment/insig ht, normal mood Results Findings/Data: Laboratory Tests: 03/11 0930 Chemistry Sodium (134 - 147 mEq/L) 134 Potassium (3.4 - 5.0 mEq/L) 4.3 Chloride (100 - 108 mEq/L) 103 Carbon Dioxide (21 - 33 mEq/l) 24 Anion Gap (0 - 20) 12 BUN (7 - 18 mg/dL) 23 H Creatinine (0.6 - 1.3 mg/dL) 1.1 Glomerular Filtr Rate (80 - 90) 50.5 L Glucose (70 - 110 mg/dL) 129 H Calcium (8.0 - 10.5 mg/dL) 8.3 Phosphorus (2.5 - 4.9 MG/DL) 2.1 L Magnesium (1.80 - 2.40 mg/dL) 1.75 L Hematology WBC (4.5 - 11.0 x10 3/uL) 16.2 H RBC (3.54 - 5.02 x10 6/uL) 4.36 Hgb (11.0 - 15.0 g/dL) 14.0 Hct (33.0 - 45.0 %) 42.7 MCV (81.0 - 99.0 fL) 97.9 MCH (27.0 - 33.0 pg) 32.1 MCHC (33.0 - 37.0 g/dL) 32.8 L RDW (11.5 - 14.5 %) 13.8 Plt Count (150 - 400 x10 3/uL) 120 L MPV (7.0 - 9.0 fL) 10.9 H Neut % (Auto) (56.0 - 77.0 %) 85.6 H Lymph % (Auto) (14.0 - 32.0 %) 6.9 L [place] % (Auto) (4.8 - 9.0 %) 6.5 Eos % (Auto) (0.3 - 3.7 %) 0.0 L Baso % (Auto) (0.0 - 2.0 %) 0.3 Neut # (Auto) (2.0 - 7.6 x10 3/uL) 13.84 H Lymph # (Auto) (1.0 - 3.8 x10 3/uL) 1.12 [place] # (Auto) (0.1 - 0.8 x10 3/uL) 1.05 H Eos # (Auto) (0.0 - 0.2 x10 3/uL) 0.00 Baso # (Auto) (0.0 - 0.2 x10 3/uL) 0.05 Abs Immat Gran (auto) (0.00 - 0.03 x10 3/uL) 0. 11 H Add Manual Diff NO Immature Gran % (0.0 - 2.0 %) 0.7 Nucleated RBC % (0 - 0 %) 0.0 Nucleated RBCs # (Man) (0.0 - 0.1 x10 3/uL) 0. 00 Radiology data: Recent Impressions: RADIOLOGY - XR CHEST 1 V 03/10 1306 Report Impression - Status: SIGNED Entered: 03/10/2021 1330 IMPRESSION: 1. No visible pneumothorax line in the presence of a right-sided chest tube on water seal. 2. Scattered bilateral subsegmental atelectasis without edema or dense lobar consolidation. Impression By: [email or web address] - Wild hudson M.D. RADIOLOGY - XR CHEST 1 V 03/10 1703 Report Impression - Status: SIGNED Entered: 03/10/2021 1714 IMPRESSION: 1. Interval removal of right-sided chest tube. N o definite pneumothorax identified. Impression By: [email or web address] - Kimmy Whitaker M.D. RADIOLOGY - XR CHEST 1 V 03/11 0753 Report Impression - Status: SIGNED Entered: 03/11/2021 1021 IMPRESSION: Minimal central venous congestion. Impression By: [email or web address] - Debbie Matute D.O. Results: labs reviewed, vital signs stable, x-ra y personally reviewed Treatments Procedures Treatments Procedures: Flexible bronchoscopy, robotic right upper lobe posterior segmentectomy, mediastinal lymph node dissection, multilevel in tercostal nerve block with Exparel on 03/09/2021. Lab: Chemistry last 24 hrs: 03/11 0930 Chemistry Sodium (134 - 147 mEq/L) 134 Potassium (3.4 - 5.0 mEq/L) 4.3 Chloride (100 - 108 mEq/L) 103 BUN (7 - 18 mg/dL) 23 H Creatinine (0.6 - 1.3 mg/dL) 1.1 Glucose (70 - 110 mg/dL) 129 H Hematology last 24 hrs: 03/11 0930 Hematology WBC (4.5 - 11.0 x10 3/uL) 16.2 H Hgb (11.0 - 15.0 g/dL) 14.0 Hct (33.0 - 45.0 %) 42.7 Plt Count (150 - 400 x10 3/uL) 120 L Neut % (Auto) (56.0 - 77.0 %) 85.6 H Imaging: Recent Impressions: RADIOLOGY - XR CHEST 1 V 03/09 1606 Report Impression - Status: SIGNED Entered: 03/09/2021 1639 IMPRESSION: 1. A right IJ venous catheter placement, tip at atrial caval junction. 2. A right chest tube in place, tip in the right apical chest. No radiographically apparent pneumothorax. 3. Bilateral perihilar and lower lobe opacities, worse on the left, may represent atelectasis, pneumonia in differen tial in appropriate clinical setting. Impression By: [email or web address] Ramón Clark M.D. RADIOLOGY - XR CHEST 1 V 03/10 0942 Report Impression - Status: SIGNED Entered: 03/10/2021 1341 IMPRESSION: 1. No visible pneumothorax line in the presence of a right-sided chest tube. 2. Persistent scattered subsegmental atelectasis with slightly improved pulmonary aeration. 3. Enlarged cardiac silhouette. Impression By: Esperanza hudson M.D. RADIOLOGY - XR CHEST 1 V 03/10 1306 Report Impression - Status: SIGNED Entered: 03/10/2021 1330 IMPRESSION: 1. No visible pneumothorax line in the presence of a right-sided chest tube on water seal. 2. Scattered bilateral subsegmental atelectasis without edema or dense lobar consolidation. Impression By: Esperanza hudson M.D. RADIOLOGY - XR CHEST 1 V 03/10 1703 Report Impression - Status: SIGNED Entered: 03/10/2021 1714 IMPRESSION: 1. Interval removal of right-sided chest tube. N o definite pneumothorax identified. Impression By: [email or web address] - Kimmy Whitaker M.D. RADIOLOGY - XR CHEST 1 V 03/11 1781 Report Impression - Status: SIGNED Entered: 03/11/2021 1021 IMPRESSION: Minimal central venous congestion. Impression By: [email or web address] - Debbie Matute D.O. Discharge Instructions PCP PCP: PCP: No Primary or Family Physician )( Discharge to: Home/Self Care Discharge Instructions Additional Discharge Routines: Attending Follow- Up, Financial Reporting Accountant Follow-Up )( Diet: Regular )( Activity: As Tolerated, Do not Submerge Incis ion, No Lifting >10lbs, No Swimming, Shower Only, Walk 3 times a day, No dr iving while taking pain medications Continue to take tylenol every 6 colton rs. Take gabapentin 3 times a day. Use the robaxin and oxycodone as needed. Yo u can restart your Eliquis tomorrow (Monday) Prescriptions: e-prescribe Follow-up Appointments Attending Physician: Attending Physician: Debbie Aggarwal MD Attending physician follow up timeframe: In 2-3 weeks Appt. date: 03/24/21 Special instructions: Continue to do your breathing exercises frequent ly EVERY DAY Consulting provider 1: Provider 1: Eloina Garzon MD Electronically Signed by Debbie Aggarwal MD on at 1040 RPT #:[id number] END OF REPORT 2021-03-11 09:35:00-00:00 [facility] REPORT#:[id number] REPORT STATUS: Signed DATE:03/11/21 TIME: 934 PATIENT: ERNESTO MAURICIO UNIT #: [id number] ROOM/BED: [facility] : 59 AGE: 60 SEX: F ATTEND: Julien Aggarwal MD ADM AUTHOR: Debbie Aggarwal MD * ALL edits or amendments must be made on the el [employer]/computer document * General Post-op: day 2 Status post: 1. Flexible bronchoscopy 2. Robotic right upper lobe posterior segmentec sally 3. Mediastinal lymph node dissection 4. Multilevel intercostal nerve block with Expa rel Subjective Chief Complaint: s/p RUL posterior segmentectomy HPI: 03/10 Pt did well overnight. 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 Chest tube serosang with 200cc output and no air leak . Placed to waterseal this AM. Tolerating CLD. Durbin removed this AM, awaiting sp ontaneous void. Pt requests to get out of bed today. 03/11 Chest tube placed to water seal yesterday mornin g and then removed yesterday afternoon. Pt reports pain much better controlle d now that chest tube is out. She is tolerating diet and voiding. She was able to ambulate in the [place] yesterday and sat in the bed side chair. She is stable on RA. She is pulling 1000 on IS and working with her flutter valve. Objective General VS/I O: Last Documented: Result Date Time Pulse Ox 91 03/11 0636 B/P 106/73 03/11 0636 B/P Mean 83.7 03/11 0636 Temp 99.1 03/11 0636 Pulse 120 03/11 0636 Resp 18 03/11 0636 O2 Delivery Room air 03/11 0314 O2 Flow Rate 3 03/10 0825 24 hour I O ending at 0700: 03/11 0700 03/10 1900 Intake Total Output Total 220 Balance -220 Number Voids 2 Output, Chest 70 Tube Drainage Output, Urine 150 Patient 95.254 kg Weight PATIENT WEIGHT: Weight (lb): 210 Weight (oz): 12.19 Weight (kg): 95.254 Physical Exam General appearance: alert, awake, oriented, no a cute distress, pleasant Wound/incision: Location: Right chest Site condition: wound/incision clean dry, wound /incision intact, Chest tube out, dressing over site intact HEENT: mucosal membranes moist, sclera clear Neck: supple, no JVD Cardiovascular: hemodynamically stable, chronic Atrial fibrillation, rate controlled, on telemetry Respiratory: no distress, Normal effort, no whee zes, good cough Abdomen: non-tender, soft, no distention Genitourinary: no durbin Extremities: dry, moves all Neuro/TRANSCRIPTION SPECIALIST: alert, oriented x 3 Skin: dry, normal color, normal temperature Psychiatry: normal affect, normal mood Current Medications Medications: Active Meds + DC'd Last 24 Hrs Digoxin (LANOXIN) 0.125 MG BEDTIME PO Ketorolac Tromethamine (TORADOL) 15 MG ONCE ONE IV (DC) Chlorpheniramine Maleate (CHLOR-TRIMETON) 4 MG Q ID PO Digoxin (LANOXIN) 0.125 MG DAILY PO (DC) Furosemide (LASIX) 40 MG DAILY PO Methocarbamol (ROBAXIN) 750 MG Q8H PRN PRN PO Morphine Sulfate (morphine SULFATE) 4 MG Q4H PRN PRN IV Oxycodone HCl (ROXICODONE) 5 MG Q4H PRN PRN PO Oxycodone HCl (ROXICODONE) 10 MG Q4H PRN PRN PO Levothyroxine Sodium (Synthroid) 50 MCG 0600 PO Budesonide (PULMICORT RESPULES) 0.5 MG RTQ12H IN H Albuterol Sulfate (PROVENTIL) 2.5 MG RTQ6H NEB Docusate Sodium (COLACE) 100 MG BID PO Enoxaparin Sodium (lovENOX) 30 MG Q12HR SUBQ Gabapentin (NEURONTIN) 100 MG TID PO Metoprolol Tartrate (LOPRESSOR) 50 MG BID PO Potassium Chloride (POTASSIUM CHLORIDE 20MEQ TAB .ER) 20 MEQ BID PO Acetaminophen (TYLENOL) 650 MG Q6HR PO Diltiazem HCl (CARDIZEM) 30 MG QPM PO Montelukast Sodium (SINGULAIR) 10 MG QPM PO Pantoprazole (PROTONIX) 40 MG AC DIN PO Hydralazine HCl (APRESOLINE) 10 MG Q6H PRN PRN I V Metoprolol Tartrate (LOPRESSOR) 5 MG Q6H PRN PRN IV Naloxone HCl (NARCAN) 0.04 MG ASDIR PRN IV Results Radiology data: Recent Impressions: RADIOLOGY - XR CHEST 1 V 03/10 0942 Report Impression - Status: SIGNED Entered: 03/10/2021 1341 IMPRESSION: 1. No visible pneumothorax line in the presence of a right-sided chest tube. 2. Persistent scattered subsegmental atelectasis with slightly improved pulmonary aeration. 3. Enlarged cardiac silhouette. Impression By: [email or web address] - Wild hudson M.D. RADIOLOGY - XR CHEST 1 V 03/10 1306 Report Impression - Status: SIGNED Entered: 03/10/2021 1330 IMPRESSION: 1. No visible pneumothorax line in the presence of a right-sided chest tube on water seal. 2. Scattered bilateral subsegmental atelectasis without edema or dense lobar consolidation. Impression By: [email or web address] - Wild hudson M.D. RADIOLOGY - XR CHEST 1 V 03/10 1703 Report Impression - Status: SIGNED Entered: 03/10/2021 1714 IMPRESSION: 1. Interval removal of right-sided chest tube. N o definite pneumothorax identified. Impression By: [email or web address] Ramón Whitaker M.D. 03/11 CXR: Formal read pending. Appears stable without pneumothorax or effusion, right lung well-expanded Results: labs reviewed, vital signs stable, x-ra y personally reviewed Diagnosis, Assessment Plan Hospital course to date: 60yo F s/p robotic right upper lobe posterior se gmentectomy 03/09/2021 for RUL pulmonary nodule Problem List/Pt HX: 1. Pulmonary nodule, right 2. Atrial fibrillation 3. HX: breast cancer 4. Hypertension 5. GERD (gastroesophageal reflux disease) 6. Arthritis 7. Hypothyroidism 8. Hx of malignant carcinoid tumor of rectum 9. Current use of detention anticoagulation 10. S/P partial lobectomy of lung Assessment/Plan: Neuro: - Pain control with tylenol 650mg Q6H sc heduled, gabapentin 100mg TID, Robaxin 750mg Q8H PRN, oxycodone 5-10 mg Q4H PRN , morphine IV Q4H PRN for breakthrough pain CV: - Hx of atrial fibrillation - continue telemetry - Continue to hold Eliquis today, can resume homero orrow - Continue home digoxin, metoprolol, diltiazem Pulm: - Continue home Symbicort and singulair - Xopenex nebs/IPV - Aggressive pulm toilet wit h incentive spirometry 10 times/hour, deep breathing and coughing, flutter valve, and out of bed to c hair/ambulating TID - Chest tube placed to water seal - will repeat CXR in 4 hours - Appreciate Pulmonology assistance FEN/GI: - Regular diet - No IVF - Continue home KCl Renal: - Voiding - Continue home lasix Heme/ID: - Afebrile, no abx, will monitor WBC - No evidence of bleeding, will monitor - OK to resume home eliquis tomorrow Endocrine: - Continue home synthroid Dispo: - Stable for discharge today pending lab results . Please do not hesitate to contact me with questi ons or concerns. Debbie Aggarwal MD Thoracic Surgeon Electronically Signed by Debbie Aggarwal MD on at 1003 RPT #:[id number] END OF REPORT 2021-03-10 11:40:00-00:00 [facility] ([facility]) Pulmonary Consultation Note REPORT#:[id number] REPORT STATUS: Signed DATE:03/10/21 TIME: 1140 PATIENT: ERNESTO MAURICIO UNIT #: [id number] ROOM/BED: [place] [address] : 58 AGE: 60 SEX: F ATTEND: Julien Aggarwal MD ADM AUTHOR: Eloina Garzon MD * ALL edits or amendments must be made on the el [employer]/computer document * History of Present Illness Free Text HPI Notes Free Text HPI Notes: Patient is 60-year-old female known to my servic e from outpatient settings, History of breast cancer status post mastectomy and radiation therapy Non-smoker, significant secondhand smoking CT chest as well as PET scan showed right upper lobe nodule without activities, She does have stage II COPD FEV1 is 66% DLCO is 48% History of A. fib on Eliquis History of rectal carcinoid without any metastat ic disease in the past Nodule in the right upper lobe group 2 1.4 cm wi th SUV of 1.6 very likely to present carcinoid tumor Refer to Dr. Aggarwal who performed yesterda y flexible bronchoscopy, robotic right upper lobe posterior segmentectomy and mediastin al lymph node dissection Chest x-ray this morning showed very nice expans ion of the lung Chest tube is conducting without any air leak with coughing and deep breathing Patient is on room air and feels very well. History - Adult longitudinal Additional medical history: Rectal carcinoid, breast cancer, A. fib, Additional surgical history: [facility] Additional family history: Not contributory to the current problem Smoking status: Smoking status for patients 13 years old or old er: Never Smoker Medications: Home Medications: Medication Dose/Rte/Freq Days Qty Entered Last Max Daily Dose Reviewed LEVOTHYROXINE 50 MCG PO DAILY 01/07/21 1 (SYNTHROID) 1321 0642 Strength: 25 MCG TAB BUDESONIDE/FORMOTEROL 2 PUFF INH RTBID 03/05/21 03/09/21 (SYMBICORT 160/4.5 1143 0642 MCG/ACT 10.2GM) Strength: 160 MCG-4.5 MCG/ACTUATION INHALER LEVALBUTEROL 2 PUFF INH 03/05/21 03/09/21 (XOPENEX HFA 45 MCG/ACT RTQ4H PRN PRN 1143 0642 15 GM) SOB/WHEEZING Strength: 45 MCG/ACTUATION INHALER METOPROLOL TARTRATE 100 MG PO BID 01/07/2102/18 (LOPRESSOR) 1321 0642 Strength: 100 MG TAB APIXABAN (ELIQUIS) 5 MG PO BID 01/07/21 1 Strength: 5 MG TAB 1322 0642 DIGOXIN (LANOXIN) 0.125 MG PO DAILY 01/07/21 Strength: 125 MCG TAB 1322 0642 [DILTIAZEM ER] 01/07/21 03/09/21 Strength: 1324 0642 MONTELUKAST (SINGULAIR) 01/07/21 03/09/21 Strength: 10 MG TAB 1325 0642 FUROSEMIDE (LASIX) 40 MG PO DAILY 01/07/2102/18 Strength: 40 MG TAB 1325 0642 [OMEPRAZOLE ] 01/07/21 03/09/21 Strength: 1326 0642 POTASSIUM CHLORIDE ER 20 MEQ PO BID 01/07/21 (MICRO-K) 1329 0642 Strength: 10 MEQ CAP.SA Current Hospital Medications: Anti-Infective Agents Sig/Linden Start time Last Medication Dose Route Stop Time Status Admin Cefazolin Sodium 0 .STK-MED ONE 03/09 1340 DC (KEFZOL OR ANCEF) .ROUTE Cefazolin Sodium 2 GM PREOP ONCALL 03/05 1300 D C (KEFZOL OR ANCEF) IV 03/12 1259 Antihistamine Drugs Sig/Linden Start time Last Medication Dose Route Stop Time Status Admin Promethazine HCl 25 MG PACU ONCE PRN 03/09 1615 DC (PHENERGAN) IM 03/10 0015 Autonomic Drugs Sig/Linden Start time Last Medication Dose Route Stop Time Status Admin Methocarbamol 750 MG Q8H PRN PRN 03/10 0900 AC (ROBAXIN) PO 04/09 0859 Albuterol Sulfate 2.5 MG RTQ6H 03/09 2100 AC (PROVENTIL) NEB 04/08 2059 0740 Albuterol Sulfate 2.5 MG RTQ4H 03/09 1600 DC (PROVENTIL) NEB 04/08 1559 Methocarbamol 750 MG Q8H PRN PRN 03/09 1545 DC (ROBAXIN) IV 03/12 1544 Blood Formation,Coagulation Sig/Linden Start time Last Medication Dose Route Stop Time Status Admin Enoxaparin Sodium 30 MG Q12HR 03/09 2100 AC (lovENOX) SUBQ 04/08 2059 0925 Heparin Sodium 5,000 UNIT PREOP ASDIR 03/09 073 0 DC (HEPARIN 5000 UNITS/ SUBQ 04/08 0729 ML) Cardiovascular Drugs Sig/Linden Start time Last Medication Dose Route Stop Time Status Admin Digoxin 0.125 MG DAILY 03/10 0900 AC (LANOXIN) PO 04/09 0859 Metoprolol Tartrate 50 MG BID 03/09 2100 AC (LOPRESSOR) PO 04/08 2059 0925 Diltiazem HCl 30 MG QPM 03/09 1700 AC (CARDIZEM) PO 04/08 2059 Hydralazine HCl 2 MG PACU Q10MIN PRN PRN 03/09 1615 DC (APRESOLINE) IV 03/10 0015 Labetalol HCl 5 MG PACU Q10MIN PRN PRN 03/09 16 15 DC (LABETALOL HCL) IV 03/10 0015 Hydralazine HCl 10 MG Q6H PRN PRN 03/09 1545 AC (APRESOLINE) IV 04/08 1544 Metoprolol Tartrate 5 MG Q6H PRN PRN 03/09 1545 AC (LOPRESSOR) IV 04/08 1544 Hydralazine HCl 2 MG PACU Q10MIN PRN PRN 03/09 0745 DC (APRESOLINE) IV 03/09 1540 Labetalol HCl 5 MG PACU Q10MIN PRN PRN 03/09 07 45 DC (LABETALOL HCL) IV 03/09 1540 Lidocaine HCl 2 ML PREOP ONCALL 03/05 1230 DC (LIDOCAINE HCL/PF) LOCAL 04/04 2359 Lidocaine HCl 2 ML PREOP ONCALL 03/05 1230 DC (LIDOCAINE HCL/PF) LOCAL 04/04 2359 Central Nervous System Agents Sig/Linden Start time Last Medication Dose Route Stop Time Status Admin Morphine Sulfate 4 MG Q4H PRN PRN 03/10 0900 AC (morphine SULFATE) IV 03/15 0859 Oxycodone HCl 5 MG Q4H PRN PRN 03/10 0900 AC (ROXICODONE) PO 03/15 0859 Oxycodone HCl 10 MG Q4H PRN PRN 03/10 0900 AC (ROXICODONE) PO 03/15 0859 Gabapentin 100 MG TID 03/09 2100 AC 03/10 (NEURONTIN) PO 04/08 2059 0923 Acetaminophen 650 MG Q6HR 03/09 1800 AC 03/10 (TYLENOL) PO 04/08 1529 0619 Fentanyl Citrate 100 MCG PACU Q10MIN PRN PRN 0 03/09 1615 DC (SUBLIMAZE) IV 03/10 0015 Fentanyl Citrate 50 MCG PACU Q10MIN PRN PRN 1615 DC (SUBLIMAZE) IV 03/10 0015 Hydromorphone HCl 1 MG PACU Q10MIN PRN PRN 02/18 1 1615 DC 03/09 (DILAUDID) IV 03/10 0015 1701 Hydromorphone HCl 0.5 MG PACU Q5MIN PRN PRN 1615 DC (DILAUDID) IV 03/10 0015 Meperidine HCl 12.5 MG PACU ONCE PRN 03/09 1615 DC (DEMEROL 50MG/ML) IV 03/10 0015 Morphine Sulfate 2 MG PACU Q10MIN PRN PRN 03/09 1615 DC 03/09 (morphine SULFATE) IV 03/10 0015 1636 Tramadol HCl 50 MG PACU ONCE 03/09 1615 DC (ULTRAM) PO 03/10 0015 Morphine Sulfate See Dose ASDIR 03/09 1545 DC 0 03/09 (morphine 30MG/NS Insts (1) IV 03/14 1544 1637 30ML SYR) Naloxone HCl 0.04 MG ASDIR PRN 03/09 1545 AC (NARCAN) IV 04/08 1544 Fentanyl Citrate 100 MCG PACU Q10MIN PRN PRN 0745 DC 03/09 (SUBLIMAZE) IV 03/09 1540 1513 Fentanyl Citrate 50 MCG PACU Q10MIN PRN PRN 0745 DC (SUBLIMAZE) IV 03/09 1540 Hydrocodone Bitart/ 1 TAB PACU ONCE 03/09 0745 DC Acetaminophen PO 03/09 1540 (NORCO 5/325) Hydromorphone HCl 1 MG PACU Q10MIN PRN PRN 02/18 1 0745 DC (DILAUDID) IV 03/09 1540 Hydromorphone HCl 0.5 MG PACU Q5MIN PRN PRN 0745 DC (DILAUDID) IV 03/09 1540 Meperidine HCl 12.5 MG PACU ONCE PRN 03/09 0745 DC (DEMEROL 50MG/ML) IV 03/09 1540 Morphine Sulfate 2 MG PACU Q10MIN PRN PRN 03/09 0745 DC 03/09 (morphine SULFATE) IV 03/09 1540 1548 Tramadol HCl 50 MG PACU ONCE 03/09 0745 DC (ULTRAM) PO 03/09 1540 Acetaminophen 1,000 MG PREOP ONCALL 03/05 1230 DC 03/09 (TYLENOL EXTRA PO 04/04 235 0631 STRENGTH) Gabapentin 200 MG PREOP ONCALL 03/05 1230 DC (NEURONTIN) PO 04/04 2359 0632 Diagnostic Agents Sig/Linden Start time Last Medication Dose Route Stop Time Status Admin Indocyanine Green 0 .STK-MED ONE 03/09 1220 DC (IC GREEN 25MG VIAL) IV Electrolytic, Caloric, And Nichole Sig/Linden Start time Last Medication Dose Route Stop Time Status Admin Furosemide 40 MG DAILY 03/10 0900 AC 03/10 (LASIX) PO 04/09 0859 0926 Potassium Chloride 20 MEQ BID 03/09 2100 AC (POTASSIUM CHLORIDE PO 04/08 2059 0923 20MEQ TAB.ER) Lactated Ringer's 1,000 ML .Q24H 03/09 1615 DC (LACTATED RINGERS) IV 03/10 0015 Lactated Ringer's 1,000 ML .[id number] 03/09 1530 DC (LACTATED RINGERS) IV 04/08 1529 Sodium Chloride 20 ML ASDIR 03/05 1300 DC (SODIUM CHLORIDE) IV 04/04 1259 Lactated Ringer's 1,000 ML PREOP ONCALL 03/05 1 230 DC (LACTATED RINGERS) IV 04/04 2359 Sodium Chloride 500 ML PREOP ONCALL 03/05 1230 DC (SODIUM CHLORIDE IV 04/04 2359 0.9%) Sodium Chloride 500 ML PREOP ONCALL 03/05 1230 DC (SODIUM CHLORIDE IV 04/04 2359 0.9%) Sodium Chloride 1,000 ML PREOP ONCALL 03/05 123 0 DC (SODIUM CHLORIDE IV 04/04 2359 0.9%) Sodium Chloride 5 ML ASDIR PRN 03/05 1230 DC (SODIUM CHLORIDE) IV 04/04 1229 Sodium Chloride 10 ML ASDIR PRN 03/05 1230 DC (SODIUM CHLORIDE) IV 04/04 1229 Sodium Chloride 250 ML ASDIR PRN 03/05 1230 DC (SODIUM CHLORIDE IV 04/04 1229 0.9%) Eye, Ear, Nose And Throat (Een Sig/Linden Start time Last Medication Dose Route Stop Time Status Admin Budesonide 0.5 MG RTQ12H 03/09 2200 AC 03/10 (PULMICORT RESPULES) INH 04/08 2159 0740 Dexamethasone Sodium 0 .STK-MED ONE 03/09 1349 DC Phosphate .ROUTE (DECADRON) Gastrointestinal Drugs Sig/Linden Start time Last Medication Dose Route Stop Time Status Admin Docusate Sodium 100 MG BID 03/09 2100 AC 03/10 (COLACE) PO 04/08 2059 0923 Pantoprazole 40 MG AC DIN 03/09 1630 AC (PROTONIX) PO 04/08 1629 Ondansetron HCl 4 MG PACU ONCE PRN 03/09 1615 D C (ZOFRAN) IV 03/10 0015 Ondansetron HCl 0 .STK-MED ONE 03/09 1349 DC (ZOFRAN) .ROUTE Ondansetron HCl 4 MG PACU ONCE PRN 03/09 0745 D C (ZOFRAN) IV 03/09 1540 Hormones And Synthetic Substit Sig/Linden Start time Last Medication Dose Route Stop Time Status Admin Levothyroxine Sodium 50 MCG 0600 03/10 0600 AC 03/10 (Synthroid) PO 04/09 0559 0619 Insulin Human Lispro 0 PACU ONCE PRN 03/09 1615 DC (HUMALOG) SUBQ 03/10 0015 Insulin Human Lispro 0 PACU ONCE PRN 03/09 0745 DC (HUMALOG) SUBQ 03/09 1540 Local Anesthetics (Parenteral) Sig/Linden Start time Last Medication Dose Route Stop Time Status Admin Ropivacaine 150 MG ASDIR PRN 03/09 1615 DC (NAROPIN 0.5% 150 MG/ LOCAL 04/08 1614 30mL) Ropivacaine 150 MG ASDIR PRN 03/09 0745 DC (NAROPIN 0.5% 150 MG/ LOCAL 04/08 0744 30mL) Respiratory Tract Agents Sig/Linden Start time Last Medication Dose Route Stop Time Status Admin Montelukast Sodium 10 MG QPM 03/09 1700 AC 02/18 1 (SINGULAIR) PO 04/08 Dose Instructions: (1)Morphine Sulfate (morphine 30MG/NS 30ML SYR): PER PROTOCOL Allergies: Coded Allergies: acetaminophen (From VICODIN) (Severe, ITCHING ) PATIENT STATES ALLERGIC TO "ALL PAIN MED" DUE T O SEVERE ITCHING, USUALLY HAS TO TAKE ATARAX WITH ANY PA IN MEDS TO HELP PREVENT ANY ITCHING. hydrocodone (From VICODIN) (Severe, ITCHING 12/18 08/09) PATIENT STATES ALLERGIC TO "ALL PAIN MED" DUE T O SEVERE ITCHING, USUALLY HAS TO TAKE ATARAX WITH ANY PA IN MEDS TO HELP PREVENT ANY ITCHING. adhesive (Intermediate, rash 01/11/21) Sulfa (Sulfonamide Antibiotics) (ITCHING 0) Review of Systems All systems rev neg: except as marked Objective Physical Exam Vitals: Last Documented: Result Date Time Pulse Ox 98 03/10 0805 B/P 106/69 03/10 0805 B/P Mean 81.4 03/10 0805 O2 Delivery Room air 03/10 0805 Temp 36.3 03/10 0805 Pulse 79 03/10 0805 Resp 18 03/10 08 O2 Flow Rate 2 03/09 2030 Results Findings/Data: Laboratory Tests 03/10/21624: [Embedded Image Not Available] Laboratory Tests 03/10 625 Chemistry Sodium (134 - 147 mEq/L) 137 Potassium (3.4 - 5.0 mEq/L) 4.2 Chloride (100 - 108 mEq/L) 105 Carbon Dioxide (21 - 33 mEq/l) 25 Anion Gap (0 - 20) 12 BUN (7 - 18 mg/dL) 15 Creatinine (0.6 - 1.3 mg/dL) 0.9 Glomerular Filtr Rate (80 - 90) 63.7 L Glucose (70 - 110 mg/dL) 131 H Calcium (8.0 - 10.5 mg/dL) 8.3 Laboratory Tests 03/10 625 Hematology WBC (4.5 - 11.0 x10 3/uL) 16.1 H RBC (3.54 - 5.02 x10 6/uL) 4.60 Hgb (11.0 - 15.0 g/dL) 14.9 Hct (33.0 - 45.0 %) 46.1 H MCV (81.0 - 99.0 fL) 100.2 H MCH (27.0 - 33.0 pg) 32.4 MCHC (33.0 - 37.0 g/dL) 32.3 L RDW (11.5 - 14.5 %) 13.4 Plt Count (150 - 400 x10 3/uL) 175 MPV (7.0 - 9.0 fL) 10.7 H Neut % (Auto) (56.0 - 77.0 %) 85.2 H Lymph % (Auto) (14.0 - 32.0 %) 6.8 L [place] % (Auto) (4.8 - 9.0 %) 7.2 Eos % (Auto) (0.3 - 3.7 %) 0.0 L Baso % (Auto) (0.0 - 2.0 %) 0.2 Neut # (Auto) (2.0 - 7.6 x10 3/uL) 13.70 H Lymph # (Auto) (1.0 - 3.8 x10 3/uL) 1.10 [place] # (Auto) (0.1 - 0.8 x10 3/uL) 1.15 H Eos # (Auto) (0.0 - 0.2 x10 3/uL) 0.00 Baso # (Auto) (0.0 - 0.2 x10 3/uL) 0.04 Abs Immat Gran (auto) (0.00 - 0.03 x10 3/uL) 0. 09 H Add Manual Diff NO Immature Gran % (0.0 - 2.0 %) 0.6 Nucleated RBC % (0 - 0 %) 0.0 Nucleated RBCs # (Man) (0.0 - 0.1 x10 3/uL) 0.0 0 Results: x-ray personally reviewed Free Text Obj Notes Free Text Obj Notes: General appearance: alert, awake, oriented Head/Eyes: atraumatic, normocephalic, PERRLA Neck: full range of motion, non-tender, normal t hyroid Cardiovascular: normal heart sounds, normal S1/S 2, regular rate rhythm Respiratory/chest: aerating well, clear to auscu ltation, symmetric expansion Abdomen: soft, non-tender, normal bowel sounds Genitourinary: no bladder distention, no flank p ain Extremities: No edema, moves all, normal capilla ry refill, no calf tenderness Musculoskeletal: full range of motion, normal in spection, painless range of motion, straight leg raise neg Skin: dry, intact, normal color Diagnosis, Assessment Plan Free Text DxA P Notes Free Text DxA P Notes: 1. Right upper lobe nodule #2 rectal carcinoid #3 COPD stage II #4 A. fib #5 history of breast cancer Status post right upper lobe robotic segmentecto my Chest tube is conducting without any air leak mi nimal output Chest x-ray showed very nice expansion of the tai ng without any evidence of pneumothorax Pulmonary toilet including incentive spi rometry and flutter and bronchodilator Plan to resume Eliquis when cleared by Dr. Aggarwal Chest tube management by Dr. Aggarwal DVT prophylaxis Thank you for the consult Electronically Signed by Eloina Garzon MD on 02/18 08/09 at 1144 RPT #:[id number] END OF REPORT 2021-03-10 09:00:00-00:00 [facility]L [facility] ([facility] Thoracic Surgery Progress Note REPORT#:[id number] REPORT STATUS: Signed DATE:03/10/21 TIME: 899 PATIENT: ERNESTO MAURICIO UNIT #: [id number] ROOM/BED: [facility] [place] : 59 AGE: 60 SEX: F ATTEND: Julien Aggarwal MD ADM AUTHOR: Debbie Aggarwal MD * ALL edits or amendments must be made on the el ectronic/computer document * General Post-op: day 1 Status post: 1. Flexible bronchoscopy 2. Robotic right upper lobe posterior segmentect maru 3. Mediastinal lymph node dissection 4. Multilevel intercostal nerve block with Expar el Subjective Chief Complaint: s/p RUL posterior segmentectomy HPI: 03/10 Pt did well overnight. 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 Chest tube serosang with 200cc output and no air leak . Placed to waterseal this AM. Tolerating CLD. Durbin removed this AM, awaiting sp ontaneous void. Pt requests to get out of bed today. Objective General VS/I O: Last Documented: Result Date Time Pulse Ox 98 03/10 0805 B/P 106/69 03/10 0805 B/P Mean 81.4 03/10 0805 O2 Delivery Room air 03/10 0805 Temp 97.3 03/10 0805 Pulse 79 03/10 0805 Resp 18 03/10 0805 O2 Flow Rate 2 03/09 2030 24 hour I O ending at 0700: 03/10 0700 03/09 1900 Intake Total 100.00 Output Total 470 100 Balance -470 0 Intake, IV 100.00 Output, Chest 70 100 Tube Drainage Output, Urine 400 PATIENT WEIGHT: Weight (lb): 210 Weight (oz): 12.19 Weight (kg): 95.600 Physical Exam General appearance: alert, awake, oriented, no a cute distress, pleasant Wound/incision: Location: Right chest Site condition: wound/incision clean dry, wound /incision intact, Chest tube in place to -20mmHg suction, no air leak, draina ge serosang HEENT: mucosal membranes moist, sclera clear Neck: supple, no JVD Cardiovascular: hemodynamically stable, chronic Atrial fibrillation, rate controlled, on telemetry Respiratory: no distress, Normal effort, no whee zes, good cough Abdomen: non-tender, soft, no distention Genitourinary: no durbin Extremities: dry, moves all Neuro/TRANSCRIPTION SPECIALIST: alert, oriented x 3 Skin: dry, normal color, normal temperature Psychiatry: normal affect, normal mood Current Medications Medications: Active Meds + DC'd Last 24 Hrs Digoxin (LANOXIN) 0.125 MG DAILY PO Furosemide (LASIX) 40 MG DAILY PO Methocarbamol (ROBAXIN) 750 MG Q8H PRN PRN PO Morphine Sulfate (morphine SULFATE) 4 MG Q4H IA N PRN IV Oxycodone HCl (ROXICODONE) 5 MG Q4H PRN PRN PO Oxycodone HCl (ROXICODONE) 10 MG Q4H PRN PRN PO Levothyroxine Sodium (Synthroid) 50 MCG 0600 PO Budesonide (PULMICORT RESPULES) 0.5 MG RTQ12H IN H Albuterol Sulfate (PROVENTIL) 2.5 MG RTQ6H NEB Docusate Sodium (COLACE) 100 MG BID PO Enoxaparin Sodium (lovENOX) 30 MG Q12HR SUBQ Gabapentin (NEURONTIN) 100 MG TID PO Metoprolol Tartrate (LOPRESSOR) 50 MG BID PO Potassium Chloride (POTASSIUM CHLORIDE 20MEQ TAB .ER) 20 MEQ BID PO Acetaminophen (TYLENOL) 650 MG Q6HR PO Diltiazem HCl (CARDIZEM) 30 MG QPM PO Montelukast Sodium (SINGULAIR) 10 MG QPM PO Pantoprazole (PROTONIX) 40 MG AC DIN PO Fentanyl Citrate (SUBLIMAZE) 100 MCG PACU Q10MIN PRN PRN IV (DC) Fentanyl Citrate (SUBLIMAZE) 50 MCG PACU Q10MIN PRN PRN IV (DC) Hydralazine HCl (APRESOLINE) 2 MG PACU Q10MIN IA N PRN IV (DC) Hydromorphone HCl (DILAUDID) 1 MG PACU Q10MIN IA N PRN IV (DC) Hydromorphone HCl (DILAUDID) 0.5 MG PACU Q5MIN P RN PRN IV (DC) Insulin Human Lispro (HUMALOG) 0 PACU ONCE PRN S UBQ (DC) Labetalol HCl (LABETALOL HCL) 5 MG PACU Q10MIN P RN PRN IV (DC) Lactated Ringer's (LACTATED RINGERS) 1,000 ML .Q 24H IV (DC) Meperidine HCl (DEMEROL 50MG/ML) 12.5 MG PACU ON CE PRN IV (DC) Morphine Sulfate (morphine SULFATE) 2 MG PACU Q1 0MIN PRN PRN IV (DC) Ondansetron HCl (ZOFRAN) 4 MG PACU ONCE PRN IV ( DC) Promethazine HCl (PHENERGAN) 25 MG PACU ONCE PRN IM (DC) Ropivacaine (NAROPIN 0.5% 150 MG/30mL) 150 MG DIR PRN LOCAL (DC) Tramadol HCl (ULTRAM) 50 MG PACU ONCE PO (DC) Albuterol Sulfate (PROVENTIL) 2.5 MG RTQ4H NEB (DC) Hydralazine HCl (APRESOLINE) 10 MG Q6H PRN PRN I V Methocarbamol (ROBAXIN) 750 MG Q8H PRN PRN IV (D C) Metoprolol Tartrate (LOPRESSOR) 5 MG Q6H PRN PRN IV Morphine Sulfate (morphine 30MG/NS 30ML SYR) PER PROTOCOL ASDIR IV (DC) Naloxone HCl (NARCAN) 0.04 MG ASDIR PRN IV Lactated Ringer's (LACTATED RINGERS) 1,000 ML .Q 13H20M IV (DC) Dexamethasone Sodium Phosphate (DECADRON) 0 .STK -MED ONE .ROUTE (DC) Ondansetron HCl (ZOFRAN) 0 .STK-MED ONE .ROUTE ( DC) Cefazolin Sodium (KEFZOL OR ANCEF) 0 .STK-MED ON E .ROUTE (DC) Indocyanine Green (IC GREEN 25MG VIAL) 0 .STK-ME D ONE IV (DC) Phenylephrine HCl (AR-SYNEPHRINE 10MG/ML AMP) 0 .STK-MED ONE .ROUTE (DC ) Sodium Chloride (SODIUM CHLORIDE 0.9%) 50 ML .ST K-MED ONE IV (DC) Fentanyl Citrate (SUBLIMAZE) 100 MCG PACU Q10MIN PRN PRN IV (DC) Fentanyl Citrate (SUBLIMAZE) 50 MCG PACU Q10MIN PRN PRN IV (DC) Hydralazine HCl (APRESOLINE) 2 MG PACU Q10MIN IA N PRN IV (DC) Hydrocodone Bitart/Acetaminophen (NORCO 5/325) 1 TAB PACU ONCE PO (DC) Hydromorphone HCl (DILAUDID) 1 MG PACU Q10MIN IA N PRN IV (DC) Hydromorphone HCl (DILAUDID) 0.5 MG PACU Q5MIN P RN PRN IV (DC) Insulin Human Lispro (HUMALOG) 0 PACU ONCE PRN S UBQ (DC) Labetalol HCl (LABETALOL HCL) 5 MG PACU Q10MIN P RN PRN IV (DC) Meperidine HCl (DEMEROL 50MG/ML) 12.5 MG PACU O NCE PRN IV (DC) Morphine Sulfate (morphine SULFATE) 2 MG PACU Q1 0MIN PRN PRN IV (DC) Ondansetron HCl (ZOFRAN) 4 MG PACU ONCE PRN IV ( DC) Ropivacaine (NAROPIN 0.5% 150 MG/30mL) 150 MG DIR PRN LOCAL (DC) Tramadol HCl (ULTRAM) 50 MG PACU ONCE PO (DC) Heparin Sodium (HEPARIN 5000 UNITS/ML) 5,000 UNI T PREOP ASDIR SUBQ (DC) Cefazolin Sodium (KEFZOL OR ANCEF) 2 GM PREOP BLOW TORCH OPERATOR IV (DC) Sodium Chloride (SODIUM CHLORIDE) 20 ML ASDIR IV (DC) Acetaminophen (TYLENOL EXTRA STRENGTH) 1,000 MG PREOP ONCALL PO (DC) Gabapentin (NEURONTIN) 200 MG PREOP ONCALL PO (D C) Lactated Ringer's (LACTATED RINGERS) 1,000 ML IA EOP ONCALL IV (DC) Lidocaine HCl (LIDOCAINE HCL/PF) 2 ML PREOP ONCA LL LOCAL (DC) Lidocaine HCl (LIDOCAINE HCL/PF) 2 ML PREOP ONCA LL LOCAL (DC) Sodium Chloride (SODIUM CHLORIDE 0.9%) 500 ML P REOP ONCALL IV (DC) Sodium Chloride (SODIUM CHLORIDE 0.9%) 500 ML IA EOP ONCALL IV (DC) Sodium Chloride (SODIUM CHLORIDE 0.9%) 1,000 ML PREOP ONCALL IV (DC) Sodium Chloride (SODIUM CHLORIDE) 5 ML ASDIR PRN IV (DC) Sodium Chloride (SODIUM CHLORIDE) 10 ML ASDIR IA N IV (DC) Sodium Chloride (SODIUM CHLORIDE 0.9%) 250 ML DIR PRN IV (DC) Results Findings/Data: Laboratory Tests 03/10 0625 Chemistry Sodium (134 - 147 mEq/L) 137 Potassium (3.4 - 5.0 mEq/L) 4.2 Chloride (100 - 108 mEq/L) 105 Carbon Dioxide (21 - 33 mEq/l) 25 Anion Gap (0 - 20) 12 BUN (7 - 18 mg/dL) 15 Creatinine (0.6 - 1.3 mg/dL) 0.9 Glomerular Filtr Rate (80 - 90) 63.7 L Glucose (70 - 110 mg/dL) 131 H Calcium (8.0 - 10.5 mg/dL) 8.3 Laboratory Tests 03/10 0625 Hematology WBC (4.5 - 11.0 x10 3/uL) 16.1 H RBC (3.54 - 5.02 x10 6/uL) 4.60 Hgb (11.0 - 15.0 g/dL) 14.9 Hct (33.0 - 45.0 %) 46.1 H MCV (81.0 - 99.0 fL) 100.2 H MCH (27.0 - 33.0 pg) 32.4 MCHC (33.0 - 37.0 g/dL) 32.3 L RDW (11.5 - 14.5 %) 13.4 Plt Count (150 - 400 x10 3/uL) 175 MPV (7.0 - 9.0 fL) 10.7 H Neut % (Auto) (56.0 - 77.0 %) 85.2 H Lymph % (Auto) (14.0 - 32.0 %) 6.8 L [place] % (Auto) (4.8 - 9.0 %) 7.2 Eos % (Auto) (0.3 - 3.7 %) 0.0 L Baso % (Auto) (0.0 - 2.0 %) 0.2 Neut # (Auto) (2.0 - 7.6 x10 3/uL) 13.70 H Lymph # (Auto) (1.0 - 3.8 x10 3/uL) 1.10 [place] # (Auto) (0.1 - 0.8 x10 3/uL) 1.15 H Eos # (Auto) (0.0 - 0.2 x10 3/uL) 0.00 Baso # (Auto) (0.0 - 0.2 x10 3/uL) 0.04 Abs Immat Gran (auto) (0.00 - 0.03 x10 3/uL) 0 .09 H Add Manual Diff NO Immature Gran % (0.0 - 2.0 %) 0.6 Nucleated RBC % (0 - 0 %) 0.0 Nucleated RBCs # (Man) (0.0 - 0.1 x10 3/uL) 0.0 0 Radiology data: Recent Impressions: RADIOLOGY - XR CHEST 1 V 03/09 1606 Report Impression - Status: SIGNED Entered: 03/09/2021 6413 IMPRESSION: 1. A right IJ venous catheter placement, tip at atrial caval junction. 2. A right chest tube in place, tip in the right apical chest. No radiographically apparent pneumothorax. 3. Bilateral perihilar and lower lobe opacities, worse on the left, may represent atelectasis, pneumonia in differen tial in appropriate clinical setting. Impression By: [email or web address] - Sanju Clark M.D. CXR 03/10: Formal read pending, no PTX seen, chest tube in good position Results: labs reviewed, vital signs stable, x-ra y personally reviewed Diagnosis, Assessment Plan Hospital course to date: 60yo F s/p robotic right upper lobe posterior se gmentectomy 03/09/2021 for RUL pulmonary nodule Problem List/Pt HX: 1. Pulmonary nodule, right 2. Atrial fibrillation 3. HX: breast cancer 4. Hypertension 5. GERD (gastroesophageal reflux disease) 6. Arthritis 7. Hypothyroidism 8. Hx of malignant carcinoid tumor of rectum 9. Current use of long term care phlebotomist anticoagulation 10. 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 Garzon FEN/GI: - Advance diet to regular - D/C IVF - Continue home KCl Renal: -Durbin removed this AM, awaiting spontaneous voi d - Continue home lasix Heme/ID: - Afebrile, no abx, will monitor WBC - No evidence of bleeding, will monitor Endocrine: - Continue home synthroid Dispo: - Progressing as expected post op. Continue care on the floor. Please do not hesitate to contact me with questi ons or concerns. Debbie Aggarwal MD Thoracic Surgeon Electronically Signed by Debbie Aggarwal MD on at 0918 RPT #:[id number] END OF REPORT 2021-03-09 16:16:00-00:00 [facility]L [facility] ([facility]) DT Operative Note REPORT#:[id number] REPORT STATUS: Signed DATE:03/09/21 TIME: 1615 PATIENT: ERNESTO MAURICIO UNIT #: [id number] ROOM/BED: [place] [address] : 58 AGE: 60 SEX: F ATTEND: Julien Aggarwal MD ADM AUTHOR: Debbie Aggarwal MD * ALL edits or amendments must be made on the Eligible/computer document * Operative Report Operative Note Note: Date of procedure: 03/08/2021 Preoperative diagnosis:Right upper lobe pulmonar y nodule Postoperative diagnosis: Right upper lobe pulmon tabitha nodule Procedure performed: 1. Flexible bronchoscopy 2. Robotic right upper lobe posterior segmentect maru 3. Mediastinal lymph node dissection 4. Multilevel intercostal nerve block with Expar el Surgeon: Debbie Aggarwal MD Sprinkling System Installer: HANNAH Cosme *Due to the complexity of this case, a surgical territory manager was necessary to perform tasks including beds katerin operation of the robotic instruments, suctioning , retraction, passage of krystin gical instruments and tools into the operative field , and removal of specimens from the surgical fie ld. Anesthesiologist: Dr. Josemanuel Hernandez MD Anesthesia: General double l umen endotracheal tube, multilevel intercostal nerve block with Exparel Indication for procedure: Pt is a 60yo F w/ hx of right breast cancer s/p R lumpectomy and XRT to the R chest in 2004, atrial fibril lation on Eliquis, HTN, GERD, arthritis, hypothyroid , and rectal carcinoid. She has been followed by Dr. Garzon for a right upper lobe nodule seen on CT in Jan 2020. At that time , the nodule measured 1.0 cm. PET in 02/2020 showed 1.1 cm nodule with SUV 1.4. Follow up CT in 11/2020 showed the nodule was now 1.4 cm. Bronchoscopy with FNA biopsy of the nodule was performed by Dr. Garzon on and was negative for malignancy. PET 2020 showed the 1.4 cm nodule with SUV 1 .6, concerning for carcinoid. She is a never smoker, but has modera te COPD with borderline PFT's: FEV 1 59% and DLCO 47 %. A lung perfusion scan showed the upper and mi ddle zone contribution to her overall pulmonary function was 15% and 28%, resp ectively. She has RODRIGUES and becomes slightly SOB with talking. She does not use supplemental O2. She is ambulatory but is limited by severe pain in her right knee related to arthritis and multiple surgeries. She was referred to me for consideration for resection of the pulmonary nodule give n that it was growing and midly PET avid, concerning for a neoplastic process lik e carcinoid. Because her overall pulmonary function was limited, I was concerned that performing a r ight upper lobectomy would decrease her overall pulmona ry reserve too much. After prolonged discussion with the patient, her , and Dr. Garzon, I elec june to proceed with a right upper lobe posterior segmentectomy and mediastin al lymph node dissection for diagnosis and treatment of the right upper lobe nodule. Description of procedure: Patient was seen in the preoperative holding are a. All of her questions were answered, informed consent was signed, and her r ight chest was marked. She is brought to the operating galina m and general anesthesia was induced with placement of a single-lumen endotracheal tube. I then perf ormed flexible bronchoscopy. The bronchoscope was inserted and I exam ined her bilateral lobar and segmental bronchial orifices. The patient had norm al endobronchial anatomy. There was no blood, pus, endoluminal lesions, or other abnorm al findings. The bronchoscope was withdrawn. Her single-lumen endotracheal tub e was then exchanged for a double-lumen endotracheal tube. Placemen t was confirmed with the bronchoscope. A radial arterial line was placed by anesthesia and a Durbin catheter was inserted. Pneumatic compress ion devices placed on her lower extremities and she received a dose of subcutaneous heparin prior to incision. Patient was then repositioned with her right side up. The table w as jackknifed. All bony prominences were well-padded. Her right chest wa s prepped and draped in the usual sterile fashion. She received a do se of intravenous antibiotics prior to incision. A timeout was conducted with all membe rs of the surgical team present. Following right lung isolati on, I began by making an 8 mm oblique skin incision in the right mid chest in the eighth intercostal space. The pleural space was entered with blunt tonsil dissection. An 8 mm tr ocar was inserted. After confirming safe pleural entr y with the thoracoscope, insufflation to 8 mmHg was utilized. Next, I placed my additional ports. An 8 mm port was placed 4 cm anterior to the spinous process in the eighth in tercostal space. A 12 mm port was placed midway between th e 2 8 mm ports in the eighth intercostal space, and a second 12 mm port was placed anteriorly in the seventh intercostal space. A 12 mm dental assistant air seal port was placed at the confluence of the diaphragm triangle between the anterior port and the 8 mm camera port. The robot was docked in the standard fashion. All instruments were inserted under direct visualization. I then moved to the robotic conso le. I began by examining the entire intrapleural cav ity. There were no adhesions and the right upper lobe nodule was not visible on the pleural surface. I then began taking down the inferior pulmonary ligamen t all the way to the inferior pulmonary vein using bipolar cautery. There were no level 9 lymph nodes identified. I then proceeded to take down the pl eura posterior to the hilum between the inferior pulmonary vein and azygos v ein using bipolar cautery. I then worked up from the pericardium and took mita n the subcarinal lymph node packet off the esophagus, an d then off the bronchus intermedius, right mainstem bronchus, left mainstem bronchus. The level 7 ly mph node packet was sent to pathology as a permanent spe cimen. I did find the bifurcation between the upper lobe bronchus and bronchus i ntermedius. I was unable to identify any station 11 lymph node posteriorly. I th en worked up over the apex of the hilum taking down the pleura around the azygos vein. At this point I exposed the fissure betw een the upper lobe and lower lobe. The patient had a partially comp lete oblique fissure. I incised the pleura near the trifurcation of the fissures and identified the ongoing pulmonary artery. I began to open the posterior parenchymal bridge o f the fissure by dissecting between the superior segmental pulmonary artery and the posterior recurrent pulmonary artery. I identified the 11 R sump lym ph node, which I removed and sent for permanent specimen. At this point I was able to connect my fissure dissection with my posterior hilar dissection, and I completed the fissure with several fires using blue loads of the Sureform 4 5 mm robotic stapler. I then dissected around the posteri or ascending pulmonary artery and divided it using a white load of the 45 mm Sureform robotic stapler . There was a pulmonary vein crossing the fissure with a branch enter ing the posterior segment of the right upper lobe. I dissected arou nd the posterior segment pulmonary vein and divided using a white load of the robotic stapler. Next, I turned my attention to the right upper lobe bronchus and identified the pos terior segment bronchus. I carefully dissected around [facility] posterior segment bronchus and divided it using a blue load of the 45 mm Sureform robotic stapler. At this point, I attempted to define the anatomi c limits of the posterior segment. I had anesthesia inject 10 mg (4 cc) of indocyanine green dye intravenously. Using the firefly technology on [facility] robot I was able to visualize the differentiatio n between the right upper lobe posterior segment and the other segments. The anterior and superior se gments fluoresced green, and the posterior segment remained dark. Usi ng the bipolar electrocautery I marked the limits of the posterior segment for parenchymal division. And then returned to the normal camera view. Using both gr een and black loads of the Sureform 45 robotic stapler, I divided the right upper lobe pulmonary parenchyma. The posterior segment was completely removed. The sp ecimen was placed in an Endo Catch bag and removed from t he chest. I examined the specimen on the back table and the nodule was completely contained within t he specimen. We will send specimen for frozen pathology. I then turned my attention to the apex of the ch est. I incised the pleura cephalad to the azygos vein and posterio r to the SVC. I removed the station 4R lymph node packet with bipolar cautery. The pack et was sent to pathology as a permanent specimen. The 4R and level 7 lymph nod e beds were packed with Surgicel. The entire chest was examined for hemo stasis. The most posterior 8 mm port was noted to have bleeding, and this was cauterized with the bipolar cautery. The entire chest was irrigated and suct ioned. Hemostasis appeared adequate. Vistaseal was then sprayed over the po sterior hilum, the structures in the fissure, as well as the parenchymal stapl e line and the 4R and level 7 lymph node beds. At this point the pathologist c alled back and reported that the nodule appeared to be consistent with a poss ible carcinoid. The specimen will be sent for permanent pathology. The instru ments were then removed from the chest and the robot was undocked. I moved [facility] to the patient bedside. A 28 [place] straight chest tube was advanced thr ough the dental assistant port and directed posterior toward the apex. A multilevel intercostal nerve block was performed with Exparel. All the port sites were examined and were made hemostatic. The lung was inflated under direct v isualization and all segments came up nicely. The chest tube was secured in pl [place] with 0 silk suture. All port sites were closed in multiple layers with a bsorbable suture and covered with Dermabond. The chest tube was connected to a drainage reservoir, and a sterile dressing was applied. All instrument, sp onge, and needle counts were correct x2. The patient was repositioned supine and awoken from general anesthesia. The endotracheal tube was removed an d she was transferred to the PACU in stable condition. I was present for the entire case. Due to the complexity of this case, a surgical territory manager wa s necessary to perform tasks including bedside operation of the robotic instruments, suctioning, retraction, passage of surgical instrume nts and tools into the operative field, and removal of specimens from the surgical field. Findings: Right upper lobe posterior segment nod ule, possible carcinoid on frozen pathology Specimens: 1. Right upper lobe posterior segment 2. Mediastinal lymph node levels 4R, 7, 11R EBL: 100 cc IV Fluids: 2400 cc Urine output: 225 cc Tubes: 28F chest tube Complications: None Disposition: PACU and then to floor with telemet ry Electronically Signed by Debbie Aggarwal MD on at 1117 RPT #:[id number] END OF REPORT 2021-03-09 15:16:00-00:00 [facility] REPORT#:[id number] REPORT STATUS: Signed DATE:03/09/21 TIME: 1515 PATIENT: ERNESTO MAURICIO UNIT #: [id number] ROOM/BED: [place] [id number] : 59 AGE: 60 SEX: F ATTEND: Julien Aggarwal MD ADM AUTHOR: Debbie Aggarwal MD * ALL edits or amendments must be made on the el ectronic/computer document * Op/Inv Proc Note - Brief Pre-procedure diagnosis: Right upper lobe nodule Post-procedure diagnosis: same as pre procedure dx Procedures performed: 1. Flexible bronchoscopy 2. Right upper lobe posterior segmentectomy 3. Mediastinal lymph node dissection 4. Multilevel intercostal nerve block with Expar el Primary Surgeon: Debbie Aggarwal MD Sprinkling System Installer(s): HANNAH Cosme Anesthesiologist: Dr. Josemanuel Hernandez MD Anesthesia: general anesthes ia, Multilevel intercostal nerve block with Exparel Findings: Right upper lobe posterior segment nodule, possi ble carcinoid on frozen pathology Complications: none Estimated blood loss in ml's: 100cc Specimens removed/altered: 1 . Right upper lobe posterior segement 2. Mediastinal lymph node levels 4R, 7, 11R Drain(s): Durbin Catheter Placed Tube(s): 28F straight right chest tube Fluids: 2400 cc Urine output: 225cc Disposition: MEDSURG Electronically Signed by Debbie Aggarwal MD on at 1616 RPT #:[id number] END OF REPORT 2021-03-05 11:27:00-00:00 [id number] [address] PATIENT NAME: ERNESTO MAURICIO ADMIT DATE: ACCOUNT NO: [id number] ROOM NO: AGE: 60 REPORT TYPE: eELECTROCARDIOGRAM REPORT SEX: F ADMITTING PHYSICIAN:Debbie Aggarwal MD ATTENDING PHYSICIAN:Debbie Aggarwal MD Order: [id number] Test Reason : PREOP Test Date/Time Stamp: MonMar 05 2021 11:27:22 Blood Pressure : / mmHG Vent. Rate : 071 BPM Atrial Rate : 111 BPM P-R Int : 000 ms QRS Dur : 088 ms QT Int : 388 ms P-R-T Axes : 000 031 036 degree s QTc Int : 421 ms Atrial fibrillation Septal infarct , age undetermined ST and T wave abnormality, consider anterior isc hemia Abnormal ECG When compared with ECG of 07-JAN-2021 11:39, Significant changes have occurred Confirmed by BRANDI MOON MD ([id number]) on 03/06/20 12:48:03 PM Referred By: Debbie Aggarwal Confirmed by:BRANDI BOWERS MD at 1248 PATIENT NAME: ERNESTO MAURICIO 2021-01-11 13:26:00-00:00 [facility] ([facility]) DT Operative Note REPORT#:[id number] REPORT STATUS: Signed DATE:01/11/21 TIME: 1326 PATIENT: ERNESTO MAURICIO UNIT #: [id number] ROOM/BED: : 59 AGE: 60 SEX: F ATTEND: Halima Garzon MD ADM AUTHOR: Eloina Garzon MD * ALL edits or amendments must be made on the el ectronic/computer document * Operative Report Operative Note Note: Indication: Lung nodule Postop diagnosis: Same Sedation: General anesthesia with propofol drip and LMA. Informed consent was obtaine d with the patient risk and benefit of the procedure was discussed in details including risk of bleed ing, infection, pneumothorax, and anesthesia risk. Ultrasound-guided bronchoscopy is needed to perf orm this procedure as the patient has a peripheral nodule cannot be reache d via regular bronchoscopy. Close hemodynamic monitoring, pulse ox EKG blood pressure Description: After achieving adequate sedation I passed that scope through the LMA towards the vocal cord, vocal cords look normal there was no paradoxical movement and no lesions. No paralysis. After that I passed the scop e towards the main demi, inspection of the airway revealed no endobronchial lesion no bleeding no external compression. I passed the scope towards the right upper lobe posterior segment inferior subsegment I passed the radial probe start navigating throu gh it, I could visualize the lung nodule I confirmed my location with the flu oroscopy After that I used a prereview flex needle and ob tain 3 passes from that area After that I used the brush and obtain 1 pass fr om that area After that I wedged the scop e to that segment injected total of 120 cc of normal saline collected around 10 cc of fluid will be s ent for cytology There was minimal amount of bleeding that stoppe d spontaneously Overall the patient tolerated the proced ure without any immediate complication Complication: None Blood loss: 20 cc Electronically Signed by Eloina Garzon MD on 12/18 12/07 at 1328 RPT #:[id number] END OF REPORT 2021-01-07 11:39:00-00:00 [id number] [place] [address] PATIENT NAME: ERNESTO MAURICIO ADMIT DATE: ACCOUNT NO: [id number] ROOM NO: AGE: 60 REPORT TYPE: eELECTROCARDIOGRAM REPORT SEX: F ADMITTING PHYSICIAN: ATTENDING PHYSICIAN:Eloina Garzon MD Order: [id number] Test Reason : PREOP Test Date/Time Stamp: MonJan 07 2021 11:39:19 Blood Pressure : / mmHG Vent. Rate : 062 BPM Atrial Rate : 076 BPM P-R Int : 000 ms QRS Dur : 084 ms QT Int : 412 ms P-R-T Axes : 000 048 079 degree s QTc Int : 418 ms Atrial fibrillation Nonspecific T wave abnormality Abnormal ECG PRE_OP Confirmed by SUMMER RIVERA MD ([id number]) on 01/08/20 12:14:31 PM Referred By: Eloina Garzon Confirmed by:SUMMER AJ MD at 1214 PATIENT NAME: ERNESTO MAURICIO [id number]
[2023-02-10] MEDS ORDERED: ONDANSETRON 4 MG/2 ML VIAL ONE ×2 (15:24→18:10)
[2023-02-10 15:50] LABS: Absolute Lymphocytes (CBC) 1.5 K/uL (0.7-4.9); MCV 100.6 fL (80-100); MPV 8.6 fL (7.6-11.3); Platelets 165 thou/uL (152-406); RBC Red Blood Cell Count 4.57 M/uL (3.86-4.86)
[2023-02-10 15:51] LABS: Protime INR 2.26
[2023-02-10 16:07] LABS: Albumin 2.5 g/dL (3.4-5.0); Bilirubin Total 2.1 mg/dL (0.2-1.0); Magnesium 2.2 mg/dL (1.6-2.4); Potassium 2.8 mEq/L (3.5-5.1); Protein, Total 5.4 g/dL (6.4-8.2); Troponin High Sensitivity 34.8 pg/mL (<58.9)
[2023-02-10] MEDS ORDERED: NA CHLORIDE 0.9% 500 ML ONE (16:43)
--- NOTE | 2023-02-10 16:53 | RAD REPORT ---
EXAM DESCRIPTION: CT - Chest Abdomen Pelvis W Cont - 02/10/2023 4:28 pm CLINICAL HISTORY: Chest and abdominal pain COMPARISON: 2016 CT abdomen TECHNIQUE: Computed axial tomography of the chest, abdomen and pelvis was obtained. 100 cc Isovue-30 0 was administered intravenously. Oral contrast was not requested. This limits evaluation of bowel. All CT scans are performed using dose optimization technique as appropriate and may include automated exposure control or mA/KV adjustment according to patient size. FINDINGS: 9 centimeter lucency anterior left upper lobe probably air trapping. A few areas of scarri ng are present within the lungs. Right mastectomy 3.5 centimeter fluid collection left breast. No mediastinal, axillary or hilar lymphadenopathy. No pleural effusion. Moderate pericardial effusion Liver, spleen, pancreas, and adrenals unremarkable. Bilateral renal cysts. Left upper quadrant varices. 3 centimeter lipoma within ascending colon. 5.5 centimeter fluid collection Hounsfield unit 30 anterior abdominal wall to the right of midline at the level of the iliac crest. It is unchanged from 2016 and is benign Small to moderate right inguinal hernia Hysterectomy. No adnexal mass No evidence of diverticulitis IMPRESSION: Moderate pericardial effusion 3.5 centimeter fluid collection left breast may be the sequela of the recent pacemaker insertion. It probably represents a hematoma
--- NOTE | 2023-02-10 16:55 | RAD REPORT ---
EXAM DESCRIPTION: [place] Single View02/10/2023 3:43 pm CLINICAL HISTORY: Chest pain COMPARISON: 2016 FINDINGS: Enlargement of the cardiac silhouette. CT chest same date demonstrates a moderate pericard ial effusion Lungs appear clear of acute infiltrate. Pacemaker leads in place
[2023-02-10] MEDS ORDERED: DOPAMINE/D5W 400 MG/250 ML BAG IV ONE (17:41)
--- NOTE | 2023-02-10 17:41 | ER ---
Nurse's Notes [facility] Name: Ernestina Mauricio Age: 62 yrs Sex: Female : 1960 Arrival Date: 02/10/2023 Time: 14:51 Bed 4 Private MD: Diagnosis: Hypotension, unspecified;Pericardial effusion (noninflammatory) Presentation: 02/10 14:53 Chief complaint: EMS states: chest pain and nausea today. Had pacemaker placed at [address] approximately 7 days ago and is taking antibiotics. EMS reports initial BP 115/90 and were unable to obtain another BP reading en route. 14:53 Onset of symptoms was January 2023. aa5 14:53 Acuity: ELSI 2 aa 14:53 Method Of Arrival: EMS: [place] [id number] 14:53 Coronavirus screen: At this time, the client does not indicate any symptoms associated [facility] with coronavirus-19. Ebola Screen: Patient denies travel to an Ebola-affected area in the 21 days before illness onset. Initial Sepsis Screen: Does the patient meet any 2 criteria? No. Patient's initial sepsis screen is negative. Does the patient have a suspected source of infection? No. Patient's initial sepsis screen is negative. Risk Assessment: Do you want to hurt yourself or someone else? Patient reports no desire to harm self or others. 14:53 Care prior to arrival: IV initiated. 18 GA, in the left antecubital area, Glucose aa5 check: 168. Historical: - Allergies: 15:00 "All pain medicines make me itch"; aa5 15:00 Sulfa (Sulfonamide Antibiotics); aa5 - Home Meds: 15:02 xarelto [Active]; Lasix Oral [Active]; Singulair Oral [Active]; Spiriva with HandiHaler aa5 18 mcg inhalation Capsule, With Inhalation Device [Active]; Flovent Inhl [Active]; Xopenex Nebulizer [Active]; - PMHx: 15:00 Asthma; Cancer, Breast; Hypertension; COPD; aa5 15:02 Atrial fibrillation; low potassium; aa5 - PSHx: 15:00 Right mastectomy; Pacemaker; aa5 - Family history:: not pertinent. - Hospitalizations: : Patient was recently seen at. Screenin:[facility] ED Fall Risk Assessment (Adult) History of falling in the last 3 months, rs5 including since admission No falls in past 3 months (0 pts) Confusion or Disorientation No (0 pts) Intoxicated or Sedated No (0 pts) Impaired Gait Yes (1 pt) Mobility Assist Device Used No (0 pt) Altered Elimination No (0 pt) Score/Fall Risk Level 0 - 2 = Low Risk Oriented to surroundings, Maintained a safe environment, Educated pt \\T\\ family on fall prevention, incl call for assistance when getting out of bed. Abuse screen: Denies threats or abuse. Nutritional screening: No deficits noted. Tuberculosis screening: No symptoms or risk factors identified. Assessment: 15:01 General: Appears uncomfortable, Behavior is cooperative, restless. rs5 15:01 Pain: Denies pain. Pain: Denies pain. Neuro: Level of Consciousness is awake, alert, rs5 obeys commands, Oriented to person, place, time, situation. Cardiovascular: Chest pain is described as mild, quality is heaviness, is located in chest wall began 1 day ago episodes are intermittent. Cardiovascular: Clean 2 inch closed incision noted to left upper chest. Pt reports pacemaker surgically inserted at [facility] 7 days ago. No redness or signs of infection noted, Dark purple bruising noted to pacemaker incision site. . Cardiovascular: Heart tones S1 S2 present Capillary refill < 3 seconds 2 plus edema noted to lower extremities bilaterally. Pulses are absent in right posterior tibial artery, right dorsalis pedis artery, left posterior tibial artery and left dorsalis pedis artery are palpable in right radial artery and left radial artery are 1+ in right radial artery and left radial artery Rhythm is paced. Respiratory: Airway is patent Respiratory effort is even, unlabored, Respiratory pattern is regular, Breath sounds are diminished bilaterally. GI: Abdomen is round non-distended, Bowel sounds present X 4 quads. Abd is soft and non tender X 4 quads. Reports nausea, vomiting. : No signs and/or symptoms were reported regarding the genitourinary system. EENT: No signs and/or symptoms were reported regarding the EENT system. Derm: Skin is pink, warm \\T\\ dry. Musculoskeletal: Range of motion: intact in all extremities. 15:30 Reassessment: MD aware of pt c/o nausea and dizziness. . General: Appears rs5 uncomfortable, Reports "feeling cold and hot at the same time". Neuro: Level of Consciousness is awake, alert, obeys commands, Oriented to person, place, time, situation. Respiratory: Airway is patent Respiratory effort is even, unlabored, Respiratory pattern is regular, symmetrical. Derm: Skin is pink, warm \\T\\ dry. 15:34 Reassessment: Pt's and daughter at bedside. . rs5 16:00 Reassessment: Patient is alert, oriented x 3, equal unlabored respirations, skin rs5 warm/dry/pink. 16:00 General: Appears uncomfortable, Behavior is restless. GI: Reports nausea. GI: Reports rs5 nausea. 16:00 Reassessment: Pt c/o feeling cold and hot intermittently, blankets given for comfort. . rs5 16:30 Reassessment: Patient is alert, oriented x 3, equal unlabored respirations, skin rs5 warm/dry/pink. General: Appears uncomfortable, Behavior is cooperative, restless. 16:45 Reassessment: Contacted [employer] at [phone] to request pacemaker aa5 interrogation per MD TAVAREZ. [employer] staff states client service representative will contact our facility within an hour to provide ETA for interrogation. . 16:45 Reassessment: Purewick placed per pt's request. . rs5 17:00 Reassessment: Central line placement consent signed by patients . rs5 17:00 General: Appears uncomfortable, Behavior is cooperative, restless. rs5 17:00 GI: Reports nausea. rs5 17:00 Reassessment: Assisted with bedpan to attempt BM, pt unable to have BM, no stool noted. rs5 . 17:35 Reassessment: Patient is alert, oriented x 3, equal unlabored respirations, skin rs5 warm/dry/pink. 17:35 General: Appears uncomfortable, Behavior is cooperative, restless. GI: Reports nausea. rs5 18:00 General: Appears uncomfortable, Behavior is cooperative, restless. rs5 18:00 GI: Reports nausea. rs5 18:15 Reassessment: Dr. Melendez at bedside updating pt and family on plan of care and plan to rs5 transfer to another hospital. 18:30 General: Appears uncomfortable, Behavior is cooperative, restless. rs5 18:30 GI: Reports nausea. rs5 18:30 Reassessment: Patient is alert, oriented x 3, equal unlabored respirations, skin rs5 warm/dry/pink. Vital Signs: 14:53 BP 97 / 59; Pulse 65; Resp 18 S; Temp 97.7(O); Pulse Ox 98% on R/A; aa5 15:00 BP 97 / 59; Pulse 102; Resp 22; Pulse Ox 95% on R/A; rs5 15:15 BP 79 / 47; Pulse 60; Resp 20; Pulse Ox 96% on 2 lpm NC; rs5 15:30 BP 86 / 61; Pulse 58; Resp 19; Pulse Ox 95% on 2 lpm NC; rs5 15:43 BP 77 / 61; Pulse 60; Resp 20; Pulse Ox 94% on 2 lpm NC; rs5 16:00 BP 86 / 56; Pulse 60; Resp 17; Pulse Ox 96% on R/A; rs5 16:12 BP 77 / 66; Pulse 60; Resp 18; Pulse Ox 96% on R/A; rs5 16:30 BP 89 / 53; Pulse 60; Resp 18; Pulse Ox 98% on R/A; rs5 16:40 BP 90 / 65; Pulse 60; Resp 18; Pulse Ox 98% on R/A; rs5 16:50 BP 83 / 55; Pulse 60; Resp 17; Pulse Ox 95% on R/A; rs5 17:00 BP 73 / 36; Pulse 60; Resp 16; Pulse Ox 96% on R/A; rs5 17:20 BP 88 / 62; Pulse 60; Resp 17; Pulse Ox 95% on R/A; rs5 17:35 Weight 105.69 kg (M); aa5 17:35 BP 83 / 45; Pulse 60; Resp 18; Pulse Ox 98% on 2 lpm NC; rs5 17:40 BP 81 / 56; Pulse 62; Resp 17; Pulse Ox 97% on 2 lpm NC; rs5 17:45 BP 72 / 56; Pulse 61; Resp 17; Pulse Ox 97% on 2 lpm NC; rs5 17:50 BP 85 / 72; Pulse 63; Resp 17; Pulse Ox 97% on 2 lpm NC; rs5 17:55 BP 76 / 51; Pulse 60; Resp 17; Pulse Ox 99% ; rs5 17:59 BP 85 / 72; rn 18:00 BP 83 / 57; Pulse 67; Pulse Ox 96% on 2 lpm NC; rs5 18:05 BP 76 / 52; Pulse 68; Resp 17; Temp 98.1(O); Pulse Ox 99% on 2 lpm NC; rs5 18:10 BP 83 / 57; Pulse 60; Resp 18; Pulse Ox 96% on 2 lpm NC; rs5 18:15 BP 83 / 56; Pulse 60; Resp 18; Pulse Ox 99% on 2 lpm NC; rs5 18:20 BP 105 / 63; Pulse 60; Resp 17; Pulse Ox 95% on R/A; rs5 18:25 BP 84 / 38; Pulse 60; Resp 17; Pulse Ox 95% on R/A; rs5 18:30 BP 82 / 59; Pulse 60; Resp 18; Pulse Ox 96% on R/A; rs5 18:40 BP 78 / 51; Pulse 63; Resp 17; Pulse Ox 95% on R/A; rs5 18:50 BP 77 / 55; Pulse 63; Resp 17; Pulse Ox 94% on R/A; rs5 19:08 BP 92 / 45; Pulse 61; Resp 17; Pulse Ox 96% on R/A; rs5 19:15 BP 95 / 43; Pulse 60; Resp 19; Pulse Ox 97% on 2 lpm NC; rv 19:30 BP 104 / 55; Pulse 60; Resp 16; Pulse Ox 96% 2 lpm ; rv 19:45 BP 91 / 45; Pulse 60; Resp 17; Pulse Ox 100% on 2 lpm NC; rv 19:55 BP 112 / 98; Pulse 60; Resp 16; Pulse Ox 95% 2 lpm ; rv 20:00 BP 99 / 71; Pulse 61; Resp 16; Pulse Ox 98% ; rv 20:05 BP 97 / 58; Pulse 60; Resp 16; Temp 98; Pulse Ox 98% on 2 lpm NC; rv 20:32 BP 92 / 45; Pulse 61; Resp 16; Pulse Ox 96% on 2 lpm NC; rv 15:15 MD notified rs5 15:30 MD notified rs5 18:40 MD aware of blood pressures and aware of doopamine being maxed out rs5 Aryan Coma Score: 19:00 Eye Response: spontaneous(4). Motor Response: obeys commands(6). Verbal Response: rv oriented(5). Total: 15. 20:00 Eye Response: spontaneous(4). Motor Response: obeys commands(6). Verbal Response: rv oriented(5). Total: 15. ED Course: 14:53 Patient arrived in ED. rn 14:53 Arm band placed on. aa5 14:54 Osmel Melendez MD is Attending Physician. rn 14:59 Danish Blas, ALFRED is Primary Nurse. rs5 15:00 Triage completed. aa5 15:01 Patient has correct armband on for positive identification. Bed in low position. Call rs5 light in reach. Side rails up X2. Adult w/ patient. Client placed on continuous cardiac and pulse oximetry monitoring. NIBP monitoring applied. 15:34 Initial lab(s) drawn, by me, sent to lab. First set of blood cultures drawn by me. aa5 Inserted saline lock: 22 gauge in left wrist, using aseptic technique. Blood collected. 15:45 Chest Single View XRAY In Process Unspecified. EDMS 16:30 CT Chest, Abdomen, Pelvis - W/Contrast In Process Unspecified. EDMS 17:01 called the answering service of Dr. Kadeem Dumas [phone]/ they will send out a eb page. 17:25 Assisted provider with central line placement. Set up central line tray. Triple lumen rs5 line placed in right femoral. Line placed by Osmel Melendez MD Placement verified by blood return, Dressed with Tegaderm, Patient tolerated well. Before procedure, did Practitioner(s) obtain informed consent? Yes. Patient \\T\\ family education about procedure, CLABSI prevention and S/S of infection? Yes. Time-out/Briefing performed prior to start of procedure? Yes. Was handwashing/sanitizing done immediately prior to procedure? Yes. Was patient positioned to in a way to prevent air embolism? Yes. Was procedure site sterilized? Yes, with Was the site allowed to dry? Yes. Was local anesthetic and/or sedation utilized? Yes. During the procedure, did the Practitioner(s) maintain a sterile field? Yes. Were unused ports clamped during insertion? Yes. Was a 2nd qualified MD obtained after 3 unsuccessful insertion attempts? No. Was blood aspirated from each lumen? Yes. After the procedure, did the Practitioner(s) clean the site and apply a sterile dressing? Yes. 17:40 attempted to initiate a transfer with the [facility]/ placed on eb immediate hold. 18:11 initiated a transfer with Sumi from the [facility] [place]. eb 18:41 Pt accepted to [facility] ICU by Dr. Dumas. rv1 19:05 Report given to ALFRED Fang. rs5 Administered Medications: 15:19 Drug: Ondansetron IVP 4 mg Route: IVP; Site: left antecubital; rs5 15:30 Follow up: Response: No adverse reaction; Nausea unchanged; Nausea unchanged. MD barragan notified 15:19 Drug: NS 0.9% IV 500 ml Route: IV; Rate: bolus; Site: left antecubital; rs5 15:46 Follow up: IV Status: Completed infusion; IV Intake: 500ml rs5 15:46 Drug: NS 0.9% IV 500 ml Route: IV; Rate: bolus; Site: left antecubital; aa5 16:20 Follow up: IV Status: Completed infusion; IV Intake: 500ml rs5 16:31 CANCELLED (Duplicate Order): NS 0.9% IV 1000 ml IV at 1000 ml once rn 16:31 Drug: NS 0.9% IV 500 ml Route: IV; Rate: bolus; Site: left antecubital; rs5 17:00 Follow up: IV Status: Completed infusion; IV Intake: 500ml rs5 17:35 Drug: DOPamine 5 mcg/kg/min Route: IV; Rate: calculated rate; Site: right femoral; rs5 17:45 Follow up: Rate change 10 mcg/kg/min rs5 18:05 Follow up: Rate change 15 mcg/kg/min rs5 18:25 Follow up: Rate change 20 mcg/kg/min rs5 18:15 Drug: Cefepime IVPB 1 grams Route: IVPB; Rate: 200 ml/hr; Infused Over: 30 mins; Site: rs5 right femoral; 18:45 Follow up: IV Status: Completed infusion rs5 18:15 Drug: Potassium Chloride IV 20 mEq Route: IV; Rate: calculated rate; Site: right rs5 femoral; 18:48 Follow up: Response: No adverse reaction rs5 18:15 Drug: Ondansetron IVP 4 mg Route: IVP; Site: left antecubital; rs5 18:38 Follow up: Response: No adverse reaction; Nausea unchanged; Nausea unchanged, MD barragan notified 18:17 Drug: Calcium Gluconate IVPB 1 grams Route: IVPB; Infused Over: 60 mins; Site: left rs5 antecubital; 19:05 Follow up: IV Status: Completed infusion rs5 18:48 Drug: vancoMYCIN IVPB 1 grams Route: IVPB; Infused Over: 2 hrs; Site: right femoral; rs5 19:05 Follow up: Response: No adverse reaction rs5 18:48 Drug: Pantoprazole IVP 40 mg Route: IVP; Site: left wrist; rs5 19:05 Follow up: Response: No adverse reaction rs5 19:05 Drug: Norepinephrine IV 0.1 mcg/kg/min Route: IV; Rate: calculated rate; Site: right rs5 femoral; Intake: 15:46 IV: 500ml; Total: 500ml. rs5 16:20 IV: 500ml; Total: 1000ml. rs5 17:00 IV: 500ml; Total: 1500ml. rs5 Outcome: 17:40 ER care complete, transfer ordered by . rn 20:32 Patient left the ED. kl Signatures: Dispatcher [employer] EDNM Mikaela Michelle RN RN kl Nieto, Roman, MD MD rn Calderon, Audri, RN RN aa Lola To Ronaldo, RN RN rv Ping De La Garza rvDanish Garcia RN RN rs5 Corrections: (The following items were deleted from the chart) 15:02 15:00 Allergies: Codeine; [place] [id number] 15:02 15:00 Allergies: Hydrocodone-Acetaminophen; [place] [address] 15:02 15:00 Allergies: tramadol; [place] [address] 15:02 15:00 Allergies: Sulfa (Sulfonamide Antibiotics); [place] [address] 15:08 14:53 Chief complaint: EMS states: chest pain and nausea today. Had pacemaker placed at [address] approximately 7 days ago. aa5 15:38 15:01 General: Appears rs5 rs5 15:40 15:19 Cardiovascular: Clean 2 inch incision noted to left upper chest. Pt reports [facility] pacemaker implantation 2 weeks ago. No redness or signs of infection noted. rs5 15:43 15:19 Pain: Denies pain. rs rs5 15:43 15:19 Neuro: Level of Consciousness is awake, alert, obeys commands, Oriented to rs5 person, place, time, situation, rs5 15:43 15:19 Cardiovascular: Heart tones S1 S2 present Capillary refill < 3 seconds Pulses are rs5 absent in right posterior tibial artery, right dorsalis pedis artery, left posterior tibial artery and left dorsalis pedis artery are palpable in right radial artery and left radial artery Rhythm is regular rs5 15:43 15:19 Respiratory: Airway is patent Respiratory effort is even, unlabored, Respiratory rs5 pattern is regular, Breath sounds are diminished bilaterally. rs5 15:43 15:19 GI: Abdomen is round non-distended, Bowel sounds present X 4 quads. Abd is soft rs5 and non tender X 4 quads. Reports nausea, vomiting, rs5 15:43 15:19 : No signs and/or symptoms were reported regarding the genitourinary system. rs5rs5 15:43 15:19 EENT: No signs and/or symptoms were reported regarding the EENT system. rs5 rs5 15:43 15:19 Derm: Skin is pink, warm \\T\\ dry. rs5 rs5 15:43 15:19 Musculoskeletal: Range of motion: intact in all extremities, rs5 rs5 15:43 15:19 Pain: Denies pain. rs5 rs5 15:43 15:19 Cardiovascular: Chest pain is described as mild, quality is heaviness, is located rs5 in chest wall began 1 day ago episodes are intermittent rs5 15:43 15:19 Cardiovascular: Clean 2 inch incision noted to left upper chest. Pt reports rs5 pacemaker surgically inserted at [facility] 7 days ago. No redness or signs of infection noted. rs5 17:42 17:40 105.69 kg Measured; aa5 aa5 18:35 15:01 General: Appears in no apparent distress. uncomfortable, Behavior is calm, rs5 cooperative, rs5 18:35 15:01 Cardiovascular: Heart tones S1 S2 present Capillary refill < 3 seconds 2 plus rs5 edema noted to lower extremities bilaterally. Pulses are absent in right posterior tibial artery, right dorsalis pedis artery, left posterior tibial artery and left dorsalis pedis artery are palpable in right radial artery and left radial artery Rhythm is regular rs5 19:36 15:30 Reassessment: rs5 rs5 19:40 18:30 General: Appears uncomfortable, Behavior is cooperative, restless, Reports rs5 rs5 19:44 17:00 Reassessment: Assisted with bedpan to attempt BM, pt unable to have BM. . rs5 rs5 19:49 15:01 Cardiovascular: Clean 2 inch incision noted to left upper chest. Pt reports rs5 pacemaker surgically inserted at [facility] 7 days ago. No redness or signs of infection noted. rs5 19:49 15:01 Cardiovascular: Heart tones S1 S2 present Capillary refill < 3 seconds 2 plus rs5 edema noted to lower extremities bilaterally. Pulses are absent in right posterior tibial artery, right dorsalis pedis artery, left posterior tibial artery and left dorsalis pedis artery are palpable in right radial artery and left radial artery are 1+ in right radial artery and left radial artery Rhythm is regular rs5
--- NOTE | 2023-02-10 17:41 | EDPHYS ---
Physician Documentation [facility] Name: Ernestina Mauricio Age: 62 yrs Sex: Female : 1960 Arrival Date: 02/10/2023 Time: 14:51 Bed 4 Private MD: ED Physician Osmel Melendez HPI: 02/10 15:06 This 62 yrs old Female presents to ER via Unassigned with complaints of Chest Pain. rn 15:17 The patient presents to the emergency department with nausea, vomiting. Onset: The rn symptoms/episode began/occurred this morning. Possible causes: unknown. The symptoms are aggravated by nothing. The symptoms are alleviated by nothing. Severity of symptoms: At their worst the symptoms were moderate in the emergency department the symptoms are unchanged. The patient has not experienced similar symptoms in the past. The patient has been recently seen by a physician:. Pt reports started to feel "sick to stomach" this AM. Had pacemaker placed 1 week ago, doing fine until this morning. Reports pain in chest and abdomen. No fever or chills. Reports hx of low potassium. No intestinal bleeding. No sob or cough. . Historical: - Allergies: 15:00 "All pain medicines make me itch"; aa5 15:00 Sulfa (Sulfonamide Antibiotics); aa5 - Home Meds: 15:02 xarelto [Active]; Lasix Oral [Active]; Singulair Oral [Active]; Spiriva with HandiHaler aa5 18 mcg inhalation Capsule, With Inhalation Device [Active]; Flovent Inhl [Active]; Xopenex Nebulizer [Active]; - PMHx: 15:00 Asthma; Cancer, Breast; Hypertension; COPD; aa5 15:02 Atrial fibrillation; low potassium; aa5 - PSHx: 15:00 Right mastectomy; Pacemaker; aa5 - Family history:: not pertinent. - Hospitalizations: : Patient was recently seen at. ROS: 15:17 Constitutional: Negative for fever, chills, and weight loss, Eyes: Negative for injury, rn pain, redness, and discharge, Neck: Negative for injury, pain, and swelling, Cardiovascular: Negative for palpitations, and edema, Respiratory: Negative for shortness of breath, cough, wheezing, and pleuritic chest pain, Abdomen/GI: Negative for diarrhea, and constipation, Back: Negative for injury and pain, MS/Extremity: Negative for injury and deformity, Skin: Negative for injury, rash, and discoloration, Neuro: Negative for headache, numbness, tingling, and seizure. Exam: 15:17 Constitutional: Overweight female, holding emesis bag Head/Face: Normocephalic, rn atraumatic. Cardiovascular: Regular rate and rhythm. No pulse deficits. Respiratory: No increased work of breathing, no retractions or nasal flaring. Abdomen/GI: soft, no focal tenderness, no distension Skin: Warm, dry MS/ Extremity: Pulses equal, no cyanosis Neuro: Awake and alert, GCS 15, oriented to person, place, time, and situation. Cranial nerves II-XII grossly intact. Motor strength 4/5 in all extremities. Sensory grossly intact. Cerebellar exam normal. 16:34 ECG was reviewed by the Attending Physician. rn Vital Signs: 14:53 BP 97 / 59; Pulse 65; Resp 18 S; Temp 97.7(O); Pulse Ox 98% on R/A; aa5 15:00 BP 97 / 59; Pulse 102; Resp 22; Pulse Ox 95% on R/A; rs5 15:15 BP 79 / 47; Pulse 60; Resp 20; Pulse Ox 96% on 2 lpm NC; rs5 15:30 BP 86 / 61; Pulse 58; Resp 19; Pulse Ox 95% on 2 lpm NC; rs5 15:43 BP 77 / 61; Pulse 60; Resp 20; Pulse Ox 94% on 2 lpm NC; rs5 16:00 BP 86 / 56; Pulse 60; Resp 17; Pulse Ox 96% on R/A; rs5 16:12 BP 77 / 66; Pulse 60; Resp 18; Pulse Ox 96% on R/A; rs5 16:30 BP 89 / 53; Pulse 60; Resp 18; Pulse Ox 98% on R/A; rs5 16:40 BP 90 / 65; Pulse 60; Resp 18; Pulse Ox 98% on R/A; rs5 16:50 BP 83 / 55; Pulse 60; Resp 17; Pulse Ox 95% on R/A; rs5 17:00 BP 73 / 36; Pulse 60; Resp 16; Pulse Ox 96% on R/A; rs5 17:20 BP 88 / 62; Pulse 60; Resp 17; Pulse Ox 95% on R/A; rs5 17:35 Weight 105.69 kg (M); aa5 17:35 BP 83 / 45; Pulse 60; Resp 18; Pulse Ox 98% on 2 lpm NC; rs5 17:40 BP 81 / 56; Pulse 62; Resp 17; Pulse Ox 97% on 2 lpm NC; rs5 17:45 BP 72 / 56; Pulse 61; Resp 17; Pulse Ox 97% on 2 lpm NC; rs5 17:50 BP 85 / 72; Pulse 63; Resp 17; Pulse Ox 97% on 2 lpm NC; rs5 17:55 BP 76 / 51; Pulse 60; Resp 17; Pulse Ox 99% ; rs5 17:59 BP 85 / 72; rn 18:00 BP 83 / 57; Pulse 67; Pulse Ox 96% on 2 lpm NC; rs5 18:05 BP 76 / 52; Pulse 68; Resp 17; Temp 98.1(O); Pulse Ox 99% on 2 lpm NC; rs5 18:10 BP 83 / 57; Pulse 60; Resp 18; Pulse Ox 96% on 2 lpm NC; rs5 18:15 BP 83 / 56; Pulse 60; Resp 18; Pulse Ox 99% on 2 lpm NC; rs5 18:20 BP 105 / 63; Pulse 60; Resp 17; Pulse Ox 95% on R/A; rs5 18:25 BP 84 / 38; Pulse 60; Resp 17; Pulse Ox 95% on R/A; rs5 18:30 BP 82 / 59; Pulse 60; Resp 18; Pulse Ox 96% on R/A; rs5 18:40 BP 78 / 51; Pulse 63; Resp 17; Pulse Ox 95% on R/A; rs5 18:50 BP 77 / 55; Pulse 63; Resp 17; Pulse Ox 94% on R/A; rs5 19:08 BP 92 / 45; Pulse 61; Resp 17; Pulse Ox 96% on R/A; rs5 19:15 BP 95 / 43; Pulse 60; Resp 19; Pulse Ox 97% on 2 lpm NC; rv 19:30 BP 104 / 55; Pulse 60; Resp 16; Pulse Ox 96% 2 lpm ; rv 19:45 BP 91 / 45; Pulse 60; Resp 17; Pulse Ox 100% on 2 lpm NC; rv 19:55 BP 112 / 98; Pulse 60; Resp 16; Pulse Ox 95% 2 lpm ; rv 20:00 BP 99 / 71; Pulse 61; Resp 16; Pulse Ox 98% ; rv 20:05 BP 97 / 58; Pulse 60; Resp 16; Temp 98; Pulse Ox 98% on 2 lpm NC; rv 20:32 BP 92 / 45; Pulse 61; Resp 16; Pulse Ox 96% on 2 lpm NC; rv 15:15 MD notified rs5 15:30 MD notified rs5 18:40 MD aware of blood pressures and aware of doopamine being maxed out rs5 Cec[place] Coma Score: 19:00 Eye Response: spontaneous(4). Motor Response: obeys commands(6). Verbal Response: rv oriented(5). Total: 15. 20:00 Eye Response: spontaneous(4). Motor Response: obeys commands(6). Verbal Response: rv oriented(5). Total: 15. Procedures: 17:36 Central Line: the site was prepped with Betadine, in sterile fashion, a triple lumen rn catheter was inserted, in the right femoral vein, patient unable to hold head/neck still for neck line given nausea/vomiting, in 1 attempts. placement was verified, by blood return, the site was dressed with 4X4s, Tegaderm, using sterile technique, the patient tolerated the procedure, well. MDM: 14:54 Patient medically screened. rn 16:33 Independent interpretation of the following test(s) in the Emergency Department X-Ray: rn My interpretation is CXR images show cardiomegaly per my interpretation. patient monitor: rate is 65 beats/min, Rhythm is paced rhythm with no ectopy, Interpretation: normal rate, paced. 17:37 Differential diagnosis: sepsis, severe sepsis, pericardial effusion, pacemaker failure. rn Data reviewed: vital signs, nurses notes, lab test result(s), EKG, radiologic studies, CT scan, plain films, and as a result, I will admit patient. Consideration of Admission/Observation Patient was admitted/placed on observation. Escalation of care including admission/observation considered. Management of patient was discussed with the following: Equipment Washer: Dr. Dumas, who placed pacemaker, wants patient transferred to [facility] . Counseling: I had a detailed discussion with the patient and/or guardian regarding the historical points, exam findings, and any diagnostic results supporting the discharge/admit diagnosis, lab results, radiology results, the need to transfer to another facility, for higher level of care, [facility] does not immediately have the required specialist. Response to treatment: the patient's symptoms have mildly improved after treatment. 17:41 ED course: Full 30ml/kg bolus not performed given recent cardiac procedure and known rn CHF on diuretics. Pressors started after 1500 ml bolus and persistent hypotension. No source of infection identified at this time.. 02/10 14:55 Order name: Blood Culture Adult (2) 02/10 14:55 Order name: CBC with Diff; Complete Time: 16:04 02/10 14:55 Order name: CMP; Complete Time: 16:29 02/10 14:55 Order name: Lactate w/ 2H reflex if indic.; Complete Time: 16:39 02/10 14:55 Order name: Protime (+inr); Complete Time: 16:04 02/10 14:55 Order name: Ptt, Activated; Complete Time: 16:04 02/10 14:55 Order name: Basic Metabolic Panel 02/10 14:55 Order name: Magnesium; Complete Time: 16:29 02/10 14:55 Order name: NT PRO-BNP; Complete Time: 16:29 02/10 14:55 Order name: Troponin HS; Complete Time: 16:29 02/10 16:06 Order name: SARS RAPID; Complete Time: 18:14 02/10 16:06 Order name: Flu; Complete Time: 17:18 02/10 14:55 Order name: Chest Single View XRAY; Complete Time: 16:58 02/10 14:55 Order name: CT Chest, Abdomen, Pelvis - W/Contrast; Complete Time: 16:58 02/10 14:55 Order name: EKG; Complete Time: 14:55 02/10 14:55 Order name: Cardiac monitoring; Complete Time: 15:09 02/10 14:55 Order name: EKG - Nurse/Tech; Complete Time: 15: 02/10 14:55 Order name: IV Saline Lock - Large Bore; Complete Time: 15: 02/10 14:55 Order name: Labs collected and sent; Complete Time: 15: 02/10 14:55 Order name: O2 Per Protocol; Complete Time: 15:09 rn 02/10 14:55 Order name: O2 Sat Monitoring; Complete Time: 15: rn 02/10 14:55 Order name: Vital Signs; Complete Time: 15: rn 02/10 14:55 Order name: IV Saline Lock; Complete Time: 15:11 rn EC:34 Rate is 64 beats/min. Rhythm is regular. Left axis deviation noted. QRS is positive in rn lead I and negative in lead aVF. QT interval is normal. No Q waves. T waves are Normal. No ST changes noted. Clinical impression: paced rhythm . Interpreted by me. Reviewed by me. Administered Medications: 15:19 Drug: Ondansetron IVP 4 mg Route: IVP; Site: left antecubital; rs5 15:30 Follow up: Response: No adverse reaction; Nausea unchanged; Nausea unchanged. rs5 notified 15:19 Drug: NS 0.9% IV 500 ml Route: IV; Rate: bolus; Site: left antecubital; rs5 15:46 Follow up: IV Status: Completed infusion; IV Intake: 500ml rs5 15:46 Drug: NS 0.9% IV 500 ml Route: IV; Rate: bolus; Site: left antecubital; aa5 16:20 Follow up: IV Status: Completed infusion; IV Intake: 500ml rs5 16:31 CANCELLED (Duplicate Order): NS 0.9% IV 1000 ml IV at 1000 ml once rn 16:31 Drug: NS 0.9% IV 500 ml Route: IV; Rate: bolus; Site: left antecubital; rs5 17:00 Follow up: IV Status: Completed infusion; IV Intake: 500ml rs5 17:35 Drug: DOPamine 5 mcg/kg/min Route: IV; Rate: calculated rate; Site: right femoral; rs5 17:45 Follow up: Rate change 10 mcg/kg/min rs5 18:05 Follow up: Rate change 15 mcg/kg/min rs5 18:25 Follow up: Rate change 20 mcg/kg/min rs5 18:15 Drug: Cefepime IVPB 1 grams Route: IVPB; Rate: 200 ml/hr; Infused Over: 30 mins; Site: rs5 right femoral; 18:45 Follow up: IV Status: Completed infusion rs5 18:15 Drug: Potassium Chloride IV 20 mEq Route: IV; Rate: calculated rate; Site: right rs5 femoral; 18:48 Follow up: Response: No adverse reaction rs5 18:15 Drug: Ondansetron IVP 4 mg Route: IVP; Site: left antecubital; rs5 18:38 Follow up: Response: No adverse reaction; Nausea unchanged; Nausea unchanged, MD barragan notified 18:17 Drug: Calcium Gluconate IVPB 1 grams Route: IVPB; Infused Over: 60 mins; Site: left rs5 antecubital; 19:05 Follow up: IV Status: Completed infusion rs5 18:48 Drug: vancoMYCIN IVPB 1 grams Route: IVPB; Infused Over: 2 hrs; Site: right femoral; rs5 19:05 Follow up: Response: No adverse reaction rs5 18:48 Drug: Pantoprazole IVP 40 mg Route: IVP; Site: left wrist; rs5 19:05 Follow up: Response: No adverse reaction rs5 19:05 Drug: Norepinephrine IV 0.1 mcg/kg/min Route: IV; Rate: calculated rate; Site: right rs5 femoral; Disposition Summary: 02/10/23 17:40 Transfer Ordered Transfer Location: [facility] rn Reason: Higher level of care rn Condition: Fair rn Problem: new rn Symptoms: have improved rn Accepting Physician: Dr. 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 Total time: 360 rn minutes Signatures: Dispatcher [employer] EDMikaela Lozano RN Osmel Alexander MD MD rn Calderon, Audri, RN RN Danish Yeboah RN RN rs5 Corrections: (The following items were deleted from the chart) 15:02 15:00 Allergies: Codeine; aa5 aa5 15:02 15:00 Allergies: Hydrocodone-Acetaminophen; aa5 aa5 15:02 15:00 Allergies: tramadol; aa5 aa5 15:02 15:00 Allergies: Sulfa (Sulfonamide Antibiotics); aa5 aa5 16:14 14:55 Accucheck ordered. rn gen 16:31 16:29 NS 0.9% IV 1000 ml IV at 1000 ml once ordered. rn rn 20:32 17:40 Dr. Dumas rn kl
[2023-02-10 18:07] LABS: SARS-CoV-2 Antigen Rapid Res Negative (Negative)
[2023-02-10] MEDS ORDERED: NA CHLORIDE 0.9% 250 ML ONE (18:10)
[2023-02-10] MEDS ORDERED: VANCOMYCIN 1 GM/VIAL ONE (18:10)
[2023-02-10] MEDS ORDERED: KCL 20 MEQ/100 mL IVPB 100 ML IV ONE (18:11)
[2023-02-10] MEDS ORDERED: CALCIUM GLUCONATE 1 GM IVPB 1 GM/50 ML BAG IV ONE (18:11)
[2023-02-10] MEDS ORDERED: CEFEPIME 1 GM/VIAL ONE (18:11)
[2023-02-10] MEDS ORDERED: NA CHLORIDE 0.9% 100 ML ONE (18:11)
[2023-02-10] MEDS ORDERED: PANTOPRAZOLE 40 MG INJ ONE (18:56)
[2023-02-10] MEDS ORDERED: NOREPINEPHRINE BITARTRATE/D5W 4 MG/250 ML BAG IV ONE (19:06)
[2023-02-10 21:13] VITALS: TEMP 98.1
[2023-02-10 21:27] VITALS: BP 92/45; O2SAT 96
--- NOTE | 2023-02-13 12:17 | EKG ---
Test Date: 2023-02-10 Test Time: 15:03:42 Hog Dropper: RANDY MEASUREMENT RESULTS: Intervals: Rate: 64 TX: QRSD: 136 QT: 450 QTc: 464 [place]: P: TX: QRS: -75 T: 70 INTERPRETIVE STATEMENTS: Suspect unspecified pacemaker failure Sinus rhythm Left axis deviation Right bundle branch block Abnormal ECG Compared to ECG 08/13/2008 14:11:00 Uncertain supraventricular rhythm now present Left-axis deviation now present Right bundle-branch block now present Sinus bradycardia no longer present ST (T wave) deviation no longer present Possible ischemia no longer present Electronically Signed On 02-13-23 12:14:12 CDT by Emre Hedrick
== END 2023-02-10 20:32 | disposition short-term general hospital (02) ==
LOC: ER 14:51
PROC: 06HM33Z Insertion of Infusion Device into Right Femoral Vein, Percutaneous Approach (ICD-10-PCS; principal; 2023-02-10)
DX: I31.39 Other pericardial effusion (noninflammatory) (principal); I95.9 Hypotension, unspecified; Z95.0 Presence of cardiac pacemaker; I48.91 Unspecified atrial fibrillation; Z79.01 Long term (current) use of anticoagulants; I10 Essential (primary) hypertension; J44.9 Chronic obstructive pulmonary disease, unspecified; Z20.822 Contact with and (suspected) exposure to COVID-19; Z85.3 Personal history of malignant neoplasm of breast; Z88.2 Allergy status to sulfonamides; Z88.6 Allergy status to analgesic agent
CPT/HCPCS: 87040 ×2; 85025; 36415; 83735; 85610; 83605; 85730; 84484; 80053; 83880; 87804 ×2; 71260; 74177; 71045; 99285; 87811; 36556; Q9967; J3480; J0612; C9113; J2405 ×2; J1265; J7050; J7040; J0692; 93005